=== PATIENT | male | born 1970 | race Caucasian/White ===

== ENCOUNTER 2017-08-15 19:22 | Inpatient (IN) | payer OTHER ==
[~2017-08-15] VITALS: Ht 180.3 cm; Wt 87.0 kg
[2017-08-15 19:26] VITALS: BP 160/93; PULSE 74; RESP 16; TEMP 98; O2SAT 98
[2017-08-15] MEDS ORDERED: SODIUM CHLOR 0.9% 1000 ML INJ 1,000 ML IV SCH (19:40)
--- NOTE | 2017-08-15 19:40 | PD ---
HPI Chief Complaint: GI Complaint Time Seen by Provider: 19:29 Travel History International Travel<30 days: No Contact w/Intl Traveler<30days: No History of Present Illness HPI PATIENT COMPLAINTS OF UPPER ABDOMINAL PAIN, NONRADIATING, 04/15, ASSOC WITH N/V AND UNABLE TO KEEP FOOD/LIQUID DOWN SINCE WEDNESDAY. WORSENED BY EATING/DRINKING, NOT REALLY RELIEVED BY ANYTHING SPECIFIC. APPARENTLY NOTED HIS URINE WAS ORANGE LOOKING AND HIS STOOL WAS WHITISH LOOKING, THIS CONCERNED HIM AND MADE HIM WONDERED IF HE WAS DEHYDRATED CHART AND RN NOTES REVIEWED ALL:NKDA PSHX: GASTRIC BYPASS BECAUSE OF "GASTROPARESIS" AND APPARENTLY THE OPENING IS SHRINKING AND DOING STRETCHING OR STENTING OF IT HAS NOT HELPED AND HE WILL HAVE REVISION [facility]ING [facility] Social History Tobacco Use: No Allergies-Medications (Allergen,Severity, Reaction): Coded Allergies: No Known Allergies (Unverified , 08/15/17) Reported Meds & Prescriptions Reported Meds & Active Scripts Active Reported Transderm-Scop (Scopolamine) 1.5MG/3DAY Dis Pantoprazole (Pantoprazole Sodium) 40 Mg Tab 40 Mg PO DAILY Metoclopramide (Metoclopramide HCl) 10 Mg Tab 10 Mg PO QID Review of Systems General / Constitutional: No: Fever Eyes: No: Visual changes HENT: No: Headaches Cardiovascular: No: Chest Pain or Discomfort Respiratory: No: Shortness of Breath Gastrointestinal: Positive: Nausea, Vomiting, Abdominal Pain Genitourinary: No: Dysuria Musculoskeletal: No: Pain Skin: No Rash Neurologic: No: Weakness Psychiatric: No: Depression Endocrine: No: Polydipsia Hematologic/Lymphatic: No: Easy Bruising Physical Exam Narrative GENERAL: SKIN: Warm and dry. HEAD: Atraumatic. Normocephalic. EYES: Pupils equal and round. No scleral icterus. No injection or drainage. ENT: No nasal bleeding or discharge. Mucous membranes pink and moist. NECK: Trachea midline. No JVD. CARDIOVASCULAR: Regular rate and rhythm. RESPIRATORY: No accessory muscle use. Clear to auscultation. Breath sounds equal bilaterally. GASTROINTESTINAL: Abdomen soft, non-tender, nondistended. HYPOACTIVE BUT PRESENT BOWEL SOUNDS MUSCULOSKELETAL: Extremities without clubbing, cyanosis, or edema. No obvious deformities. NEUROLOGICAL: Awake and alert. No obvious cranial nerve deficits. Motor grossly within normal limits. Five out of 5 muscle strength in the arms and legs. Normal speech. PSYCHIATRIC: Appropriate mood and affect; insight and judgment normal. Data Data Last Documented VS Vital Signs Date Time Temp Pulse Resp B/P (MAP) Pulse Ox O2 Delivery O2 Flow Rate FiO2 08/15/17 21:18 78 16 143/83 (103) 97 Room Air 08/15/17 19:26 98.0 Orders Orders Complete Blood Count With Diff (08/15/17 19:40) Comprehensive Metabolic Panel (08/15/17 19:40) Lipase (08/15/17 19:40) Ct Abd/Pel W/O Iv Contrast (08/15/17 19:40) Iv Access Insert/Monitor (08/15/17 19:40) Ecg Monitoring (08/15/17 19:40) Oximetry (08/15/17 19:40) NPO (08/15/17 19:40) Morphine Inj (Morphine Inj) (08/15/17 19:45) Ondansetron Inj (Zofran Inj) (08/15/17 19:45) Sodium Chlor 0.9% 1000 Ml Inj (Ns 1000 M (08/15/17 19:40) Sodium Chloride 0.9% Flush (Ns Flush) (08/15/17 19:45) Vital Signs (Adult) Q4H (08/15/17 21:11) Activity Oob With Assistance (08/15/17 21:11) Bedside Glucose IRIS.CSUGAR (08/15/17 21:11) Sodium Chlor 0.9% 1000 Ml Inj (Ns 1000 M (08/15/17 21:11) Sodium Chloride 0.9% Flush (Ns Flush) (08/15/17 21:15) Sodium Chloride 0.9% Flush (Ns Flush) (08/16/17 09:00) Ondansetron Inj (Zofran Inj) (08/15/17 21:15) Comprehensive Metabolic Panel (08/16/17 06:00) Complete Blood Count With Diff (08/16/17 06:00) Case Management Consult (08/15/17 21:11) Scd Bilateral/Knee High IRIS.BID (08/15/17 21:11) Naloxone Inj (Narcan Inj) (08/15/17 21:15) Docusate Sodium-Senna (Niru-Colace) (08/16/17 09:00) Magnesium Hydroxide Liq (Milk Of Magnesi (08/15/17 21:15) Sennosides (Senokot) (08/15/17 21:15) Bisacodyl Supp (Dulcolax Supp) (08/15/17 21:15) Lactulose Liq (Lactulose Liq) (08/15/17 21:15) Admit Order (Ed Use Only) (08/15/17 21:19) Labs Laboratory Tests Test 08/15/17 20:00 White Blood Count 6.9 TH/MM3 Red Blood Count 5.31 MIL/MM3 Hemoglobin 14.8 GM/DL Hematocrit 46.3 % Mean Corpuscular Volume 87.4 FL Mean Corpuscular Hemoglobin 27.8 PG Mean Corpuscular Hemoglobin Concent 31.8 % Red Cell Distribution Width 14.7 % Platelet Count 354 TH/MM3 Mean Platelet Volume 7.6 FL Neutrophils (%) (Auto) 68.6 % Lymphocytes (%) (Auto) 17.6 % Monocytes (%) (Auto) 10.9 % Eosinophils (%) (Auto) 1.8 % Basophils (%) (Auto) 1.1 % Neutrophils # (Auto) 4.7 TH/MM3 Lymphocytes # (Auto) 1.2 TH/MM3 Monocytes # (Auto) 0.8 TH/MM3 Eosinophils # (Auto) 0.1 TH/MM3 Basophils # (Auto) 0.1 TH/MM3 CBC Comment DIFF FINAL Differential Comment Blood Urea Nitrogen 13 MG/DL Creatinine 1.10 MG/DL Random Glucose 106 MG/DL Total Protein 8.3 GM/DL Albumin 3.5 GM/DL Calcium Level 8.5 MG/DL Alkaline Phosphatase 195 U/L Aspartate Amino Transf (AST/SGOT) 207 U/L Alanine Aminotransferase (ALT/SGPT) 532 U/L Total Bilirubin 4.4 MG/DL Sodium Level 136 MEQ/L Potassium Level 3.7 MEQ/L Chloride Level 101 MEQ/L Carbon Dioxide Level 27.1 MEQ/L Anion Gap 8 MEQ/L Estimat Glomerular Filtration Rate 72 ML/MIN Lipase 180 U/L [facility] Medical Decision Making Medical Screen Exam Complete: Yes Emergency Medical Condition: Yes Medical Record Reviewed: Yes Differential Diagnosis SBO V ILEUS V BILIARY OBSTRUCTION V PANCREATITIS Narrative Course lft's , alkphos c/w obstructive biliary pattern, normal lipase, ct neg for sbo/ illeu/ however did show cbd dilation...patient will be admitted for further evaluation Physician Communication Physician Communication d/w hepas for further care Diagnosis Primary Impression: Choledocholithiasis with obstruction Qualified Codes: K80.51 - Calculus of bile duct without cholangitis or cholecystitis with obstruction Admitting Information Admitting Physician Requests: Admit Clifford Porter MD Aug 15, 2017 19:40
[2017-08-15] MEDS ORDERED: PANT40TA3 PO (19:41)
[2017-08-15] MEDS ORDERED: SCOP1PAT2 (19:41)
[2017-08-15] MEDS ORDERED: METO10TA PO (19:41)
[2017-08-15] MEDS ORDERED: MORPHINE SULFATE 4 MG/ML INJ IV PUSH ONE (19:45)
[2017-08-15] MEDS ORDERED: ONDANSETRON HCL 4 MG/2 ML VIAL IVP ONE ×2 (19:45→21:45)
[2017-08-15] MEDS ORDERED: SODIUM CHLORIDE 0.9% FLUSH 10 ML FLUSH IV FLUSH PRN (19:45)
[2017-08-15 20:19] VITALS: BP 141/86; PULSE 76; RESP 16; O2SAT 96
--- NOTE | 2017-08-15 20:20 | RADRPT ---
EXAM DATE/TIME: 08/15/2017 19:49 [facility] COMPARISON: No previous studies available for comparison. INDICATIONS : Right upper abdominal pain. Nausea. Vomiting. ORAL CONTRAST: No oral contrast ingested. RADIATION DOSE: 21.92 CTDIvol (mGy) MEDICAL HISTORY : Gastroparesis. SURGICAL HISTORY : Gastric bypass. ENCOUNTER: Initial ACUITY: 2 days PAIN SCALE: 7/10 LOCATION: Right upper quadrant TECHNIQUE: Volumetric scanning of the abdomen and pelvis was performed. Using automated exposure control and ad justment of the mA and/or kV according to patient size, radiation dose was kept as low as reasonably achievable to obtain optimal diagnostic quality images. DICOM format image data is available electro nically for review and comparison. FINDINGS: LOWER LUNGS: The visualized lower lungs are clear. LIVER: There is decreased density seen throughout the liver. No focal hepatic lesions are seen. The gallblad arturo is unremarkable. The common bile duct appears prominent measuring 1.0 cm. SPLEEN: Normal size without lesion. PANCREAS: Within normal limits. KIDNEYS: Normal in size and shape. There is no mass, stone, or hydronephrosis. ADRENAL GLANDS: Within normal limits. VASCULAR: There is no aortic aneurysm. BOWEL/MESENTERY: The patient is status post distal gastrectomy. There is a bowel anastomosis sutures in the left upper quadrant in the small bowel. There is prominent debris within the small bowel at the anastomosis. Th e small bowel is mildly distended at the anastomosis measuring 4.5 cm in diameter. Bowel wall thicken ing is not seen. Dilatation of other segments of the bowel is not seen. ABDOMINAL WALL: There is diastases of the rectus muscles. There appears be minimal hernia seen in the midline above t he umbilicus containing the anterior wall of a portion of the small bowel. No dilatation or obstructi on is seen. There is also a small hernia seen just to the left of midline below the umbilicus contain ing the anterior wall of the small bowel. The patient has evidence of a prior midline incision. RETROPERITONEUM: There is no lymphadenopathy. BLADDER: No wall thickening or mass. REPRODUCTIVE: Within normal limits. INGUINAL: There is no lymphadenopathy or hernia. MUSCULOSKELETAL: Within normal limits for patient age. CONCLUSION: 1. Status post distal gastrectomy with a gastroenteric anastomosis. 2. There are bowel sutures in the left upper quadrant of the proximal small bowel with some dilatatio n of this segment with prominent debris within this portion of the small bowel in the left upper quad rant. The remaining small bowel is not dilated or thickened. 3. Dilatation of the common bile duct. A cause of this is not seen. 4. Evidence of prior midline incision with minimal hernias. 5. Hepatic steatosis. Neel Alexander MD on August 15, 2017 at 20:10 Board Certified Radiologist. This report was verified electronically.
[2017-08-15 20:24] LABS: AUTOMATED NEUTROPHIL # 4.7 TH/MM3 (1.8-7.7); BASOPHIL # 0.1 TH/MM3 (0-0.2); BASOPHIL % 1.1 % (0.0-2.0); EOSINOPHIL # 0.1 TH/MM3 (0-0.4); EOSINOPHIL % 1.8 % (0.0-4.0); HEMATOCRIT 46.3 % (39.0-51.0); HEMOGLOBIN 14.8 GM/DL (13.0-17.0); LYMPH % 17.6 % (9.0-44.0); LYMPHOCYTE # 1.2 TH/MM3 (1.0-4.8); MEAN CELL VOLUME 87.4 FL (80.0-100.0); MEAN CORPUSCULAR HEMOGLOBIN 27.8 PG (27.0-34.0); MEAN CORPUSCULAR HGB CONC 31.8 % (32.0-36.0); MEAN PLATELET VOLUME 7.6 FL (7.0-11.0); MONO % 10.9 % (0.0-8.0); MONOCYTE # 0.8 TH/MM3 (0-0.9); NEUT % 68.6 % (16.0-70.0); PLATELET COUNT 354 TH/MM3 (150-450); RED BLOOD COUNT 5.31 MIL/MM3 (4.50-5.90); RED CELL DISTRIBUTION WIDTH 14.7 % (11.6-17.2); WHITE BLOOD COUNT 6.9 TH/MM3 (4.0-11.0)
[2017-08-15 20:47] LABS: CHLORIDE 101 MEQ/L (98-107); SODIUM (NA) 136 MEQ/L (136-145)
[2017-08-15 20:50] LABS: CALCIUM 8.5 MG/DL (8.5-10.1)
[2017-08-15 20:51] LABS: ALBUMIN 3.5 GM/DL (3.4-5.0); BICARBONATE 27.1 MEQ/L (21.0-32.0); BLOOD UREA NITROGEN 13 MG/DL (7-18); GLUCOSE,RANDOM 106 MG/DL (74-106); LIPASE 180 U/L (73-393)
[2017-08-15 20:54] LABS: ALT (GPT) 532 U/L (12-78); AST (GOT) 207 U/L (15-37); GLOMERULAR FILTRATION RATE 72 ML/MIN (>89)
[2017-08-15 20:55] LABS: TOTAL BILIRUBIN ADULT 4.4 MG/DL (0.2-1.0); TOTAL PROTEIN 8.3 GM/DL (6.4-8.2)
[2017-08-15 20:56] LABS: ALKALINE PHOSPHATASE 195 U/L (45-117)
[2017-08-15] MEDS ORDERED: MAGNESIUM HYDROXIDE SUSP 30 ML CUP PO PRN (21:15)
[2017-08-15] MEDS ORDERED: SENNOSIDES 8.6 MG TAB PO PRN (21:15)
[2017-08-15] MEDS ORDERED: NALOXONE HCL 0.4 MG/ML AMP IV PUSH PRN (21:15)
[2017-08-15] MEDS ORDERED: BISACODYL 10 MG SUPP RECTAL PRN (21:15)
[2017-08-15] MEDS ORDERED: LACTULOSE SYRUP 20 GM/30 ML CUP PO PRN (21:15)
[2017-08-15 21:18] VITALS: BP 143/83; PULSE 78; RESP 16; O2SAT 97
[2017-08-15] MEDS: SODIUM CHLOR 0.9% 1000 ML INJ 1,000 ML IV SCH (21:44)
[2017-08-15] MEDS ORDERED: HYDROmorphone HCL PF 2 MG/ML VIAL IVS ONE (21:45)
[2017-08-15 21:56] VITALS: BP 129/86; PULSE 91; RESP 18; O2SAT 96
[2017-08-15 22:22] VITALS: BP 129/86
[2017-08-15] MEDS: HYDROmorphone HCL PF 1 MG/ML VIAL IV PRN (23:35)
[2017-08-16] VITALS (7 sets, daily range): BP systolic 110–151; BP diastolic 65–96; PULSE 65–86; RESP 16; TEMP 97.4–99; O2SAT 94–98
[2017-08-16 05:49] LABS: AUTOMATED NEUTROPHIL # 4.5 TH/MM3 (1.8-7.7); BASOPHIL % 0.6 % (0.0-2.0); EOSINOPHIL # 0.1 TH/MM3 (0-0.4); EOSINOPHIL % 1.3 % (0.0-4.0); HEMATOCRIT 40.9 % (39.0-51.0); HEMOGLOBIN 13.1 GM/DL (13.0-17.0); MEAN CELL VOLUME 87.5 FL (80.0-100.0); MEAN CORPUSCULAR HEMOGLOBIN 27.9 PG (27.0-34.0); MEAN CORPUSCULAR HGB CONC 31.9 % (32.0-36.0); MEAN PLATELET VOLUME 7.2 FL (7.0-11.0); MONO % 11.8 % (0.0-8.0); MONOCYTE # 0.8 TH/MM3 (0-0.9); NEUT % 70.3 % (16.0-70.0); PLATELET COUNT 309 TH/MM3 (150-450); RED BLOOD COUNT 4.68 MIL/MM3 (4.50-5.90); RED CELL DISTRIBUTION WIDTH 14.9 % (11.6-17.2); WHITE BLOOD COUNT 6.4 TH/MM3 (4.0-11.0)
[2017-08-16 05:51] LABS: CHLORIDE 105 MEQ/L (98-107); SODIUM (NA) 139 MEQ/L (136-145)
[2017-08-16] MEDS: SODIUM CHLOR 0.9% 1000 ML INJ 1,000 ML IV SCH ×3 (05:51→17:59)
[2017-08-16 05:55] LABS: CALCIUM 7.8 MG/DL (8.5-10.1)
[2017-08-16 06:10] LABS: ALBUMIN 2.8 GM/DL (3.4-5.0); ALKALINE PHOSPHATASE 166 U/L (45-117); ALT (GPT) 416 U/L (12-78); AST (GOT) 152 U/L (15-37); BICARBONATE 26.6 MEQ/L (21.0-32.0); BLOOD UREA NITROGEN 10 MG/DL (7-18); CREATININE 0.94 MG/DL (0.60-1.30); GLOMERULAR FILTRATION RATE 86 ML/MIN (>89); GLUCOSE,RANDOM 97 MG/DL (74-106); TOTAL PROTEIN 6.8 GM/DL (6.4-8.2)
--- NOTE | 2017-08-16 08:37 | HHI.HP ---
[facility] Vasyl Iglesias, DO Admission Diagnosis BILIARY OBSTRUCTION POSSIBLE CHOLEDOCHOLITHIASIS Diagnoses: Chief Complaint: abd pain Travel History International Travel<30 Days: No Contact w/Intl Traveler <30 Da: No Traveled to Known Affected Are: No History of Present Illness 47 y/o WM being admitted for abd pain. Pt was in his USOH 3 days ago when he was experiencing his typical recurrence of nausea and vomiting and abdominal pain. He says he has bouts of these symptoms periodically due to his chronic complex GI history. However this episode was followed by pain that was significant up to a 8-9 out of 10 and he felt some fevers and chills. He said that his symptoms would resolve after having his emesis which he says was relatively clear and only consisted of his meal. The following days he had intermittent nausea and abdominal pain associated with meals but no vomiting. However a new finding that occurred was that he noticed that his stool became very pale on multiple bowel movements and this ultimately prompted him to come to the emergency department. Patient says he usually has hydrocodone pills at home but he did not take any this time. He says his pain was worsened with movement and constantly repositioning. Pt denies any melena or BRBPR. No dysuria. Currently pain is much improved. Patient states he has a complex GI history including a distal gastrectomy yrs ago (for gastroparesis) followed 2 days later by repair of to perforated ulcers. He then reports having at least 3 other surgeries after that that involved "biliary leaks" - he is unable to specify exactly what was leaking and from what organ. He says he has had all these operations done at [facility] in [place]. His GI doc is Chloe Roblero and his gen surgeon down here is Dr. Ceferino Michelle. 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 EYES: No scleral icterus. No injection or drainage. ENT: No nasal bleeding or discharge. Mucous membranes pink and moist. CARDIOVASCULAR: Regular rate and rhythm. no murmurs RESPIRATORY: No accessory muscle use. Clear to auscultation. Breath sounds equal bilaterally. GASTROINTESTINAL: Abdomen soft, non-tender on current exam, nondistended. Extremities: No clubbing, cyanosis, or edema. No obvious deformities. MUSCULOSKELETAL: Extremities without clubbing, cyanosis, or edema. No obvious deformities. grossly intact ROM with 5/5 strength in upper and lower extremities proximally NEUROLOGICAL: Awake and alert. No obvious cranial nerve deficits. No facial droop nor slurred speech noted. PSYCHIATRIC: Appropriate mood and affect; insight and judgment normal. Laboratory Laboratory Tests Test 08/15/17 20:00 08/16/17 05:20 White Blood Count 6.9 6.4 Red Blood Count 5.31 4.68 Hemoglobin 14.8 13.1 Hematocrit 46.3 40.9 Mean Corpuscular Volume 87.4 87.5 Mean Corpuscular Hemoglobin 27.8 27.9 Mean Corpuscular Hemoglobin Concent 31.8 31.9 Red Cell Distribution Width 14.7 14.9 Platelet Count 354 309 Mean Platelet Volume 7.6 7.2 Neutrophils (%) (Auto) 68.6 70.3 Lymphocytes (%) (Auto) 17.6 16.0 Monocytes (%) (Auto) 10.9 11.8 Eosinophils (%) (Auto) 1.8 1.3 Basophils (%) (Auto) 1.1 0.6 Neutrophils # (Auto) 4.7 4.5 Lymphocytes # (Auto) 1.2 1.0 Monocytes # (Auto) 0.8 0.8 Eosinophils # (Auto) 0.1 0.1 Basophils # (Auto) 0.1 0.0 CBC Comment DIFF FINAL DIFF FINAL Differential Comment Blood Urea Nitrogen 13 10 Creatinine 1.10 0.94 Random Glucose 106 97 Total Protein 8.3 6.8 Albumin 3.5 2.8 Calcium Level 8.5 7.8 Alkaline Phosphatase 195 166 Aspartate Amino Transf (AST/SGOT) 207 152 Alanine Aminotransferase (ALT/SGPT) 532 416 Total Bilirubin 4.4 4.0 Sodium Level 136 139 Potassium Level 3.7 3.8 Chloride Level 101 105 Carbon Dioxide Level 27.1 26.6 Anion Gap 8 7 Estimat Glomerular Filtration Rate 72 86 Lipase 180 Result Diagram: 08/16/1720 08/16/17 0520 Imaging Last Impressions Gall Bladder Ultrasound 08/16/17 0000 Signed Impressions: Service Date/Time: Wednesday, August 16, 2017 07:47 - CONCLUSION: 1. Contracted gallbladder containing multiple gallstones. 2. Dilated common bile duct is 7 mm. 3. Echogenic liver which can be seen with moderate hepatic steatosis. Kj Gutierrez MD Abdomen/Pelvis CT 08/15/17 194 Signed Impressions: Service Date/Time: Tuesday, August 15, 2017 19:49 - CONCLUSION: 1. Status post distal gastrectomy with a gastroenteric anastomosis. 2. There are bowel sutures in the left upper quadrant of the proximal small bowel with some dilatation of this segment with prominent debris within this portion of the small bowel in the left upper quadrant. The remaining small bowel is not dilated or thickened. 3. Dilatation of the common bile duct. A cause of this is not seen. 4. Evidence of prior midline incision with minimal hernias. 5. Hepatic steatosis. MD Corby Lini VTE Risk Assessment Caprini VTE Risk Assessment: Mod/High Risk (score >= 2) Caprini Risk Assessment Model Point Value = 1 Point Value = 2 Point Value = 3 Point Value = 5 Age 41-60 Minor surgery BMI > 25 kg/m2 Swollen legs Varicose veins or History of unexplained or recurrent spontaneous Oral contraceptives or hormone replacement Sepsis (< 1 month) Serious lung disease, including pneumonia (< 1 month) Abnormal pulmonary function Acute myocardial infarction Congestive heart failure (< 1 month) History of inflammatory bowel disease Medical patient at bed rest Age 61-74 Arthroscopic surgery Major open surgery (> 45 min) Laparoscopic surgery (> 45 min) Malignancy Confined to bed (> 72 hours) Immobilizing plaster cast Central venous access Age >= 75 History of VTE Family history of VTE Factor V Leiden Prothrombin [id number] Lupus anticoagulant Anticardiolipin antibodies Elevated serum homocysteine Heparin-induced thrombocytopenia Other congenital or acquired thrombophilia Stroke (< 1 month) Elective arthroplasty Hip, pelvis, or leg fracture Acute spinal cord injury (< 1 month) Prophylaxis Regimen Total Risk Factor Score Risk Level Prophylaxis Regimen 0-1 Low Early ambulation 2 Moderate Order ONE of the following: *Sequential Compression Device (SCD) *Heparin 5000 units SQ BID 3-4 Higher Order ONE of the following medications: *Heparin 5000 units SQ TID *Enoxaparin/Lovenox 40 mg SQ daily (WT < 150 kg, CrCl > 30 mL/min) *Enoxaparin/Lovenox 30 mg SQ daily (WT < 150 kg, CrCl > 10-29 mL/min) *Enoxaparin/Lovenox 30 mg SQ BID (WT < 150 kg, CrCl > 30 mL/min) AND/OR *Sequential Compression Device (SCD) 5 or more Highest Order ONE of the following medications: *Heparin 5000 units SQ TID (Preferred with Epidurals) *Enoxaparin/Lovenox 40 mg SQ daily (WT < 150 kg, CrCl > 30 mL/min) *Enoxaparin/Lovenox 30 mg SQ daily (WT < 150 kg, CrCl > 10-29 mL/min) *Enoxaparin/Lovenox 30 mg SQ BID (WT < 150 kg, CrCl > 30 mL/min) AND *Sequential Compression Device (SCD) Assessment and Plan Assessment and Plan abd pain - CT abd which I independently reviewed shows mild to moderate stool retention, pancreas does show acute edema. Official read indicates some dilatation of proximal small bile with "debris," dilatation of the common bile duct with no cause seen, and hepatic steatosis - We'll obtain gallbladder ultrasound for further elucidation of biliary tree given elevated LFTs and bilirubin - Consulting patient's hot saw operator - Aggressive IV hydration with IV pain control GERD - PPI DVT prevention -SCDs Addendum: Discussed case with patient's hot saw operator, will cover with antibiotics to prevent or minimize any chance of a sending cholangitis. Per hot saw operator, patient strictures likely so collapsed that it will be impractical to get an ERCP done. We'll order an MRCP. Case also discussed with Dr. Michelle from general surgery, plan to take to operating room, we'll transfer patient to [facility]. Physician Certification 2 Midnight Certification Type: Admission for Inpatient Services Order for Inpatient Services The services are ordered in accordance with Medicare regulations or non- Medicare payer requirements, as applicable. In the case of services not specified as inpatient-only, they are appropriately provided as inpatient services in accordance with the 2-midnight benchmark. Estimated LOS (days): 2 2 days is the estimated time the patient will need to remain in the hospital, assuming treatment plan goals are met and no additional complications. Post-Hospital Plan: Home Jesus Piper MD Aug 16, 2017 08:37
--- NOTE | 2017-08-16 08:45 | RADRPT ---
EXAM DATE/TIME: 08/16/2017 07:47 [facility] COMPARISON: No previous studies available for comparison. INDICATIONS : Common bile duct dilatation. Nausea and vomiting. MEDICAL HISTORY : Gastroparesis. Cardiac disorder. Hypercholesterol. GERD. SURGICAL HISTORY : Gastric bypass. ENCOUNTER: Subsequent ACUITY: 2 months PAIN SCORE: 0/10 LOCATION: Right upper quadrant MEASUREMENTS: LIVER: 15.7 cm length COMMON DUCT: 7 mm RIGHT KIDNEY: 10.7 x 5.0 x 5.0 cm FINDINGS: LIVER: Diffuse echogenic without focal lesion there is ductal dilatation. Hepatopedal flow. COMMON DUCT: Dilated without stone visualized. GALLBLADDER: Contains multiple stones, demonstrates wall thickening or pericholecystic fluid. PANCREAS: Not well seen. RIGHT KIDNEY: No evidence of hydronephrosis, stone, or mass. CONCLUSION: 1. Contracted gallbladder containing multiple gallstones. 2. Dilated common bile duct is 7 mm. 3. Echogenic liver which can be seen with moderate hepatic steatosis. Kj Gutierrez MD on August 16, 2017 at 8:41 Board Certified Radiologist. This report was verified electronically.
[2017-08-16] MEDS: SODIUM CHLORIDE 0.9% FLUSH 10 ML FLUSH IV FLUSH SCH ×2 (09:00→20:39)
[2017-08-16] MEDS ORDERED: INFLUENZA VIRUS VACCINE (QUADRIVALENT) 0.5 ML SYR IM ONE (09:00)
[2017-08-16] MEDS ORDERED: PNEUMOCOCCAL POLYVALENT INJ 25 MCG/0.5 ML SYR IM ONE (09:00)
[2017-08-16] MEDS: PANTOPRAZOLE SOD 40 MG DELAYED RELEASE TAB PO SCH (09:47)
[2017-08-16] MEDS: DOCUSATE SODIUM 50 MG/SENNA 8.6 MG TAB PO SCH ×2 (09:48→20:39)
--- NOTE | 2017-08-16 11:59 | MB ---
cc: TRINIDAD TENA MD, HAMMAD M. MD PASRICHA, SUNIL P. M.D. DATE OF CONSULTATION 08/16/2017 DATE OF 1970 REASON FOR CONSULTATION I was asked to see the patient by Dr. Piper for evaluation of abdominal pain and abnormal LFTs. HISTORY The patient is a pleasant 47-year white male who I had seen in the office for a left upper quadrant pain. Workup revealed a stenotic gastroenteric anastomosis. This was dilated with a scope and he actually felt better but his symptoms came back and Dr. Allen attempted a repeat upper endoscopy to dilate the gastroenteric anastomosis but his stomach was so full of food that he really could not find the anastomosis. At this point the patient was sent to Dr. Ceferino Michelle for consideration of revision of this anastomosis. The patient has a complex GI history to include gastric bypass surgery co complicate soon afterwards with anastomotic ulcer and he had a revision of this area.. It looks like he had a gastrojejunostomy but there is also the possibility of Billroth-II anastomose at one point. The patient was seen by Dr. Michelle and apparently the patient was having more pain but now the pain is more in the right upper quadrant. It is sharp in nature, associated with nausea and vomiting where he actually vomited food. After he vomited he felt better. The pain worsened and he came to the emergency room and he was subsequently admitted. A CAT scan did show a dilated bile duct, approximately 1 cm in size and ultrasound of the abdomen did show contracted gallbladder with gallstones and a dilated CBD. His LFTs are abnormal in a cholestatic pattern - see below. He generally feels somewhat better- there is less pain. He had some fever and chills as an outpatient but he feels better in this regard now. There is no no melena or hematochezia, diarrhea or constipation. He did have yenny-colored stools as an outpatient. PAST HISTORY 1. Left upper quadrant pain, nausea and vomiting. 2. Chronic diverticulosis. 3. GERD. 4. He has had gastritis. 5. Gastrojejunostomy with anastomotic stricture. 6. Esophagitis. 7. Nausea, constipation. 8. Hepatic steatosis. 9. Previous peptic ulcer disease. PAST SURGICAL HISTORY As mentioned above, gastric bypass complicated by anastomotic ulcer requiring revision. MEDICATIONS AN OUTPATIENT 1. Iron. 2. Nexium. 3. Pantoprazole. 4. Vitamin C. 5. Multivitamin. MEDICATIONS AN INPATIENT 1. Promethazine. 2. Pantoprazole. 3. Zofran. 4. Milk of Magnesia. 5. Senokot. 6. Lactulose. ALLERGIES No known drug allergies. FAMILY HISTORY Not contributory for any colon cancer or colon polyps. REVIEW OF SYSTEMS CONSTITUTIONAL: As mentioned, just some fever and chills subjectively. No weight loss. CARDIOVASCULAR: No chest pain, palpitation of shortness of breath. GASTROINTESTINAL: Please see above. Otherwise unremarkable ten-point review of systems. PHYSICAL EXAMINATION VITAL SIGNS: Blood pressure is 115/65, pulse of 80, respiratory rate 16, temperature 97.5. GENERAL: He is a pleasant, overweight white male resting comfortably at this time. The patient is in no acute GI distress. He has he has received pain medications, however. HEENT: His pupils are equal, round, reactive to light. No obvious scleral icterus. Oropharynx shows he has dental caries. No tongue deviation or candidal lesion. Hearing is intact. NECK: Supple. No thyromegaly or lymphadenopathy. LUNGS: Clear to auscultation and percussion. HEART: Regular rate and rhythm. No gross murmurs are heard. ABDOMEN: Soft. No tenderness in the right upper quadrant, no rebound tenderness, organomegaly or masses. No Xiong sign. Scars are noted that have some incisional hernias. RECTAL: Not done. EXTREMITIES: No clubbing, cyanosis or edema. NEUROLOGIC: Cranial nerves II through XII are grossly intact. He is alert and oriented x 3. SKIN: Warm and moist. DATA BASE His ultrasound of the abdomen revealed a fatty liver, common bile duct dilated to 7 mm and a contracted gallbladder containing multiple gallstones. A CT scan of the abdomen done without contrast reveals distant gastrectomy with a gastroenteric anastomosis and there is a proximal small bowel from dilatation with debris in it. There is a 1-cm common bile duct stone, midline incisional hernias and fatty liver. The blood work revealed on admission a total bilirubin of 4.4, SGOT of 207, SGPT of 532, alkaline phosphatase is 195 and today his alk phos dropped to 156. SGPT is 416, SGOT was 152, total bilirubin of 4.0. His lipase is 180 which is normal. BUN of 10, creatinine 0.94, potassium 3.8. White blood cell count today 6400, hemoglobin of 13.1, hematocrit of 40.9, MCV 87.5, platelet count 309,000. SOCIAL HISTORY He currently does not smoke or drink. IMPRESSION 1. Right upper quadrant pain that is better at this time. This may be related to the gallbladder stones and possible common bile duct stones. 2. Dilated bile duct - No stones seen on ultrasound. He may have passed the stone. 3. LFT status very suggestive of a biliary process. Cannot rule out any parenchymal liver disease. 4. History of gastroenteric anastomotic stricture. RECOMMENDATIONS 1. I agree with MRCP. 2. Empiric antibiotics for possible ascending cholangitis. 3. I would consult General Surgery - The patient has seen Dr. Ceferino Michelle in the past. If the MRCP did show common bile duct stone, due to the anatomy an ERCP would not be possible. Consideration would be surgery as well as a PTC. 4. Further recommendations would depend on what the MRCP shows. Jv Lee MD SP/SSB /10:50 AM /11:04 AM BABATUNDE
[2017-08-16] MEDS: CEFEPIME INJ 2,000 MG in SODIUM CHLORIDE 0.9% INJ 100 ML IV SCH ×2 (12:37→20:39)
[2017-08-16] MEDS: metroNIDAZOLE 500 MG INJ 100 ML IV SCH ×2 (12:38→20:39)
--- NOTE | 2017-08-16 14:05 | RADRPT ---
EXAM DATE/TIME: 08/16/2017 11:18 [facility] COMPARISON: No previous studies available for comparison. INDICATIONS : Abdominal pain. MEDICAL HISTORY : None. SURGICAL HISTORY : Gastric bypass. ENCOUNTER: Initial ACUITY: 1 week PAIN SCORE: 9/10 LOCATION: Right upper quadrant TECHNIQUE: Multiplanar, multisequence magnetic resonance imaging of the abdomen was performed. High-resolution 3D dataset was utilized to reconstruct maximum-intensity projection (MIP) images. FINDINGS: INTRAHEPATIC BILE DUCTS: Within normal limits. No significant anatomical variant is present. EXTRAHEPATIC BILE DUCTS: The common bile duct measures 8.4 mm. The distal common bile duct is blunted and is a slight crescent shaped filling defect. GALLBLADDER: Multiple small stones are identified. There is no evidence of distention or wall thickening. LIVER: Patchy areas of decreased signal intensity are identified on opposed phased imagin. There are no foca l suspicious lesions. PANCREAS: The main pancreatic duct is normal in size. There is no significant anatomical variant. Signal inte nsity is within normal limits. No mass is visualized on this non-contrast exam. OTHER: The remaining visualized structures demonstrate no acute abnormality on this non-contrast exam. CONCLUSION: 1. Cholelithiasis 2. Mildly distended common bile duct with suspected filling defect at the level of the ampulla. 3. Axial stenosis. Jhonatan Fish MD on August 16, 2017 at 13:47 Board Certified Radiologist. This report was verified electronically.
[2017-08-16] MEDS: HYDROmorphone HCL PF 1 MG/ML VIAL IV PRN (15:59)
[2017-08-16] MEDS ORDERED: HYDROmorphone HCL PF 2 MG/ML VIAL IV PUSH ONE (16:15)
[2017-08-16] MEDS: ONDANSETRON HCL 4 MG/2 ML VIAL IVP PRN (17:59)
[2017-08-16] MEDS: SODIUM CHLORIDE 0.9% FLUSH 10 ML FLUSH IV FLUSH PRN (17:59)
[2017-08-16] MEDS: oxyCODONE/ACETAMINOPHEN 10 MG/325 MG TAB PO PRN (18:21)
[2017-08-17] VITALS: BP 112/56; PULSE 67; RESP 18; TEMP 98; O2SAT 96
[2017-08-17] MEDS: CEFEPIME INJ 2,000 MG in SODIUM CHLORIDE 0.9% INJ 100 ML IV SCH ×3 (03:14→20:36)
[2017-08-17] MEDS: SODIUM CHLOR 0.9% 1000 ML INJ 1,000 ML IV SCH ×3 (03:14→22:39)
[2017-08-17 04:00] VITALS: BP 110/74; PULSE 67; RESP 14; TEMP 97.8; O2SAT 96
[2017-08-17] MEDS: metroNIDAZOLE 500 MG INJ 100 ML IV SCH ×3 (04:20→20:46)
[2017-08-17 08:00] VITALS: BP 130/72; PULSE 60; RESP 20; TEMP 98; O2SAT 96
--- NOTE | 2017-08-17 08:42 | HHI.PR ---
Subjective Remarks Follow-up abdominal pain, dilated bile duct, elevated LFTs. Patient states that his pain is much better. He denies nausea or vomiting. Objective Vitals Vital Signs Date Time Temp Pulse Resp B/P (MAP) Pulse Ox O2 Delivery O2 Flow Rate FiO2 08/17/17 08:15 Room Air 08/17/17 04:00 97.8 67 14 110/74 (86) 96 08/17/17 04:00 Room Air 08/17/17 00:00 98.0 67 18 112/56 (74) 96 08/17/17 00:00 Room Air 08/16/17 20:00 98.1 86 16 131/68 (89) 95 08/16/17 20:00 Room Air 08/16/17 17:54 99.0 83 16 137/78 (97) 94 08/16/17 16:00 97.4 65 16 151/96 (114) 98 08/16/17 12:00 98.5 74 16 117/84 (95) 98 I/O 08/16/17 08/16/17 08/16/17 08/17/17 08/17/17 08/17/17 07:00 15:00 23:00 07:00 15:00 23:00 Intake Total 999 ml 1030 ml 200 ml 1200 ml Balance 999 ml 1030 ml 200 ml 1200 ml IV Total 999 ml 1030 ml 200 ml 1200 ml # Voids 1 Result Diagram: 08/16/17 0520 08/16/17 0520 Imaging Last Impressions Gall Bladder Ultrasound 08/16/17 0000 Signed Impressions: Service Date/Time: Wednesday, August 16, 2017 07:47 - CONCLUSION: 1. Contracted gallbladder containing multiple gallstones. 2. Dilated common bile duct is 7 mm. 3. Echogenic liver which can be seen with moderate hepatic steatosis. Kj Gutierrez MD Cholangiopancreatography MRI 08/16/17 0000 Signed Impressions: Service Date/Time: Wednesday, August 16, 2017 11:18 - CONCLUSION: 1. Cholelithiasis 2. Mildly distended common bile duct with suspected filling defect at the level of the ampulla. 3. Axial stenosis. Jhonatan Fish MD Abdomen/Pelvis CT 08/15/17 1940 Signed Impressions: Service Date/Time: Ron, August 15, 2017 19:49 - CONCLUSION: 1. Status post distal gastrectomy with a gastroenteric anastomosis. 2. There are bowel sutures in the left upper quadrant of the proximal small bowel with some dilatation of this segment with prominent debris within this portion of the small bowel in the left upper quadrant. The remaining small bowel is not dilated or thickened. 3. Dilatation of the common bile duct. A cause of this is not seen. 4. Evidence of prior midline incision with minimal hernias. 5. Hepatic steatosis. Neel Alexander MD Objective Remarks General: No acute distress. Heart: Regular rate and rhythm. No murmur. Lungs: Clear to auscultation bilaterally. No wheezes, rales, or rhonchi. Breathing is nonlabored. Abdomen: Soft, nontender, nondistended. Extremities: No lower extremity edema. Psych: Alert and oriented. Procedures None Urinary Catheter: No Vascular Central Line Catheter: No A/P Assessment and Plan 1. Abdominal pain: Patient has a complex history including multiple abdominal procedures in the past. CT of the abdomen shows dilatation of the common bile duct and hepatic steatosis. MRCP shows cholelithiasis and mildly distended common bile duct with suspected filling defect at the level of the ampulla. Appreciate GI recommendations. Abdominal pain has improved significantly. LFTs are trending down. Labs are pending today. General surgery consultation is pending. 2. GERD: Continue PPI. 3. DVT prophylaxis: SCDs. Avoid chemical prophylaxis in anticipation of possible surgical intervention. Discharge Planning Pending surgical evaluation. Oh Ordaz MD Aug 17, 2017 08:41
[2017-08-17] MEDS: SODIUM CHLORIDE 0.9% FLUSH 10 ML FLUSH IV FLUSH SCH ×2 (09:00→20:46)
[2017-08-17] MEDS: DOCUSATE SODIUM 50 MG/SENNA 8.6 MG TAB PO SCH ×2 (09:45→20:42)
[2017-08-17] MEDS: PANTOPRAZOLE SOD 40 MG DELAYED RELEASE TAB PO SCH (09:45)
--- NOTE | 2017-08-17 10:25 | HHI.GIFU ---
GI Follow-up Note Consult Follow-up Subjective: Patient laying in bed comfortably--feeling better. Abd much improved. No N/V Objective: PHYSICAL EXAMINATION: Vitals signs stable No fever HEENT: + jaundice. NECK: Neck is supple, no JVD, no lymphadenopathy. CHEST: Chest is clear to auscultation and percussion. CARDIAC: Regular rate and rhythm with no murmur gallop or rubs. ABDOMEN: Soft, nondistended, nontender; no hepatosplenomegaly; bowel sounds are present in all four quadrants. Scars noted EXTREMITIES: No edema. SKIN: no rash LOAD DISPATCHER LOCAL: alert and oriented times three. Available Data (labs, X- Rays, Procedues) : MRCP- prob CBC stone ASSESSMENT/PLAN: 1. Right upper quadrant pain --better at this time. 2. Dilated bile duct with prob CBD stone (on MRCP) 3. LFT status very suggestive of a biliary process. Cannot rule out any parenchymal liver disease. 4. History of gastroenteric anastomotic stricture. RECOMMENDATIONS 1. Awaiting Surgical service advice 2. Empiric antibiotics for possible ascending cholangitis. 3. Due to patients anatomy an ERCP would not be possible. Consideration would be surgery as well as a PTC (IR) 4. Dr. Mcdermott will see pt tomorrow It was a pleasure seeing Darian Stewart Jr. Thank you for this consult. Entered by: Jv Foy MD Aug 17, 2017 10:25
[2017-08-17 12:00] VITALS: BP 107/68; PULSE 85; RESP 18; TEMP 97.5; O2SAT 96
[2017-08-17] MEDS: ONDANSETRON HCL 4 MG/2 ML VIAL IVP PRN ×2 (12:12→20:43)
--- NOTE | 2017-08-17 12:53 | PD.CONS ---
cc: Ceferino Michelle MD HPI Service General Surgery Consult Requested By Neel SEGUNDO Reason for Consult Abdominal pain; nausea and vomiting Primary Care Physician Vasyl Iglesias DO History of Present Illness This is a 47-year-old male with a past history of gastroparesis status post distal gastrectomy and repair of perforated ulcer with a biliary leak. The patient has had persistent abdominal pain with nausea vomiting over the past few months and has been seen by Dr. Michelle in the office. Arrangements were being made for a surgical intervention such as a possible G/J-tube versus a revision of the gastrojejunostomy with reconstruction. The patient is currently in school and was waiting until a semester ended for any surgical intervention. The patient arrives to the emergency department with a three-day history of abdominal pain with associated nausea vomiting. The patient denies any sick contacts. A CT abdomen and pelvis was obtained which shows status post distal gastrectomy with gastroenteric anastomosis. He does have dilatation of the common bile duct about [address] scan and gallbladder ultrasound. An MRCP also shows cholelithiasis with mild distended common bile duct with suspected filling defect at the level of the ampulla. The patient does have elevated liver enzymes on admission. His pain is controlled using narcotic pain medications at this time. GI has seen the patient and due to patient's anatomy and ERCP would not be possible. A General Surgery consultation has been requested for possible surgical intervention. Review of Systems Constitutional: COMPLAINS OF: Change in appetite Endocrine: DENIES: Polydipsia, Polyuria, Polyphagia Eyes: DENIES: Diplopia Ears, nose, mouth, throat: DENIES: Tinnitus Respiratory: DENIES: Apneas, Cough Cardiovascular: DENIES: Chest pain Gastrointestinal: COMPLAINS OF: Abdominal pain, Nausea, Vomiting Genitourinary: DENIES: Urinary incontinence Musculoskeletal: DENIES: Joint pain Integumentary: DENIES: Abnormal pigmentation Hematologic/lymphatic: DENIES: Bruising Immunologic/allergic: DENIES: Eczema Neurologic: DENIES: Abnormal gait, Headache Psychiatric: DENIES: Confusion, Mood changes Past Family Social History Past Medical History Gastroparesis Past Surgical History Distal gastrectomy Repair of perforated ulcers with biliary leaks Chest tube insertion Reported Medications Scopolamine patch Protonix Reglan Allergies: Coded Allergies: morphine (Verified Adverse Reaction, Intermediate, Hallucinations, ) Active Ordered Medications Current Medications Medications (Trade) Dose Ordered Sig/Esther Route Start Time Stop Time Status Last Admin Sodium Chloride 1,000 ml @ 125 mls/hr Q8H IV 08/15/17 21:11 08/17/17 12:11 (NS Flush) 2 ml UNSCH PRN IV FLUSH 08/15/17 21:15 08/16/17 17:59 (NS Flush) 2 ml BID IV FLUSH 08/16/17 09:00 (Zofran Inj) 4 mg Q6H PRN IVP 08/15/17 21:15 08/17/17 12:12 (Narcan Inj) 0.4 mg UNSCH PRN IV PUSH 08/15/17 21:15 (Niru-Colace) 1 tab BID PO 08/16/17 09:00 08/17/17 09:45 (Milk Of Magnesia Liq) 30 ml Q12H PRN PO 08/15/17 21:15 (Senokot) 17.2 mg Q12H PRN PO 08/15/17 21:15 (Dulcolax Supp) 10 mg DAILY PRN RECTAL 08/15/17 21:15 (Lactulose Liq) 30 ml DAILY PRN PO 08/15/17 21:15 (Protonix) 40 mg DAILY PO 08/16/17 09:00 08/17/17 09:45 (Phenergan Inj) 12.5 mg Q6H PRN IM 08/16/17 09:30 Cefepime HCl 2000 mg/Sodium Chloride 100 ml @ 200 mls/hr Q8H IV 08/16/17 12:00 08/17/17 12:12 Metronidazole 100 ml @ 100 mls/hr Q8H IV 08/16/17 13:00 08/17/17 04:20 (Percocet 10-325 Mg) 1 tab Q4H PRN PO 08/16/17 16:15 08/16/17 18:21 (Dilaudid Pf Inj) 2 mg Q4H PRN IV PUSH 08/16/17 16:15 Family History Noncontributory Social History Denies tobacco use Denies EtOH use Denies illicit drug use 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 Physical Exam Vital Signs Vital Signs Date Time Temp Pulse Resp B/P (MAP) Pulse Ox O2 Delivery O2 Flow Rate FiO2 08/17/17 08:15 Room Air 08/17/17 08:00 98.0 60 20 130/72 (91) 96 08/17/17 04:00 97.8 67 14 110/74 (86) 96 08/17/17 04:00 Room Air 08/17/17 00:00 98.0 67 18 112/56 (74) 96 08/17/17 00:00 Room Air 08/16/17 20:00 98.1 86 16 131/68 (89) 95 08/16/17 20:00 Room Air 08/16/17 17:54 99.0 83 16 137/78 (97) 94 08/16/17 16:00 97.4 65 16 151/96 (114) 98 Physical Exam GENERAL: Very pleasant 47-year-old male resting in bed in no acute distress. SKIN: Warm and dry. HEAD: Atraumatic. Normocephalic. EYES: Pupils equal and round. No scleral icterus. No injection or drainage. ENT: No nasal bleeding or discharge. Mucous membranes pink and moist. NECK: Trachea midline. CARDIOVASCULAR: Regular rate and rhythm. RESPIRATORY: No accessory muscle use. Clear to auscultation. Breath sounds equal bilaterally. GASTROINTESTINAL: Abdomen minimally tender at time of exam; minimally distended ; large well healed midline incision; multiple well healed trocar sites from prior surgeries. MUSCULOSKELETAL: Extremities without clubbing, cyanosis, or edema. No obvious deformities. NEUROLOGICAL: Awake and alert. No obvious cranial nerve deficits. Motor grossly within normal limits. Five out of 5 muscle strength in the arms and legs. Normal speech. PSYCHIATRIC: Appropriate mood and affect; insight and judgment normal. Laboratory Last 48 hours Impressions Gall Bladder Ultrasound 08/16/17 0000 Signed Impressions: Service Date/Time: Wednesday, August 16, 2017 07:47 - CONCLUSION: 1. Contracted gallbladder containing multiple gallstones. 2. Dilated common bile duct is 7 mm. 3. Echogenic liver which can be seen with moderate hepatic steatosis. Kj Gutierrez MD Cholangiopancreatography MRI 08/16/17 0000 Signed Impressions: Service Date/Time: Wednesday, August 16, 2017 11:18 - CONCLUSION: 1. Cholelithiasis 2. Mildly distended common bile duct with suspected filling defect at the level of the ampulla. 3. Axial stenosis. Jhonatan Fish MD Abdomen/Pelvis CT 08/15/171939 Signed Impressions: Service Date/Time: Tuesday, August 15, 2017 19:49 - CONCLUSION: 1. Status post distal gastrectomy with a gastroenteric anastomosis. 2. There are bowel sutures in the left upper quadrant of the proximal small bowel with some dilatation of this segment with prominent debris within this portion of the small bowel in the left upper quadrant. The remaining small bowel is not dilated or thickened. 3. Dilatation of the common bile duct. A cause of this is not seen. 4. Evidence of prior midline incision with minimal hernias. 5. Hepatic steatosis. Neel Alexander MD Result Diagram: 08/29/1743908/29/17 0440 Imaging Last 48 hours Impressions Gall Bladder Ultrasound 08/16/17 0000 Signed Impressions: Service Date/Time: Wednesday, August 16, 2017 07:47 - CONCLUSION: 1. Contracted gallbladder containing multiple gallstones. 2. Dilated common bile duct is 7 mm. 3. Echogenic liver which can be seen with moderate hepatic steatosis. Kj Gutierrez MD Cholangiopancreatography MRI 08/16/17 0000 Signed Impressions: Service Date/Time: Wednesday, August 16, 2017 11:18 - CONCLUSION: 1. Cholelithiasis 2. Mildly distended common bile duct with suspected filling defect at the level of the ampulla. 3. Axial stenosis. Jhonatan Fish MD Abdomen/Pelvis CT 08/15/171939 Signed Impressions: Service Date/Time: Tuesday, August 15, 2017 19:49 - CONCLUSION: 1. Status post distal gastrectomy with a gastroenteric anastomosis. 2. There are bowel sutures in the left upper quadrant of the proximal small bowel with some dilatation of this segment with prominent debris within this portion of the small bowel in the left upper quadrant. The remaining small bowel is not dilated or thickened. 3. Dilatation of the common bile duct. A cause of this is not seen. 4. Evidence of prior midline incision with minimal hernias. 5. Hepatic steatosis. Neel Alexander MD Assessment and Plan Assessment and Plan 47 year old male with abdominal pain with associated nausea and vomiting with a surgical history of distal gastrectomy for gastroparesis -NPO -IVF -Awaiting labs for today -Pain control -Continue antibiotics -Patient needs a large operation including cholecystectomy; common bile duct exploration; revision of gastrojejunostomy; patient also may benefit from PTC drainage -Timing of surgery pending clinical progression and laboratory results from today -Thank you for this consult; We will continue to follow Discussed Condition With Dr. Miguel Angel Stewart Attending Statement patient seen at bedside cbd stone in need of decompression consult IR need for nutrition will start tpn will need gj revision, j tube, cbd exploration with stone removal lysis of adhesion Attestation The exam, history, and the medical decision-making described in the above note were completed with the assistance of the mid-level provider. I reviewed and agree with the findings presented. I attest that I had a [id number] encounter with the patient on the same day, and personally performed and documented my assessment and findings in the medical record. Genna Miller Aug 17, 2017 12:53 Ceferino Michelle MD Aug 29, 2017 22:35
[2017-08-17 14:28] LABS: ALT (GPT) 380 U/L (12-78)
[2017-08-17 14:30] LABS: ALKALINE PHOSPHATASE 197 U/L (45-117); TOTAL BILIRUBIN ADULT 5.3 MG/DL (0.2-1.0)
[2017-08-17 14:39] LABS: AST (GOT) 158 U/L (15-37); BICARBONATE 24.4 MEQ/L (21.0-32.0); BLOOD UREA NITROGEN 10 MG/DL (7-18); CALCIUM 8.2 MG/DL (8.5-10.1); CHLORIDE 104 MEQ/L (98-107); GLOMERULAR FILTRATION RATE 90 ML/MIN (>89); GLUCOSE,RANDOM 80 MG/DL (74-106); SODIUM (NA) 137 MEQ/L (136-145)
[2017-08-17 16:00] VITALS: BP 136/78; PULSE 68; RESP 20; TEMP 98.3; O2SAT 95
[2017-08-17 20:00] VITALS: BP 129/76; PULSE 66; RESP 16; TEMP 99; O2SAT 95
[2017-08-17] MEDS: oxyCODONE/ACETAMINOPHEN 10 MG/325 MG TAB PO PRN (20:41)
[2017-08-17] MEDS: SODIUM CHLORIDE 0.9% FLUSH 10 ML FLUSH IV FLUSH PRN (20:44)
[2017-08-18] VITALS: BP 116/69; PULSE 67; RESP 16; TEMP 98.3; O2SAT 95
[2017-08-18 04:00] VITALS: BP 120/72; PULSE 60; RESP 16; TEMP 98.2; O2SAT 96
[2017-08-18] MEDS: CEFEPIME INJ 2,000 MG in SODIUM CHLORIDE 0.9% INJ 100 ML IV SCH ×3 (05:21→20:28)
[2017-08-18] MEDS: SODIUM CHLOR 0.9% 1000 ML INJ 1,000 ML IV SCH ×3 (05:23→20:42)
[2017-08-18] MEDS: metroNIDAZOLE 500 MG INJ 100 ML IV SCH ×3 (05:23→21:31)
[2017-08-18] MEDS: SODIUM CHLORIDE 0.9% FLUSH 10 ML FLUSH IV FLUSH SCH ×2 (07:24→20:42)
[2017-08-18 08:02] VITALS: BP 126/81; PULSE 69; RESP 18; TEMP 97.7; O2SAT 96
[2017-08-18] MEDS: PANTOPRAZOLE SOD 40 MG DELAYED RELEASE TAB PO SCH (08:13)
[2017-08-18] MEDS: DOCUSATE SODIUM 50 MG/SENNA 8.6 MG TAB PO SCH ×2 (08:13→20:42)
--- NOTE | 2017-08-18 08:54 | HHI.PR ---
Subjective Remarks Follow up abdominal pain. Patient states that he is still having discomfort in the RUQ, but less than before. He had nausea last night, but no vomiting. No diarrhea or constipation. Objective Vitals Vital Signs Date Time Temp Pulse Resp B/P (MAP) Pulse Ox O2 Delivery O2 Flow Rate FiO2 08/18/17 07:53 Room Air 08/18/17 04:00 98.2 60 16 120/72 (88) 96 08/18/17 00:00 98.3 67 16 116/69 (85) 95 08/17/17 20:00 99.0 66 16 129/76 (93) 95 08/17/17 20:00 Room Air 08/17/17 16:00 98.3 68 20 136/78 (97) 95 08/17/17 12:00 97.5 85 18 107/68 (81) 96 I/O 08/17/17 08/17/17 08/17/17 08/18/17 08/18/17 08/18/17 07:00 15:00 23:00 07:00 15:00 23:00 Intake Total 1200 ml 1200 ml 200 ml 1300 ml Output Total 550 ml Balance 1200 ml 1200 ml 200 ml 750 ml Intake Oral 0 ml IV Total 1200 ml 1200 ml 200 ml 1300 ml Output Urine Total 550 ml # Voids 2 # Bowel Movements 0 2 Result Diagram: 08/16/17 0520 08/17/17 1310 Imaging Last Impressions Gall Bladder Ultrasound 08/16/17 0000 Signed Impressions: Service Date/Time: Wednesday, August 16, 2017 07:47 - CONCLUSION: 1. Contracted gallbladder containing multiple gallstones. 2. Dilated common bile duct is 7 mm. 3. Echogenic liver which can be seen with moderate hepatic steatosis. Kj Gutierrez MD Cholangiopancreatography MRI 08/16/17 0000 Signed Impressions: Service Date/Time: Wednesday, August 16, 2017 11:18 - CONCLUSION: 1. Cholelithiasis 2. Mildly distended common bile duct with suspected filling defect at the level of the ampulla. 3. Axial stenosis. Jhonatan Fish MD Abdomen/Pelvis CT 08/15/17 1940 Signed Impressions: Service Date/Time: Tuesday, August 15, 2017 19:49 - CONCLUSION: 1. Status post distal gastrectomy with a gastroenteric anastomosis. 2. There are bowel sutures in the left upper quadrant of the proximal small bowel with some dilatation of this segment with prominent debris within this portion of the small bowel in the left upper quadrant. The remaining small bowel is not dilated or thickened. 3. Dilatation of the common bile duct. A cause of this is not seen. 4. Evidence of prior midline incision with minimal hernias. 5. Hepatic steatosis. Neel Alexander MD Objective Remarks General: No acute distress. Heart: Regular rate and rhythm. No murmur. Lungs: Clear to auscultation bilaterally. No wheezes, rales, or rhonchi. Breathing is nonlabored. Abdomen: Soft, nontender, nondistended. Extremities: No lower extremity edema. Psych: Alert and oriented. Procedures None Urinary Catheter: No Vascular Central Line Catheter: No A/P Assessment and Plan 1. Abdominal pain: Patient has a complex history including multiple abdominal procedures in the past. CT of the abdomen shows dilatation of the common bile duct and hepatic steatosis. MRCP shows cholelithiasis and mildly distended common bile duct with suspected filling defect at the level of the ampulla. Appreciate GI recommendations. Abdominal pain has improved significantly. LFTs are still elevated. Labs are pending today. Appreciate general surgery recommendations. Discussed with Genna LLOYD. Plan is for surgery, possibly on Wednesday pending improvement in LFTs. 2. GERD: Continue PPI. 3. DVT prophylaxis: SCDs. Avoid chemical prophylaxis in anticipation of possible surgical intervention. Oh Ordaz MD Aug 18, 2017 08:54
[2017-08-18 10:08] LABS: ALBUMIN 2.7 GM/DL (3.4-5.0); AST (GOT) 147 U/L (15-37); BICARBONATE 22.6 MEQ/L (21.0-32.0); BLOOD UREA NITROGEN 10 MG/DL (7-18); CALCIUM 8.3 MG/DL (8.5-10.1); CHLORIDE 104 MEQ/L (98-107); GLOMERULAR FILTRATION RATE 90 ML/MIN (>89); GLUCOSE,RANDOM 73 MG/DL (74-106); SODIUM (NA) 137 MEQ/L (136-145)
[2017-08-18 10:12] LABS: ALKALINE PHOSPHATASE 206 U/L (45-117); ALT (GPT) 331 U/L (12-78); TOTAL BILIRUBIN ADULT 4.2 MG/DL (0.2-1.0)
--- NOTE | 2017-08-18 10:15 | HHI.GIFU ---
GI Follow-up Note Consult Follow-up Subjective: Patient laying in bed comfortably, no new complaints but is anxious to have surgery over with. Denies chills and abd pain better. Objective: PHYSICAL EXAMINATION: Vitals signs stable No fever CHEST: breathing non-labored SKIN: warm and dry [employer]: alert and oriented. Available Data (labs, X- Rays, Procedues) : Laboratory Tests Test 08/15/17 20:00 08/16/17 05:20 08/17/17 13:10 08/18/17 08:56 Mean Corpuscular Hemoglobin Concent 31.8 % (32.0-36.0) 31.9 % (32.0-36.0) Monocytes (%) (Auto) 10.9 % (0.0-8.0) 11.8 % (0.0-8.0) Total Protein 8.3 GM/DL (6.4-8.2) Alkaline Phosphatase 195 U/L (45-117) 166 U/L (45-117) 197 U/L (45-117) 206 U/L (45-117) Aspartate Amino Transf (AST/SGOT) 207 U/L (15-37) 152 U/L (15-37) 158 U/L (15-37) 147 U/L (15-37) Alanine Aminotransferase (ALT/SGPT) 532 U/L (12-78) 416 U/L (12-78) 380 U/L (12-78) 331 U/L (12-78) Total Bilirubin 4.4 MG/DL (0.2-1.0) 4.0 MG/DL (0.2-1.0) 5.3 MG/DL (0.2-1.0) 4.2 MG/DL (0.2-1.0) Estimat Glomerular Filtration Rate 72 ML/MIN (>89) 86 ML/MIN (>89) Neutrophils (%) (Auto) 70.3 % (16.0-70.0) Albumin 2.8 GM/DL (3.4-5.0) 3.0 GM/DL (3.4-5.0) 2.7 GM/DL (3.4-5.0) Calcium Level 7.8 MG/DL (8.5-10.1) 8.2 MG/DL (8.5-10.1) 8.3 MG/DL (8.5-10.1) Random Glucose 73 MG/DL (74-106) ASSESSMENT/PLAN: 1. Biliary obstruction due to choledocholithiasis 2. Gastric outlet obstruction Discussed with Dr Ordaz and reviewed surgical consult note from 08/17. Advised pt to report any chills or increase RUQ pain. Will be available if needed. It was a pleasure seeing Darian Stewart Jr. Thank you for this consult. Entered by: Uriel Waite MD Aug 18, 2017 10:15
[2017-08-18 12:02] VITALS: BP 125/78; PULSE 63; RESP 18; TEMP 98.8; O2SAT 97
--- NOTE | 2017-08-18 15:19 | RADRPT ---
EXAM DATE/TIME: 08/18/2017 15:06 [facility] COMPARISON: CT ABDOMEN & PELVIS W/O CONTRAST, August 15, 2017, 19:49. INDICATIONS : Post PICC line placement MEDICAL HISTORY : Cardiac disorder. Hypercholesterol. GERD. SURGICAL HISTORY : None. ENCOUNTER: Initial ACUITY: 1 day PAIN SCORE: 0/10 LOCATION: Bilateral chest FINDINGS: Right-sided PICC line in good position at the atrial junction. Elevation of the left hemidiaphragm wi th mild airspace disease in the left lower lobe. Cardiomediastinal contours are within normal limits. Bony thorax is intact. CONCLUSION: 1. Visipaque line in good position. 2. Elevation of the left hemidiaphragm with mild airspace disease at the left lung base which may ref lect atelectasis. Eugene Belle MD on August 18, 2017 at 15:15 Board Certified Radiologist. This report was verified electronically.
[2017-08-18 16:02] VITALS: BP 138/78; PULSE 66; RESP 17; TEMP 98.8; O2SAT 94
--- NOTE | 2017-08-18 16:45 | HHI.PR ---
cc: Ceferino Michelle MD Subjective Subjective Notes Resting in bed Still with abdominal pain Objective Vitals/I&O Vital Signs Date Time Temp Pulse Resp B/P (MAP) Pulse Ox O2 Delivery O2 Flow Rate FiO2 08/18/17 12:02 98.8 63 18 125/78 (94) 97 08/18/17 07:53 Room Air Labs Laboratory Tests Test 08/18/17 08:56 08/18/17 14:00 Blood Urea Nitrogen 10 Creatinine 0.90 Random Glucose 73 Total Protein 7.0 Albumin 2.7 Calcium Level 8.3 Alkaline Phosphatase 206 Aspartate Amino Transf (AST/SGOT) 147 Alanine Aminotransferase (ALT/SGPT) 331 Total Bilirubin 4.2 Sodium Level 137 Potassium Level 4.0 Chloride Level 104 Carbon Dioxide Level 22.6 Anion Gap 10 Estimat Glomerular Filtration Rate 90 Prealbumin 12 Prothrombin Time 10.0 Prothromb Time International Ratio 1.0 Activated Partial Thromboplast Time 26.2 Radiology Last 48 hours Impressions Gall Bladder Ultrasound 08/16/17 0000 Signed Impressions: Service Date/Time: Wednesday, August 16, 2017 07:47 - CONCLUSION: 1. Contracted gallbladder containing multiple gallstones. 2. Dilated common bile duct is 7 mm. 3. Echogenic liver which can be seen with moderate hepatic steatosis. Kj Gutierrez MD Cholangiopancreatography MRI 08/16/17 0000 Signed Impressions: Service Date/Time: Wednesday, August 16, 2017 11:18 - CONCLUSION: 1. Cholelithiasis 2. Mildly distended common bile duct with suspected filling defect at the level of the ampulla. 3. Axial stenosis. Jhonatan Fish MD Abdomen/Pelvis CT 08/15/17 1940 Signed Impressions: Service Date/Time: Tuesday, August 15, 2017 19:49 - CONCLUSION: 1. Status post distal gastrectomy with a gastroenteric anastomosis. 2. There are bowel sutures in the left upper quadrant of the proximal small bowel with some dilatation of this segment with prominent debris within this portion of the small bowel in the left upper quadrant. The remaining small bowel is not dilated or thickened. 3. Dilatation of the common bile duct. A cause of this is not seen. 4. Evidence of prior midline incision with minimal hernias. 5. Hepatic steatosis. Neel Alexander MD Cardiovascular: Regular Lungs: Clear Abdomen: Other (mild abdominal pain with palpation; well healed incisions from prior surgeries ) Extremities: No edema A/P Assessment and Plan 47 year old male 47 year old male with abdominal pain with associated nausea and vomiting with a surgical history of distal gastrectomy for gastroparesis -NPO -IVF -Liver enzymes trending down today -Prealbumin 12 -Pain control -Continue antibiotics -IR consult for PTC -Insert PICC today; Start TPN+ lipids this evening -Patient needs a large operation including cholecystectomy; common bile duct exploration; revision of gastrojejunostomy; patient also may benefit from PTC drainage -Timing of surgery pending clinical progression---likely early next week Attending Statement patient seen at bedside malnutrition need for tpn cbd stone biliary decompression need to allow for gastric decompression will plan or for this coming well Attestation The exam, history, and the medical decision-making described in the above note were completed with the assistance of the mid-level provider. I reviewed and agree with the findings presented. I attest that I had a [id number] encounter with the patient on the same day, and personally performed and documented my assessment and findings in the medical record. Genna Miller Aug 18, 2017 16:44 Ceferino Michelle MD Aug 22, 2017 11:34
[2017-08-18] MEDS: MULTIVITAMIN INJ 5 ML, FOLIC ACID INJ 0.5 MG in AMINO ACID IN D5W W/ELECTROLYT 1,000 ML IV SCH ×3 (20:31)
[2017-08-18 20:35] VITALS: BP 136/82; PULSE 76; RESP 16; TEMP 98.6; O2SAT 96
[2017-08-18] MEDS: FAT EMULSION 20% INJ 250 ML (Daily over 8 hours) IV-CENTRAL SCH (20:35)
[2017-08-19 00:50] VITALS: BP 130/76; PULSE 69; RESP 18; TEMP 98.7; O2SAT 95
[2017-08-19] MEDS: CEFEPIME INJ 2,000 MG in SODIUM CHLORIDE 0.9% INJ 100 ML IV SCH ×3 (04:49→23:48)
[2017-08-19] MEDS: SODIUM CHLOR 0.9% 1000 ML INJ 1,000 ML IV SCH ×3 (04:49→20:37)
[2017-08-19] MEDS: metroNIDAZOLE 500 MG INJ 100 ML IV SCH ×3 (04:50→20:43)
[2017-08-19 04:51] VITALS: BP_SYST 128; PULSE 62; RESP 18; TEMP 97.6; O2SAT 98
[2017-08-19 07:20] LABS: ALBUMIN 2.7 GM/DL (3.4-5.0); AST (GOT) 143 U/L (15-37); BICARBONATE 26.3 MEQ/L (21.0-32.0); BLOOD UREA NITROGEN 10 MG/DL (7-18); CALCIUM 8.2 MG/DL (8.5-10.1); CHLORIDE 107 MEQ/L (98-107); CREATININE 1.02 MG/DL (0.60-1.30); GLOMERULAR FILTRATION RATE 78 ML/MIN (>89); GLUCOSE,RANDOM 150 MG/DL (74-106); SODIUM (NA) 139 MEQ/L (136-145)
[2017-08-19 07:41] LABS: ALKALINE PHOSPHATASE 228 U/L (45-117); ALT (GPT) 315 U/L (12-78); TOTAL BILIRUBIN ADULT 1.7 MG/DL (0.2-1.0); TOTAL PROTEIN 6.7 GM/DL (6.4-8.2)
[2017-08-19 08:02] VITALS: BP 133/81; PULSE 57; RESP 17; TEMP 98.6; O2SAT 96
[2017-08-19] MEDS: MULTIVITAMIN INJ 5 ML, FOLIC ACID INJ 0.5 MG in AMINO ACID IN D5W W/ELECTROLYT 1,000 ML IV SCH ×9 (08:08→20:30)
[2017-08-19] MEDS: DOCUSATE SODIUM 50 MG/SENNA 8.6 MG TAB PO SCH ×2 (08:08→20:39)
[2017-08-19] MEDS: PANTOPRAZOLE SOD 40 MG DELAYED RELEASE TAB PO SCH (08:08)
[2017-08-19] MEDS: SODIUM CHLORIDE 0.9% FLUSH 10 ML FLUSH IV FLUSH SCH ×2 (08:09→20:44)
--- NOTE | 2017-08-19 08:29 | HHI.PR ---
Subjective Remarks Follow up elevated LFTs, abdominal pain. Patient denies abdominal pain currently. No nausea or vomiting overnight. No specific complaints at this time. Objective Vitals Vital Signs Date Time Temp Pulse Resp B/P (MAP) Pulse Ox O2 Delivery O2 Flow Rate FiO2 08/19/17 08:26 Room Air 08/19/17 04:51 97.6 62 18 128/ 98 08/19/17 00:50 98.7 69 18 130/76 (94) 95 08/18/17 20:35 98.6 76 16 136/82 (100) 96 08/18/17 20:00 Room Air 08/18/17 16:02 98.8 66 17 138/78 (98) 94 08/18/17 12:02 98.8 63 18 125/78 (94) 97 I/O 08/18/17 08/18/17 08/18/17 08/19/17 08/19/17 08/19/17 07:00 15:00 23:00 07:00 15:00 23:00 Intake Total 1300 ml 440 ml Output Total 550 ml 1400 ml 1000 ml Balance 750 ml -960 ml -1000 ml Intake Oral 0 ml 240 ml IV Total 1300 ml 200 ml Output Urine Total 550 ml 1400 ml 1000 ml # Bowel Movements 2 0 0 Result Diagram: 08/16/17 0520 08/19/17 0520 Imaging Last Impressions Chest X-Ray 08/18/17 0000 Signed Impressions: Service Date/Time: Friday, August 18, 2017 15:06 - CONCLUSION: 1. Visipaque line in good position. 2. Elevation of the left hemidiaphragm with mild airspace disease at the left lung base which may reflect atelectasis. Eugene Belle MD Gall Bladder Ultrasound 08/16/17 0000 Signed Impressions: Service Date/Time: Wednesday, August 16, 2017 07:47 - CONCLUSION: 1. Contracted gallbladder containing multiple gallstones. 2. Dilated common bile duct is 7 mm. 3. Echogenic liver which can be seen with moderate hepatic steatosis. Kj Gutierrez MD Cholangiopancreatography MRI 08/16/17 0000 Signed Impressions: Service Date/Time: Wednesday, August 16, 2017 11:18 - CONCLUSION: 1. Cholelithiasis 2. Mildly distended common bile duct with suspected filling defect at the level of the ampulla. 3. Axial stenosis. Jhonatan Fish MD Abdomen/Pelvis CT 08/15/171939 Signed Impressions: Service Date/Time: Tuesday, August 15, 2017 19:49 - CONCLUSION: 1. Status post distal gastrectomy with a gastroenteric anastomosis. 2. There are bowel sutures in the left upper quadrant of the proximal small bowel with some dilatation of this segment with prominent debris within this portion of the small bowel in the left upper quadrant. The remaining small bowel is not dilated or thickened. 3. Dilatation of the common bile duct. A cause of this is not seen. 4. Evidence of prior midline incision with minimal hernias. 5. Hepatic steatosis. Neel Alexander MD Objective Remarks General: No acute distress. Heart: Regular rate and rhythm. No murmur. Lungs: Clear to auscultation bilaterally. No wheezes, rales, or rhonchi. Breathing is nonlabored. Abdomen: Soft, nontender, nondistended. Extremities: No lower extremity edema. Psych: Alert and oriented. Procedures None Urinary Catheter: No Vascular Central Line Catheter: No A/P Assessment and Plan 1. Abdominal pain: Patient has a complex history including multiple abdominal procedures in the past. CT of the abdomen shows dilatation of the common bile duct and hepatic steatosis. MRCP shows cholelithiasis and mildly distended common bile duct with suspected filling defect at the level of the ampulla. Appreciate GI recommendations. Abdominal pain has improved significantly. LFTs are still elevated. Labs are pending today. Appreciate general surgery recommendations. Plan is for surgery, possibly on Wednesday pending improvement in LFTs. AST and ALT slightly decreased today. Bilirubin improving. Started on TPN. 2. GERD: Continue PPI. 3. DVT prophylaxis: SCDs. Avoid chemical prophylaxis in anticipation of possible surgical intervention. Oh Ordaz MD Aug 19, 2017 08:29
[2017-08-19] MEDS ORDERED: LEVOFLOXACIN 500 MG PREMIX INJ 100 ML IV ONE (11:15)
[2017-08-19] MEDS ORDERED: ROCURONIUM INJ 50 MG/5 ML SYRINGE IV PUSH ONE (12:00)
[2017-08-19] MEDS ORDERED: DEXAMETHASONE SOD PHOS 4 MG/ML VIAL IV ONE (12:00)
[2017-08-19] MEDS ORDERED: LIDOCAINE HCL 1% PF 5 ML SYRINGE OTHER ONE (12:00)
[2017-08-19] MEDS ORDERED: NEOSTIGMINE 5 MG/5 ML SYRINGE IV PUSH ONE (12:00)
[2017-08-19] MEDS ORDERED: PROPOFOL 200 MG/20 ML AMP IV ONE (12:00)
[2017-08-19] MEDS ORDERED: GLYCOPYRROLATE 1 MG/5 ML SYRINGE IV PUSH ONE (12:00)
[2017-08-19] MEDS ORDERED: ONDANSETRON HCL 4 MG/2 ML VIAL IV PUSH ONE (12:00)
--- NOTE | 2017-08-19 12:35 | PD.RAD ---
Post Procedure Progress Note Pre Procedure Diagnosis: (1) Biliary obstruction Post Procedure Diagnosis: (1) Biliary obstruction Procedure Date: Aug 19, 2017 Supervising Radiologist: Jacinto Berumen Estimated blood loss: 2cc Anesthesia: General Plan of Activity Patient to Unit: ROPU Patient Condition: Good Additional Comments: PTHD completed. The patient has a stone in the distal CBD at the ampule. 8F. internal/external drain placed. Catheter is to bag drainage with bile flowing into the bag. PT stable. Full dictated report to follow See PACS Report for procedural detail/treatment Jacinto Berumen MD Aug 19, 2017 12:35
[2017-08-19] MEDS ORDERED: DO NOT ADM ANY ANTICOAGULANT DRUGS PRN (12:47)
[2017-08-19] MEDS ORDERED: MORPHINE SULFATE 2 MG/ML INJ ONE (13:30)
[2017-08-19] MEDS: ONDANSETRON HCL 4 MG/2 ML VIAL IVP PRN ×2 (14:35→21:24)
[2017-08-19] MEDS: oxyCODONE/ACETAMINOPHEN 10 MG/325 MG TAB PO PRN (14:38)
--- NOTE | 2017-08-19 14:44 | RADRPT ---
EXAM DATE/TIME: 08/19/2017 10:11 [facility] COMPARISON: CHOLANGIOGRAM, PERCUTANEOUS, August 19, 2017, 0:00. INDICATIONS : Patient presents with cholithiasis and is in need of an internal and external drain. MEDICAL HISTORY : Gastroparesis SURGICAL HISTORY : Distal Gastrectomy ENCOUNTER: Initial ACUITY: 3 days PAIN SCORE: 0/10 FLUORO TIME: 50.1 minutes IMAGE SERIES: 3 SEDATION TIME: 60 minutes CONTRAST: 120 cc Omnipaque (iohexol) 350 1.) Percutaneous biliary drainage. 2.) Cholangiogram. DEVICE(S): 1.) 22 gauge Chiba needle. A 0.018 wire. 8 [place] internal/external biliary drain. PROCEDURE : 1. Ultrasound guided puncture of the biliary tree. 2. Percutaneous antegrade cholangiogram. 3. Biliary stent placement. 4. Conscious sedation with continuous EKG and oximetry monitoring. The risks, benefits and alternatives to the procedure were explained and verbal and written consent w as obtained. The site was prepped in sterile fashion. Full sterile technique was used, including cap, mask, steri le gloves and gown and a large sterile sheet. Hand hygiene and 2% chlorhexidine and/or betadine/alco hol prep was utilized per protocol for cutaneous antisepsis. Sterile gel and sterile probe cover wer e utilized for ultrasound guidance. The skin and subcutaneous tissues were infiltrated with local an esthetic solution. With fluoroscopic guidance the biliary tree was punctured with a 22 gauge Chiba needle and the biliar y tree was opacified. The initial stick demonstrated a duct in the right lobe which traverse the enti re length of the liver and communicated with the left proper hepatic duct. This was not deemed accept able for placement of a drainage catheter. Multiple passes were made to located duct on the right side. These were unsuccessful. Eventually, the residual contrast in the proper hepatic duct was targeted with a 25 gauge needle. This was advanced into the duct. The biliary tree was opacified using the 25 gauge needle. A suitable peripheral duct i n the right lobe was identified and access with a 22 gauge Chiba needle. A 0.018 wire was advanced th rough the needle into the central biliary system. A combination 3/4 dilator was advanced over the wir e. This was exchanged for a 0.035 angle Glidewire. The Glidewire was advanced into the duodenum. An 8 [place] internal/external biliary drain was advanced over the wire and positioned without difficulty. The procedure was performed under general anesthesia. CONCLUSION: 1. Uncomplicated percutaneous biliary drainage as above. 2. A cholangiogram demonstrates a stone within the distal common bile duct. There are multiple stones within the gallbladder. Jacinto Berumen MD on August 19, 2017 at 14:35 Board Certified Radiologist. This report was verified electronically.
[2017-08-19 16:09] VITALS: BP 138/85; PULSE 57; RESP 18; TEMP 98.2; O2SAT 96
[2017-08-19] MEDS: HYDROmorphone HCL PF 2 MG/ML VIAL IV PUSH PRN ×2 (16:40→20:39)
--- NOTE | 2017-08-19 18:55 | HHI.PR ---
cc: Ceferino Michelle MD Subjective Subjective Notes Resting in bed No issues Objective Vitals/I&O Vital Signs Date Time Temp Pulse Resp B/P (MAP) Pulse Ox O2 Delivery O2 Flow Rate FiO2 08/19/17 17:33 14 08/19/17 16:09 98.2 57 138/85 (102) 96 08/19/17 08:26 Room Air Labs Laboratory Tests Test 08/19/17 05:20 Blood Urea Nitrogen 10 Creatinine 1.02 Random Glucose 150 Total Protein 6.7 Albumin 2.7 Calcium Level 8.2 Alkaline Phosphatase 228 Aspartate Amino Transf (AST/SGOT) 143 Alanine Aminotransferase (ALT/SGPT) 315 Total Bilirubin 1.7 Sodium Level 139 Potassium Level 3.6 Chloride Level 107 Carbon Dioxide Level 26.3 Anion Gap 6 Estimat Glomerular Filtration Rate 78 Radiology Last 48 hours Impressions Gall Bladder Ultrasound 08/16/17 0000 Signed Impressions: Service Date/Time: Wednesday, August 16, 2017 07:47 - CONCLUSION: 1. Contracted gallbladder containing multiple gallstones. 2. Dilated common bile duct is 7 mm. 3. Echogenic liver which can be seen with moderate hepatic steatosis. Kj Gutierrez MD Cholangiopancreatography MRI 08/16/17 0000 Signed Impressions: Service Date/Time: Wednesday, August 16, 2017 11:18 - CONCLUSION: 1. Cholelithiasis 2. Mildly distended common bile duct with suspected filling defect at the level of the ampulla. 3. Axial stenosis. Jhonatan Fish MD Abdomen/Pelvis CT 08/15/171939 Signed Impressions: Service Date/Time: Tuesday, August 15, 2017 19:49 - CONCLUSION: 1. Status post distal gastrectomy with a gastroenteric anastomosis. 2. There are bowel sutures in the left upper quadrant of the proximal small bowel with some dilatation of this segment with prominent debris within this portion of the small bowel in the left upper quadrant. The remaining small bowel is not dilated or thickened. 3. Dilatation of the common bile duct. A cause of this is not seen. 4. Evidence of prior midline incision with minimal hernias. 5. Hepatic steatosis. Neel Alexander MD Cardiovascular: Regular Lungs: Clear Abdomen: Non-distended, Other (PTC drain in place ) Extremities: No edema A/P Assessment and Plan 47 year old male 47 year old male with abdominal pain with associated nausea and vomiting with a surgical history of distal gastrectomy for gastroparesis -NPO -Liver enzymes trending down today -Prealbumin 12 -Pain control -Continue antibiotics -PTC drain placed -TPN -Patient needs a large operation including cholecystectomy; common bile duct exploration; revision of gastrojejunostomy; patient also may benefit from PTC drainage -Timing of surgery pending clinical progression---likely early next week Attending Statement patient seen at bedside lab better ir for ptc tube continue nutrition Attestation The exam, history, and the medical decision-making described in the above note were completed with the assistance of the mid-level provider. I reviewed and agree with the findings presented. I attest that I had a [id number] encounter with the patient on the same day, and personally performed and documented my assessment and findings in the medical record. Genna Miller Aug 19, 2017 18:55 Ceferino Michelle MD Aug 24, 2017 23:07
[2017-08-19 20:00] VITALS: BP 132/80; PULSE 72; RESP 19; TEMP 98.7; O2SAT 94
[2017-08-19] MEDS: FAT EMULSION 20% INJ 250 ML (Daily over 8 hours) IV-CENTRAL SCH (20:57)
[2017-08-19] MEDS: PROMETHAZINE INJ 25 MG/ML VIAL IM PRN (23:45)
[2017-08-20] VITALS: BP 165/83; PULSE 73; RESP 21; TEMP 98.2; O2SAT 93
[2017-08-20] MEDS: oxyCODONE/ACETAMINOPHEN 10 MG/325 MG TAB PO PRN ×3 (01:59→13:38)
[2017-08-20 04:00] VITALS: BP 162/94; PULSE 75; RESP 21; TEMP 98.3; O2SAT 94
[2017-08-20] MEDS: ONDANSETRON HCL 4 MG/2 ML VIAL IVP PRN ×3 (04:00→17:16)
[2017-08-20] MEDS: SODIUM CHLOR 0.9% 1000 ML INJ 1,000 ML IV SCH (05:27)
[2017-08-20] MEDS: metroNIDAZOLE 500 MG INJ 100 ML IV SCH ×3 (05:28→20:29)
[2017-08-20] MEDS: HYDROmorphone HCL PF 2 MG/ML VIAL IV PUSH PRN ×3 (05:32→16:25)
[2017-08-20 08:01] LABS: ALBUMIN 2.9 GM/DL (3.4-5.0); ALT (GPT) 295 U/L (12-78); AST (GOT) 118 U/L (15-37); BICARBONATE 24.1 MEQ/L (21.0-32.0); BLOOD UREA NITROGEN 8 MG/DL (7-18); CALCIUM 8.1 MG/DL (8.5-10.1); CHLORIDE 103 MEQ/L (98-107); CREATININE 0.89 MG/DL (0.60-1.30); GLOMERULAR FILTRATION RATE 92 ML/MIN (>89); GLUCOSE,RANDOM 250 MG/DL (74-106); SODIUM (NA) 135 MEQ/L (136-145)
[2017-08-20 08:03] LABS: ALKALINE PHOSPHATASE 209 U/L (45-117); TOTAL BILIRUBIN ADULT 1.2 MG/DL (0.2-1.0); TOTAL PROTEIN 7.2 GM/DL (6.4-8.2)
[2017-08-20] MEDS: PANTOPRAZOLE SOD 40 MG DELAYED RELEASE TAB PO SCH (08:26)
[2017-08-20] MEDS: DOCUSATE SODIUM 50 MG/SENNA 8.6 MG TAB PO SCH ×2 (08:27→20:30)
[2017-08-20] MEDS: SODIUM CHLORIDE 0.9% FLUSH 10 ML FLUSH IV FLUSH SCH ×2 (08:27→20:30)
[2017-08-20 08:37] VITALS: BP 152/96; PULSE 75; RESP 18; TEMP 98.3; O2SAT 94
--- NOTE | 2017-08-20 09:17 | HHI.PR ---
Subjective Remarks Follow up abdominal pain. Patient is having significant abdominal pain today. Reports nausea and vomiting. Had biliary drain placed yesterday. Objective Vitals Vital Signs Date Time Temp Pulse Resp B/P (MAP) Pulse Ox O2 Delivery O2 Flow Rate FiO2 08/20/17 08:37 98.3 75 18 152/96 (114) 94 08/20/17 04:00 98.3 75 21 162/94 (116) 94 08/20/17 00:00 98.2 73 21 165/83 (110) 93 08/19/17 20:00 98.7 72 19 132/80 (97) 94 08/19/17 20:00 Room Air 08/19/17 17:33 14 08/19/17 16:09 98.2 57 18 138/85 (102) 96 08/19/17 15:38 12 08/19/17 13:45 97.8 56 15 164/91 (115) 96 Room Air 08/19/17 13:30 63 15 167/94 (118) 96 Room Air 08/19/17 13:15 56 16 155/84 (107) 94 Room Air 08/19/17 13:00 68 15 159/91 (113) 95 Room Air 08/19/17 12:52 98.6 81 15 133/83 (100) 95 Room Air I/O 08/19/17 08/19/17 08/19/17 08/20/17 08/20/17 08/20/17 07:00 15:00 23:00 07:00 15:00 23:00 Intake Total 1005.1 ml 1070 ml 560 ml Output Total 1000 ml 1050 ml 1250 ml Balance -1000 ml 1005.1 ml 20 ml -690 ml Intake Oral 240 ml 460 ml IV Total 1005.1 ml 830 ml 100 ml Output Urine Total 1000 ml 850 ml 950 ml Drainage Total 200 ml 300 ml # Voids 5 # Bowel Movements 0 0 0 Result Diagram: 08/16/17 0520 08/20/17 0603 Imaging Last Impressions Bile Duct Drainage 08/19/17 0000 Signed Impressions: Service Date/Time: August 10:11 - CONCLUSION: 1. Uncomplicated percutaneous biliary drainage as above. 2. A cholangiogram demonstrates a stone within the distal common bile duct. There are multiple stones within the gallbladder. Jacinto Berumen MD Chest X-Ray 08/18/17 0000 Signed Impressions: Service Date/Time: Friday, August 18, 2017 15:06 - CONCLUSION: 1. Visipaque line in good position. 2. Elevation of the left hemidiaphragm with mild airspace disease at the left lung base which may reflect atelectasis. Eugene Belle MD Gall Bladder Ultrasound 08/16/17 0000 Signed Impressions: Service Date/Time: Wednesday, August 16, 2017 07:47 - CONCLUSION: 1. Contracted gallbladder containing multiple gallstones. 2. Dilated common bile duct is 7 mm. 3. Echogenic liver which can be seen with moderate hepatic steatosis. Kj Gutierrez MD Cholangiopancreatography MRI 08/16/17 0000 Signed Impressions: Service Date/Time: Wednesday, August 16, 2017 11:18 - CONCLUSION: 1. Cholelithiasis 2. Mildly distended common bile duct with suspected filling defect at the level of the ampulla. 3. Axial stenosis. Jhonatan Fish MD Abdomen/Pelvis CT 08/15/171939 Signed Impressions: Service Date/Time: Tuesday, August 15, 2017 19:49 - CONCLUSION: 1. Status post distal gastrectomy with a gastroenteric anastomosis. 2. There are bowel sutures in the left upper quadrant of the proximal small bowel with some dilatation of this segment with prominent debris within this portion of the small bowel in the left upper quadrant. The remaining small bowel is not dilated or thickened. 3. Dilatation of the common bile duct. A cause of this is not seen. 4. Evidence of prior midline incision with minimal hernias. 5. Hepatic steatosis. Neel Alexander MD Objective Remarks General: No acute distress. Appears uncomfortable. Heart: Regular rate and rhythm. No murmur. Lungs: Clear to auscultation bilaterally. No wheezes, rales, or rhonchi. Breathing is nonlabored. Abdomen: Soft, diffuse tenderness to palpation, moderately distended. Extremities: No lower extremity edema. Psych: Alert and oriented. Procedures 08/19/17 percutaneous cholangiogram with biliary drain placement Urinary Catheter: No Vascular Central Line Catheter: No A/P Assessment and Plan 1. Abdominal pain: Patient has a complex history including multiple abdominal procedures in the past. CT of the abdomen shows dilatation of the common bile duct and hepatic steatosis. MRCP shows cholelithiasis and mildly distended common bile duct with suspected filling defect at the level of the ampulla. Appreciate GI recommendations. Abdominal pain is worse today. Appreciate general surgery recommendations. Plan is for surgery, possibly on Wednesday pending clinical improvement. LFTs are trending down. Started on TPN. Biliary drain placed 08/19/17. 2. GERD: Continue PPI. 3. DVT prophylaxis: SCDs. Avoid chemical prophylaxis in anticipation of possible surgical intervention. Oh Ordaz MD Aug 20, 2017 09:17
[2017-08-20] MEDS: MULTIVITAMIN INJ 5 ML, FOLIC ACID INJ 0.5 MG in AMINO ACID IN D5W W/ELECTROLYT 1,000 ML IV SCH ×6 (09:27→20:25)
[2017-08-20] MEDS: NS + KCL 20 MEQ INJ 1,000 ML IV SCH ×2 (09:42→20:25)
[2017-08-20] MEDS: CEFEPIME INJ 2,000 MG in SODIUM CHLORIDE 0.9% INJ 100 ML IV SCH ×3 (09:52→23:15)
[2017-08-20 12:00] VITALS: BP 142/96; PULSE 88; RESP 18; TEMP 98.3; O2SAT 94
--- NOTE | 2017-08-20 12:31 | HHI.PR ---
cc: Ceferino Michelle MD Subjective Subjective Notes Nausea this morning Objective Vitals/I&O Vital Signs Date Time Temp Pulse Resp B/P (MAP) Pulse Ox O2 Delivery O2 Flow Rate FiO2 08/20/17 11:23 12 08/20/17 09:20 Room Air 08/20/17 08:37 98.3 75 152/96 (114) 94 Labs Laboratory Tests Test 08/20/17 06:03 Blood Urea Nitrogen 8 Creatinine 0.89 Random Glucose 250 Total Protein 7.2 Albumin 2.9 Calcium Level 8.1 Alkaline Phosphatase 209 Aspartate Amino Transf (AST/SGOT) 118 Alanine Aminotransferase (ALT/SGPT) 295 Total Bilirubin 1.2 Sodium Level 135 Potassium Level 3.3 Chloride Level 103 Carbon Dioxide Level 24.1 Anion Gap 8 Estimat Glomerular Filtration Rate 92 Radiology Last 48 hours Impressions Gall Bladder Ultrasound 08/16/17 0000 Signed Impressions: Service Date/Time: Wednesday, August 16, 2017 07:47 - CONCLUSION: 1. Contracted gallbladder containing multiple gallstones. 2. Dilated common bile duct is 7 mm. 3. Echogenic liver which can be seen with moderate hepatic steatosis. Kj Gutierrez MD Cholangiopancreatography MRI 08/16/17 0000 Signed Impressions: Service Date/Time: Wednesday, August 16, 2017 11:18 - CONCLUSION: 1. Cholelithiasis 2. Mildly distended common bile duct with suspected filling defect at the level of the ampulla. 3. Axial stenosis. Jhonatan Fish MD Abdomen/Pelvis CT 08/15/17 194 Signed Impressions: Service Date/Time: Tuesday, August 15, 2017 19:49 - CONCLUSION: 1. Status post distal gastrectomy with a gastroenteric anastomosis. 2. There are bowel sutures in the left upper quadrant of the proximal small bowel with some dilatation of this segment with prominent debris within this portion of the small bowel in the left upper quadrant. The remaining small bowel is not dilated or thickened. 3. Dilatation of the common bile duct. A cause of this is not seen. 4. Evidence of prior midline incision with minimal hernias. 5. Hepatic steatosis. Neel Alexander MD Cardiovascular: Regular Lungs: Clear Abdomen: Other (tender to palpation; PTC drain in place ) Extremities: No edema A/P Assessment and Plan 47 year old male 47 year old male with abdominal pain with associated nausea and vomiting with a surgical history of distal gastrectomy for gastroparesis -Recommend sips of clear liquids for now -Liver enzymes trending down today -Prealbumin 12 -Pain control -Continue antibiotics -PTC drain -Patient needs a large operation including cholecystectomy; common bile duct exploration; revision of gastrojejunostomy; patient also may benefit from PTC drainage -Timing of surgery pending clinical progression---right now planned for Wednesday Attending Statement patient seen at bedside labs improving nutrition still sub optimal continue tpn plan for surgery Attestation The exam, history, and the medical decision-making described in the above note were completed with the assistance of the mid-level provider. I reviewed and agree with the findings presented. I attest that I had a [id number] encounter with the patient on the same day, and personally performed and documented my assessment and findings in the medical record. Genna Miller Aug 20, 2017 12:31 Ceferino Michelle MD Aug 24, 2017 23:06
[2017-08-20 16:00] VITALS: BP 158/97; PULSE 96; RESP 18; TEMP 98.9; O2SAT 95
[2017-08-20] MEDS: ENOXAPARIN SODIUM 40 MG/0.4 ML SYRINGE SQ SCH (18:16)
[2017-08-20] MEDS ORDERED: oxyCODONE/ACETAMINOPHEN 10 MG/325 MG TAB PO PRN (19:00)
--- NOTE | 2017-08-20 19:55 | HHI.PR ---
Subjective Remarks NOT SEEN Objective Vitals Vital Signs Date Time Temp Pulse Resp B/P (MAP) Pulse Ox O2 Delivery O2 Flow Rate FiO2 08/20/17 16:55 12 08/20/17 16:00 98.9 96 18 158/97 (117) 95 08/20/17 14:38 12 08/20/17 12:00 98.3 88 18 142/96 (111) 94 08/20/17 09:20 Room Air 08/20/17 08:37 98.3 75 18 152/96 (114) 94 08/20/17 04:00 98.3 75 21 162/94 (116) 94 08/20/17 00:00 98.2 73 21 165/83 (110) 93 08/19/17 20:00 98.7 72 19 132/80 (97) 94 08/19/17 20:00 Room Air I/O 08/19/17 08/19/17 08/19/17 08/20/17 08/20/17 08/20/17 07:00 15:00 23:00 07:00 15:00 23:00 Intake Total 1005.1 ml 1070 ml 560 ml 530 ml 360 ml Output Total 1000 ml 1050 ml 1250 ml 1200 ml Balance -1000 ml 1005.1 ml 20 ml -690 ml 530 ml -840 ml Intake Oral 240 ml 460 ml 360 ml IV Total 1005.1 ml 830 ml 100 ml 530 ml Output Urine Total 1000 ml 850 ml 950 ml 1050 ml Drainage Total 200 ml 300 ml 150 ml # Voids 5 1 # Bowel Movements 0 0 0 Result Diagram: 08/16/17 0520 08/20/17 0603 Imaging Last Impressions Bile Duct Drainage 08/19/17 0000 Signed Impressions: Service Date/Time: August 10:11 - CONCLUSION: 1. Uncomplicated percutaneous biliary drainage as above. 2. A cholangiogram demonstrates a stone within the distal common bile duct. There are multiple stones within the gallbladder. Jacinto Berumen MD Chest X-Ray 08/18/17 0000 Signed Impressions: Service Date/Time: Friday, August 18, 2017 15:06 - CONCLUSION: 1. Visipaque line in good position. 2. Elevation of the left hemidiaphragm with mild airspace disease at the left lung base which may reflect atelectasis. Eugene Belle MD Gall Bladder Ultrasound 08/16/17 0000 Signed Impressions: Service Date/Time: Wednesday, August 16, 2017 07:47 - CONCLUSION: 1. Contracted gallbladder containing multiple gallstones. 2. Dilated common bile duct is 7 mm. 3. Echogenic liver which can be seen with moderate hepatic steatosis. Kj Gutierrez MD Cholangiopancreatography MRI 08/16/17 0000 Signed Impressions: Service Date/Time: Wednesday, August 16, 2017 11:18 - CONCLUSION: 1. Cholelithiasis 2. Mildly distended common bile duct with suspected filling defect at the level of the ampulla. 3. Axial stenosis. Jhonatan Fish MD Abdomen/Pelvis CT 08/15/171939 Signed Impressions: Service Date/Time: Tuesday, August 15, 2017 19:49 - CONCLUSION: 1. Status post distal gastrectomy with a gastroenteric anastomosis. 2. There are bowel sutures in the left upper quadrant of the proximal small bowel with some dilatation of this segment with prominent debris within this portion of the small bowel in the left upper quadrant. The remaining small bowel is not dilated or thickened. 3. Dilatation of the common bile duct. A cause of this is not seen. 4. Evidence of prior midline incision with minimal hernias. 5. Hepatic steatosis. Neel Alexander MD Objective Remarks General: No acute distress. Appears uncomfortable. Heart: Regular rate and rhythm. No murmur. Lungs: Clear to auscultation bilaterally. No wheezes, rales, or rhonchi. Breathing is nonlabored. Abdomen: Soft, diffuse tenderness to palpation, moderately distended. Extremities: No lower extremity edema. Psych: Alert and oriented. Procedures 08/19/17 percutaneous cholangiogram with biliary drain placement A/P Problem List: (1) Biliary obstruction ICD Code: K83.1 - Obstruction of bile duct Assessment and Plan 1. Abdominal pain: Patient has a complex history including multiple abdominal procedures in the past. CT of the abdomen shows dilatation of the common bile duct and hepatic steatosis. MRCP shows cholelithiasis and mildly distended common bile duct with suspected filling defect at the level of the ampulla. Appreciate GI recommendations. Abdominal pain is worse today. Appreciate general surgery recommendations. Plan is for surgery, possibly on Wednesday pending clinical improvement. LFTs are trending down. Ct TPN. Biliary drain placed 08/19/17. 2. GERD: Continue PPI. 3. DVT prophylaxis: SCDs. Avoid chemical prophylaxis in anticipation of possible surgical intervention. Discharge Planning not ready for abd surgery next week Trey Marquez MD Aug 20, 2017 19:55
[2017-08-20 20:00] VITALS: BP 162/92; PULSE 101; RESP 21; TEMP 98.4; O2SAT 94
[2017-08-20] MEDS: KETOROLAC TROMETHAMINE 30 MG/ML (IVP) VIAL IV PUSH SCH ×2 (20:30→21:40)
[2017-08-20] MEDS: FAT EMULSION 20% INJ 250 ML (Daily over 8 hours) IV-CENTRAL SCH (22:30)
[2017-08-21] VITALS (7 sets, daily range): BP systolic 152–162; BP diastolic 91–97; PULSE 93–106; RESP 20; TEMP 98.1–99.9; O2SAT 94–97
[2017-08-21] MEDS: KETOROLAC TROMETHAMINE 30 MG/ML (IVP) VIAL IV PUSH SCH ×4 (01:53→20:14)
[2017-08-21] MEDS: SODIUM CHLORIDE 0.9% FLUSH 10 ML FLUSH IV FLUSH PRN ×2 (01:53→06:30)
[2017-08-21] MEDS ORDERED: GLUCAGON 1 MG/ML VIAL OTHER PRN (06:00)
[2017-08-21] MEDS ORDERED: DEXTROSE 50% IN WATER 50 ML VIAL(D50) IV PUSH PRN (06:00)
[2017-08-21] MEDS ORDERED: ENALAPRILAT 1.25 MG/ML VIAL IV PUSH PRN (06:00)
[2017-08-21] MEDS: ONDANSETRON HCL 4 MG/2 ML VIAL IVP PRN ×3 (06:30→20:14)
[2017-08-21] MEDS: metroNIDAZOLE 500 MG INJ 100 ML IV SCH ×3 (06:31→20:14)
[2017-08-21] MEDS: MULTIVITAMIN INJ 5 ML, FOLIC ACID INJ 0.5 MG in AMINO ACID IN D5W W/ELECTROLYT 1,000 ML IV SCH ×6 (08:35→20:13)
[2017-08-21] MEDS: PANTOPRAZOLE SOD 40 MG DELAYED RELEASE TAB PO SCH (09:04)
[2017-08-21] MEDS: DOCUSATE SODIUM 50 MG/SENNA 8.6 MG TAB PO SCH ×2 (09:04→20:13)
[2017-08-21] MEDS: CEFEPIME INJ 2,000 MG in SODIUM CHLORIDE 0.9% INJ 100 ML IV SCH ×3 (09:06→23:13)
[2017-08-21] MEDS: SODIUM CHLORIDE 0.9% FLUSH 10 ML FLUSH IV FLUSH SCH ×2 (09:07→20:15)
[2017-08-21 09:13] LABS: AUTOMATED NEUTROPHIL # 19.8 TH/MM3 (1.8-7.7); BASOPHIL % 0.1 % (0.0-2.0); EOSINOPHIL % 0.2 % (0.0-4.0); HEMATOCRIT 41.5 % (39.0-51.0); LYMPHOCYTE # 0.7 TH/MM3 (1.0-4.8); MEAN CELL VOLUME 87.5 FL (80.0-100.0); MEAN CORPUSCULAR HEMOGLOBIN 29.5 PG (27.0-34.0); MEAN CORPUSCULAR HGB CONC 33.8 % (32.0-36.0); MEAN PLATELET VOLUME 8.2 FL (7.0-11.0); MONO % 7.3 % (0.0-8.0); MONOCYTE # 1.6 TH/MM3 (0-0.9); NEUT % 89.4 % (16.0-70.0); PLATELET COUNT 221 TH/MM3 (150-450); RED BLOOD COUNT 4.75 MIL/MM3 (4.50-5.90); RED CELL DISTRIBUTION WIDTH 16.2 % (11.6-17.2); WHITE BLOOD COUNT 22.1 TH/MM3 (4.0-11.0)
[2017-08-21 09:33] LABS: ALBUMIN 2.5 GM/DL (3.4-5.0); AST (GOT) 57 U/L (15-37); BICARBONATE 23.1 MEQ/L (21.0-32.0); BLOOD UREA NITROGEN 10 MG/DL (7-18); CHLORIDE 102 MEQ/L (98-107); CREATININE 0.84 MG/DL (0.60-1.30); GLOMERULAR FILTRATION RATE 98 ML/MIN (>89); GLUCOSE,RANDOM 164 MG/DL (74-106); MAGNESIUM 1.9 MG/DL (1.5-2.5); SODIUM (NA) 137 MEQ/L (136-145)
[2017-08-21 09:34] LABS: ALT (GPT) 192 U/L (12-78)
[2017-08-21 09:36] LABS: ALKALINE PHOSPHATASE 161 U/L (45-117); TOTAL BILIRUBIN ADULT 1.5 MG/DL (0.2-1.0); TOTAL PROTEIN 6.8 GM/DL (6.4-8.2)
[2017-08-21 10:35] LABS: HEMOGLOBIN A1C 5.2 % (4.3-6.0)
[2017-08-21] MEDS: NS + KCL 20 MEQ INJ 1,000 ML IV SCH (11:31)
--- NOTE | 2017-08-21 14:28 | HHI.PR ---
Subjective Remarks Follow-up biliary obstruction. Did not tolerate NGT was vomiting earlier today. He feels better now. He has leukocytosis Denies fever, cough, UTI symptoms and diarrhea. Discussed with RN Objective Vitals Vital Signs Date Time Temp Pulse Resp B/P (MAP) Pulse Ox O2 Delivery O2 Flow Rate FiO2 08/21/17 12:00 99.1 100 20 157/95 (115) 94 08/21/17 08:47 94 21 08/21/17 08:00 98.9 106 20 157/97 (117) 94 08/21/17 04:00 98.6 101 20 161/94 (116) 94 08/21/17 00:00 98.1 94 20 152/91 (111) 96 08/20/17 21:10 Room Air 08/20/17 20:00 98.4 101 21 162/92 (115) 94 08/20/17 16:55 12 08/20/17 16:00 98.9 96 18 158/97 (117) 95 08/20/17 14:38 12 I/O 08/20/17 08/20/17 08/20/17 08/21/17 08/21/17 08/21/17 07:00 15:00 23:00 07:00 15:00 23:00 Intake Total 560 ml 530 ml 360 ml 260 ml Output Total 1250 ml 2000 ml 1700 ml Balance -690 ml 530 ml -1640 ml -1440 ml Intake Oral 460 ml 360 ml 260 ml IV Total 100 ml 530 ml Output Urine Total 950 ml 1850 ml 1350 ml Drainage Total 300 ml 150 ml 350 ml # Voids 1 # Bowel Movements 0 Result Diagram: 08/21/17 0802 08/21/17 0802 Imaging Last Impressions Bile Duct Drainage 08/19/17 0000 Signed Impressions: Service Date/Time: August 10:11 - CONCLUSION: 1. Uncomplicated percutaneous biliary drainage as above. 2. A cholangiogram demonstrates a stone within the distal common bile duct. There are multiple stones within the gallbladder. Jacinto Berumen MD Chest X-Ray 08/18/17 0000 Signed Impressions: Service Date/Time: Friday, August 18, 2017 15:06 - CONCLUSION: 1. Visipaque line in good position. 2. Elevation of the left hemidiaphragm with mild airspace disease at the left lung base which may reflect atelectasis. Eugene Belle MD Gall Bladder Ultrasound 08/16/17 0000 Signed Impressions: Service Date/Time: Wednesday, August 16, 2017 07:47 - CONCLUSION: 1. Contracted gallbladder containing multiple gallstones. 2. Dilated common bile duct is 7 mm. 3. Echogenic liver which can be seen with moderate hepatic steatosis. Kj Gutierrez MD Cholangiopancreatography MRI 08/16/17 0000 Signed Impressions: Service Date/Time: Wednesday, August 16, 2017 11:18 - CONCLUSION: 1. Cholelithiasis 2. Mildly distended common bile duct with suspected filling defect at the level of the ampulla. 3. Axial stenosis. Jhonatan Fish MD Abdomen/Pelvis CT 08/15/171939 Signed Impressions: Service Date/Time: Tuesday, August 15, 2017 19:49 - CONCLUSION: 1. Status post distal gastrectomy with a gastroenteric anastomosis. 2. There are bowel sutures in the left upper quadrant of the proximal small bowel with some dilatation of this segment with prominent debris within this portion of the small bowel in the left upper quadrant. The remaining small bowel is not dilated or thickened. 3. Dilatation of the common bile duct. A cause of this is not seen. 4. Evidence of prior midline incision with minimal hernias. 5. Hepatic steatosis. Neel Alexander MD Objective Remarks General: No acute distress. Well-developed and well-nourished Skin is warm no lesions HEENT pupils reactive to light with mild jaundice Heart: Regular rate and rhythm. No murmur. Lungs: Clear to auscultation bilaterally. No wheezes, rales, or rhonchi. Breathing is nonlabored. Abdomen: Soft, right upper quadrant tenderness to palpation, moderately distended. Extremities: No lower extremity edema. No cyanosis Psych: Alert and oriented. Procedures 08/19/17 percutaneous cholangiogram with biliary drain placement A/P Problem List: (1) Biliary obstruction ICD Code: K83.1 - Obstruction of bile duct Assessment and Plan 1. Abdominal pain: Patient has a complex history including multiple abdominal procedures in the past including distal gastrectomy secondary to gastroparesis. CT of the abdomen shows dilatation of the common bile duct and hepatic steatosis. MRCP shows cholelithiasis and mildly distended common bile duct with suspected filling defect at the level of the ampulla. Appreciate GI recommendations. Abdominal pain is better but was vomiting earlier improved after removal of NGT. Plan is for surgery, possibly on Wednesday pending clinical improvement. LFTs are trending down. Biliary drain placed 08/19/17. Ct TPN, cefepime and Flagyl. 2. Leukocytosis. Patient denies fever, cough, UTI and diarrhea. Likely reactive already on cefepime and Flagyl. 3. Hypertension and tachycardia likely secondary to pain. Continue pain management with oxycodone and Dilaudid. Continue to monitor 4. GERD: Continue PPI. 5. DVT prophylaxis: SCDs and Lovenox Discharge Planning not ready for abd surgery next week Trey Marquez MD Aug 21, 2017 14:28
[2017-08-21] MEDS: ENOXAPARIN SODIUM 40 MG/0.4 ML SYRINGE SQ SCH (18:13)
[2017-08-21] MEDS: FAT EMULSION 20% INJ 250 ML (Daily over 8 hours) IV-CENTRAL SCH (20:13)
[2017-08-21] MEDS: PROMETHAZINE INJ 25 MG/ML VIAL IM PRN (23:20)
[2017-08-22] VITALS: BP 157/95; PULSE 98; RESP 20; TEMP 98.9; O2SAT 95
[2017-08-22] MEDS: KETOROLAC TROMETHAMINE 30 MG/ML (IVP) VIAL IV PUSH SCH ×4 (01:49→20:18)
[2017-08-22] MEDS: ONDANSETRON HCL 4 MG/2 ML VIAL IVP PRN ×4 (01:49→20:18)
[2017-08-22 04:00] VITALS: BP 156/87; PULSE 74; RESP 20; TEMP 98.9; O2SAT 95
[2017-08-22] MEDS: metroNIDAZOLE 500 MG INJ 100 ML IV SCH ×3 (04:38→20:17)
[2017-08-22 08:00] VITALS: BP 147/90; PULSE 91; RESP 20; TEMP 99; O2SAT 92
[2017-08-22] MEDS: DOCUSATE SODIUM 50 MG/SENNA 8.6 MG TAB PO SCH ×2 (08:09→20:18)
[2017-08-22] MEDS: PANTOPRAZOLE SOD 40 MG DELAYED RELEASE TAB PO SCH (08:09)
[2017-08-22] MEDS: CEFEPIME INJ 2,000 MG in SODIUM CHLORIDE 0.9% INJ 100 ML IV SCH ×2 (08:12→17:33)
[2017-08-22] MEDS: MULTIVITAMIN INJ 5 ML, FOLIC ACID INJ 0.5 MG in AMINO ACID IN D5W W/ELECTROLYT 1,000 ML IV SCH ×6 (08:18→20:17)
[2017-08-22] MEDS: SODIUM CHLORIDE 0.9% FLUSH 10 ML FLUSH IV FLUSH SCH ×2 (08:18→20:17)
[2017-08-22 09:58] LABS: AUTOMATED NEUTROPHIL # 16.5 TH/MM3 (1.8-7.7); BASOPHIL % 0.2 % (0.0-2.0); EOSINOPHIL # 0.1 TH/MM3 (0-0.4); EOSINOPHIL % 0.5 % (0.0-4.0); HEMATOCRIT 36.1 % (39.0-51.0); HEMOGLOBIN 11.8 GM/DL (13.0-17.0); LYMPH % 3.6 % (9.0-44.0); LYMPHOCYTE # 0.7 TH/MM3 (1.0-4.8); MEAN CELL VOLUME 87.7 FL (80.0-100.0); MEAN CORPUSCULAR HEMOGLOBIN 28.7 PG (27.0-34.0); MEAN CORPUSCULAR HGB CONC 32.7 % (32.0-36.0); MEAN PLATELET VOLUME 8.5 FL (7.0-11.0); MONO % 8.1 % (0.0-8.0); MONOCYTE # 1.5 TH/MM3 (0-0.9); NEUT % 87.6 % (16.0-70.0); PLATELET COUNT 211 TH/MM3 (150-450); RED BLOOD COUNT 4.12 MIL/MM3 (4.50-5.90); RED CELL DISTRIBUTION WIDTH 15.8 % (11.6-17.2); WHITE BLOOD COUNT 18.8 TH/MM3 (4.0-11.0)
[2017-08-22] MEDS ORDERED: HYDROmorphone HCL 2 MG TAB PO PRN ×2 (10:00)
--- NOTE | 2017-08-22 10:03 | HHI.PR ---
Subjective Remarks Follow-up biliary obstruction. Reports that oxycodone messes up his stomach. Tolerates Dilaudid. Discussed with RN Objective Vitals Vital Signs Date Time Temp Pulse Resp B/P (MAP) Pulse Ox O2 Delivery O2 Flow Rate FiO2 08/22/17 08:00 99.0 91 20 147/90 (109) 92 08/22/17 04:00 98.9 74 20 156/87 (110) 95 08/22/17 04:00 Room Air 08/22/17 00:00 98.9 98 20 157/95 (115) 95 08/22/17 00:00 Room Air 08/21/17 22:16 21 08/21/17 20:00 Room Air 08/21/17 20:00 99.9 102 20 158/92 (114) 97 08/21/17 16:00 98.3 93 20 162/94 (116) 95 08/21/17 12:00 99.1 100 20 157/95 (115) 94 I/O 08/21/17 08/21/17 08/21/17 08/22/17 08/22/17 08/22/17 07:00 15:00 23:00 07:00 15:00 23:00 Intake Total 260 ml 1587 ml 930 ml Output Total 1700 ml 900 ml 1800 ml Balance -1440 ml 687 ml -870 ml Intake Oral 260 ml 240 ml 480 ml IV Total 1347 ml 450 ml Output Urine Total 1350 ml 600 ml 1800 ml Drainage Total 350 ml 300 ml # Bowel Movements 0 Result Diagram: 08/22/17 0845 08/21/17 0802 Objective Remarks General: No acute distress. Well-developed and well-nourished Skin is warm no lesions HEENT pupils reactive to light with mild jaundice Heart: Regular rate and rhythm. No murmur. Lungs: Clear to auscultation bilaterally. No wheezes, rales, or rhonchi. Breathing is nonlabored. Abdomen: Soft, right upper quadrant tenderness to palpation, moderately distended. Extremities: No lower extremity edema. No cyanosis Psych: Alert and oriented. No significant change in PE from previous Procedures 08/19/17 percutaneous cholangiogram with biliary drain placement A/P Problem List: (1) Biliary obstruction ICD Code: K83.1 - Obstruction of bile duct Assessment and Plan 1. Abdominal pain: Patient has a complex history including multiple abdominal procedures in the past including distal gastrectomy secondary to gastroparesis. CT of the abdomen shows dilatation of the common bile duct and hepatic steatosis. MRCP shows cholelithiasis and mildly distended common bile duct with suspected filling defect at the level of the ampulla. Appreciate GI recommendations. Abdominal pain is better but does not tolerate oxycodone will switch to by mouth Dilaudid. Plan is for surgery, possibly on Wednesday pending clinical improvement. LFTs are trending down. Biliary drain placed 08/19/17. Ct TPN, cefepime and Flagyl. 2. Leukocytosis. Patient denies fever, cough, UTI and diarrhea. Likely reactive already on cefepime and Flagyl. Improving continue to monitor 3. Hypertension and tachycardia likely secondary to pain. Continue pain management with oxycodone and Dilaudid. Continue to monitor 4. GERD: Continue PPI. 5. DVT prophylaxis: SCDs and Lovenox Discharge Planning not ready for abd surgery next week Trey Marquez MD Aug 22, 2017 10:03
[2017-08-22 10:12] LABS: BICARBONATE 21.4 MEQ/L (21.0-32.0); CALCIUM 7.8 MG/DL (8.5-10.1); CREATININE 0.93 MG/DL (0.60-1.30)
--- NOTE | 2017-08-22 11:24 | HHI.PR ---
Subjective Subjective Notes no complaints, waiting on surgery. no N/V Objective Vitals/I&O Vital Signs Date Time Temp Pulse Resp B/P (MAP) Pulse Ox O2 Delivery O2 Flow Rate FiO2 08/22/17 08:00 99.0 91 20 147/90 (109) 92 08/22/17 07:00 Room Air 08/21/17 22:16 21 Labs Laboratory Tests Test 08/22/17 08:45 White Blood Count 18.8 Red Blood Count 4.12 Hemoglobin 11.8 Hematocrit 36.1 Mean Corpuscular Volume 87.7 Mean Corpuscular Hemoglobin 28.7 Mean Corpuscular Hemoglobin Concent 32.7 Red Cell Distribution Width 15.8 Platelet Count 211 Mean Platelet Volume 8.5 Neutrophils (%) (Auto) 87.6 Lymphocytes (%) (Auto) 3.6 Monocytes (%) (Auto) 8.1 Eosinophils (%) (Auto) 0.5 Basophils (%) (Auto) 0.2 Neutrophils # (Auto) 16.5 Lymphocytes # (Auto) 0.7 Monocytes # (Auto) 1.5 Eosinophils # (Auto) 0.1 Basophils # (Auto) 0.0 CBC Comment DIFF FINAL Differential Comment Blood Urea Nitrogen 2 Creatinine 0.93 Random Glucose 78 Calcium Level 7.8 Magnesium Level 2.0 Sodium Level 132 Potassium Level 3.6 Chloride Level 101 Carbon Dioxide Level 21.4 Anion Gap 10 Estimat Glomerular Filtration Rate 87 Radiology Last 48 hours Impressions Gall Bladder Ultrasound 08/16/17 0000 Signed Impressions: Service Date/Time: Wednesday, August 16, 2017 07:47 - CONCLUSION: 1. Contracted gallbladder containing multiple gallstones. 2. Dilated common bile duct is 7 mm. 3. Echogenic liver which can be seen with moderate hepatic steatosis. Kj Gutierrez MD Cholangiopancreatography MRI 08/16/17 0000 Signed Impressions: Service Date/Time: Wednesday, August 16, 2017 11:18 - CONCLUSION: 1. Cholelithiasis 2. Mildly distended common bile duct with suspected filling defect at the level of the ampulla. 3. Axial stenosis. Jhonatan Fish MD Abdomen/Pelvis CT [id number]/15/171939 Signed Impressions: Service Date/Time: Tuesday, August 15, 2017 19:49 - CONCLUSION: 1. Status post distal gastrectomy with a gastroenteric anastomosis. 2. There are bowel sutures in the left upper quadrant of the proximal small bowel with some dilatation of this segment with prominent debris within this portion of the small bowel in the left upper quadrant. The remaining small bowel is not dilated or thickened. 3. Dilatation of the common bile duct. A cause of this is not seen. 4. Evidence of prior midline incision with minimal hernias. 5. Hepatic steatosis. Neel Alexander MD Abdomen: Non-distended, Non-tender A/P Assessment and Plan OR wednesday no issues Leon Stevens MD Aug 22, 2017 11:24
[2017-08-22 12:00] VITALS: BP 144/88; PULSE 91; RESP 20; TEMP 98.4; O2SAT 93
[2017-08-22 16:00] VITALS: BP 148/90; PULSE 95; RESP 20; TEMP 98.9; O2SAT 95
[2017-08-22] MEDS: PROMETHAZINE INJ 25 MG/ML VIAL IM PRN (17:32)
[2017-08-22] MEDS: ENOXAPARIN SODIUM 40 MG/0.4 ML SYRINGE SQ SCH (17:37)
[2017-08-22 20:00] VITALS: BP 150/90; PULSE 93; RESP 20; TEMP 100.6; O2SAT 95
[2017-08-22] MEDS: FAT EMULSION 20% INJ 250 ML (Daily over 8 hours) IV-CENTRAL SCH (20:17)
[2017-08-23] VITALS: BP 162/91; PULSE 88; RESP 17; TEMP 98.5; O2SAT 94
[2017-08-23] MEDS: CEFEPIME INJ 2,000 MG in SODIUM CHLORIDE 0.9% INJ 100 ML IV SCH ×4 (00:32→23:27)
[2017-08-23] MEDS: ONDANSETRON HCL 4 MG/2 ML VIAL IVP PRN ×4 (01:43→20:46)
[2017-08-23] MEDS: KETOROLAC TROMETHAMINE 30 MG/ML (IVP) VIAL IV PUSH SCH ×4 (01:43→20:47)
[2017-08-23 04:00] VITALS: BP 157/91; PULSE 88; RESP 17; TEMP 98.5; O2SAT 94
[2017-08-23] MEDS: metroNIDAZOLE 500 MG INJ 100 ML IV SCH ×3 (04:38→20:46)
[2017-08-23 07:14] LABS: AUTOMATED NEUTROPHIL # 14.2 TH/MM3 (1.8-7.7); BASOPHIL # 0.1 TH/MM3 (0-0.2); BASOPHIL % 0.5 % (0.0-2.0); EOSINOPHIL # 0.3 TH/MM3 (0-0.4); EOSINOPHIL % 1.8 % (0.0-4.0); HEMATOCRIT 34.6 % (39.0-51.0); HEMOGLOBIN 11.6 GM/DL (13.0-17.0); LYMPH % 6.2 % (9.0-44.0); LYMPHOCYTE # 1.1 TH/MM3 (1.0-4.8); MEAN CELL VOLUME 86.8 FL (80.0-100.0); MEAN CORPUSCULAR HEMOGLOBIN 29.1 PG (27.0-34.0); MEAN CORPUSCULAR HGB CONC 33.5 % (32.0-36.0); MEAN PLATELET VOLUME 8.8 FL (7.0-11.0); MONO % 10.4 % (0.0-8.0); MONOCYTE # 1.8 TH/MM3 (0-0.9); NEUT % 81.1 % (16.0-70.0); PLATELET COUNT 236 TH/MM3 (150-450); RED BLOOD COUNT 3.98 MIL/MM3 (4.50-5.90); RED CELL DISTRIBUTION WIDTH 15.9 % (11.6-17.2); WHITE BLOOD COUNT 17.5 TH/MM3 (4.0-11.0)
[2017-08-23 07:32] LABS: BICARBONATE 22.9 MEQ/L (21.0-32.0); CREATININE 0.76 MG/DL (0.60-1.30)
[2017-08-23 08:00] VITALS: BP 152/89; PULSE 88; RESP 19; TEMP 99.1; O2SAT 94
[2017-08-23] MEDS: PANTOPRAZOLE SOD 40 MG DELAYED RELEASE TAB PO SCH (08:15)
[2017-08-23] MEDS: DOCUSATE SODIUM 50 MG/SENNA 8.6 MG TAB PO SCH ×2 (08:15→20:46)
[2017-08-23] MEDS: SODIUM CHLORIDE 0.9% FLUSH 10 ML FLUSH IV FLUSH SCH ×2 (08:19→20:47)
[2017-08-23] MEDS: MULTIVITAMIN INJ 5 ML, FOLIC ACID INJ 0.5 MG in AMINO ACID IN D5W W/ELECTROLYT 1,000 ML IV SCH ×6 (08:19→20:46)
[2017-08-23] MEDS ORDERED: POTASSIUM CHLORIDE 10 MEQ CONTROLLED RELEASE TAB PO ONE (10:15)
[2017-08-23 12:00] VITALS: BP 148/90; PULSE 83; RESP 16; TEMP 98.3; O2SAT 97
--- NOTE | 2017-08-23 15:36 | HHI.PR ---
Subjective Remarks Follow-up biliary obstruction. No new complaints pain is unchanged. Had low- grade fever last night denies headache, neck pain, cough, UTI symptoms and diarrhea. Discussed with RN Objective Vitals Vital Signs Date Time Temp Pulse Resp B/P (MAP) Pulse Ox O2 Delivery O2 Flow Rate FiO2 08/23/17 12:00 Room Air 08/23/17 12:00 98.3 83 16 148/90 (109) 97 08/23/17 10:16 Room Air 08/23/17 08:00 99.1 88 19 152/89 (110) 94 08/23/17 04:00 98.5 88 17 157/91 (113) 94 08/23/17 04:00 Room Air 08/23/17 00:00 Room Air 08/23/17 00:00 98.5 88 17 162/91 (114) 94 08/22/17 20:00 Room Air 08/22/17 20:00 100.6 93 20 150/90 (110) 95 08/22/17 16:00 98.9 95 20 148/90 (109) 95 I/O 08/22/17 08/22/17 08/22/17 08/23/17 08/23/17 08/23/17 07:00 15:00 23:00 07:00 15:00 23:00 Intake Total 930 ml 220 ml 1050 ml Output Total 1800 ml 850 ml 1300 ml Balance -870 ml -630 ml -250 ml Intake Oral 480 ml 120 ml 950 ml IV Total 450 ml 100 ml 100 ml Output Urine Total 1800 ml 850 ml 1300 ml # Bowel Movements 0 0 Result Diagram: 08/23/17 0500 08/23/17 0500 Imaging Last Impressions Bile Duct Drainage 08/19/17 0000 Signed Impressions: Service Date/Time: August 10:11 - CONCLUSION: 1. Uncomplicated percutaneous biliary drainage as above. 2. A cholangiogram demonstrates a stone within the distal common bile duct. There are multiple stones within the gallbladder. Jacinto Berumen MD Chest X-Ray 08/18/17 0000 Signed Impressions: Service Date/Time: Friday, August 18, 2017 15:06 - CONCLUSION: 1. Visipaque line in good position. 2. Elevation of the left hemidiaphragm with mild airspace disease at the left lung base which may reflect atelectasis. Eugene Bozorgmanesh, MD Gall Bladder Ultrasound 08/16/17 0000 Signed Impressions: Service Date/Time: Wednesday, August 16, 2017 07:47 - CONCLUSION: 1. Contracted gallbladder containing multiple gallstones. 2. Dilated common bile duct is 7 mm. 3. Echogenic liver which can be seen with moderate hepatic steatosis. Kj Gutierrez MD Cholangiopancreatography MRI 08/16/17 0000 Signed Impressions: Service Date/Time: Wednesday, August 16, 2017 11:18 - CONCLUSION: 1. Cholelithiasis 2. Mildly distended common bile duct with suspected filling defect at the level of the ampulla. 3. Axial stenosis. Jhoantan Fish MD Abdomen/Pelvis CT 08/15/171939 Signed Impressions: Service Date/Time: Tuesday, August 15, 2017 19:49 - CONCLUSION: 1. Status post distal gastrectomy with a gastroenteric anastomosis. 2. There are bowel sutures in the left upper quadrant of the proximal small bowel with some dilatation of this segment with prominent debris within this portion of the small bowel in the left upper quadrant. The remaining small bowel is not dilated or thickened. 3. Dilatation of the common bile duct. A cause of this is not seen. 4. Evidence of prior midline incision with minimal hernias. 5. Hepatic steatosis. Neel Alexander MD Objective Remarks General: No acute distress. Well-developed and well-nourished Skin is warm no lesions HEENT pupils reactive to light with mild jaundice Heart: Regular rate and rhythm. No murmur. Lungs: Clear to auscultation bilaterally. No wheezes, rales, or rhonchi. Breathing is nonlabored. Abdomen: Soft, right upper quadrant tenderness to palpation, moderately distended. Extremities: No lower extremity edema. No cyanosis Psych: Alert and oriented. Procedures 08/19/17 percutaneous cholangiogram with biliary drain placement A/P Problem List: (1) Biliary obstruction ICD Code: K83.1 - Obstruction of bile duct Assessment and Plan 1. Abdominal pain: Patient has a complex history including multiple abdominal procedures in the past including distal gastrectomy secondary to gastroparesis. CT of the abdomen shows dilatation of the common bile duct and hepatic steatosis. MRCP shows cholelithiasis and mildly distended common bile duct with suspected filling defect at the level of the ampulla. Appreciate GI recommendations. He had low grade fever last night. Plan is for surgery, possibly on Wednesday. LFTs are trending down. Biliary drain placed 08/19/17. Ct TPN, cefepime and Flagyl. 2. Leukocytosis and fever. Patient denies cough, UTI and diarrhea. Likely secondary to #1 problem already on cefepime and Flagyl. Continue to monitor 3. Hypertension and tachycardia likely secondary to pain. Continue pain management with oxycodone and Dilaudid. Continue to monitor 4. GERD: Continue PPI. 5. DVT prophylaxis: SCDs and Lovenox Discharge Planning not ready for abd surgery tomorrow Trey Marquez MD Aug 23, 2017 15:36
[2017-08-23 16:00] VITALS: BP 154/91; PULSE 85; RESP 16; TEMP 98.7; O2SAT 95
[2017-08-23] MEDS: ENOXAPARIN SODIUM 40 MG/0.4 ML SYRINGE SQ SCH (17:28)
--- NOTE | 2017-08-23 18:29 | HHI.PR ---
cc: Ceferino Michelle MD Subjective Subjective Notes Resting in bed Nauseous all weekend Objective Vitals/I&O Vital Signs Date Time Temp Pulse Resp B/P (MAP) Pulse Ox O2 Delivery O2 Flow Rate FiO2 08/23/17 16:00 98.7 85 16 154/91 (112) 95 08/23/17 12:00 Room Air 08/21/17 22:16 21 Labs Laboratory Tests Test 08/23/17 05:00 White Blood Count 17.5 Red Blood Count 3.98 Hemoglobin 11.6 Hematocrit 34.6 Mean Corpuscular Volume 86.8 Mean Corpuscular Hemoglobin 29.1 Mean Corpuscular Hemoglobin Concent 33.5 Red Cell Distribution Width 15.9 Platelet Count 236 Mean Platelet Volume 8.8 Neutrophils (%) (Auto) 81.1 Lymphocytes (%) (Auto) 6.2 Monocytes (%) (Auto) 10.4 Eosinophils (%) (Auto) 1.8 Basophils (%) (Auto) 0.5 Neutrophils # (Auto) 14.2 Lymphocytes # (Auto) 1.1 Monocytes # (Auto) 1.8 Eosinophils # (Auto) 0.3 Basophils # (Auto) 0.1 CBC Comment DIFF FINAL Differential Comment Blood Urea Nitrogen 9 Creatinine 0.76 Random Glucose 171 Calcium Level 8.0 Magnesium Level 2.0 Sodium Level 134 Potassium Level 3.3 Chloride Level 101 Carbon Dioxide Level 22.9 Anion Gap 10 Estimat Glomerular Filtration Rate 110 Radiology Last 48 hours Impressions Gall Bladder Ultrasound 08/16/17 0000 Signed Impressions: Service Date/Time: Wednesday, August 16, 2017 07:47 - CONCLUSION: 1. Contracted gallbladder containing multiple gallstones. 2. Dilated common bile duct is 7 mm. 3. Echogenic liver which can be seen with moderate hepatic steatosis. Kj Gutierrez MD Cholangiopancreatography MRI 08/16/17 0000 Signed Impressions: Service Date/Time: Wednesday, August 16, 2017 11:18 - CONCLUSION: 1. Cholelithiasis 2. Mildly distended common bile duct with suspected filling defect at the level of the ampulla. 3. Axial stenosis. Jhonatan Fish MD Abdomen/Pelvis CT 08/15/171939 Signed Impressions: Service Date/Time: Tuesday, August 15, 2017 19:49 - CONCLUSION: 1. Status post distal gastrectomy with a gastroenteric anastomosis. 2. There are bowel sutures in the left upper quadrant of the proximal small bowel with some dilatation of this segment with prominent debris within this portion of the small bowel in the left upper quadrant. The remaining small bowel is not dilated or thickened. 3. Dilatation of the common bile duct. A cause of this is not seen. 4. Evidence of prior midline incision with minimal hernias. 5. Hepatic steatosis. Neel Alexander MD Cardiovascular: Regular Lungs: Clear Abdomen: Other (PTC drain in place; tender ) Extremities: No edema A/P Assessment and Plan 47 year old male 47 year old male with abdominal pain with associated nausea and vomiting with a surgical history of distal gastrectomy for gastroparesis -Okay for clears; NPO after MN -Hold Lovenox -OR for tomorrow -Obtain consent---see orders Attending Statement patient seen at bedside still with persistent nausea nutritional status improving cbd obstruction resolved plan for OR tomorrow discussed with patient the surgery will likely be very involved and contains considerable risk as patient has had an extensive complicated surgical history with infection and bile leak and obstruction. He understands this and would like to proceed. He will likely be in icu post op for close monitoring Attestation The exam, history, and the medical decision-making described in the above note were completed with the assistance of the mid-level provider. I reviewed and agree with the findings presented. I attest that I had a [id number] encounter with the patient on the same day, and personally performed and documented my assessment and findings in the medical record. Genna Miller Aug 23, 2017 18:29 Ceferino Michelle MD Aug 30, 2017 07:28
[2017-08-23 20:00] VITALS: BP 158/95; PULSE 84; RESP 22; TEMP 100.8; O2SAT 97
[2017-08-23] MEDS: FAT EMULSION 20% INJ 250 ML (Daily over 8 hours) IV-CENTRAL SCH (20:45)
[2017-08-23] MEDS: POTASSIUM CHLOR 10 MEQ PREMIX 100 ML IV SCH ×2 (22:13→23:27)
[2017-08-24] VITALS: BP 151/96; PULSE 78; RESP 21; TEMP 99.4; O2SAT 96
[2017-08-24] MEDS: ONDANSETRON HCL 4 MG/2 ML VIAL IVP PRN ×2 (01:56→08:07)
[2017-08-24] MEDS: KETOROLAC TROMETHAMINE 30 MG/ML (IVP) VIAL IV PUSH SCH ×4 (01:56→23:11)
[2017-08-24 04:00] VITALS: BP 146/89; PULSE 73; RESP 19; TEMP 98.1; O2SAT 96
[2017-08-24] MEDS: metroNIDAZOLE 500 MG INJ 100 ML IV SCH ×3 (04:44→20:00)
[2017-08-24] MEDS ORDERED: SODIUM CHLORID 0.9% 500 ML IV PRN (05:30)
[2017-08-24] MEDS ORDERED: POVIDONE IODINE 5% (ANTISEPSIS KIT) 4 APPLICATIONS EACH NARE PRN (05:30)
[2017-08-24] MEDS ORDERED: CHLORHEXIDINE GLUCONATE 2 % 1 PACK (2 CLOTHS) TOPICAL PRN (05:30)
[2017-08-24] MEDS ORDERED: LACTATED RINGER'S 1000 ML IV PRN (05:30)
[2017-08-24 08:02] VITALS: BP 144/86; PULSE 80; RESP 17; TEMP 98.9; O2SAT 95
[2017-08-24] MEDS: CEFEPIME INJ 2,000 MG in SODIUM CHLORIDE 0.9% INJ 100 ML IV SCH ×3 (08:07→23:41)
[2017-08-24] MEDS: SODIUM CHLORIDE 0.9% FLUSH 10 ML FLUSH IV FLUSH SCH ×2 (08:07→22:10)
[2017-08-24] MEDS: MULTIVITAMIN INJ 5 ML, FOLIC ACID INJ 0.5 MG in AMINO ACID IN D5W W/ELECTROLYT 1,000 ML IV SCH ×6 (08:26→23:35)
[2017-08-24] MEDS: DOCUSATE SODIUM 50 MG/SENNA 8.6 MG TAB PO SCH ×2 (08:40→21:00)
[2017-08-24] MEDS: PANTOPRAZOLE SOD 40 MG DELAYED RELEASE TAB PO SCH (08:40)
[2017-08-24 09:50] LABS: AUTOMATED NEUTROPHIL # 11.1 TH/MM3 (1.8-7.7); BASOPHIL % 0.2 % (0.0-2.0); EOSINOPHIL # 0.4 TH/MM3 (0-0.4); EOSINOPHIL % 3.2 % (0.0-4.0); HEMATOCRIT 34.7 % (39.0-51.0); HEMOGLOBIN 11.6 GM/DL (13.0-17.0); LYMPH % 4.9 % (9.0-44.0); LYMPHOCYTE # 0.7 TH/MM3 (1.0-4.8); MEAN CELL VOLUME 87.3 FL (80.0-100.0); MEAN CORPUSCULAR HEMOGLOBIN 29.2 PG (27.0-34.0); MEAN CORPUSCULAR HGB CONC 33.4 % (32.0-36.0); MEAN PLATELET VOLUME 8.3 FL (7.0-11.0); MONO % 12.1 % (0.0-8.0); MONOCYTE # 1.7 TH/MM3 (0-0.9); NEUT % 79.6 % (16.0-70.0); PLATELET COUNT 239 TH/MM3 (150-450); RED BLOOD COUNT 3.97 MIL/MM3 (4.50-5.90); RED CELL DISTRIBUTION WIDTH 15.6 % (11.6-17.2)
[2017-08-24 09:57] LABS: MAGNESIUM 2.2 MG/DL (1.5-2.5)
[2017-08-24 11:15] VITALS: O2SAT 96
[2017-08-24] MEDS ORDERED: SUCCINYLCHOLINE CHLORIDE 100 MG/5 ML SYRINGE IV PUSH ONE (12:00)
[2017-08-24] MEDS ORDERED: ROCURONIUM INJ 50 MG/5 ML SYRINGE IV PUSH ONE ×3 (12:00→16:29)
[2017-08-24] MEDS ORDERED: DEXAMETHASONE SOD PHOS 4 MG/ML VIAL IV ONE (12:00)
[2017-08-24] MEDS ORDERED: PROPOFOL 200 MG/20 ML AMP IV ONE (12:00)
[2017-08-24] MEDS ORDERED: NORMOSOL R INJ 1,000 ML IV ONE (12:00)
[2017-08-24] MEDS ORDERED: LIDOCAINE HCL 1% PF 5 ML SYRINGE OTHER ONE (12:00)
[2017-08-24] MEDS ORDERED: PHENYLEPH/NS 1000 MCG/10 ML SYR IV ONE (12:00)
[2017-08-24] MEDS ORDERED: ONDANSETRON HCL 4 MG/2 ML VIAL IV PUSH ONE (12:00)
[2017-08-24 12:03] VITALS: BP 137/87; PULSE 80; RESP 17; TEMP 98.4; O2SAT 96
[2017-08-24 12:35] LABS: ALBUMIN 2.1 GM/DL (3.4-5.0); ALT (GPT) 71 U/L (12-78); AST (GOT) 23 U/L (15-37); BICARBONATE 22.5 MEQ/L (21.0-32.0); CALCIUM 7.9 MG/DL (8.5-10.1); CHLORIDE 103 MEQ/L (98-107); CREATININE 0.69 MG/DL (0.60-1.30); GLOMERULAR FILTRATION RATE 123 ML/MIN (>89); GLUCOSE,RANDOM 169 MG/DL (74-106); SODIUM (NA) 135 MEQ/L (136-145)
[2017-08-24 12:41] LABS: ALKALINE PHOSPHATASE 117 U/L (45-117); BLOOD UREA NITROGEN 11 MG/DL (7-18); TOTAL BILIRUBIN ADULT 0.8 MG/DL (0.2-1.0); TOTAL PROTEIN 6.9 GM/DL (6.4-8.2)
[2017-08-24] MEDS ORDERED: HYDROmorphone HCL PF 2 MG/ML VIAL ONE (12:48)
[2017-08-24] MEDS ORDERED: SUGAMMADEX SODIUM 200 MG/2 ML VIAL IV PUSH ONE ×2 (12:49→21:27)
[2017-08-24] MEDS ORDERED: ACETAMINOPHEN 1000 MG/100 ML 100 ML IV ONE (12:50)
[2017-08-24 17:56] LABS: HEMATOCRIT 35.9 % (39.0-51.0); HEMOGLOBIN 11.8 GM/DL (13.0-17.0)
[2017-08-24] MEDS: FAT EMULSION 20% INJ 250 ML (Daily over 8 hours) IV-CENTRAL SCH (20:00)
--- NOTE | 2017-08-24 21:29 | RADRPT ---
EXAM DATE/TIME: 08/24/2017 20:58 [facility] COMPARISON: No previous studies available for comparison. INDICATIONS : Interoperative cholangiogram for laproscopic cholecystectomy. FLUORO TIME: 1.0 minutes IMAGE COUNT: 1 MEDICAL HISTORY : Gastroparesis. SURGICAL HISTORY : Gastric bypass. ENCOUNTER: Initial ACUITY: 1 day PAIN SCORE: Non-responsive. LOCATION: Abdomen. PROCEDURE: CHOLANGIOGRAM, OPERATIVE 1. Intraoperative cholangiogram. In the operating room, the cystic duct stump was injected and cine images obtained. The examination demonstrates contrast flowing into the duodenum and no dilated intrahepatic ducts. T here is a stent in the common hepatic duct CONCLUSION: No evidence of common duct stone. Arnold Obrien MD on August 24, 2017 at 21:25 Board Certified Radiologist. This report was verified electronically.
[2017-08-24] MEDS ORDERED: NALOXONE HCL 0.4 MG/ML AMP IV PUSH PRN (21:45)
--- NOTE | 2017-08-24 21:49 | HHI.PR ---
Immediate Post Op Note Procedure Date: Aug 24, 2017 Pre Op Diagnosis: obstructed gastrojejunostomy, cbd stone Post Op Diagnosis: same Surgeon: Ceferino Michelle MD Vault Cashier(s): Dr. Enrique Ruth Procedure: Ex lap, extensive KAMERON, Revision of gastrojejunostomy, J tube, open CBD exploration, T tube placement, T tube cholangiogram, scar revision Findings: multiple adhesions, cbd stone, patent bile ducts after stone removal on fluroscopy Complications: none Specimen(s) removed: gallbladder, gb stones, cbd stone Estimated blood loss: 600cc Anesthesia: General Drains: MADONNA IVF ([id number]) Patient to: PACU Patient Condition: Good Ceferino Michelle MD Aug 24, 2017 21:49
[2017-08-24] MEDS: PCA - TOTAL MG MORPHINE DELIVERED PER SHIFT SCH (22:00)
[2017-08-24] MEDS ORDERED: MEPERIDINE HCL 25 MG/ML VIAL ONE (22:03)
[2017-08-24] MEDS ORDERED: DO NOT ADM ANY ANTICOAGULANT DRUGS PRN (22:15)
--- NOTE | 2017-08-24 22:29 | PD.CONS ---
[facility] Service Critical Care Medicine Consult Requested By Dr. Michelle Reason for Consult Critical care management Primary Care Physician Vasyl Iglesias DO History of Present Illness This is a 47-year-old male. Date of admission 08/16/2017. Date of consultation 08/24/2017. Past medical history includes complex GI history quitting a distal gastrectomy/Monster-en-Y's for gastroparesis followed 2 days later for repair of cultures are since. He has 3 other surgeries involve biliary leaks. These were done at [facility] in [place]. Patient presented to [place] ED on 08/16 with three-day history of nausea vomiting abdominal pain. 810. CT scan revealed dilated bile duct once medium-size ultrasound of the abdomen showed contracted gallbladder with gallstones without common bile duct. LFT is abnormal closest pattern. Patient had drain placed by IR 08/19. Patient was evaluated by surgery. Has seen Dr. Allen for GI in the past and Dr. Michelle for surgery. Dr. Allen attempt a recent upper endoscopy attempt to dilate the gastroenteric anastomosis, however the stomach was so full food cannot find anastomosis. Dr. Ceferino Michelle seen the patient for revision likely with palpation. Complicated however patient might have had Gastrojejunostomy versus Billroth II anastomosis. Today, patient had an exploratory laparotomy with extensive lysis of adhesions, revision of gastrojejunostomy with placement of J-tube in the left lower quadrant, open common bile duct exploration with T-tube placement in right upper quadrant and T-tube cholangiogram/MADONNA drain placed in right lower quadrant secondary to multiple adhesions, common bile duct stone with patent bile ducts after fluoroscopy with an obstructed gastrojejunostomy I Dr. Michelle/Faraz. 5200 IV fluids. MADONNA with single strain. Patient is currently on 2 L nasal cannula with an NG tube in left nares.. Review of Systems Constitutional: COMPLAINS OF: Fatigue, Weight loss, DENIES: Fever, Weight gain Endocrine: DENIES: Polydipsia, Polyuria Eyes: DENIES: Blurred vision Ears, nose, mouth, throat: DENIES: Tinnitus Respiratory: DENIES: Apneas Cardiovascular: DENIES: Chest pain Gastrointestinal: COMPLAINS OF: Abdominal pain, Nausea, DENIES: Diarrhea, Anorexia Genitourinary: DENIES: Sexual dysfunction Musculoskeletal: DENIES: Joint pain Integumentary: DENIES: Abnormal pigmentation Hematologic/lymphatic: DENIES: Bruising Immunologic/allergic: DENIES: Eczema Neurologic: DENIES: Abnormal gait Psychiatric: DENIES: Anxiety Past Family Social History Allergies: Coded Allergies: No Known Allergies (Unverified , 08/15/17) Past Medical History Gastroesophageal reflux disease Chronic diverticulosis History of gastroparesis Hepatic steatosis History of esophagitis Past Surgical History History of Monster-en-Y, 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 History of biliary strictures Reported Medications Transderm-Scop (Scopolamine) 1.5MG/3DAY Dis Pantoprazole (Pantoprazole Sodium) 40 Mg Tab 40 Mg PO DAILY Metoclopramide (Metoclopramide HCl) 10 Mg Tab 10 Mg PO QID Active Ordered Medications Reviewed in EMR Family History Father with CVA. Social History Rare alcohol use. Denies tobacco use. No illicit drug use Physical Exam Vital Signs Vital Signs Date Time Temp Pulse Resp B/P (MAP) Pulse Ox O2 Delivery O2 Flow Rate FiO2 08/24/17 12:03 98.4 80 17 137/87 (104) 96 08/24/17 12:00 Room Air 08/24/17 11:15 96 21 08/24/17 09:18 Room Air 08/24/17 08:02 98.9 80 17 144/86 (105) 95 08/24/17 04:00 98.1 73 19 146/89 (108) 96 08/24/17 04:00 Room Air 08/24/17 00:00 Room Air 08/24/17 00:00 99.4 78 21 151/96 (114) 96 Physical Exam GENERAL: 47-year-old male, resting in bed in no acute distress SKIN: Warm and dry. HEAD: Atraumatic. Normocephalic. EYES: Pupils equal and round. No scleral icterus. No injection or drainage. ENT: No nasal bleeding or discharge. Mucous membranes pink and moist. NG tube in left nares NECK: Trachea midline. No JVD. CARDIOVASCULAR: Regular rate and rhythm. RESPIRATORY: No accessory muscle use. Clear to auscultation. Breath sounds equal bilaterally. GASTROINTESTINAL: Abdomen soft, non-tender, nondistended. Misa dressing in place. J-tube in the left lower quadrant. T-tube in right upper quadrant. MADONNA in right lower quadrant. Serosanguineous output. MUSCULOSKELETAL: Extremities without clubbing, cyanosis, or edema. No obvious deformities. NEUROLOGICAL: Awake and alert. No obvious cranial nerve deficits. Motor grossly within normal limits. Five out of 5 muscle strength in the arms and legs. Normal speech. PSYCHIATRIC: Appropriate mood and affect; insight and judgment normal. Laboratory Laboratory Tests Test 08/24/17 09:08 08/24/17 17:40 White Blood Count 14.0 Red Blood Count 3.97 Hemoglobin 11.6 11.8 Hematocrit 34.7 35.9 Mean Corpuscular Volume 87.3 Mean Corpuscular Hemoglobin 29.2 Mean Corpuscular Hemoglobin Concent 33.4 Red Cell Distribution Width 15.6 Platelet Count 239 Mean Platelet Volume 8.3 Neutrophils (%) (Auto) 79.6 Lymphocytes (%) (Auto) 4.9 Monocytes (%) (Auto) 12.1 Eosinophils (%) (Auto) 3.2 Basophils (%) (Auto) 0.2 Neutrophils # (Auto) 11.1 Lymphocytes # (Auto) 0.7 Monocytes # (Auto) 1.7 Eosinophils # (Auto) 0.4 Basophils # (Auto) 0.0 CBC Comment DIFF FINAL Differential Comment Blood Urea Nitrogen 11 Creatinine 0.69 Random Glucose 169 Total Protein 6.9 Albumin 2.1 Calcium Level 7.9 Magnesium Level 2.2 Alkaline Phosphatase 117 Aspartate Amino Transf (AST/SGOT) 23 Alanine Aminotransferase (ALT/SGPT) 71 Total Bilirubin 0.8 Sodium Level 135 Potassium Level 3.7 Chloride Level 103 Carbon Dioxide Level 22.5 Anion Gap 10 Estimat Glomerular Filtration Rate 123 Result Diagram: 08/24/17 1740 08/24/17 0908 Imaging Last Impressions Bile Duct Drainage 08/19/17 0000 Signed Impressions: Service Date/Time: August 10:11 - CONCLUSION: 1. Uncomplicated percutaneous biliary drainage as above. 2. A cholangiogram demonstrates a stone within the distal common bile duct. There are multiple stones within the gallbladder. Jacinto Berumen MD Chest X-Ray 08/18/17 0000 Signed Impressions: Service Date/Time: Friday, August 18, 2017 15:06 - CONCLUSION: 1. Visipaque line in good position. 2. Elevation of the left hemidiaphragm with mild airspace disease at the left lung base which may reflect atelectasis. Eugene Belle MD Gall Bladder Ultrasound 08/16/17 0000 Signed Impressions: Service Date/Time: Wednesday, August 16, 2017 07:47 - CONCLUSION: 1. Contracted gallbladder containing multiple gallstones. 2. Dilated common bile duct is 7 mm. 3. Echogenic liver which can be seen with moderate hepatic steatosis. Kj Gutierrez MD Cholangiopancreatography MRI 08/16/17 0000 Signed Impressions: Service Date/Time: Wednesday, August 16, 2017 11:18 - CONCLUSION: 1. Cholelithiasis 2. Mildly distended common bile duct with suspected filling defect at the level of the ampulla. 3. Axial stenosis. Jhonatan Fish MD Abdomen/Pelvis CT 08/15/17 1940 Signed Impressions: Service Date/Time: Tuesday, August 15, 2017 19:49 - CONCLUSION: 1. Status post distal gastrectomy with a gastroenteric anastomosis. 2. There are bowel sutures in the left upper quadrant of the proximal small bowel with some dilatation of this segment with prominent debris within this portion of the small bowel in the left upper quadrant. The remaining small bowel is not dilated or thickened. 3. Dilatation of the common bile duct. A cause of this is not seen. 4. Evidence of prior midline incision with minimal hernias. 5. Hepatic steatosis. Neel Alexander MD Septic Shock Reassessment Septic shock perfusion: reassessment completed Assessment and Plan Assessment and Plan Neuro/Psych: Ketorolac 30 mg every 6 hours written for IV and IM? Hydromorphone 1-2 mg every 4 hours as needed Pain along with a morphine SUPPORT SPECIALIST CV: Currently on PPN at 83 cc an hour with lipids daily Currently not requiring vasopressors and/or antihypertensives Resp: Postoperative hypoxia Currently on nasal cannula currently at 2 L to maintain saturations greater than equal to 92% Incentive spirometry while awake GI: Postoperative day #0 exploratory laparotomy with extensive lysis of adhesions, revision of gastrojejunostomy with J-tube, open, bowel or expiration with T- tube placement and cholangiogram secondary to obstructive gastrojejunostomy with common bile duct stone Status post PTC 08/[address] Berumen/IR Elevated transaminases History of gastroparesis Diverticulosis Esophagitis Gastroesophageal reflux disease EBL was 600 cc. Receiving 5200 cc an hour. Adequate urine output. Follow-up on a.m. labs PPN currently 83 cc an hour through peripheral line with one bottle of lipids daily Currently on pantoprazole 40 mg by mouth daily CMP ordered for a.m. : Remove Hoyt catheter Endo: Sliding-scale insulin if indicated to maintain euglycemia Renal: Creatinine currently within normal limits Monitor urine output Accurate I's and O's Heme: Leukocytosis Monitor CBC daily. Follow trends Does not meet transfusion thresholds at this time ID: Currently on cefepime 2 g IV every 8 hours and metronidazole 500 mg IV every 8 hours FEN: Hypocalcemia 1 g calcium gluconate 1 now. Recheck in a.m. MSK: PT evaluate and treat Access - Utilize peripheral IV. 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 Care plan discussed all questions answered. Uriel Lara MD Aug 24, 2017 22:29
[2017-08-24 22:47] LABS: AUTOMATED NEUTROPHIL # 22.1 TH/MM3 (1.8-7.7); BASOPHIL # 0.1 TH/MM3 (0-0.2); BASOPHIL % 0.2 % (0.0-2.0); EOSINOPHIL # 0.1 TH/MM3 (0-0.4); EOSINOPHIL % 0.5 % (0.0-4.0); HEMATOCRIT 39.2 % (39.0-51.0); LYMPH % 5.4 % (9.0-44.0); LYMPHOCYTE # 1.5 TH/MM3 (1.0-4.8); MEAN CELL VOLUME 86.3 FL (80.0-100.0); MEAN CORPUSCULAR HEMOGLOBIN 28.7 PG (27.0-34.0); MEAN CORPUSCULAR HGB CONC 33.3 % (32.0-36.0); MEAN PLATELET VOLUME 8.3 FL (7.0-11.0); MONO % 13.4 % (0.0-8.0); MONOCYTE # 3.7 TH/MM3 (0-0.9); NEUT % 80.5 % (16.0-70.0); PLATELET COUNT 406 TH/MM3 (150-450); RED BLOOD COUNT 4.54 MIL/MM3 (4.50-5.90); WHITE BLOOD COUNT 27.5 TH/MM3 (4.0-11.0)
[2017-08-24] MEDS ORDERED: *morphine SULFATE 8 MG/ML PERIprocedure ONLY ONE (22:47)
[2017-08-24 23:03] LABS: BICARBONATE 27.2 MEQ/L (21.0-32.0); CALCIUM 7.4 MG/DL (8.5-10.1); CREATININE 0.96 MG/DL (0.60-1.30)
[2017-08-24] MEDS ORDERED: *HYDROmorphone PF 1 MG VIAL PERIprocedural Use ONLY ONE (23:11)
[2017-08-24] MEDS: KETOROLAC TROMETHAMINE 60 MG/2 ML (IM) VIAL IM SCH (23:14)
[2017-08-24] MEDS: MORPHINE SULFATE 30 MG/30 ML PCA IV SCH (23:16)
[2017-08-24 23:22] LABS: CALCIUM-PROTEIN CORRECTED 7.7 MG/DL (8.5-10.1); TOTAL PROTEIN 6.6 GM/DL (6.4-8.2)
[2017-08-24] MEDS ORDERED: CALCIUM GLUCONATE INJ 1 GM in SODIUM CHLORIDE 0.9% INJ 100 ML IV ONE (23:30)
[2017-08-25] VITALS (9 sets, daily range): BP systolic 108–137; BP diastolic 69–87; PULSE 80–133; RESP 12–22; TEMP 97.7–99.2; O2SAT 93–100
[2017-08-25 00:51] LABS: BANDS 26 % (0-6); LYMPHOCYTES 5 % (9-44); MONOCYTES 6 % (0-8); NEUTROPHIL # MANUAL DIFF 24.5 TH/MM3 (1.8-7.7); POLYS (SEG NEUTROPHILS) 63 % (16-70)
[2017-08-25] MEDS ORDERED: SODIUM CHLORID 0.9% 500 ML INJ 500 ML IV ONE ×2 (01:00→04:45)
[2017-08-25] MEDS: MORPHINE SULFATE 30 MG/30 ML PCA IV SCH (01:02)
[2017-08-25] MEDS: KETOROLAC TROMETHAMINE 30 MG/ML (IVP) VIAL IV PUSH SCH ×3 (02:00→14:00)
[2017-08-25] MEDS: SODIUM CHLOR 0.9% 1000 ML INJ 1,000 ML IV SCH ×3 (02:15→22:28)
[2017-08-25] MEDS: metroNIDAZOLE 500 MG INJ 100 ML IV SCH ×3 (04:35→20:25)
[2017-08-25 04:40] LABS: AUTOMATED NEUTROPHIL # 17.6 TH/MM3 (1.8-7.7); BASOPHIL % 0.1 % (0.0-2.0); EOSINOPHIL % 0.2 % (0.0-4.0); HEMATOCRIT 33.3 % (39.0-51.0); LYMPH % 4.8 % (9.0-44.0); MEAN CELL VOLUME 87.2 FL (80.0-100.0); MEAN CORPUSCULAR HEMOGLOBIN 28.9 PG (27.0-34.0); MEAN CORPUSCULAR HGB CONC 33.1 % (32.0-36.0); MEAN PLATELET VOLUME 8.3 FL (7.0-11.0); MONO % 8.9 % (0.0-8.0); MONOCYTE # 1.8 TH/MM3 (0-0.9); PLATELET COUNT 275 TH/MM3 (150-450); RED BLOOD COUNT 3.82 MIL/MM3 (4.50-5.90); RED CELL DISTRIBUTION WIDTH 16.3 % (11.6-17.2); WHITE BLOOD COUNT 20.4 TH/MM3 (4.0-11.0)
[2017-08-25] MEDS: KETOROLAC TROMETHAMINE 60 MG/2 ML (IM) VIAL IM SCH (04:52)
[2017-08-25 05:16] LABS: ALBUMIN 1.7 GM/DL (3.4-5.0); BICARBONATE 27.1 MEQ/L (21.0-32.0); CALCIUM 7.2 MG/DL (8.5-10.1); CALCIUM-PROTEIN CORRECTED 7.9 MG/DL (8.5-10.1); CREATININE 0.98 MG/DL (0.60-1.30); MAGNESIUM 2.1 MG/DL (1.5-2.5); PHOSPHORUS 2.6 MG/DL (2.5-4.9); TOTAL BILIRUBIN ADULT 0.8 MG/DL (0.2-1.0); TOTAL PROTEIN 5.8 GM/DL (6.4-8.2)
[2017-08-25] MEDS: PCA - TOTAL MG MORPHINE DELIVERED PER SHIFT SCH (06:19)
[2017-08-25] MEDS: CEFEPIME INJ 2,000 MG in SODIUM CHLORIDE 0.9% INJ 100 ML IV SCH ×3 (08:42→23:58)
[2017-08-25] MEDS: SODIUM CHLORIDE 0.9% FLUSH 10 ML FLUSH IV FLUSH SCH ×2 (08:46→20:25)
[2017-08-25] MEDS ORDERED: NALOXONE HCL 0.4 MG/ML AMP IV PUSH PRN (09:00)
[2017-08-25] MEDS: PANTOPRAZOLE SOD 40 MG DELAYED RELEASE TAB PO SCH (09:00)
[2017-08-25] MEDS: DOCUSATE SODIUM 50 MG/SENNA 8.6 MG TAB PO SCH ×2 (09:00→20:26)
[2017-08-25] MEDS: HYDROmorphone HCL PCA 6 MG/30 ML IV SCH ×2 (09:20→20:24)
--- NOTE | 2017-08-25 10:30 | HHI.PR ---
Subjective Subjective Notes Up to chair Painful but better now with SENIOR QUALITATIVE RESEARCHER In good spirits Objective Vitals/I&O Vital Signs Date Time Temp Pulse Resp B/P (MAP) Pulse Ox O2 Delivery O2 Flow Rate FiO2 08/25/17 09:45 17 08/25/17 08:41 99 21 08/25/17 08:00 Nasal Cannula 2.00 08/25/17 08:00 93 08/25/17 08:00 97.7 116/76 (89) Labs Laboratory Tests Test 08/24/17 17:40 08/24/17 22:38 08/25/17 00:45 08/25/17 01:09 Hemoglobin 11.8 13.0 12.0 Hematocrit 35.9 39.2 36.0 White Blood Count 27.5 Red Blood Count 4.54 Mean Corpuscular Volume 86.3 Mean Corpuscular Hemoglobin 28.7 Mean Corpuscular Hemoglobin Concent 33.3 Red Cell Distribution Width 16.0 Platelet Count 406 Mean Platelet Volume 8.3 Neutrophils (%) (Auto) 80.5 Lymphocytes (%) (Auto) 5.4 Monocytes (%) (Auto) 13.4 Eosinophils (%) (Auto) 0.5 Basophils (%) (Auto) 0.2 Neutrophils # (Auto) 22.1 Lymphocytes # (Auto) 1.5 Monocytes # (Auto) 3.7 Eosinophils # (Auto) 0.1 Basophils # (Auto) 0.1 CBC Comment AUTO DIFF Differential Total Cells Counted 100 Neutrophils % (Manual) 63 Band Neutrophils % 26 Lymphocytes % 5 Monocytes % 6 Neutrophils # (Manual) 24.5 Differential Comment FINAL DIFF MANUAL Platelet Estimate NORMAL Platelet Morphology Comment ENLARGED Blood Urea Nitrogen 12 Creatinine 0.96 Random Glucose 149 Total Protein 6.6 Calcium Level 7.4 Sodium Level 136 Potassium Level 4.3 Chloride Level 103 Carbon Dioxide Level 27.2 Anion Gap 6 Estimat Glomerular Filtration Rate 84 Protein Corrected Calcium 7.7 Nasal Screen MRSA (PCR) MRSA NOT DETECTED Test 08/25/17 04:15 White Blood Count 20.4 Red Blood Count 3.82 Hemoglobin 11.0 Hematocrit 33.3 Mean Corpuscular Volume 87.2 Mean Corpuscular Hemoglobin 28.9 Mean Corpuscular Hemoglobin Concent 33.1 Red Cell Distribution Width 16.3 Platelet Count 275 Mean Platelet Volume 8.3 Neutrophils (%) (Auto) 86.0 Lymphocytes (%) (Auto) 4.8 Monocytes (%) (Auto) 8.9 Eosinophils (%) (Auto) 0.2 Basophils (%) (Auto) 0.1 Neutrophils # (Auto) 17.6 Lymphocytes # (Auto) 1.0 Monocytes # (Auto) 1.8 Eosinophils # (Auto) 0.0 Basophils # (Auto) 0.0 CBC Comment DIFF FINAL Differential Comment Blood Urea Nitrogen 16 Creatinine 0.98 Random Glucose 208 Total Protein 5.8 Albumin 1.7 Calcium Level 7.2 Phosphorus Level 2.6 Magnesium Level 2.1 Alkaline Phosphatase 100 Aspartate Amino Transf (AST/SGOT) 49 Alanine Aminotransferase (ALT/SGPT) 65 Total Bilirubin 0.8 Sodium Level 136 Potassium Level 4.8 Chloride Level 102 Carbon Dioxide Level 27.1 Anion Gap 7 Estimat Glomerular Filtration Rate 82 Protein Corrected Calcium 7.9 Radiology Last 48 hours Impressions Gall Bladder Ultrasound 08/16/17 0000 Signed Impressions: Service Date/Time: Wednesday, August 16, 2017 07:47 - CONCLUSION: 1. Contracted gallbladder containing multiple gallstones. 2. Dilated common bile duct is 7 mm. 3. Echogenic liver which can be seen with moderate hepatic steatosis. Kj Gutierrez MD Cholangiopancreatography MRI 08/16/17 0000 Signed Impressions: Service Date/Time: Wednesday, August 16, 2017 11:18 - CONCLUSION: 1. Cholelithiasis 2. Mildly distended common bile duct with suspected filling defect at the level of the ampulla. 3. Axial stenosis. Jhonatan Fish MD Abdomen/Pelvis CT 08/15/171939 Signed Impressions: Service Date/Time: Tuesday, August 15, 2017 19:49 - CONCLUSION: 1. Status post distal gastrectomy with a gastroenteric anastomosis. 2. There are bowel sutures in the left upper quadrant of the proximal small bowel with some dilatation of this segment with prominent debris within this portion of the small bowel in the left upper quadrant. The remaining small bowel is not dilated or thickened. 3. Dilatation of the common bile duct. A cause of this is not seen. 4. Evidence of prior midline incision with minimal hernias. 5. Hepatic steatosis. Neel Alexander MD Cardiovascular: Regular Lungs: Clear Abdomen: Other (see below ), Post-op tenderness Extremities: No edema Narrative Exam midline incision with KIRILL in place; J tube to gravity bag drainage; T-tube in place; CLOVER with SS drainage; tender to palpation Hoyt in place A/P Assessment and Plan 47 year old male 47 year old male with abdominal pain with associated nausea and vomiting with a surgical history of distal gastrectomy for gastroparesis; POD1 Ex lap, extensive KAMERON, Revision of gastrojejunostomy, J tube, open CBD exploration, T tube placement, T tube cholangiogram -NPO; okay for swabs -SENIOR QUALITATIVE RESEARCHER for pain -IVF -Monitor tabs -J tube to gravity bag -Continue routine CLOVER care -OOB as tolerated -Continue monitoring labs Attending Statement patient seen at bedside pain better with database marketing analyst npo will check ugi in a few days clover sxn no bile clamp t tube Attestation The exam, history, and the medical decision-making described in the above note were completed with the assistance of the mid-level provider. I reviewed and agree with the findings presented. I attest that I had a [id number] encounter with the patient on the same day, and personally performed and documented my assessment and findings in the medical record. Genna Miller Aug 25, 2017 10:30 Ceferino Michelle MD Aug 30, 2017 16:52
--- NOTE | 2017-08-25 11:24 | HHI.CCPN ---
Subjective Remarks/Hospital Course This is a 47-year-old male. Date of admission 08/16/2017. Date of consultation 08/24/2017. Past medical history includes complex GI history quitting a distal gastrectomy/Monster-en-Y's for gastroparesis followed 2 days later for repair of cultures are since. He has 3 other surgeries involve biliary leaks. These were done at [facility] in [place]. Patient presented to [place] ED on 08/16 with three-day history of nausea vomiting abdominal pain. 810. CT scan revealed dilated bile duct once medium-size ultrasound of the abdomen showed contracted gallbladder with gallstones without common bile duct. LFT is abnormal closest pattern. Patient had drain placed by IR 08/19. Patient was evaluated by surgery. Has seen Dr. Allen for GI in the past and Dr. Michelle for surgery. Dr. Allen attempt a recent upper endoscopy attempt to dilate the gastroenteric anastomosis, however the stomach was so full food cannot find anastomosis. Dr. Ceferino Michelle seen the patient for revision likely with palpation. Complicated however patient might have had Gastrojejunostomy versus Billroth II anastomosis. Today, patient had an exploratory laparotomy with extensive lysis of adhesions, revision of gastrojejunostomy with placement of J-tube in the left lower quadrant, open common bile duct exploration with T- tube placement in right upper quadrant and T-tube cholangiogram/MADONNA drain placed in right lower quadrant secondary to multiple adhesions, common bile duct stone with patent bile ducts after fluoroscopy with an obstructed gastrojejunostomy I Dr. Michelle/Faraz. 5200 IV fluids. MADONNA with single strain. Patient is currently on 2 L nasal cannula with an NG tube in left nares.. 08/25: Breathing comfortably. Pain control acceptable. Warm and well perfused, urine adequate. Objective Vital Signs Date Time Temp Pulse Resp B/P (MAP) Pulse Ox O2 Delivery O2 Flow Rate FiO2 08/25/17 09:45 17 08/25/17 08:41 99 21 08/25/17 08:00 Nasal Cannula 2.00 08/25/17 08:00 93 08/25/17 08:00 97.7 116/76 (89) Intake and Output 08/25/17 08/25/17 08/25/17 07:59 15:59 23:59 Intake Total 1710 ml 100 ml Output Total 1015 ml Balance 695 ml 100 ml Result Diagram: 08/25/17 0415 08/25/17 0415 Imaging Last Impressions Bile Duct Drainage 08/19/17 0000 Signed Impressions: Service Date/Time: August 10:11 - CONCLUSION: 1. Uncomplicated percutaneous biliary drainage as above. 2. A cholangiogram demonstrates a stone within the distal common bile duct. There are multiple stones within the gallbladder. Jacinto Berumen MD Chest X-Ray 08/18/17 0000 Signed Impressions: Service Date/Time: Friday, August 18, 2017 15:06 - CONCLUSION: 1. Visipaque line in good position. 2. Elevation of the left hemidiaphragm with mild airspace disease at the left lung base which may reflect atelectasis. Eugene Belle MD Gall Bladder Ultrasound 08/16/17 0000 Signed Impressions: Service Date/Time: Wednesday, August 16, 2017 07:47 - CONCLUSION: 1. Contracted gallbladder containing multiple gallstones. 2. Dilated common bile duct is 7 mm. 3. Echogenic liver which can be seen with moderate hepatic steatosis. Kj Gutierrez MD Cholangiopancreatography MRI 08/16/17 0000 Signed Impressions: Service Date/Time: Wednesday, August 16, 2017 11:18 - CONCLUSION: 1. Cholelithiasis 2. Mildly distended common bile duct with suspected filling defect at the level of the ampulla. 3. Axial stenosis. Jhonatan Fish MD Abdomen/Pelvis CT 08/15/171939 Signed Impressions: Service Date/Time: Tuesday, August 15, 2017 19:49 - CONCLUSION: 1. Status post distal gastrectomy with a gastroenteric anastomosis. 2. There are bowel sutures in the left upper quadrant of the proximal small bowel with some dilatation of this segment with prominent debris within this portion of the small bowel in the left upper quadrant. The remaining small bowel is not dilated or thickened. 3. Dilatation of the common bile duct. A cause of this is not seen. 4. Evidence of prior midline incision with minimal hernias. 5. Hepatic steatosis. Neel Alexander MD Objective Remarks GENERAL: 47-year-old male, resting in bed in no acute distress SKIN: Warm and dry. HEAD: Atraumatic. Normocephalic. EYES: Pupils equal and round. No scleral icterus. No injection or drainage. ENT: No nasal bleeding or discharge. Mucous membranes pink and moist. NG tube in left nares NECK: Trachea midline. Airway widely patent. CARDIOVASCULAR: Regular rate and rhythm. No M,R. No JVD. RESPIRATORY: No accessory muscle use. Clear to auscultation. Breath sounds equal bilaterally. GASTROINTESTINAL: Abdomen soft, non-tender, nondistended. Misa dressing in place. J-tube in the left lower quadrant. T-tube in right upper quadrant. MADONNA in right lower quadrant. Serosanguineous output. MUSCULOSKELETAL: Extremities without clubbing, cyanosis, or edema. No obvious deformities. NEUROLOGICAL: Awake and alert. No obvious cranial nerve deficits. Motor grossly within normal limits. Normal speech. O X 3, cooperative. Procedures 08/19/17 percutaneous cholangiogram with biliary drain placement A/P Assessment and Plan Neuro/Psych: Ketorolac 30 mg every 6 hours written for IV and IM? 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 Berumen/IR Elevated transaminases History of gastroparesis Diverticulosis Esophagitis Gastroesophageal reflux disease EBL was 600 cc. Receiving 5200 cc an hour. Adequate urine output. Follow-up on a.m. labs PPN currently 83 cc an hour through peripheral line with one bottle of lipids daily Currently on pantoprazole 40 mg by mouth daily CMP ordered for a.m. : Remove Hoyt catheter Endo: Sliding-scale insulin if indicated to maintain euglycemia Renal: Creatinine currently within normal limits Monitor urine output Accurate I's and O's Heme: Leukocytosis Monitor CBC daily. Follow trends Does not meet transfusion thresholds at this time ID: Currently on cefepime 2 g IV every 8 hours and metronidazole 500 mg IV every 8 hours FEN: Hypocalcemia 1 g calcium gluconate 1 now. Recheck in a.m. MSK: PT evaluate and treat Access - Utilize peripheral IV. Patient has a right radial arterial line day #1 placed in OR Prophylaxis - GI - pantoprazole - DVT - SCD/pharmacological prophylaxis when okay with general surgery Overall impression: Stable respiratory and hemodynamic status s/p complex abdominal surgery. Errol Chang MD Aug 25, 2017 11:24
[2017-08-25] MEDS: PANTOPRAZOLE SODIUM 40 MG VIAL IV PUSH SCH (11:49)
[2017-08-25] MEDS: MULTIVITAMIN INJ 5 ML, FOLIC ACID INJ 0.5 MG in AMINO ACID IN D5W W/ELECTROLYT 1,000 ML IV SCH ×6 (12:22→20:24)
[2017-08-25] MEDS: METOCLOPRAMIDE HCL 10 MG/2 ML VIAL IV PUSH SCH ×2 (14:00→20:25)
[2017-08-25] MEDS: PCA - TOTAL MG DILAUDID DELIVERED PER SHIFT OTHER SCH ×2 (14:00→22:28)
[2017-08-25] MEDS: FAT EMULSION 20% INJ 250 ML (Daily over 8 hours) IV-CENTRAL SCH (20:25)
[2017-08-26] VITALS (11 sets, daily range): BP systolic 142–169; BP diastolic 82–90; PULSE 94–113; RESP 20–24; TEMP 98.3–98.9; O2SAT 93–95
[2017-08-26] MEDS: METOCLOPRAMIDE HCL 10 MG/2 ML VIAL IV PUSH SCH ×3 (05:33→21:21)
[2017-08-26] MEDS: metroNIDAZOLE 500 MG INJ 100 ML IV SCH ×3 (05:33→20:38)
[2017-08-26 05:57] LABS: BICARBONATE 26.8 MEQ/L (21.0-32.0); CALCIUM 7.5 MG/DL (8.5-10.1); CREATININE 0.9 MG/DL (0.60-1.30)
[2017-08-26] MEDS: PCA - TOTAL MG DILAUDID DELIVERED PER SHIFT OTHER SCH ×3 (06:33→22:00)
[2017-08-26] MEDS: SODIUM CHLOR 0.9% 1000 ML INJ 1,000 ML IV SCH ×3 (08:15→21:00)
[2017-08-26] MEDS: DOCUSATE SODIUM 50 MG/SENNA 8.6 MG TAB PO SCH ×3 (09:00→20:38)
[2017-08-26] MEDS: CEFEPIME INJ 2,000 MG in SODIUM CHLORIDE 0.9% INJ 100 ML IV SCH ×2 (09:33→17:36)
[2017-08-26] MEDS: PANTOPRAZOLE SODIUM 40 MG VIAL IV PUSH SCH (09:34)
[2017-08-26] MEDS: SODIUM CHLORIDE 0.9% FLUSH 10 ML FLUSH IV FLUSH SCH ×2 (09:34→20:38)
[2017-08-26] MEDS: MULTIVITAMIN INJ 5 ML, FOLIC ACID INJ 0.5 MG in AMINO ACID IN D5W W/ELECTROLYT 1,000 ML IV SCH ×3 (09:35)
--- NOTE | 2017-08-26 09:54 | HHI.CCPN ---
Subjective Remarks/Hospital Course This is a 47-year-old male. Date of admission 08/16/2017. Date of consultation 08/24/2017. Past medical history includes complex GI history quitting a distal gastrectomy/Monster-en-Y's for gastroparesis followed 2 days later for repair of cultures are since. He has 3 other surgeries involve biliary leaks. These were done at [facility] in [place]. Patient presented to [facility] ED on 08/16 with three-day history of nausea vomiting abdominal pain. 810. CT scan revealed dilated bile duct once medium-size ultrasound of the abdomen showed contracted gallbladder with gallstones without common bile duct. LFT is abnormal closest pattern. Patient had drain placed by IR 08/19. Patient was evaluated by surgery. Has seen Dr. Allen for GI in the past and Dr. Michelle for surgery. Dr. Allen attempt a recent upper endoscopy attempt to dilate the gastroenteric anastomosis, however the stomach was so full food cannot find anastomosis. Dr. Ceferino Michelle seen the patient for revision likely with palpation. Complicated however patient might have had Gastrojejunostomy versus Billroth II anastomosis. Today, patient had an exploratory laparotomy with extensive lysis of adhesions, revision of gastrojejunostomy with placement of J-tube in the left lower quadrant, open common bile duct exploration with T- tube placement in right upper quadrant and T-tube cholangiogram/MADONNA drain placed in right lower quadrant secondary to multiple adhesions, common bile duct stone with patent bile ducts after fluoroscopy with an obstructed gastrojejunostomy I Dr. Michelle/Faraz. 5200 IV fluids. MADONNA with single strain. Patient is currently on 2 L nasal cannula with an NG tube in left nares.. 08/25: Breathing comfortably. Pain control acceptable. Warm and well perfused, urine adequate. 08/26: PPN infusing at 83 ml/hr, will stop other iv. Breathing comfortably. Well perfused. Good urine output. Objective Vital Signs Date Time Temp Pulse Resp B/P (MAP) Pulse Ox O2 Delivery O2 Flow Rate FiO2 08/26/17 08:21 93 21 08/26/17 06:33 21 08/26/17 04:00 98.9 103 143/82 (102) 08/25/17 19:00 Room Air 08/25/17 08:00 2.00 Intake and Output 08/26/17 08/26/17 08/27/17 08:00 16:00 00:00 Output Total 3680 ml Balance -3680 ml Result Diagram: 08/25/17 0415 08/26/17 0515 Imaging Last Impressions Bile Duct Drainage 08/19/17 0000 Signed Impressions: Service Date/Time: August 10:11 - CONCLUSION: 1. Uncomplicated percutaneous biliary drainage as above. 2. A cholangiogram demonstrates a stone within the distal common bile duct. There are multiple stones within the gallbladder. Jacinto Berumen MD Chest X-Ray 08/18/17 0000 Signed Impressions: Service Date/Time: Friday, August 18, 2017 15:06 - CONCLUSION: 1. Visipaque line in good position. 2. Elevation of the left hemidiaphragm with mild airspace disease at the left lung base which may reflect atelectasis. Eugene Belle MD Gall Bladder Ultrasound 08/16/17 0000 Signed Impressions: Service Date/Time: Wednesday, August 16, 2017 07:47 - CONCLUSION: 1. Contracted gallbladder containing multiple gallstones. 2. Dilated common bile duct is 7 mm. 3. Echogenic liver which can be seen with moderate hepatic steatosis. Kj Gutierrez MD Cholangiopancreatography MRI 08/16/17 0000 Signed Impressions: Service Date/Time: Wednesday, August 16, 2017 11:18 - CONCLUSION: 1. Cholelithiasis 2. Mildly distended common bile duct with suspected filling defect at the level of the ampulla. 3. Axial stenosis. Jhonatan Fish MD Abdomen/Pelvis CT 08/15/17 194 Signed Impressions: Service Date/Time: Tuesday, August 15, 2017 19:49 - CONCLUSION: 1. Status post distal gastrectomy with a gastroenteric anastomosis. 2. There are bowel sutures in the left upper quadrant of the proximal small bowel with some dilatation of this segment with prominent debris within this portion of the small bowel in the left upper quadrant. The remaining small bowel is not dilated or thickened. 3. Dilatation of the common bile duct. A cause of this is not seen. 4. Evidence of prior midline incision with minimal hernias. 5. Hepatic steatosis. Neel Alexander MD Objective Remarks GENERAL: 47-year-old male, resting in bed in no acute distress SKIN: Warm and dry. HEAD: Atraumatic. Normocephalic. EYES: Pupils equal and round. ENT: No nasal bleeding or discharge. Mucous membranes pink and moist. NG tube in left nares NECK: Trachea midline. Airway widely patent. CARDIOVASCULAR: Regular rate and rhythm. No M,R. No JVD. RESPIRATORY: No accessory muscle use. Clear to auscultation. Breath sounds equal bilaterally. Comfortable pattern. GASTROINTESTINAL: Abdomen soft, non-tender, nondistended. Misa dressing in place. J-tube in the left lower quadrant. T-tube in right upper quadrant. MADONNA in right lower quadrant. Serosanguineous output. MUSCULOSKELETAL: Extremities without clubbing, cyanosis, or edema. No obvious deformities. Warm, well perfused. NEUROLOGICAL: Awake and alert. No obvious cranial nerve deficits. Motor grossly within normal limits. Normal speech. O X 3, cooperative. 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 Berumen/IR Elevated transaminases History of gastroparesis Diverticulosis Esophagitis Gastroesophageal reflux disease EBL was 600 cc. Adequate urine output. Follow-up on a.m. labs PPN currently 83 cc an hour through peripheral line with one bottle of lipids daily Currently on pantoprazole 40 mg by mouth daily CMP ordered for a.m. : Remove Hoyt catheter Endo: Sliding-scale insulin if indicated to maintain euglycemia Renal: Creatinine currently within normal limits Monitor urine output Accurate I's and O's Heme: Leukocytosis Monitor CBC daily. Follow trends Does not meet transfusion thresholds at this time ID: Currently on cefepime 2 g IV every 8 hours and metronidazole 500 mg IV every 8 hours FEN: Hypocalcemia 1 g calcium gluconate 1 now. Recheck in a.m. MSK: PT evaluate and treat Access - Utilize peripheral IV. Patient has a right radial arterial line day #2 placed in OR Prophylaxis - GI - pantoprazole - DVT - SCD/pharmacological prophylaxis when okay with general surgery Overall impression: Stable respiratory and hemodynamic status s/p complex abdominal surgery. Errol Chang MD Aug 26, 2017 09:54
[2017-08-26] MEDS: HYDROmorphone HCL PCA 6 MG/30 ML IV SCH (13:31)
--- NOTE | 2017-08-26 14:15 | HHI.PR ---
Subjective Subjective Notes Resting in bed Did not sleep well last night Pain controlled with CORPORATE LAWYER Tired Objective Vitals/I&O Vital Signs Date Time Temp Pulse Resp B/P (MAP) Pulse Ox O2 Delivery O2 Flow Rate FiO2 08/26/17 13:31 18 08/26/17 08:21 93 21 08/26/17 04:00 98.9 103 143/82 (102) 08/25/17 19:00 Room Air 08/25/17 08:00 2.00 Labs Laboratory Tests Test 08/26/17 05:15 Blood Urea Nitrogen 15 Creatinine 0.90 Random Glucose 140 Calcium Level 7.5 Sodium Level 137 Potassium Level 4.2 Chloride Level 103 Carbon Dioxide Level 26.8 Anion Gap 7 Estimat Glomerular Filtration Rate 90 Radiology Last 48 hours Impressions Gall Bladder Ultrasound 08/16/17 0000 Signed Impressions: Service Date/Time: Wednesday, August 16, 2017 07:47 - CONCLUSION: 1. Contracted gallbladder containing multiple gallstones. 2. Dilated common bile duct is 7 mm. 3. Echogenic liver which can be seen with moderate hepatic steatosis. Kj Gutierrez MD Cholangiopancreatography MRI 08/16/17 0000 Signed Impressions: Service Date/Time: Wednesday, August 16, 2017 11:18 - CONCLUSION: 1. Cholelithiasis 2. Mildly distended common bile duct with suspected filling defect at the level of the ampulla. 3. Axial stenosis. Jhonatan Fish MD Abdomen/Pelvis CT 08/15/17 1940 Signed Impressions: Service Date/Time: Tuesday, August 15, 2017 19:49 - CONCLUSION: 1. Status post distal gastrectomy with a gastroenteric anastomosis. 2. There are bowel sutures in the left upper quadrant of the proximal small bowel with some dilatation of this segment with prominent debris within this portion of the small bowel in the left upper quadrant. The remaining small bowel is not dilated or thickened. 3. Dilatation of the common bile duct. A cause of this is not seen. 4. Evidence of prior midline incision with minimal hernias. 5. Hepatic steatosis. Neel Alexander MD Cardiovascular: Regular Lungs: Clear Abdomen: Other (see below ) Extremities: No edema Narrative Exam midline incision with KIRILL in place---good seal; J tube to gravity bag drainage ; T-tube in place; CLOVER with SS drainage; tender to palpation Hoyt in place A/P Assessment and Plan 47 year old male 47 year old male with abdominal pain with associated nausea and vomiting with a surgical history of distal gastrectomy for gastroparesis; POD2 Ex lap, extensive KAMERON, Revision of gastrojejunostomy, J tube, open CBD exploration, T tube placement, T tube cholangiogram -NPO; okay for swabs -CORPORATE LAWYER for pain -IVF -J tube to gravity bag -Continue routine CLOVER care -OOB as tolerated -Continue monitoring labs -Ativan PRN at HS Attending Statement patient seen at bedside npo will clamp t tube tomorrow ng sxn clover monitoring Attestation The exam, history, and the medical decision-making described in the above note were completed with the assistance of the mid-level provider. I reviewed and agree with the findings presented. I attest that I had a [id number] encounter with the patient on the same day, and personally performed and documented my assessment and findings in the medical record. Genna Miller Aug 26, 2017 14:15 Ceferino Michelle MD Aug 30, 2017 19:10
[2017-08-26] MEDS ORDERED: LORazepam 2 MG/ML VIAL IV PUSH PRN (15:45)
[2017-08-26] MEDS: CLINIMIX IV-CENTRAL SCH ×9 (20:37)
[2017-08-26] MEDS: FAT EMULSION 20% INJ 250 ML (Daily over 8 hours) IV-CENTRAL SCH (20:38)
[2017-08-27] VITALS (11 sets, daily range): BP systolic 132–151; BP diastolic 62–91; PULSE 88–111; RESP 22–30; TEMP 98.3–98.9; O2SAT 94–98
[2017-08-27] MEDS: CEFEPIME INJ 2,000 MG in SODIUM CHLORIDE 0.9% INJ 100 ML IV SCH ×3 (00:29→15:41)
[2017-08-27] MEDS: metroNIDAZOLE 500 MG INJ 100 ML IV SCH ×3 (05:32→22:47)
[2017-08-27] MEDS: METOCLOPRAMIDE HCL 10 MG/2 ML VIAL IV PUSH SCH ×3 (05:33→22:51)
[2017-08-27] MEDS: PCA - TOTAL MG DILAUDID DELIVERED PER SHIFT OTHER SCH ×3 (06:00→22:00)
[2017-08-27 06:10] LABS: AUTOMATED NEUTROPHIL # 12.1 TH/MM3 (1.8-7.7); BASOPHIL # 0.1 TH/MM3 (0-0.2); BASOPHIL % 0.6 % (0.0-2.0); EOSINOPHIL # 0.7 TH/MM3 (0-0.4); EOSINOPHIL % 4.7 % (0.0-4.0); HEMATOCRIT 28.4 % (39.0-51.0); HEMOGLOBIN 9.6 GM/DL (13.0-17.0); LYMPH % 7.2 % (9.0-44.0); LYMPHOCYTE # 1.1 TH/MM3 (1.0-4.8); MEAN CORPUSCULAR HEMOGLOBIN 29.2 PG (27.0-34.0); MEAN CORPUSCULAR HGB CONC 33.9 % (32.0-36.0); MONO % 10.9 % (0.0-8.0); MONOCYTE # 1.7 TH/MM3 (0-0.9); NEUT % 76.6 % (16.0-70.0); PLATELET COUNT 411 TH/MM3 (150-450); RED CELL DISTRIBUTION WIDTH 16.2 % (11.6-17.2); WHITE BLOOD COUNT 15.8 TH/MM3 (4.0-11.0)
[2017-08-27 06:29] LABS: ALBUMIN 1.8 GM/DL (3.4-5.0); AST (GOT) 26 U/L (15-37); BICARBONATE 27.5 MEQ/L (21.0-32.0); BLOOD UREA NITROGEN 10 MG/DL (7-18); CALCIUM 7.5 MG/DL (8.5-10.1); CHLORIDE 102 MEQ/L (98-107); CREATININE 0.71 MG/DL (0.60-1.30); GLOMERULAR FILTRATION RATE 119 ML/MIN (>89); GLUCOSE,RANDOM 133 MG/DL (74-106); SODIUM (NA) 137 MEQ/L (136-145)
[2017-08-27 06:32] LABS: ALKALINE PHOSPHATASE 90 U/L (45-117); ALT (GPT) 45 U/L (12-78); TOTAL BILIRUBIN ADULT 0.5 MG/DL (0.2-1.0); TOTAL PROTEIN 6.3 GM/DL (6.4-8.2)
[2017-08-27] MEDS: SODIUM CHLOR 0.9% 1000 ML INJ 1,000 ML IV SCH (06:43)
[2017-08-27] MEDS: HYDROmorphone HCL PCA 6 MG/30 ML IV SCH (08:05)
[2017-08-27] MEDS: DOCUSATE SODIUM 50 MG/SENNA 8.6 MG TAB PO SCH ×2 (08:23→21:00)
[2017-08-27] MEDS: SODIUM CHLORIDE 0.9% FLUSH 10 ML FLUSH IV FLUSH SCH ×2 (08:23→22:50)
--- NOTE | 2017-08-27 13:22 | HHI.CCPN ---
Subjective Remarks/Hospital Course This is a 47-year-old male. Date of admission 08/16/2017. Date of consultation 08/24/2017. Past medical history includes complex GI history consisting of a distal gastrectomy/Monster-en-Y's for gastroparesis followed 2 days later for repair of cultures are since. He has 3 other surgeries involve biliary leaks. These were done at [facility] in [place]. Patient presented to [facility] ED on 08/16 with three-day history of nausea vomiting abdominal pain. 810. CT scan revealed dilated bile duct once medium-size ultrasound of the abdomen showed contracted gallbladder with gallstones without common bile duct. LFT is abnormal in obstructive pattern. Patient had drain placed by IR 08/19. Patient was evaluated by surgery. Has seen Dr. Allen for GI in the past and Dr. Michelle for surgery. Dr. Allen attempt a recent upper endoscopy attempt to dilate the gastroenteric anastomosis, however the stomach was so full food cannot find anastomosis. Dr. Ceferino Michelle has seen the patient for revision likely with palpation. Complicated however patient might have had Gastrojejunostomy versus Billroth II anastomosis. Today, patient had an exploratory laparotomy with extensive lysis of adhesions, revision of gastrojejunostomy with placement of J-tube in the left lower quadrant, open common bile duct exploration with T-tube placement in right upper quadrant and T -tube cholangiogram/MADONNA drain placed in right lower quadrant secondary to multiple adhesions, common bile duct stone with patent bile ducts after fluoroscopy with an obstructed gastrojejunostomy I Dr. Michelle/Faraz. 5200 IV fluids. MADONNA with single strain. Patient is currently on 2 L nasal cannula with an NG tube in left nares.. 08/25: Breathing comfortably. Pain control acceptable. Warm and well perfused, urine adequate. 08/26: PPN infusing at 83 ml/hr, will stop other iv. Breathing comfortably. Well perfused. Good urine output. Subjective: 08/27 Agitated delirium overnight and he pulled out NGT. Alert and oriented now. He reports satisfactory pain control with Dilauidid EXERCISE PLANNER. On RA. Getting Upper GI series this afternoon per Gen surgery and planning tube feed initiation at trickle rate. Getting TPN at 83 ml/hr via RUE PICC per general surgery. Objective Vital Signs Date Time Temp Pulse Resp B/P (MAP) Pulse Ox O2 Delivery O2 Flow Rate FiO2 08/27/17 08:05 18 08/27/17 06:00 88 08/27/17 05:40 98 21 08/27/17 04:00 98.3 144/72 (96) 08/26/17 19:00 Room Air 08/25/17 08:00 2.00 Intake and Output 08/27/17 08/27/17 08/27/17 07:59 15:59 23:59 Intake Total 1200 ml Output Total 2720 ml Balance -1520 ml Result Diagram: 08/27/17 0520 08/27/17 0520 Imaging Last Impressions Bile Duct Drainage 08/19/17 0000 Signed Impressions: Service Date/Time: August 10:11 - CONCLUSION: 1. Uncomplicated percutaneous biliary drainage as above. 2. A cholangiogram demonstrates a stone within the distal common bile duct. There are multiple stones within the gallbladder. Jacinto Berumen MD Chest X-Ray 08/18/17 0000 Signed Impressions: Service Date/Time: Friday, August 18, 2017 15:06 - CONCLUSION: 1. Visipaque line in good position. 2. Elevation of the left hemidiaphragm with mild airspace disease at the left lung base which may reflect atelectasis. Eugene Belle MD Gall Bladder Ultrasound 08/16/17 0000 Signed Impressions: Service Date/Time: Wednesday, August 16, 2017 07:47 - CONCLUSION: 1. Contracted gallbladder containing multiple gallstones. 2. Dilated common bile duct is 7 mm. 3. Echogenic liver which can be seen with moderate hepatic steatosis. Kj Gutierrez MD Cholangiopancreatography MRI 08/16/17 0000 Signed Impressions: Service Date/Time: Wednesday, August 16, 2017 11:18 - CONCLUSION: 1. Cholelithiasis 2. Mildly distended common bile duct with suspected filling defect at the level of the ampulla. 3. Axial stenosis. Jhonatan Fish MD Abdomen/Pelvis CT 08/15/17 194 Signed Impressions: Service Date/Time: Tuesday, August 15, 2017 19:49 - CONCLUSION: 1. Status post distal gastrectomy with a gastroenteric anastomosis. 2. There are bowel sutures in the left upper quadrant of the proximal small bowel with some dilatation of this segment with prominent debris within this portion of the small bowel in the left upper quadrant. The remaining small bowel is not dilated or thickened. 3. Dilatation of the common bile duct. A cause of this is not seen. 4. Evidence of prior midline incision with minimal hernias. 5. Hepatic steatosis. Neel Alexander MD Objective Remarks GENERAL: 47-year-old male, seen up in ISC bed. Alert and conversant. . SKIN: Warm and dry. HEAD: Atraumatic. Normocephalic. EYES: Pupils equal and round, reactive ENT: No nasal bleeding or discharge. Mucous membranes pink and moist. NECK: Trachea midline. Airway patent. CARDIOVASCULAR: Regular rate and rhythm, sinus rhythm on the monitor.. No M,R. No JVD. RESPIRATORY: Breathing comfortably on room air.. Clear to auscultation. Breath sounds equal bilaterally. . GASTROINTESTINAL: Abdomen soft, non-tender, nondistended. Midline dressing in place with slight dried blood staining. Red rubber J-tube in the left lower quadrant, to gravity with bilious fluid in bag but none recorded in last 24 hours . T-tube in right upper quadrant with bilious drainage, 385 last 24 hours. MADONNA in right lower quadrant with Serosanguineous output, 30 ml. MUSCULOSKELETAL: Extremities without clubbing, cyanosis, or edema. No obvious deformities. Warm, well perfused. NEUROLOGICAL: Awake and alert. No obvious cranial nerve deficits. Motor grossly within normal limits. Normal speech. O X 3, cooperative. Procedures 08/19/17 percutaneous cholangiogram with biliary drain placement A/P Problem List: (1) Biliary obstruction ICD Code: K83.1 - Obstruction of bile duct Status: Acute (2) Common bile duct (CBD) obstruction ICD Code: K83.1 - Obstruction of bile duct Status: Resolved (3) Jejunostomy present ICD Code: Z93.4 - Other artificial openings of gastrointestinal tract status Status: Acute (4) Pain, postoperative, acute ICD Code: G89.18 - Other acute postprocedural pain Status: Acute (5) Leukocytosis ICD Code: D72.829 - Elevated white blood cell count, unspecified Status: Acute (6) Esophagitis ICD Code: K20.9 - Esophagitis, unspecified (7) Gastroparesis ICD Code: K31.84 - Gastroparesis Assessment and Plan Neuro/Psych: Postoperative pain Received ketorolac 08/25. Now on hydromorphone EXERCISE PLANNER. Transition to po meds when diet advances. CV: Labetalol /hydralazine prn SBP >165 Resp: Postoperative hypoxia (resolved) On RA. Incentive spirometry while awake GI: Postoperative day #3 exploratory laparotomy with extensive lysis of adhesions, revision of gastrojejunostomy with J-tube, open, bowel or expiration with T- tube placement and cholangiogram secondary to obstructive gastrojejunostomy with common bile duct stone 08/24 (Dr. Ceferino Michelle) Status post PTC 08/[address] Berumen/IR Elevated transaminases (resolved) History of gastroparesis Diverticulosis Esophagitis Gastroesophageal reflux disease Currently on TPN at 83 cc an hour with lipids daily. Upper GI 08/27 per general surgery MADONNA in RUQ, T tube RUQ, J tube in place. General surgery initiating Jevity 1.5 @ 10 ml/hr 08/27. Currently on pantoprazole 40 mg IV daily FEN/Renal/Urology: Hypocalcemia (resolved) Creatinine currently within normal limits Monitor urine output D/c de [place] . Protein corrected Calcium is normal. Endo: Low dose Sliding-scale insulin q6 if indicated to maintain euglycemia Heme: Monitor CBC daily. Follow trends Does not meet transfusion thresholds at this time ID: Leukocytosis CHolangitis (resolved) Currently on cefepime 2 g IV every 8 hours 08/16 #12 and metronidazole 500 mg IV every 8 hours 08/16 #12. WBC is downtrending. No culture data. Discussed with Dr. Michelle. Would continue Abx through 5 days post-op now that obstruction is relieved (tentative d/c 08/30 if WBC trending down and no fever). MSK: PT evaluate and treat OOB. Access - Utilize peripheral IV. Prophylaxis - GI - pantoprazole - DVT - SCD/ Lovenox 40 mg subcut daily . Overall impression: Stable respiratory and hemodynamic status s/p complex abdominal surgery. Discussed with Dr. Michelle. Transfer to floor. Reconsult hospitalist to assume care 08/28 Level 2 follow-up Inés Villareal MD Aug 27, 2017 13:22
[2017-08-27] MEDS ORDERED: LABETALOL HCL 100 MG/20 ML VIAL IV PUSH PRN (14:00)
[2017-08-27] MEDS ORDERED: DEXTROSE 50% IN WATER 50 ML VIAL(D50) IV PUSH PRN (14:15)
[2017-08-27] MEDS ORDERED: GLUCAGON 1 MG/ML VIAL OTHER PRN (14:15)
[2017-08-27] MEDS: INSULIN ASPART SUPPLEMENTAL SCALE SQ SCH ×2 (15:00→21:00)
[2017-08-27] MEDS ORDERED: DIATRIZOATE MEGLUM/DIATRIZOATE SOD 120 ML BTL (for RAD DIAG) PO ONE (15:13)
--- NOTE | 2017-08-27 15:27 | RADRPT ---
EXAM DATE/TIME: 08/27/2017 14:45 [facility] COMPARISON: No previous studies available for comparison. INDICATIONS : Revision of gastrojejunostomy FLUORO TIME: 2.0 minutes IMAGE COUNT: 12 CONTRAST: 1. MD Scott MEDICAL HISTORY : Gastroparesis. Cardiac disorder. Hypercholesterol. GERD. SURGICAL HISTORY : Gastic bypass ENCOUNTER: Initial ACUITY: 1 day PAIN SCORE: 0/10 LOCATION: Bilateral upper quadrant FINDINGS: Extensive surgery is seen in the abdomen. Patient readily swallowed Gastrografin. The GE junction is normal. There is free flow of Gastrograf in into the apparent limb without extravasation or leak. There is no distal obstruction. Minimal gastric peristalsis is evident. CONCLUSION: Negative for leak or distal obstruction. Shant Berumen MD FACR on August 27, 2017 at 15:21 Board Certified Radiologist. This report was verified electronically.
[2017-08-27] MEDS: ENOXAPARIN SODIUM 40 MG/0.4 ML SYRINGE SQ SCH (15:40)
--- NOTE | 2017-08-27 16:00 | HHI.PR ---
Subjective Subjective Notes Pulled NGT out last night Had a rough night Objective Vitals/I&O Vital Signs Date Time Temp Pulse Resp B/P (MAP) Pulse Ox O2 Delivery O2 Flow Rate FiO2 08/27/17 12:00 98.3 96 24 138/81 (100) 97 08/27/17 07:00 Room Air 08/27/17 05:40 21 08/25/17 08:00 2.00 Labs Laboratory Tests Test 08/27/17 05:20 White Blood Count 15.8 Red Blood Count 3.30 Hemoglobin 9.6 Hematocrit 28.4 Mean Corpuscular Volume 86.0 Mean Corpuscular Hemoglobin 29.2 Mean Corpuscular Hemoglobin Concent 33.9 Red Cell Distribution Width 16.2 Platelet Count 411 Mean Platelet Volume 8.0 Neutrophils (%) (Auto) 76.6 Lymphocytes (%) (Auto) 7.2 Monocytes (%) (Auto) 10.9 Eosinophils (%) (Auto) 4.7 Basophils (%) (Auto) 0.6 Neutrophils # (Auto) 12.1 Lymphocytes # (Auto) 1.1 Monocytes # (Auto) 1.7 Eosinophils # (Auto) 0.7 Basophils # (Auto) 0.1 CBC Comment AUTO DIFF Differential Comment AUTO DIFF CONFIRMED Blood Urea Nitrogen 10 Creatinine 0.71 Random Glucose 133 Total Protein 6.3 Albumin 1.8 Calcium Level 7.5 Alkaline Phosphatase 90 Aspartate Amino Transf (AST/SGOT) 26 Alanine Aminotransferase (ALT/SGPT) 45 Total Bilirubin 0.5 Sodium Level 137 Potassium Level 3.6 Chloride Level 102 Carbon Dioxide Level 27.5 Anion Gap 8 Estimat Glomerular Filtration Rate 119 Radiology Last 48 hours Impressions Gall Bladder Ultrasound 08/16/17 0000 Signed Impressions: Service Date/Time: Wednesday, August 16, 2017 07:47 - CONCLUSION: 1. Contracted gallbladder containing multiple gallstones. 2. Dilated common bile duct is 7 mm. 3. Echogenic liver which can be seen with moderate hepatic steatosis. Kj Gutierrez MD Cholangiopancreatography MRI 08/16/17 0000 Signed Impressions: Service Date/Time: Wednesday, August 16, 2017 11:18 - CONCLUSION: 1. Cholelithiasis 2. Mildly distended common bile duct with suspected filling defect at the level of the ampulla. 3. Axial stenosis. Jhonatan Fish MD Abdomen/Pelvis CT 08/15/171939 Signed Impressions: Service Date/Time: Tuesday, August 15, 2017 19:49 - CONCLUSION: 1. Status post distal gastrectomy with a gastroenteric anastomosis. 2. There are bowel sutures in the left upper quadrant of the proximal small bowel with some dilatation of this segment with prominent debris within this portion of the small bowel in the left upper quadrant. The remaining small bowel is not dilated or thickened. 3. Dilatation of the common bile duct. A cause of this is not seen. 4. Evidence of prior midline incision with minimal hernias. 5. Hepatic steatosis. Neel Alexander MD Cardiovascular: Regular Lungs: Clear Abdomen: Other (see below ) Extremities: No edema Narrative Exam midline incision with KIRILL in place---good seal; J tube to gravity bag drainage ; T-tube in place; MADONNA with SS drainage; tender to palpation Hoyt in place A/P Assessment and Plan 47 year old male 47 year old male with abdominal pain with associated nausea and vomiting with a surgical history of distal gastrectomy for gastroparesis; POD3 Ex lap, extensive KAMERON, Revision of gastrojejunostomy, J tube, open CBD exploration, T tube placement, T tube cholangiogram -NPO; okay for swabs -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 Michelle to clamp T tueb -UGI today -Continue routine MADONNA care -OOB as tolerated -Continue monitoring labs -Lovenox -Transfer to the floor Attending Statement patient seen at bedside self pulled ng no nausea ok to leave out will check ugi j tube feeds Attestation The exam, history, and the medical decision-making described in the above note were completed with the assistance of the mid-level provider. I reviewed and agree with the findings presented. I attest that I had a [id number] encounter with the patient on the same day, and personally performed and documented my assessment and findings in the medical record. Genna Miller Aug 27, 2017 15:59 Ceferino Michelle MD Aug 30, 2017 19:26
[2017-08-27] MEDS: ONDANSETRON HCL 4 MG/2 ML VIAL IVP PRN (16:15)
[2017-08-27] MEDS: PANTOPRAZOLE SODIUM 40 MG VIAL IV PUSH SCH (16:52)
[2017-08-27] MEDS: CLINIMIX IV-CENTRAL SCH ×9 (22:59)
[2017-08-27] MEDS: FAT EMULSION 20% INJ 250 ML (Daily over 8 hours) IV-CENTRAL SCH (23:00)
[2017-08-28] VITALS (11 sets, daily range): BP systolic 114–131; BP diastolic 65–81; PULSE 83–119; RESP 17–22; TEMP 96.8–99.5; O2SAT 94–97
[2017-08-28] MEDS: INSULIN ASPART SUPPLEMENTAL SCALE SQ SCH ×4 (03:00→20:50)
[2017-08-28] MEDS: CEFEPIME INJ 2,000 MG in SODIUM CHLORIDE 0.9% INJ 100 ML IV SCH ×4 (03:15→23:05)
[2017-08-28] MEDS: HYDROmorphone HCL PCA 6 MG/30 ML IV SCH ×2 (03:45→13:28)
[2017-08-28] MEDS: PCA - TOTAL MG DILAUDID DELIVERED PER SHIFT OTHER SCH ×3 (06:00→20:57)
[2017-08-28] MEDS: SODIUM CHLOR 0.9% 1000 ML INJ 1,000 ML IV SCH (06:20)
[2017-08-28] MEDS: metroNIDAZOLE 500 MG INJ 100 ML IV SCH ×3 (06:24→20:49)
[2017-08-28] MEDS: METOCLOPRAMIDE HCL 10 MG/2 ML VIAL IV PUSH SCH ×3 (06:27→23:05)
[2017-08-28] MEDS: SODIUM CHLORIDE 0.9% FLUSH 10 ML FLUSH IV FLUSH PRN (06:27)
[2017-08-28 07:18] LABS: AUTOMATED NEUTROPHIL # 12.9 TH/MM3 (1.8-7.7); BASOPHIL # 0.1 TH/MM3 (0-0.2); BASOPHIL % 0.6 % (0.0-2.0); EOSINOPHIL # 0.7 TH/MM3 (0-0.4); EOSINOPHIL % 4.2 % (0.0-4.0); HEMATOCRIT 29.3 % (39.0-51.0); HEMOGLOBIN 9.8 GM/DL (13.0-17.0); LYMPH % 7.2 % (9.0-44.0); LYMPHOCYTE # 1.2 TH/MM3 (1.0-4.8); MEAN CORPUSCULAR HEMOGLOBIN 28.7 PG (27.0-34.0); MEAN CORPUSCULAR HGB CONC 33.4 % (32.0-36.0); MEAN PLATELET VOLUME 7.8 FL (7.0-11.0); MONO % 8.9 % (0.0-8.0); MONOCYTE # 1.5 TH/MM3 (0-0.9); NEUT % 79.1 % (16.0-70.0); PLATELET COUNT 491 TH/MM3 (150-450); RED CELL DISTRIBUTION WIDTH 16.1 % (11.6-17.2); WHITE BLOOD COUNT 16.3 TH/MM3 (4.0-11.0)
[2017-08-28 07:37] LABS: BLOOD UREA NITROGEN 11 MG/DL (7-18); CALCIUM 7.6 MG/DL (8.5-10.1); CHLORIDE 102 MEQ/L (98-107); GLOMERULAR FILTRATION RATE 121 ML/MIN (>89); GLUCOSE,RANDOM 128 MG/DL (74-106); SODIUM (NA) 134 MEQ/L (136-145)
[2017-08-28 08:11] LABS: BANDS 9 % (0-6); LYMPHOCYTES 8 % (9-44); METAMYELOCYTES 4 % (0-1); MONOCYTES 6 % (0-8); MYELOCYTES 3 % (0-0); NEUTROPHIL # MANUAL DIFF 13.4 TH/MM3 (1.8-7.7); PLASMA CELLS 1 % (0-0); POLYS (SEG NEUTROPHILS) 66 % (16-70)
[2017-08-28] MEDS: SODIUM CHLORIDE 0.9% FLUSH 10 ML FLUSH IV FLUSH SCH ×2 (08:57→20:49)
[2017-08-28] MEDS: DOCUSATE SODIUM 50 MG/SENNA 8.6 MG TAB PO SCH ×2 (08:58→20:49)
[2017-08-28] MEDS: PANTOPRAZOLE SODIUM 40 MG VIAL IV PUSH SCH (09:03)
--- NOTE | 2017-08-28 09:13 | HHI.PR ---
Subjective Subjective Notes pain ok, no nausea ugi patent gj, oob Objective Vitals/I&O Vital Signs Date Time Temp Pulse Resp B/P (MAP) Pulse Ox O2 Delivery O2 Flow Rate FiO2 08/28/17 08:00 96.8 89 18 131/74 (93) 96 08/27/17 07:00 Room Air 08/27/17 05:40 21 08/25/17 08:00 2.00 Labs Laboratory Tests Test 08/28/17 06:55 White Blood Count 16.3 Red Blood Count 3.40 Hemoglobin 9.8 Hematocrit 29.3 Mean Corpuscular Volume 86.0 Mean Corpuscular Hemoglobin 28.7 Mean Corpuscular Hemoglobin Concent 33.4 Red Cell Distribution Width 16.1 Platelet Count 491 Mean Platelet Volume 7.8 Neutrophils (%) (Auto) 79.1 Lymphocytes (%) (Auto) 7.2 Monocytes (%) (Auto) 8.9 Eosinophils (%) (Auto) 4.2 Basophils (%) (Auto) 0.6 Neutrophils # (Auto) 12.9 Lymphocytes # (Auto) 1.2 Monocytes # (Auto) 1.5 Eosinophils # (Auto) 0.7 Basophils # (Auto) 0.1 CBC Comment AUTO DIFF Differential Total Cells Counted 100 Neutrophils % (Manual) 66 Band Neutrophils % 9 Lymphocytes % 8 Monocytes % 6 Eosinophils % 3 Neutrophils # (Manual) 13.4 Metamyelocytes 4 Myelocytes 3 Differential Comment FINAL DIFF MANUAL Plasma Cells 1 Platelet Estimate HIGH Platelet Morphology Comment NORMAL Red Cell Morphology Comment Blood Urea Nitrogen 11 Creatinine 0.70 Random Glucose 128 Calcium Level 7.6 Sodium Level 134 Potassium Level 3.8 Chloride Level 102 Carbon Dioxide Level 25.0 Anion Gap 7 Estimat Glomerular Filtration Rate 121 Radiology Last 48 hours Impressions Gall Bladder Ultrasound 08/16/17 0000 Signed Impressions: Service Date/Time: Wednesday, August 16, 2017 07:47 - CONCLUSION: 1. Contracted gallbladder containing multiple gallstones. 2. Dilated common bile duct is 7 mm. 3. Echogenic liver which can be seen with moderate hepatic steatosis. Kj Gutierrez MD Cholangiopancreatography MRI 08/16/17 0000 Signed Impressions: Service Date/Time: Wednesday, August 16, 2017 11:18 - CONCLUSION: 1. Cholelithiasis 2. Mildly distended common bile duct with suspected filling defect at the level of the ampulla. 3. Axial stenosis. Jhonatan Fish MD Abdomen/Pelvis CT 08/15/17 1940 Signed Impressions: Service Date/Time: Tuesday, August 15, 2017 19:49 - CONCLUSION: 1. Status post distal gastrectomy with a gastroenteric anastomosis. 2. There are bowel sutures in the left upper quadrant of the proximal small bowel with some dilatation of this segment with prominent debris within this portion of the small bowel in the left upper quadrant. The remaining small bowel is not dilated or thickened. 3. Dilatation of the common bile duct. A cause of this is not seen. 4. Evidence of prior midline incision with minimal hernias. 5. Hepatic steatosis. Neel Alexander MD Abdomen: Other (soft clover serous scant, incisional tenderness) A/P Assessment and Plan 47 year old male 47 year old male with abdominal pain with associated nausea and vomiting with a surgical history of distal gastrectomy for gastroparesis; POD4 Ex lap, extensive KAMERON, Revision of gastrojejunostomy, J tube, open CBD exploration, T tube placement, T tube cholangiogram, t tube clamped ugi wnl patent gj -sips of clears+j tube 10cc/hr feeds -d/c HEADER BOSS tomorrow for pain -TPN; DC IVF -Continue routine CLOVER care -OOB as tolerated -Continue monitoring labs -Ceferino Kern MD Aug 28, 2017 09:13
--- NOTE | 2017-08-28 11:29 | HHI.PR ---
Subjective Remarks The patient was resting in bed comfortably. He said that the heating was too high and his room. 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 He says his pain is well -controlled. He is breathing comfortably. He had no acute concerns at this time. Discussed with nursing. Objective Vitals Vital Signs Date Time Temp Pulse Resp B/P (MAP) Pulse Ox O2 Delivery O2 Flow Rate FiO2 08/28/17 08:00 96.8 89 18 131/74 (93) 96 08/28/17 06:00 18 08/28/17 04:51 97 08/28/17 04:00 97.3 87 22 128/80 (96) 95 08/28/17 03:45 18 08/28/17 00:00 99.5 100 22 114/68 (83) 97 08/27/17 22:00 18 08/27/17 20:00 98.9 111 22 138/83 (101) 95 08/27/17 16:00 98.7 102 30 134/62 (86) 95 08/27/17 16:00 95 08/27/17 14:00 98 08/27/17 14:00 18 08/27/17 12:00 98 08/27/17 12:00 98.3 96 24 138/81 (100) 97 I/O 08/27/17 08/27/17 08/27/17 08/28/17 08/28/17 08/28/17 07:00 15:00 23:00 07:00 15:00 23:00 Intake Total 1200 ml 2184.1437 ml 1356.4 ml 100 ml Output Total 2720 ml 3630 ml 310 ml Balance -1520 ml -1445.8563 ml 1046.4 ml 100 ml Intake Oral 0 ml IV Total 1200 ml 2184.1437 ml 1356.4 ml 100 ml Output Urine Total 2500 ml 3450 ml 300 ml Gastric Drainage Total 50 ml 0 ml Drainage Total 170 ml 180 ml 10 ml # Bowel Movements 0 0 Result Diagram: 08/28/1755 08/28/1755 Imaging Last Impressions Upper GI Series 08/27/17 0000 Signed Impressions: Service Date/Time: Sunday, August 27, 2017 14:45 - CONCLUSION: Negative for leak or distal obstruction. Shant Berumen MD FACR Cholangiogram 08/24/17 0000 Signed Impressions: Service Date/Time: Thursday, August 24, 2017 20:58 - CONCLUSION: No evidence of common duct stone. Arnold Obrien MD Bile Duct Drainage 08/19/17 0000 Signed Impressions: Service Date/Time: August 10:11 - CONCLUSION: 1. Uncomplicated percutaneous biliary drainage as above. 2. A cholangiogram demonstrates a stone within the distal common bile duct. There are multiple stones within the gallbladder. Jacinto Berumen MD Chest X-Ray 08/18/17 0000 Signed Impressions: Service Date/Time: Friday, August 18, 2017 15:06 - CONCLUSION: 1. Visipaque line in good position. 2. Elevation of the left hemidiaphragm with mild airspace disease at the left lung base which may reflect atelectasis. Eugene Belle MD Gall Bladder Ultrasound 08/16/17 0000 Signed Impressions: Service Date/Time: Wednesday, August 16, 2017 07:47 - CONCLUSION: 1. Contracted gallbladder containing multiple gallstones. 2. Dilated common bile duct is 7 mm. 3. Echogenic liver which can be seen with moderate hepatic steatosis. Kj Gutierrez MD Cholangiopancreatography MRI 08/16/17 0000 Signed Impressions: Service Date/Time: Wednesday, August 16, 2017 11:18 - CONCLUSION: 1. Cholelithiasis 2. Mildly distended common bile duct with suspected filling defect at the level of the ampulla. 3. Axial stenosis. Jhonatan Fish MD Abdomen/Pelvis CT 08/15/171939 Signed Impressions: Service Date/Time: Tuesday, August 15, 2017 19:49 - CONCLUSION: 1. Status post distal gastrectomy with a gastroenteric anastomosis. 2. There are bowel sutures in the left upper quadrant of the proximal small bowel with some dilatation of this segment with prominent debris within this portion of the small bowel in the left upper quadrant. The remaining small bowel is not dilated or thickened. 3. Dilatation of the common bile duct. A cause of this is not seen. 4. Evidence of prior midline incision with minimal hernias. 5. Hepatic steatosis. Neel Alexander MD Objective Remarks GENERAL: Resting comfortably.. SKIN: Warm and dry. HEAD: Atraumatic. Normocephalic. EYES: Pupils equal and round, reactive ENT: No nasal bleeding or discharge. Mucous membranes pink and moist. NECK: Trachea midline. Airway patent. CARDIOVASCULAR: Regular rate and rhythm. No murmur appreciated. RESPIRATORY: Breathing comfortably on room air.. Clear to auscultation. Breath sounds equal bilaterally. . GASTROINTESTINAL: Abdomen soft, non-tender, nondistended. Midline dressing in place with slight dried blood staining. Red rubber J-tube in the left lower quadrant. T-tube in right upper quadrant. MADONNA in right lower quadrant. MUSCULOSKELETAL: Extremities without clubbing, cyanosis, or edema. No obvious deformities. Warm, well perfused. NEUROLOGICAL: Awake and alert. No obvious cranial nerve deficits. Motor grossly within normal limits. Normal speech. O X 3. PSYCH: Mood and affect appropriate. Procedures 08/19/17 percutaneous cholangiogram with biliary drain placement Medications and IVs Current Medications Medications (Trade) Dose Ordered Sig/Esther Route Start Time Stop Time Status Last Admin (NS Flush) 2 ml UNSCH PRN IV FLUSH 08/15/17 21:15 08/28/17 06:27 (NS Flush) 2 ml BID IV FLUSH 08/16/17 09:00 08/27/17 22:50 (Zofran Inj) 4 mg Q6H PRN IVP 08/15/17 21:15 08/27/17 16:15 (Niru-Colace) 1 tab BID PO 08/16/17 09:00 08/27/17 08:23 (Milk Of Magnesia Liq) 30 ml Q12H PRN PO 08/15/17 21:15 (Senokot) 17.2 mg Q12H PRN PO 08/15/17 21:15 (Dulcolax Supp) 10 mg DAILY PRN RECTAL 08/15/17 21:15 (Lactulose Liq) 30 ml DAILY PRN PO 08/15/17 21:15 (Phenergan Inj) 12.5 mg Q6H PRN IM 08/16/17 09:30 08/22/17 17:32 Metronidazole 100 ml @ 100 mls/hr Q8H IV 08/16/17 13:00 08/28/17 06:24 (Dilaudid Pf Inj) 2 mg Q4H PRN IV PUSH 08/16/17 16:15 08/20/17 16:25 Fat Emulsion Intravenous 250 ml @ 31.25 mls/ hr Q24H IV-CENTRAL 08/18/17 20:00 08/27/17 23:00 Cefepime HCl 2000 mg/Sodium Chloride 100 ml @ 200 mls/hr Q8H IV 08/20/17 00:00 08/28/17 08:57 (Vasotec Inj) 1.25 mg Q6H PRN IV PUSH 08/21/17 06:00 Sodium Chloride 1,000 ml @ 0 mls/hr Q10H IV 08/25/17 02:15 08/28/17 06:20 (Narcan Inj) 0.4 mg UNSCH PRN IV PUSH 08/25/17 09:00 (Dilaudid EGGS INSPECTOR Inj) 6 mg UNSCH IV 08/25/17 09:00 08/28/17 03:45 EGGS INSPECTOR Dosage Infused (Pha) 1 Q8HR OTHER 08/25/17 14:00 08/28/17 06:00 (Protonix Inj) 40 mg Q24H IV PUSH 08/25/17 11:00 08/28/17 09:03 (Reglan Inj) 10 mg Q8HR IV PUSH 08/25/17 14:00 08/28/17 06:27 Sodium Chloride 11 meq/Sodium Acetate 59 meq/ Potassium Chloride 40 meq/ Sodium Phosphate 40 meq/Magnesium Chloride 10 meq/ Calcium Chloride 9 meq/ Multivitamins 10 ml/Folic Acid 1 mg/Amino Acids/ Dextrose 2,084.1437 ml @ 83 mls/hr Q24H IV-CENTRAL 08/26/17 20:00 08/27/17 22:59 (Lovenox Inj) 40 mg Q24H SQ 08/27/17 14:00 08/27/17 15:40 (Trandate Inj) 10 mg Q6H PRN IV PUSH 08/27/17 14:00 (D50w (Vial) Inj) 50 ml UNSCH PRN IV PUSH 08/27/17 14:15 (Glucagon Inj) 1 mg UNSCH PRN OTHER 08/27/17 14:15 (NovoLOG SUPPLEMENTAL SCALE) 1 Q6H SQ 08/27/17 15:00 08/28/17 08:57 A/P Problem List: (1) Biliary obstruction ICD Code: K83.1 - Obstruction of bile duct Status: Acute Assessment and Plan GI Postoperative day #4 exploratory laparotomy with extensive lysis of adhesions, revision of gastrojejunostomy with J-tube, open, bowel or expiration with T- tube placement and cholangiogram secondary to obstructive gastrojejunostomy with common bile duct stone 08/24 (Dr. Ceferino Michelle). Status post PTC 08/[address] Berumen/IR. Has a history of gastroparesis, diverticulosis, esophagitis and GERD. Upper GI series noted. MADONNA in RUQ, T tube RUQ, J tube in place. - Currently on TPN at 83 cc an hour with lipids daily. - General surgery initiated Jevity 1.5 @ 10 ml/hr 08/27. - Currently on pantoprazole 40 mg IV daily. - encourage ambulation. Cholangitis/ Leukocytosis The patient was started on cefepime and Flagyl on 08/16. - Monitor CBC. - Would continue Abx through 5 days post-op now that obstruction is relieved ( tentative d/c 08/30 if WBC trending down and no fever). Anemia Likely secondary to surgery. - Follow CBC. Hyperglycemia A1c not elevated. May be secondary to tube feeds. - Continue with sliding scale insulin coverage. Prophylaxis - GI - pantoprazole - DVT - SCD/ Lovenox 40 mg subcut daily Steffen Moran DO Aug 28, 2017 11:29
[2017-08-28 11:44] LABS: ALBUMIN 1.9 GM/DL (3.4-5.0); ALT (GPT) 46 U/L (12-78); AST (GOT) 29 U/L (15-37)
[2017-08-28 11:46] LABS: ALKALINE PHOSPHATASE 112 U/L (45-117); LIPASE 1703 U/L (73-393); TOTAL BILIRUBIN ADULT 0.5 MG/DL (0.2-1.0); TOTAL PROTEIN 6.6 GM/DL (6.4-8.2)
[2017-08-28] MEDS: ENOXAPARIN SODIUM 40 MG/0.4 ML SYRINGE SQ SCH (13:14)
--- NOTE | 2017-08-28 18:00 | MP ---
cc: LUPIS MICHELLE MD DATE OF SURGERY: 08/28/2017. PREOPERATIVE DIAGNOSIS: Obstruction of gastrojejunostomy, common bile duct stone. POSTOPERATIVE DIAGNOSIS: Obstruction of gastrojejunostomy, common bile duct stone. OPERATIVE PROCEDURE PERFORMED: 1. Exploratory laparotomy. 2. Extensive lysis of adhesions, greater than 120 minutes. 3. Revision of gastrojejunostomy. 4. Jejunostomy tube placement. 5. Open common bile duct exploration. 6. Placement of T tube in bile duct, #14 Lao. 7. T-tube cholangiogram. SURGEON: Lupis Michelle MD. SOLAR INSTALLATION SUPERVISOR: Steffen Ruth MD (due to the nature of the complex case, Dr. Ruth was necessary to assist with retraction and assist in proceeding with the procedure). COMPLICATIONS: None. SPECIMENS: 1. Gallbladder. 2. Gallstones. 3. Common bile duct stone. ESTIMATED BLOOD LOSS: 600 cc. IV FLUIDS: See anesthesia sheet, 5200. ANESTHESIA: General. FINDINGS: Multiple adhesions. Appearance of somewhat chronic obstruction at the common channel causing proximal dilation without complete bowel obstruction; however, appeared somewhat partial. Further findings of a common bile duct stone, bile ducts were patent after removal on fluoroscopy. INDICATIONS FOR THE PROCEDURE: The patient is 47-year-old male who presented initially to the office for workup due to obstruction of gastrojejunostomy. The patient had a history of gastric ulcers that were noted to be benign and the patient underwent laparoscopic distal gastrectomy with Monster-en-Y gastrojejunostomy and jejunojejunostomy.. He subsequently developed multiple prolonged complex surgical medical history including five subsequent surgeries noted that the patient was an emergent surgery following the procedure of distal gastrectomy for a bleed, developed of bile duct leaking, was reexplored several times and noted to have abscesses with complex wound infection. The patient improved following this; however, developed a decreased p.o. intake and evidence of obstruction as gastrojejunostomy for which she underwent endoscopy with dilation and improvement for approximately three more months. However, the patient re-obstructed and was then unable to re-dilate his gastrojejunostomy based on endoscopic evaluation. The patient was noted to be tolerating clear liquids and protein shakes; however, did have several episodes of nausea and vomiting almost daily. Discussion for revision of his gastrojejunostomy however this patient unfortunately developed a recurrence of common bile duct stone with transaminitis and elevated total bilirubin; therefore, he was admitted to the hospital. He underwent IR PTC tube for biliary decompression and also was placed on TPN for malnourishment. Decision was for the surgical procedure as above. DESCRIPTION OF THE PROCEDURE IN DETAIL: The patient was taken to the operating suite and placed in supine position. He was prepped and draped in the usual sterile fashion after induction of general endotracheal anesthesia. Brief time-out done stating correct patient, procedure, surgical site and all were in agreement with this. Attention first directed to the midline abdomen where there was noted to be significantly widened scar at the midline. Scar excision was done in order to help the skin and good tissue the removal of the scar from the xyphoid down just distally to umbilicus. This was done with initial 15 blade followed by the Bovie electrocautery. Hemostasis obtained. Further dissection was done with the Bovie electrocautery down to the fascia and to the peritoneum which was entered with the Metzenbaum scissors. The peritoneum was further excised protecting any bowel underneath and a lysis of adhesions was commenced. There were noted to be multiple loops of small bowel that were adhered to the anterior abdominal wall. These were slowly and meticulously immobilized. The identification of anatomy was made possible after lysing adhesions in the right upper quadrant, the left upper quadrant and left lower quadrant of the abdomen.. There was noted to be a Monster limb attached anteriorly to the proximal stomach. The gastrojejunostomy was noted to be very small and strictured. Following this down to the gastrojejunostomy, there was no further interloop adhesions noted. There were also adhesions noted in the common channel and somewhat evidence of some proximal dilation with concerns for a partial obstruction due to these chronic adhesions. These adhesions were also mobilized in order to realign bowel continuity. The gastrojejunostomy and did look patent and completely viable. Next attention was directed to the gastrojejunostomy where a green load FAYE stapler was used to transect the proximal Monster limb and gastrotomy was created and able to completely excise this anastomosis. The Monster limb was mobilized enough without undue tension and a small enterotomy created in order to recreate the gastrojejunostomy. This was done with a firing of a green load endo FAYE stapler to create the [id number] layer. The common enterotomy was then closed with a TX 30. Several 3-0 silk sutures were placed Lamberts to reinforce the staple line. Also, a small suture was placed in order to appropriately align the small bowel as well of the Monster limb. Following this with the Bookwalter retraction in place, attention was directed to the right upper quadrant. Again mobilizing several adhesions that were intimately adhered to the liver and gallbladder as well. The gallbladder was identified and again noted to be chronic and somewhat contracted. There were multiple gallstones present. The gallbladder was taken from the gallbladder fossa in a dome down approach. Midsection the gallbladder was ligated and then sent for pathology. The attempt to identify the cystic duct was done with lacrimal probes and with some tedious effort and minimal difficulty, the cystic duct was attempted to be cannulated. Again somewhat difficult therefore, the gallbladder was somewhat bivalved in order to track the cystic duct down and identify its patency. Once the gallbladder was completely removed, the cystic duct onto the common bile duct was also identified and also assistance for location of the common bile duct was done with a 22 gauge butterfly needle. Upon further opening the cystic duct in order for this to be fully cannulated also attempted to palpate the previous interventional radiology PTC tube was done however, given the significant scarring and thickening chronic inflammation that was noted in this area it was extremely difficult to palpate this. Again this was noted and located and again a longitudinal ductotomy was done in order to facilitate any ureteroscope passage and do a common bile duct exploration. The ureteroscope was advanced and noted that again the PTC tube was in placed. This PTC tube was removed on advancement of the ureteroscope down the common bile duct. There was noted to be a single large stone causing obstruction. A stone grasper was used and cannulated through the ureteroscope grasped the stone and also removed and sent for pathology. The ducts were fully cannulated. The ureteroscope was advanced all the way down to the small bowel and duodenum and noted no other obstructing stones and noted to be patent. Next the proximal hepatic ducts were identified. A 14 Lao T tube was cut to appropriate size and introduced into the common bile duct. This was secured in place with absorbable 3-0 Vicryl sutures. Once we had confirmed no leaking from this T tube, the fluoroscopy was used in order to identify all the ducts and confirm their patency without evidence of filling abnormalities. Again, fluoroscopy done to confirm this patency. Following this, attention then directed to the jejunostomy tube. The 14 Lao tube was cut with several holes in order to facilitate feeding. A portion on the common channel just distal was noted from the jejunojejunostomy in order to place a J tube. A pursestring 3-0 silk was used and a small enterotomy was made with Bovie electrocautery. The J tube was placed in the left lower quadrant and a stab steve incision was made in the skin with 15 blade used to grasp this through and then the tube was placed directed distally into the small bowel. The tube was then witzeled with five 3-0 silk sutures in order to bury the tube and create an appropriate tunnel. The jejunum was then packed to the anterior abdominal wall again using 3-0 silk suture in order to align the proximal and distal angles. Next, once we were content with this, the abdomen was irrigated with several liters of warm normal saline and hemostasis was obtained. The Drew-Cruz drain was placed in the right lower quadrant. A 10 Lao flat through a stab steve incision and secured with 2-0 nylon and placed in the right upper quadrant near the T tube and across the gastrojejunostomy anastomosis. Next the fascia was closed with a #1 looped PDS in a running fashion. Next, el were used to approximate the skin. All lap and instrument counts were correct at the end of the procedure. The patient tolerated the procedure well. There were no intraoperative complications. A Misa drain was also placed and noted to have good seal and good suction. The patient was extubated and taken stable to the post-anesthesia care unit. MD DELFINO Pearl/SHRAVAN /8:23 PM /5:16 PM
[2017-08-28] MEDS: FAT EMULSION 20% INJ 250 ML (Daily over 8 hours) IV-CENTRAL SCH (20:49)
[2017-08-28] MEDS: CLINIMIX IV-CENTRAL SCH ×9 (23:06)
[2017-08-29] VITALS (9 sets, daily range): BP systolic 108–130; BP diastolic 66–81; PULSE 86–115; RESP 16–20; TEMP 97.9–98.9; O2SAT 94–97
[2017-08-29] MEDS: HYDROmorphone HCL PCA 6 MG/30 ML IV SCH ×2 (01:39→18:55)
[2017-08-29] MEDS: metroNIDAZOLE 500 MG INJ 100 ML IV SCH ×3 (04:38→20:01)
[2017-08-29] MEDS: METOCLOPRAMIDE HCL 10 MG/2 ML VIAL IV PUSH SCH ×3 (04:38→22:54)
[2017-08-29] MEDS: INSULIN ASPART SUPPLEMENTAL SCALE SQ SCH ×4 (04:38→20:26)
[2017-08-29] MEDS: PCA - TOTAL MG DILAUDID DELIVERED PER SHIFT OTHER SCH ×3 (04:47→22:00)
[2017-08-29 04:52] LABS: HEMATOCRIT 30.2 % (39.0-51.0); HEMOGLOBIN 9.9 GM/DL (13.0-17.0); MEAN CELL VOLUME 85.5 FL (80.0-100.0); MEAN CORPUSCULAR HEMOGLOBIN 27.9 PG (27.0-34.0); MEAN CORPUSCULAR HGB CONC 32.7 % (32.0-36.0); MEAN PLATELET VOLUME 7.5 FL (7.0-11.0); PLATELET COUNT 533 TH/MM3 (150-450); RED BLOOD COUNT 3.54 MIL/MM3 (4.50-5.90); RED CELL DISTRIBUTION WIDTH 16.2 % (11.6-17.2); WHITE BLOOD COUNT 17.2 TH/MM3 (4.0-11.0)
[2017-08-29 05:14] LABS: BICARBONATE 28.3 MEQ/L (21.0-32.0); CALCIUM 7.6 MG/DL (8.5-10.1); CREATININE 0.79 MG/DL (0.60-1.30); MAGNESIUM 2.4 MG/DL (1.5-2.5)
[2017-08-29] MEDS: SODIUM CHLORIDE 0.9% FLUSH 10 ML FLUSH IV FLUSH SCH ×2 (09:00→20:01)
[2017-08-29] MEDS: DOCUSATE SODIUM 50 MG/SENNA 8.6 MG TAB PO SCH ×2 (09:35→20:02)
[2017-08-29] MEDS: CEFEPIME INJ 2,000 MG in SODIUM CHLORIDE 0.9% INJ 100 ML IV SCH ×2 (09:35→17:02)
[2017-08-29] MEDS: PANTOPRAZOLE SODIUM 40 MG VIAL IV PUSH SCH (09:35)
--- NOTE | 2017-08-29 11:52 | HHI.PR ---
Subjective Subjective Notes patient feels better, no NV Objective Vitals/I&O Vital Signs Date Time Temp Pulse Resp B/P (MAP) Pulse Ox O2 Delivery O2 Flow Rate FiO2 08/29/17 08:00 98.6 86 18 113/80 (91) 96 08/28/17 20:30 Room Air 08/27/17 05:40 21 08/25/17 08:00 2.00 Labs Laboratory Tests Test 08/29/17 04:40 White Blood Count 17.2 Red Blood Count 3.54 Hemoglobin 9.9 Hematocrit 30.2 Mean Corpuscular Volume 85.5 Mean Corpuscular Hemoglobin 27.9 Mean Corpuscular Hemoglobin Concent 32.7 Red Cell Distribution Width 16.2 Platelet Count 533 Mean Platelet Volume 7.5 Blood Urea Nitrogen 12 Creatinine 0.79 Random Glucose 138 Calcium Level 7.6 Magnesium Level 2.4 Sodium Level 135 Potassium Level 3.9 Chloride Level 101 Carbon Dioxide Level 28.3 Anion Gap 6 Estimat Glomerular Filtration Rate 105 Radiology Last 48 hours Impressions Gall Bladder Ultrasound 08/16/17 0000 Signed Impressions: Service Date/Time: Wednesday, August 16, 2017 07:47 - CONCLUSION: 1. Contracted gallbladder containing multiple gallstones. 2. Dilated common bile duct is 7 mm. 3. Echogenic liver which can be seen with moderate hepatic steatosis. Kj Gutierrez MD Cholangiopancreatography MRI 08/16/17 0000 Signed Impressions: Service Date/Time: Wednesday, August 16, 2017 11:18 - CONCLUSION: 1. Cholelithiasis 2. Mildly distended common bile duct with suspected filling defect at the level of the ampulla. 3. Axial stenosis. Jhonatan Fish MD Abdomen/Pelvis CT 08/15/17 194 Signed Impressions: Service Date/Time: Tuesday, August 15, 2017 19:49 - CONCLUSION: 1. Status post distal gastrectomy with a gastroenteric anastomosis. 2. There are bowel sutures in the left upper quadrant of the proximal small bowel with some dilatation of this segment with prominent debris within this portion of the small bowel in the left upper quadrant. The remaining small bowel is not dilated or thickened. 3. Dilatation of the common bile duct. A cause of this is not seen. 4. Evidence of prior midline incision with minimal hernias. 5. Hepatic steatosis. Neel Alexander MD Abdomen: Non-distended, Post-op tenderness A/P Assessment and Plan 47yo s/o GJ revision and j-tube, stable. increase TF slowly continue OOB keep drain, minimal clear fluid await bowel function Butch Shelton MD Aug 29, 2017 11:52
[2017-08-29] MEDS: ENOXAPARIN SODIUM 40 MG/0.4 ML SYRINGE SQ SCH (13:51)
--- NOTE | 2017-08-29 15:24 | HHI.PR ---
Subjective Remarks The patient was and awaiting the hallways. He has been having watery bowel movements today. He says his abdominal discomfort occurs when getting up and sitting down. No other acute complaints. Discussed with nursing. Objective Vitals Vital Signs Date Time Temp Pulse Resp B/P (MAP) Pulse Ox O2 Delivery O2 Flow Rate FiO2 08/29/17 13:51 16 08/29/17 12:00 97.9 91 16 127/79 (95) 96 08/29/17 09:35 94 08/29/17 08:00 98.6 86 18 113/80 (91) 96 08/29/17 04:47 18 08/29/17 04:00 98.5 98 18 130/81 (97) 97 08/29/17 01:39 20 08/29/17 00:00 98.5 93 18 113/66 (82) 94 08/28/17 23:59 90 08/28/17 21:09 97 08/28/17 20:57 20 08/28/17 20:30 Room Air 08/28/17 20:00 109 08/28/17 20:00 98.8 119 20 126/81 (96) 94 08/28/17 16:00 97.3 85 18 128/65 (86) 97 I/O 08/28/17 08/28/17 08/28/17 08/29/17 08/29/17 08/29/17 07:00 15:00 23:00 07:00 15:00 23:00 Intake Total 1356.4 ml 200 ml 580 ml 3249 ml 240 ml Output Total 310 ml 880 ml 328 ml 950 ml Balance 1046.4 ml 200 ml -300 ml 2921 ml -710 ml Intake Oral 240 ml 720 ml 240 ml IV Total 1356.4 ml 200 ml 300 ml 2450 ml Tube Feeding 40 ml 79 ml Output Urine Total 300 ml 875 ml 325 ml 950 ml Drainage Total 10 ml 5 ml 3 ml # Voids 1 # Bowel Movements 0 0 3 Result Diagram: 08/29/17 0440 08/29/17 0440 Imaging Last Impressions Upper GI Series 08/27/17 0000 Signed Impressions: Service Date/Time: Sunday, August 27, 2017 14:45 - CONCLUSION: Negative for leak or distal obstruction. Shant Berumen MD FACR Cholangiogram 08/24/17 0000 Signed Impressions: Service Date/Time: Thursday, August 24, 2017 20:58 - CONCLUSION: No evidence of common duct stone. Arnold Obrien MD Bile Duct Drainage 08/19/17 0000 Signed Impressions: Service Date/Time: August 10:11 - CONCLUSION: 1. Uncomplicated percutaneous biliary drainage as above. 2. A cholangiogram demonstrates a stone within the distal common bile duct. There are multiple stones within the gallbladder. Jacinto Berumen MD Chest X-Ray 08/18/17 0000 Signed Impressions: Service Date/Time: Friday, August 18, 2017 15:06 - CONCLUSION: 1. Visipaque line in good position. 2. Elevation of the left hemidiaphragm with mild airspace disease at the left lung base which may reflect atelectasis. Eugene Belle MD Gall Bladder Ultrasound 08/16/17 0000 Signed Impressions: Service Date/Time: Wednesday, August 16, 2017 07:47 - CONCLUSION: 1. Contracted gallbladder containing multiple gallstones. 2. Dilated common bile duct is 7 mm. 3. Echogenic liver which can be seen with moderate hepatic steatosis. Kj Gutierrez MD Cholangiopancreatography MRI 08/16/17 0000 Signed Impressions: Service Date/Time: Wednesday, August 16, 2017 11:18 - CONCLUSION: 1. Cholelithiasis 2. Mildly distended common bile duct with suspected filling defect at the level of the ampulla. 3. Axial stenosis. Jhonatan Fish MD Abdomen/Pelvis CT 08/15/171939 Signed Impressions: Service Date/Time: Tuesday, August 15, 2017 19:49 - CONCLUSION: 1. Status post distal gastrectomy with a gastroenteric anastomosis. 2. There are bowel sutures in the left upper quadrant of the proximal small bowel with some dilatation of this segment with prominent debris within this portion of the small bowel in the left upper quadrant. The remaining small bowel is not dilated or thickened. 3. Dilatation of the common bile duct. A cause of this is not seen. 4. Evidence of prior midline incision with minimal hernias. 5. Hepatic steatosis. Neel Alexander MD Objective Remarks GENERAL: Resting comfortably.. SKIN: Warm and dry. HEAD: Atraumatic. Normocephalic. EYES: Pupils equal and round, reactive ENT: No nasal bleeding or discharge. Mucous membranes pink and moist. NECK: Trachea midline. Airway patent. CARDIOVASCULAR: Regular rate and rhythm. No murmur appreciated. RESPIRATORY: Breathing comfortably on room air.. Clear to auscultation. Breath sounds equal bilaterally. . GASTROINTESTINAL: Abdomen soft, non-tender, nondistended. Midline dressing in place with slight dried blood staining. Red rubber J-tube in the left lower quadrant. T-tube in right upper quadrant. MADONNA in right lower quadrant. MUSCULOSKELETAL: Extremities without clubbing, cyanosis, or edema. No obvious deformities. Warm, well perfused. NEUROLOGICAL: Awake and alert. No obvious cranial nerve deficits. Motor grossly within normal limits. Normal speech. O X 3. PSYCH: Mood and affect appropriate. Procedures 08/19/17 percutaneous cholangiogram with biliary drain placement Medications and IVs Current Medications Medications (Trade) Dose Ordered Sig/Esther Route Start Time Stop Time Status Last Admin (NS Flush) 2 ml UNSCH PRN IV FLUSH 08/15/17 21:15 08/28/17 06:27 (NS Flush) 2 ml BID IV FLUSH 08/16/17 09:00 08/28/17 20:49 (Zofran Inj) 4 mg Q6H PRN IVP 08/15/17 21:15 08/27/17 16:15 (Niru-Colace) 1 tab BID PO 08/16/17 09:00 08/27/17 08:23 (Milk Of Magnesia Liq) 30 ml Q12H PRN PO 08/15/17 21:15 (Senokot) 17.2 mg Q12H PRN PO 08/15/17 21:15 (Dulcolax Supp) 10 mg DAILY PRN RECTAL 08/15/17 21:15 (Lactulose Liq) 30 ml DAILY PRN PO 08/15/17 21:15 (Phenergan Inj) 12.5 mg Q6H PRN IM 08/16/17 09:30 08/22/17 17:32 Metronidazole 100 ml @ 100 mls/hr Q8H IV 08/16/17 13:00 08/29/17 13:51 (Dilaudid Pf Inj) 2 mg Q4H PRN IV PUSH 08/16/17 16:15 08/20/17 16:25 Fat Emulsion Intravenous 250 ml @ 31.25 mls/ hr Q24H IV-CENTRAL 08/18/17 20:00 08/28/17 20:49 Cefepime HCl 2000 mg/Sodium Chloride 100 ml @ 200 mls/hr Q8H IV 08/20/17 00:00 08/29/17 09:35 (Vasotec Inj) 1.25 mg Q6H PRN IV PUSH 08/21/17 06:00 Sodium Chloride 1,000 ml @ 0 mls/hr Q10H IV 08/25/17 02:15 08/28/17 06:20 (Narcan Inj) 0.4 mg UNSCH PRN IV PUSH 08/25/17 09:00 (Dilaudid [employer] SALES CONSULTANT Inj) 6 mg UNSCH IV 08/25/17 09:00 08/29/17 01:39 [employer] SALES CONSULTANT Dosage Infused (Pha) 1 Q8HR OTHER 08/25/17 14:00 08/29/17 13:51 (Protonix Inj) 40 mg Q24H IV PUSH 08/25/17 11:00 08/29/17 09:35 (Reglan Inj) 10 mg Q8HR IV PUSH 08/25/17 14:00 08/29/17 13:51 (Lovenox Inj) 40 mg Q24H SQ 08/27/17 14:00 08/29/17 13:51 (Trandate Inj) 10 mg Q6H PRN IV PUSH 08/27/17 14:00 (D50w (Vial) Inj) 50 ml UNSCH PRN IV PUSH 08/27/17 14:15 (Glucagon Inj) 1 mg UNSCH PRN OTHER 08/27/17 14:15 (NovoLOG SUPPLEMENTAL SCALE) 1 Q6H SQ 08/27/17 15:00 08/29/17 04:38 Sodium Chloride 5.5 meq/Sodium Acetate 29.5 meq/ Potassium Chloride 20 meq/ Sodium Phosphate 20 meq/Magnesium Chloride 5 meq/ Calcium Chloride 4.5 meq/ Multivitamins 5 ml/Folic Acid 0.5 mg/Amino Acids/ Dextrose 1,042.0719 ml @ 83 mls/hr [id number] IV-CENTRAL 08/29/17 20:00 (Xanax) 1 mg Q8H PRN PO 08/29/17 15:30 UNV (Desyrel) 100 mg HS PO 08/29/17 21:00 UNV A/P Problem List: (1) Biliary obstruction ICD Code: K83.1 - Obstruction of bile duct Status: Acute Assessment and Plan GI Postoperative day #5 exploratory laparotomy with extensive lysis of adhesions, revision of gastrojejunostomy with J-tube, open, bowel or expiration with T- tube placement and cholangiogram secondary to obstructive gastrojejunostomy with common bile duct stone 08/24 (Dr. Ceferino Michelle). Status post PTC 08/[address] Berumen/IR. Has a history of gastroparesis, diverticulosis, esophagitis and GERD. Upper GI series noted. MADONNA in RUQ, T tube RUQ, J tube in place. Has been having bowel movements. - Currently on TPN at 83 cc an hour with lipids daily. - General surgery initiated Jevity 1.5 @ 10 ml/hr 08/27. - Currently on pantoprazole 40 mg IV daily. - encourage ambulation. Cholangitis/ Leukocytosis The patient was started on cefepime and Flagyl on 08/16. - Monitor CBC. - Would continue Abx through 5 days post-op now that obstruction is relieved ( tentative d/c 08/30 if WBC trending down and no fever). Anemia Likely secondary to surgery. - Follow CBC. Hyperglycemia A1c not elevated. May be secondary to tube feeds. - Continue with sliding scale insulin coverage. Prophylaxis - GI - pantoprazole - DVT - SCD/ Lovenox 40 mg subcut daily Discharge Planning Awaiting surgical clearance Steffne Moran DO Aug 29, 2017 15:24
[2017-08-29] MEDS ORDERED: ALPRAZolam 1 MG TAB PO PRN (15:30)
[2017-08-29] MEDS: FAT EMULSION 20% INJ 250 ML (Daily over 8 hours) IV-CENTRAL SCH (20:01)
[2017-08-29] MEDS: SODIUM CHLORIDE 23.4% INJ 5.5 MEQ, SODIUM ACETATE INJ 29.5 MEQ, POTASSIUM CHLORIDE INJ ... IV-CENTRAL SCH ×9 (20:01)
[2017-08-29] MEDS ORDERED: traZODone HCL 100 MG TAB PO SCH (21:00)
[2017-08-30] MEDS: CEFEPIME INJ 2,000 MG in SODIUM CHLORIDE 0.9% INJ 100 ML IV SCH ×2 (00:42→08:32)
[2017-08-30] MEDS: INSULIN ASPART SUPPLEMENTAL SCALE SQ SCH ×4 (02:39→21:00)
[2017-08-30 04:00] VITALS: BP 129/80; PULSE 104; RESP 20; TEMP 99; O2SAT 95
[2017-08-30] MEDS: metroNIDAZOLE 500 MG INJ 100 ML IV SCH ×2 (04:10→13:00)
[2017-08-30] MEDS: METOCLOPRAMIDE HCL 10 MG/2 ML VIAL IV PUSH SCH ×3 (04:10→22:18)
[2017-08-30] MEDS: PCA - TOTAL MG DILAUDID DELIVERED PER SHIFT OTHER SCH ×3 (05:59→22:00)
[2017-08-30 06:30] LABS: AUTOMATED NEUTROPHIL # 13.7 TH/MM3 (1.8-7.7); BASOPHIL # 0.1 TH/MM3 (0-0.2); BASOPHIL % 0.4 % (0.0-2.0); EOSINOPHIL # 0.5 TH/MM3 (0-0.4); EOSINOPHIL % 3.3 % (0.0-4.0); HEMATOCRIT 31.5 % (39.0-51.0); HEMOGLOBIN 9.7 GM/DL (13.0-17.0); LYMPH % 6.3 % (9.0-44.0); MEAN CELL VOLUME 95.2 FL (80.0-100.0); MEAN CORPUSCULAR HEMOGLOBIN 29.2 PG (27.0-34.0); MEAN CORPUSCULAR HGB CONC 30.6 % (32.0-36.0); MEAN PLATELET VOLUME 7.9 FL (7.0-11.0); PLATELET COUNT 589 TH/MM3 (150-450); RED BLOOD COUNT 3.31 MIL/MM3 (4.50-5.90); RED CELL DISTRIBUTION WIDTH 17.3 % (11.6-17.2); WHITE BLOOD COUNT 16.3 TH/MM3 (4.0-11.0)
[2017-08-30 07:40] VITALS: BP 123/81; PULSE 95; RESP 20; TEMP 97.1; O2SAT 98
[2017-08-30 08:00] VITALS: PULSE 102
[2017-08-30] MEDS: SODIUM CHLORIDE 23.4% INJ 5.5 MEQ, SODIUM ACETATE INJ 29.5 MEQ, POTASSIUM CHLORIDE INJ ... IV-CENTRAL SCH ×18 (08:32→22:18)
[2017-08-30] MEDS: SODIUM CHLORIDE 0.9% FLUSH 10 ML FLUSH IV FLUSH SCH ×2 (08:35→22:19)
[2017-08-30] MEDS: DOCUSATE SODIUM 50 MG/SENNA 8.6 MG TAB PO SCH ×2 (08:35→21:00)
[2017-08-30 08:49] LABS: ALBUMIN 2.1 GM/DL (3.4-5.0); ALKALINE PHOSPHATASE 95 U/L (45-117); ALT (GPT) 40 U/L (12-78); AST (GOT) 28 U/L (15-37); BICARBONATE 26.8 MEQ/L (21.0-32.0); BLOOD UREA NITROGEN 11 MG/DL (7-18); CALCIUM 7.8 MG/DL (8.5-10.1); CHLORIDE 100 MEQ/L (98-107); CREATININE 0.61 MG/DL (0.60-1.30); GLOMERULAR FILTRATION RATE 142 ML/MIN (>89); GLUCOSE,RANDOM 130 MG/DL (74-106); LIPASE 1641 U/L (73-393); SODIUM (NA) 134 MEQ/L (136-145); TOTAL BILIRUBIN ADULT 0.4 MG/DL (0.2-1.0); TOTAL PROTEIN 7.3 GM/DL (6.4-8.2)
[2017-08-30 08:56] LABS: BANDS 4 % (0-6); LYMPHOCYTES 2 % (9-44); METAMYELOCYTES 4 % (0-1); MONOCYTES 3 % (0-8); MYELOCYTES 5 % (0-0); NEUTROPHIL # MANUAL DIFF 15.3 TH/MM3 (1.8-7.7); POLYS (SEG NEUTROPHILS) 81 % (16-70)
--- NOTE | 2017-08-30 09:52 | HHI.PR ---
Subjective Subjective Notes Resting in bed Just got back from walking in hallways Pain tolerable Tolerating clear liquids Objective Vitals/I&O Vital Signs Date Time Temp Pulse Resp B/P (MAP) Pulse Ox O2 Delivery O2 Flow Rate FiO2 08/30/17 07:40 97.1 95 20 123/81 (95) 98 08/28/17 20:30 Room Air 08/27/17 05:40 21 Labs Laboratory Tests Test 08/30/17 07:50 White Blood Count 16.3 Red Blood Count 3.31 Hemoglobin 9.7 Hematocrit 31.5 Mean Corpuscular Volume 95.2 Mean Corpuscular Hemoglobin 29.2 Mean Corpuscular Hemoglobin Concent 30.6 Red Cell Distribution Width 17.3 Platelet Count 589 Mean Platelet Volume 7.9 Neutrophils (%) (Auto) 84.0 Lymphocytes (%) (Auto) 6.3 Monocytes (%) (Auto) 6.0 Eosinophils (%) (Auto) 3.3 Basophils (%) (Auto) 0.4 Neutrophils # (Auto) 13.7 Lymphocytes # (Auto) 1.0 Monocytes # (Auto) 1.0 Eosinophils # (Auto) 0.5 Basophils # (Auto) 0.1 CBC Comment AUTO DIFF Differential Total Cells Counted 100 Neutrophils % (Manual) 81 Band Neutrophils % 4 Lymphocytes % 2 Monocytes % 3 Eosinophils % 1 Neutrophils # (Manual) 15.3 Metamyelocytes 4 Myelocytes 5 Differential Comment FINAL DIFF MANUAL Platelet Estimate HIGH Platelet Morphology Comment NORMAL Blood Urea Nitrogen 11 Creatinine 0.61 Random Glucose 130 Total Protein 7.3 Albumin 2.1 Calcium Level 7.8 Alkaline Phosphatase 95 Aspartate Amino Transf (AST/SGOT) 28 Alanine Aminotransferase (ALT/SGPT) 40 Total Bilirubin 0.4 Sodium Level 134 Potassium Level 4.0 Chloride Level 100 Carbon Dioxide Level 26.8 Anion Gap 7 Estimat Glomerular Filtration Rate 142 Lipase 1641 Radiology Last 48 hours Impressions Gall Bladder Ultrasound 08/16/17 0000 Signed Impressions: Service Date/Time: Wednesday, August 16, 2017 07:47 - CONCLUSION: 1. Contracted gallbladder containing multiple gallstones. 2. Dilated common bile duct is 7 mm. 3. Echogenic liver which can be seen with moderate hepatic steatosis. Kj Gutierrez MD Cholangiopancreatography MRI 08/16/17 0000 Signed Impressions: Service Date/Time: Wednesday, August 16, 2017 11:18 - CONCLUSION: 1. Cholelithiasis 2. Mildly distended common bile duct with suspected filling defect at the level of the ampulla. 3. Axial stenosis. Jhonatan Fish MD Abdomen/Pelvis CT 08/15/17 1940 Signed Impressions: Service Date/Time: Tuesday, August 15, 2017 19:49 - CONCLUSION: 1. Status post distal gastrectomy with a gastroenteric anastomosis. 2. There are bowel sutures in the left upper quadrant of the proximal small bowel with some dilatation of this segment with prominent debris within this portion of the small bowel in the left upper quadrant. The remaining small bowel is not dilated or thickened. 3. Dilatation of the common bile duct. A cause of this is not seen. 4. Evidence of prior midline incision with minimal hernias. 5. Hepatic steatosis. Neel Alexander MD Cardiovascular: Regular Lungs: Clear Abdomen: Other (KIRILL in place with good seal; T tube clamped; J tube with TF infusing; MADONNA with serous fluid; minimal tenderness; soft ) Extremities: No edema A/P Assessment and Plan 47 year old male 47 year old male with abdominal pain with associated nausea and vomiting with a surgical history of distal gastrectomy for gastroparesis; POD7 Ex lap, extensive KAMERON, Revision of gastrojejunostomy, J tube, open CBD exploration, T tube placement, T tube cholangiogram -Clear liquids -Advance TF to 30 cc/hr -Will plan to remove KIRILL tomorrow -TIME BUYER for pain -TPN -Continue clamping T tube -Lipase continues to trend down -Continue routine MADONNA care -OOB as tolerated -Lovenox Attending Statement tolerating clears without N/V. abdomen soft and non tender. KIRILL intact. Extremities non edematous. The exam, history, and the medical decision-making described in the above note were completed with the assistance of the mid-level provider. I reviewed and agree with the findings presented. I attest that I had a [id number] encounter with the patient on the same day, and personally performed and documented my assessment and findings in the medical record. Genna Miller Aug 30, 2017 09:52 Eugenio Mckeon MD Aug 30, 2017 12:12
[2017-08-30] MEDS: PANTOPRAZOLE SODIUM 40 MG VIAL IV PUSH SCH (11:13)
[2017-08-30 12:00] VITALS: BP 129/65; PULSE 99; RESP 21; TEMP 98.6; O2SAT 97
--- NOTE | 2017-08-30 13:29 | HHI.PR ---
Subjective Remarks Patient seen and evaluated today in follow-up for cholangitis status post expiratory laparotomy Ambulatory. Tolerating clears. Highly motivated for discharge planning. No new events Objective Vitals Vital Signs Date Time Temp Pulse Resp B/P (MAP) Pulse Ox O2 Delivery O2 Flow Rate FiO2 08/30/17 08:00 98 Room Air 08/30/17 08:00 102 08/30/17 07:40 97.1 95 20 123/81 (95) 98 08/30/17 05:59 16 08/30/17 04:00 99.0 104 20 129/80 (96) 95 08/29/17 23:58 98.9 102 20 125/74 (91) 96 08/29/17 22:00 18 08/29/17 20:22 115 08/29/17 20:00 98.6 105 20 121/74 (90) 95 08/29/17 18:55 18 08/29/17 16:00 98.0 93 18 108/69 (82) 97 08/29/17 13:51 16 I/O 08/29/17 08/29/17 08/29/17 08/30/17 08/30/17 08/30/17 07:00 15:00 23:00 07:00 15:00 23:00 Intake Total 3249 ml 240 ml 473 ml 1179 ml 120 ml Output Total 328 ml 950 ml 5 ml 3650 ml Balance 2921 ml -710 ml 468 ml -2471 ml 120 ml Intake Oral 720 ml 240 ml 720 ml 120 ml IV Total 2450 ml 200 ml Tube Feeding 79 ml 473 ml 259 ml Output Urine Total 325 ml 950 ml 3650 ml Drainage Total 3 ml 5 ml # Voids 1 # Bowel Movements 0 3 1 Result Diagram: 08/30/17 0750 08/30/17 0750 Objective Remarks GENERAL: This is a well-nourished, well-developed patient, in no apparent distress. CARDIOVASCULAR: Regular rate and rhythm without murmurs, gallops, or rubs. RESPIRATORY: Clear to auscultation. Breath sounds equal bilaterally. No wheezes , rales, or rhonchi. GASTROINTESTINAL: Feeding tube in place, Abdomen soft, non-tender, nondistended. Normal active bowel sounds MUSCULOSKELETAL: Extremities without clubbing, cyanosis, or edema. NEURO: Alert & Oriented x4 to person, place, time, situation. Moves all ext x4 Procedures 08/19/17 percutaneous cholangiogram with biliary drain placement A/P Assessment and Plan 1. Multifactorial abdominal pain, patient with biliary obstruction, adhesions and cholangitis Postoperative day #6 status post exploratory laparotomy with extensive lysis of adhesions, revision of gastrojejunostomy with J-tube, open, bowel or expiration with T-tube placement and cholangiogram secondary to obstructive gastrojejunostomy with common bile duct stone 08/24 (Dr. Ceferino Michelle). 2. Tube feeding Continue TPN, Jevity, clear liquids per surgery, tolerated today PPI 3. Cholangitis, and DC antibiotics as patient completed course Discharge Planning Home pending improvement in bowel function Monse Albarado MD Aug 30, 2017 13:29
[2017-08-30] MEDS: ENOXAPARIN SODIUM 40 MG/0.4 ML SYRINGE SQ SCH (14:32)
[2017-08-30 16:00] VITALS: BP 129/75; PULSE 93; RESP 20; TEMP 98.7; O2SAT 97
[2017-08-30 20:13] VITALS: BP 133/80; PULSE 78; RESP 18; TEMP 99.1; O2SAT 96
[2017-08-30] MEDS: FAT EMULSION 20% INJ 250 ML (Daily over 8 hours) IV-CENTRAL SCH (22:18)
[2017-08-31] VITALS (7 sets, daily range): BP systolic 124–141; BP diastolic 76–88; PULSE 80–100; RESP 18–20; TEMP 97.4–99.1; O2SAT 96–99
[2017-08-31] MEDS: INSULIN ASPART SUPPLEMENTAL SCALE SQ SCH ×4 (03:00→20:26)
[2017-08-31] MEDS: PCA - TOTAL MG DILAUDID DELIVERED PER SHIFT OTHER SCH (05:52)
[2017-08-31] MEDS: METOCLOPRAMIDE HCL 10 MG/2 ML VIAL IV PUSH SCH ×3 (05:52→20:27)
[2017-08-31] MEDS: SODIUM CHLORIDE 0.9% FLUSH 10 ML FLUSH IV FLUSH SCH ×2 (08:16→20:25)
[2017-08-31] MEDS: DOCUSATE SODIUM 50 MG/SENNA 8.6 MG TAB PO SCH ×2 (08:16→20:26)
[2017-08-31] MEDS: SODIUM CHLORIDE 23.4% INJ 5.5 MEQ, SODIUM ACETATE INJ 29.5 MEQ, POTASSIUM CHLORIDE INJ ... IV-CENTRAL SCH ×9 (09:24)
[2017-08-31 10:15] LABS: ALBUMIN 2.4 GM/DL (3.4-5.0); ALT (GPT) 36 U/L (12-78); AST (GOT) 30 U/L (15-37); BICARBONATE 26.1 MEQ/L (21.0-32.0); BLOOD UREA NITROGEN 12 MG/DL (7-18); CALCIUM 8.2 MG/DL (8.5-10.1); CHLORIDE 102 MEQ/L (98-107); CREATININE 0.85 MG/DL (0.60-1.30); GLUCOSE,RANDOM 116 MG/DL (74-106); SODIUM (NA) 136 MEQ/L (136-145)
[2017-08-31 10:17] LABS: ALKALINE PHOSPHATASE 106 U/L (45-117); LIPASE 2076 U/L (73-393); TOTAL BILIRUBIN ADULT 0.4 MG/DL (0.2-1.0)
[2017-08-31] MEDS: PANTOPRAZOLE SODIUM 40 MG VIAL IV PUSH SCH (11:06)
[2017-08-31] MEDS ORDERED: HYDROmorphone HCL PF 2 MG/ML VIAL IV PUSH PRN (11:15)
--- NOTE | 2017-08-31 11:19 | HHI.PR ---
Subjective Remarks discussed with RN Patient seen and evaluated in follow-up for abdominal pain, postop day 8 status post laparotomy. Doing better. Still ambulatory without difficulty and pain is well controlled. Objective Vitals Vital Signs Date Time Temp Pulse Resp B/P (MAP) Pulse Ox O2 Delivery O2 Flow Rate FiO2 08/31/17 08:30 99 Room Air 08/31/17 07:46 98.1 92 20 141/82 (101) 99 08/31/17 05:52 18 08/31/17 04:04 98.0 98 20 130/78 (95) 97 08/31/17 00:08 98.8 100 18 124/77 (93) 97 08/30/17 22:00 18 08/30/17 20:13 99.1 78 18 133/80 (97) 96 08/30/17 16:00 98.7 93 20 129/75 (93) 97 08/30/17 14:00 17 08/30/17 12:00 98.6 99 21 129/65 (86) 97 I/O 08/30/17 08/30/17 08/30/17 08/31/17 08/31/17 08/31/17 06:59 14:59 22:59 06:59 14:59 22:59 Intake Total 1179 ml 120 ml 2080 ml 1934 ml 120 ml Output Total 3650 ml 1210.0 ml 1500 ml 0 ml Balance -2471 ml 120 ml 870.0 ml 434 ml 120 ml Intake Oral 720 ml 120 ml 0 ml 780 ml 120 ml IV Total 200 ml 1000 ml Tube Feeding 259 ml 440 ml 240 ml TPN/PPN 640 ml 664 ml Lipid 250 ml Output Urine Total 3650 ml 1200 ml 1500 ml Stool Total 2 ml Tube Feeding Residual Discard 3.0 ml 0 ml Drainage Total 5 ml 0 ml # Bowel Movements 1 1 Result Diagram: 08/30/17 0750 08/31/17 0930 Objective Remarks GENERAL: This is a well-nourished, well-developed patient, in no apparent distress. CARDIOVASCULAR: Regular rate and rhythm without murmurs, gallops, or rubs. RESPIRATORY: Clear to auscultation. Breath sounds equal bilaterally. No wheezes , rales, or rhonchi. GASTROINTESTINAL: Feeding tube in place, Abdomen soft, non-tender, nondistended. Normal active bowel sounds MUSCULOSKELETAL: Extremities without clubbing, cyanosis, or edema. NEURO: Alert & Oriented x4 to person, place, time, situation. Moves all ext x4 Procedures 08/19/17 percutaneous cholangiogram with biliary drain placement A/P Problem List: (1) Biliary obstruction ICD Code: K83.1 - Obstruction of bile duct Status: Acute Assessment and Plan 1. Multifactorial abdominal pain, patient with biliary obstruction, adhesions and cholangitis Postoperative day #6 status post exploratory laparotomy with extensive lysis of adhesions, revision of gastrojejunostomy with J-tube, open, bowel or expiration with T-tube placement and cholangiogram secondary to obstructive gastrojejunostomy with common bile duct stone 08/24 (Dr. Ceferino Michelle). Decrease TPN, advance tube feedings and at oral pain medication 2. Tube feeding, with advancement of diet, continue PPI 3. Cholangitis, and DC antibiotics as patient completed course LMWH Discharge Planning Home pending improvement in bowel function and surgical clearance Monse Albarado MD Aug 31, 2017 11:19
--- NOTE | 2017-08-31 12:10 | HHI.PR ---
Subjective Subjective Notes Resting in bed No issues Walked this morning Objective Vitals/I&O Vital Signs Date Time Temp Pulse Resp B/P (MAP) Pulse Ox O2 Delivery O2 Flow Rate FiO2 08/31/17 11:29 98.8 100 19 134/88 (103) 98 08/31/17 08:30 Room Air Labs Laboratory Tests Test 08/31/17 09:30 Blood Urea Nitrogen 12 Creatinine 0.85 Random Glucose 116 Total Protein 8.0 Albumin 2.4 Calcium Level 8.2 Alkaline Phosphatase 106 Aspartate Amino Transf (AST/SGOT) 30 Alanine Aminotransferase (ALT/SGPT) 36 Total Bilirubin 0.4 Sodium Level 136 Potassium Level 4.2 Chloride Level 102 Carbon Dioxide Level 26.1 Anion Gap 8 Lipase 2076 Radiology Last 48 hours Impressions Gall Bladder Ultrasound 08/16/17 0000 Signed Impressions: Service Date/Time: Wednesday, August 16, 2017 07:47 - CONCLUSION: 1. Contracted gallbladder containing multiple gallstones. 2. Dilated common bile duct is 7 mm. 3. Echogenic liver which can be seen with moderate hepatic steatosis. Kj Gutierrez MD Cholangiopancreatography MRI 08/16/17 0000 Signed Impressions: Service Date/Time: Wednesday, August 16, 2017 11:18 - CONCLUSION: 1. Cholelithiasis 2. Mildly distended common bile duct with suspected filling defect at the level of the ampulla. 3. Axial stenosis. Jhonatan Fish MD Abdomen/Pelvis CT 08/15/17 1940 Signed Impressions: Service Date/Time: Tuesday, August 15, 2017 19:49 - CONCLUSION: 1. Status post distal gastrectomy with a gastroenteric anastomosis. 2. There are bowel sutures in the left upper quadrant of the proximal small bowel with some dilatation of this segment with prominent debris within this portion of the small bowel in the left upper quadrant. The remaining small bowel is not dilated or thickened. 3. Dilatation of the common bile duct. A cause of this is not seen. 4. Evidence of prior midline incision with minimal hernias. 5. Hepatic steatosis. Neel Alexander MD Cardiovascular: Regular Lungs: Clear Abdomen: Other (Midline incision ---KIRILL removed; dry dressing applied; el in place; MADONNA with serous fluid; T tube clamped; J tube dressing changed ; abdomen is soft; minimal tenderness ) Extremities: No edema A/P Assessment and Plan 47 year old male 47 year old male with abdominal pain with associated nausea and vomiting with a surgical history of distal gastrectomy for gastroparesis; POD8 Ex lap, extensive KAMERON, Revision of gastrojejunostomy, J tube, open CBD exploration, T tube placement, T tube cholangiogram -Advance to full liquids -Advance TF to 40 cc/hr -Cut TPN rate in half; will plan to DC TPN tomorrow afternoon -DC HEALTH CARE ASSISTANT; added Hycet for pain and IV Dilaudid for breakthrough pain -Continue clamping T tube -Continue to follow lipase; labs ordered for AM -Continue routine MADONNA care -OOB as tolerated -Lovenox Attending Statement patient seen at bedside wean tpn, inc tf progressing well elevated lipase continue to trend Collaborating MD Comments The exam, history, and the medical decision-making described in the above note were completed with the assistance of the mid-level provider. I reviewed and agree with the findings presented. I attest that I had a [id number] encounter with the patient on the same day, and personally performed and documented my assessment and findings in the medical record. eGnna Miller Aug 31, 2017 12:10 Ceferino Michelle MD Sep 07, 2017 21:39
[2017-08-31] MEDS: ACETAMINOPHEN 325MG/HYDROcodone 7.5MG/15ML UDC PO PRN ×2 (13:28→19:12)
[2017-08-31] MEDS: ENOXAPARIN SODIUM 40 MG/0.4 ML SYRINGE SQ SCH (14:00)
[2017-08-31] MEDS ORDERED: IOHEXOL 350 MG/ML 50 ML BTL (for RAD DIAG) OTHER ONE (15:35)
--- NOTE | 2017-08-31 16:21 | RADRPT ---
EXAM DATE/TIME: 08/31/2017 16:10 [facility] COMPARISON: No previous studies available for comparison. INDICATIONS : Patient presents with elevated lipase in need of cholangiogram for evaluation. MEDICAL HISTORY : Gastroparesis GERD PTSD Migraine SURGICAL HISTORY : Distal gastrectomy Repair of perforated ulcers with biliary leaks Chest tube insertion ENCOUNTER: Subsequent ACUITY: 3 weeks PAIN SCORE: 0/10 LOCATION: N/A FLUORO TIME: 1.6 minutes IMAGE SERIES: 4 CONTRAST: 12 cc Omnipaque (iohexol) 350 PROCEDURE : tube cholangiography The risks, benefits and alternatives to the procedure were explained and verbal and written consent w as obtained. The site was prepped in sterile fashion. Full sterile technique was used, including ca p, mask, sterile gloves and gown and a large sterile sheet. Hand hygiene and 2% chlorhexidine and/or betadine/alcohol prep was utilized per protocol for cutaneous antisepsis. The skin and subcutaneous tissues were infiltrated with local anesthetic solution. Water-soluble contrast was injected through the patient's existing T-tube and imaging was performed i n multiple projections. The examination reveals the T-tube to be in good position. The common duct is normal in caliber witho ut filling defect. The intrahepatic biliary tree is normal in appearance and nondilated. There is epi sodic emptying of injected contrast through the ampulla into the small bowel which is nondilated. The re is no evidence of biliary leak. CONCLUSION: Normal T-tube cholangiogram appearance Neel Philip MD on August 31, 2017 at 16:17 Board Certified Radiologist. This report was verified electronically.
[2017-08-31] MEDS: FAT EMULSION 20% INJ 250 ML (Daily over 8 hours) IV-CENTRAL SCH (20:25)
[2017-09-01] VITALS (8 sets, daily range): BP systolic 123–129; BP diastolic 71–79; PULSE 79–98; RESP 17–21; TEMP 97.2–98.8; O2SAT 94–98
[2017-09-01] MEDS: SODIUM CHLORIDE 23.4% INJ 5.5 MEQ, SODIUM ACETATE INJ 29.5 MEQ, POTASSIUM CHLORIDE INJ ... IV-CENTRAL SCH ×9 (00:47)
[2017-09-01] MEDS: INSULIN ASPART SUPPLEMENTAL SCALE SQ SCH ×4 (03:00→21:00)
[2017-09-01] MEDS: METOCLOPRAMIDE HCL 10 MG/2 ML VIAL IV PUSH SCH ×3 (06:00→21:34)
[2017-09-01 06:24] LABS: AUTOMATED NEUTROPHIL # 10.2 TH/MM3 (1.8-7.7); BASOPHIL # 0.1 TH/MM3 (0-0.2); BASOPHIL % 0.8 % (0.0-2.0); EOSINOPHIL # 0.5 TH/MM3 (0-0.4); EOSINOPHIL % 3.5 % (0.0-4.0); HEMOGLOBIN 10.1 GM/DL (13.0-17.0); LYMPH % 9.4 % (9.0-44.0); LYMPHOCYTE # 1.2 TH/MM3 (1.0-4.8); MEAN CELL VOLUME 90.3 FL (80.0-100.0); MEAN CORPUSCULAR HEMOGLOBIN 27.7 PG (27.0-34.0); MEAN CORPUSCULAR HGB CONC 30.7 % (32.0-36.0); MEAN PLATELET VOLUME 7.3 FL (7.0-11.0); MONO % 7.8 % (0.0-8.0); NEUT % 78.5 % (16.0-70.0); PLATELET COUNT 636 TH/MM3 (150-450); RED BLOOD COUNT 3.66 MIL/MM3 (4.50-5.90); RED CELL DISTRIBUTION WIDTH 16.5 % (11.6-17.2)
[2017-09-01 08:10] LABS: ALBUMIN 2.2 GM/DL (3.4-5.0); ALKALINE PHOSPHATASE 107 U/L (45-117); ALT (GPT) 39 U/L (12-78); AST (GOT) 28 U/L (15-37); BLOOD UREA NITROGEN 13 MG/DL (7-18); CHLORIDE 106 MEQ/L (98-107); CREATININE 0.81 MG/DL (0.60-1.30); GLOMERULAR FILTRATION RATE 102 ML/MIN (>89); GLUCOSE,RANDOM 126 MG/DL (74-106); LIPASE 1999 U/L (73-393); SODIUM (NA) 139 MEQ/L (136-145); TOTAL BILIRUBIN ADULT 0.3 MG/DL (0.2-1.0); TOTAL PROTEIN 7.2 GM/DL (6.4-8.2)
[2017-09-01] MEDS: DOCUSATE SODIUM 50 MG/SENNA 8.6 MG TAB PO SCH ×2 (08:18→19:30)
[2017-09-01] MEDS: SODIUM CHLORIDE 0.9% FLUSH 10 ML FLUSH IV FLUSH SCH ×2 (08:18→19:30)
[2017-09-01 09:00] LABS: BANDS 3 % (0-6); BASOPHILS 1 % (0-2); LYMPHOCYTES 10 % (9-44); METAMYELOCYTES 5 % (0-1); MONOCYTES 4 % (0-8); MYELOCYTES 4 % (0-0); NEUTROPHIL # MANUAL DIFF 10.9 TH/MM3 (1.8-7.7); OVALOCYTES 1+ (NORMAL); POLYS (SEG NEUTROPHILS) 72 % (16-70)
--- NOTE | 2017-09-01 09:21 | HHI.FF ---
Face to Face Verification Diagnosis: (1) Common bile duct (CBD) obstruction (2) Gastroparesis Home Health Nursing Order: Wound care and dressing changes Instructions: Midline incision: dry [place] over midline incision J tube care and TF --- continuous tube feeding ---rate to be determined prior to DC I have seen patient Darian StewartJr on 09/01/17. My clinical findings support the need for the requested home health care services because: High risk of falls I certify that my clinical findings support that this patient is homebound because: Post-op weakness Genna Miller Sep 01, 2017 09:21
[2017-09-01] MEDS: PANTOPRAZOLE SODIUM 40 MG VIAL IV PUSH SCH (11:09)
--- NOTE | 2017-09-01 12:39 | HHI.PR ---
Subjective Remarks Patient seen in room and follow-up for abdominal pain postoperatively. Doing well. Tolerating current diet. Ambulatory Objective Vitals Vital Signs Date Time Temp Pulse Resp B/P (MAP) Pulse Ox O2 Delivery O2 Flow Rate FiO2 09/01/17 12:00 98.6 93 17 123/72 (89) 95 09/01/17 10:01 98 09/01/17 08:00 98 Room Air 09/01/17 08:00 97.3 91 17 123/71 (88) 98 09/01/17 04:37 98.4 79 18 129/79 (96) 97 09/01/17 00:22 97.8 98 18 126/79 (95) 97 08/31/17 21:55 96 21 08/31/17 20:00 99.1 80 20 124/76 (92) 96 08/31/17 16:00 97.4 100 19 134/80 (98) 97 I/O 08/31/17 08/31/17 08/31/17 09/01/17 09/01/17 09/01/17 06:59 14:59 22:59 06:59 14:59 22:59 Intake Total 1934 ml 120 ml 480 ml 1030 ml 950 ml Output Total 1500 ml 0 ml 900 ml 1500 ml 0 ml Balance 434 ml 120 ml -420 ml -470 ml 950 ml Intake Oral 780 ml 120 ml 480 ml 780 ml IV Total 250 ml Tube Feeding 240 ml 950 ml TPN/PPN 664 ml Lipid 250 ml Output Urine Total 1500 ml 900 ml 1500 ml Stool Total 0 ml Tube Feeding Residual Discard 0 ml 0 ml Drainage Total 0 ml # Bowel Movements 1 0 Result Diagram: 09/01/17 0720 09/01/17 0720 Objective Remarks GENERAL: This is a well-nourished, well-developed patient, in no apparent distress. CARDIOVASCULAR: Regular rate and rhythm without murmurs, gallops, or rubs. RESPIRATORY: Clear to auscultation. Breath sounds equal bilaterally. No wheezes , rales, or rhonchi. GASTROINTESTINAL: Feeding tube in place, Abdomen soft, non-tender, nondistended. Normal active bowel sounds MUSCULOSKELETAL: Extremities without clubbing, cyanosis, or edema. NEURO: Alert & Oriented x4 to person, place, time, situation. Moves all ext x4 Procedures 08/19/17 percutaneous cholangiogram with biliary drain placement A/P Problem List: (1) Biliary obstruction ICD Code: K83.1 - Obstruction of bile duct Status: Acute Assessment and Plan 1. Multifactorial abdominal pain, patient with biliary obstruction, adhesions and cholangitis Postoperative day #9 status post exploratory laparotomy with extensive lysis of adhesions, revision of gastrojejunostomy with J-tube, open, bowel or expiration with T-tube placement and cholangiogram secondary to obstructive gastrojejunostomy with common bile duct stone 08/24 (Dr. Ceferino Michelle). advance tube feedings and use oral pain medication 2. Tube feeding, with advancement of diet, continue PPI 3. Cholangitis, and DC antibiotics as patient completed course LMWH Discharge Planning Home pending improvement in bowel function and surgical clearance Monse Albarado MD Sep 01, 2017 12:39
[2017-09-01 13:11] LABS: AMYLASE BODY FLUID 92 U/L; AMYLASE BODY FLUID TYPE PERITONEAL
[2017-09-01] MEDS: SODIUM CHLORIDE 0.9% FLUSH 10 ML FLUSH IV FLUSH PRN (14:16)
[2017-09-01] MEDS: ENOXAPARIN SODIUM 40 MG/0.4 ML SYRINGE SQ SCH (15:52)
[2017-09-01] MEDS: ACETAMINOPHEN 325MG/HYDROcodone 7.5MG/15ML UDC PO PRN (15:53)
--- NOTE | 2017-09-01 16:21 | HHI.PR ---
Subjective Subjective Notes Resting in bed No issues Objective Vitals/I&O Vital Signs Date Time Temp Pulse Resp B/P (MAP) Pulse Ox O2 Delivery O2 Flow Rate FiO2 09/01/17 16:00 98.8 94 17 126/77 (93) 97 09/01/17 08:00 Room Air 08/31/17 21:55 21 Labs Laboratory Tests Test 09/01/17 07:20 White Blood Count 13.0 Red Blood Count 3.66 Hemoglobin 10.1 Hematocrit 33.0 Mean Corpuscular Volume 90.3 Mean Corpuscular Hemoglobin 27.7 Mean Corpuscular Hemoglobin Concent 30.7 Red Cell Distribution Width 16.5 Platelet Count 636 Mean Platelet Volume 7.3 Neutrophils (%) (Auto) 78.5 Lymphocytes (%) (Auto) 9.4 Monocytes (%) (Auto) 7.8 Eosinophils (%) (Auto) 3.5 Basophils (%) (Auto) 0.8 Neutrophils # (Auto) 10.2 Lymphocytes # (Auto) 1.2 Monocytes # (Auto) 1.0 Eosinophils # (Auto) 0.5 Basophils # (Auto) 0.1 CBC Comment AUTO DIFF Differential Total Cells Counted 100 Neutrophils % (Manual) 72 Band Neutrophils % 3 Lymphocytes % 10 Monocytes % 4 Eosinophils % 1 Basophils % 1 Neutrophils # (Manual) 10.9 Metamyelocytes 5 Myelocytes 4 Differential Comment FINAL DIFF MANUAL Atypical Lymphocytes Platelet Estimate HIGH Platelet Morphology Comment NORMAL Ovalocytes 1+ Blood Urea Nitrogen 13 Creatinine 0.81 Random Glucose 126 Total Protein 7.2 Albumin 2.2 Calcium Level 8.0 Alkaline Phosphatase 107 Aspartate Amino Transf (AST/SGOT) 28 Alanine Aminotransferase (ALT/SGPT) 39 Total Bilirubin 0.3 Sodium Level 139 Potassium Level 4.2 Chloride Level 106 Carbon Dioxide Level 28.0 Anion Gap 5 Estimat Glomerular Filtration Rate 102 Prealbumin 20 Lipase 1998 Radiology Last 48 hours Impressions Gall Bladder Ultrasound 08/16/17 0000 Signed Impressions: Service Date/Time: Wednesday, August 16, 2017 07:47 - CONCLUSION: 1. Contracted gallbladder containing multiple gallstones. 2. Dilated common bile duct is 7 mm. 3. Echogenic liver which can be seen with moderate hepatic steatosis. Kj Gutierrez MD Cholangiopancreatography MRI 08/16/17 0000 Signed Impressions: Service Date/Time: Wednesday, August 16, 2017 11:18 - CONCLUSION: 1. Cholelithiasis 2. Mildly distended common bile duct with suspected filling defect at the level of the ampulla. 3. Axial stenosis. Jhonatan Fish MD Abdomen/Pelvis CT 08/15/17 1940 Signed Impressions: Service Date/Time: Tuesday, August 15, 2017 19:49 - CONCLUSION: 1. Status post distal gastrectomy with a gastroenteric anastomosis. 2. There are bowel sutures in the left upper quadrant of the proximal small bowel with some dilatation of this segment with prominent debris within this portion of the small bowel in the left upper quadrant. The remaining small bowel is not dilated or thickened. 3. Dilatation of the common bile duct. A cause of this is not seen. 4. Evidence of prior midline incision with minimal hernias. 5. Hepatic steatosis. Neel Alexander MD Cardiovascular: Regular Lungs: Clear Abdomen: Other (midline incision with el; bandage changes; J tube with TF ; T tube clamped; MADONNA with serous fluid ) Extremities: No edema A/P Assessment and Plan 47 year old male 47 year old male with abdominal pain with associated nausea and vomiting with a surgical history of distal gastrectomy for gastroparesis; POD9 Ex lap, extensive KAMERON, Revision of gastrojejunostomy, J tube, open CBD exploration, T tube placement, T tube cholangiogram -Continue full liquids -Advance TF to 50 cc/hr -DC TPN after currently supply complete -Hycet for pain and IV Dilaudid for breakthrough pain -Continue clamping T tube -Continue to follow lipase; again trending down -Prealbumin improved to 20 -Continue routine MADONNA care -OOB as tolerated -Lovenox Attending Statement patient seen at bedside doing well unclear elevated lipase etiology Attestation The exam, history, and the medical decision-making described in the above note were completed with the assistance of the mid-level provider. I reviewed and agree with the findings presented. I attest that I had a [id number] encounter with the patient on the same day, and personally performed and documented my assessment and findings in the medical record. Genna Miller Sep 01, 2017 16:21 Ceferino Michelle MD Sep 07, 2017 21:41
[2017-09-01] MEDS: FAT EMULSION 20% INJ 250 ML (Daily over 8 hours) IV-CENTRAL SCH (19:43)
[2017-09-01] MEDS ORDERED: SODIUM CHLORIDE 23.4% INJ 5.5 MEQ, SODIUM ACETATE INJ 29.5 MEQ, POTASSIUM CHLORIDE INJ ... IV-CENTRAL SCH ×9 (20:00)
[2017-09-02] MEDS: SODIUM CHLOR 0.9% 1000 ML INJ 1,000 ML IV SCH (00:08)
[2017-09-02 00:25] VITALS: BP 125/71; PULSE 95; RESP 21; TEMP 96.1; O2SAT 96
[2017-09-02] MEDS: INSULIN ASPART SUPPLEMENTAL SCALE SQ SCH ×4 (03:00→21:00)
[2017-09-02] MEDS: METOCLOPRAMIDE HCL 10 MG/2 ML VIAL IV PUSH SCH ×3 (05:44→21:15)
[2017-09-02 08:00] VITALS: BP 129/77; PULSE 95; RESP 18; TEMP 97.5; O2SAT 94
[2017-09-02] MEDS: DOCUSATE SODIUM 50 MG/SENNA 8.6 MG TAB PO SCH ×2 (08:06→21:00)
[2017-09-02] MEDS: SODIUM CHLORIDE 0.9% FLUSH 10 ML FLUSH IV FLUSH SCH ×2 (08:07→21:00)
[2017-09-02] MEDS: PANTOPRAZOLE SODIUM 40 MG VIAL IV PUSH SCH (11:23)
[2017-09-02 11:46] LABS: AUTOMATED NEUTROPHIL # 8.2 TH/MM3 (1.8-7.7); BASOPHIL # 0.1 TH/MM3 (0-0.2); BASOPHIL % 0.9 % (0.0-2.0); EOSINOPHIL # 0.3 TH/MM3 (0-0.4); EOSINOPHIL % 3.1 % (0.0-4.0); HEMOGLOBIN 10.4 GM/DL (13.0-17.0); LYMPH % 11.8 % (9.0-44.0); LYMPHOCYTE # 1.3 TH/MM3 (1.0-4.8); MEAN CORPUSCULAR HEMOGLOBIN 28.4 PG (27.0-34.0); MEAN CORPUSCULAR HGB CONC 33.4 % (32.0-36.0); MEAN PLATELET VOLUME 7.4 FL (7.0-11.0); MONO % 8.4 % (0.0-8.0); MONOCYTE # 0.9 TH/MM3 (0-0.9); NEUT % 75.8 % (16.0-70.0); PLATELET COUNT 643 TH/MM3 (150-450); RED BLOOD COUNT 3.65 MIL/MM3 (4.50-5.90); WHITE BLOOD COUNT 10.8 TH/MM3 (4.0-11.0)
[2017-09-02 12:00] VITALS: BP 118/75; PULSE 96; RESP 19; TEMP 98.4; O2SAT 96
[2017-09-02 12:04] LABS: ALBUMIN 2.4 GM/DL (3.4-5.0); AST (GOT) 26 U/L (15-37); BICARBONATE 26.3 MEQ/L (21.0-32.0); BLOOD UREA NITROGEN 16 MG/DL (7-18); CALCIUM 8.3 MG/DL (8.5-10.1); CHLORIDE 102 MEQ/L (98-107); CREATININE 0.79 MG/DL (0.60-1.30); GLUCOSE,RANDOM 110 MG/DL (74-106); SODIUM (NA) 137 MEQ/L (136-145)
[2017-09-02 12:08] LABS: ALKALINE PHOSPHATASE 104 U/L (45-117); ALT (GPT) 38 U/L (12-78); LIPASE 1975 U/L (73-393); TOTAL BILIRUBIN ADULT 0.3 MG/DL (0.2-1.0); TOTAL PROTEIN 7.3 GM/DL (6.4-8.2)
--- NOTE | 2017-09-02 13:23 | HHI.PR ---
Subjective Remarks patient seen in follow up for Abd pain doing well pod #10 s/p extensive LOS, ex lap, CBD exploration d/w surg doing well Objective Vitals Vital Signs Date Time Temp Pulse Resp B/P (MAP) Pulse Ox O2 Delivery O2 Flow Rate FiO2 09/02/17 12:00 98.4 96 19 118/75 (89) 96 09/02/17 08:00 Room Air 09/02/17 08:00 97.5 95 18 129/77 (94) 94 09/02/17 00:25 96.1 95 21 125/71 (89) 96 09/01/17 20:00 97.2 97 21 125/74 (91) 94 09/01/17 19:00 Room Air 09/01/17 17:27 97 21 09/01/17 16:53 18 09/01/17 16:00 98.8 94 17 126/77 (93) 97 I/O 09/01/17 09/01/17 09/01/17 09/02/17 09/02/17 09/02/17 07:00 15:00 23:00 07:00 15:00 23:00 Intake Total 1030 ml 950 ml 1440 ml 1240 ml Output Total 1500 ml 0 ml 1460 ml Balance -470 ml 950 ml -20 ml 1240 ml Intake Oral 780 ml 1440 ml 240 ml IV Total 250 ml 1000 ml Tube Feeding 950 ml Output Urine Total 1500 ml 1450 ml Tube Feeding Residual Discard 0 ml Drainage Total 10 ml # Voids 1 # Bowel Movements 0 2 Result Diagram: 09/02/17 1125 09/02/17 1125 Objective Remarks GENERAL: This is a well-nourished, well-developed patient, in no apparent distress. CARDIOVASCULAR: Regular rate and rhythm without murmurs, gallops, or rubs. RESPIRATORY: Clear to auscultation. Breath sounds equal bilaterally. No wheezes , rales, or rhonchi. GASTROINTESTINAL: Feeding tube in place, Abdomen soft, non-tender, nondistended. Normal active bowel sounds MUSCULOSKELETAL: Extremities without clubbing, cyanosis, or edema. NEURO: Alert & Oriented x4 to person, place, time, situation. Moves all ext x4 Procedures 08/19/17 percutaneous cholangiogram with biliary drain placement A/P Problem List: (1) Biliary obstruction ICD Code: K83.1 - Obstruction of bile duct Status: Acute Assessment and Plan 1. Multifactorial abdominal pain (surgical history of distal gastrectomy for gastroparesis), patient with biliary obstruction, adhesions and cholangitis Postoperative day #9 status post exploratory laparotomy with extensive lysis of adhesions, revision of gastrojejunostomy with J-tube, open, bowel or expiration with T-tube placement and cholangiogram secondary to obstructive gastrojejunostomy with common bile duct stone 08/24 (Dr. Ceferino Michelle). advance tube feedings and use oral pain medication 2. Tube feeding, with advancement of diet, continue PPI 3. Cholangitis, and DC antibiotics as patient completed course LMWH/ambulating Discharge Planning Home pending improvement in bowel function and surgical clearance Monse Albarado MD Sep 02, 2017 13:23
[2017-09-02] MEDS: ENOXAPARIN SODIUM 40 MG/0.4 ML SYRINGE SQ SCH (13:50)
--- NOTE | 2017-09-02 15:13 | HHI.PR ---
Subjective Subjective Notes Resting in bed No issues Tolerating fulls + TF Objective Vitals/I&O Vital Signs Date Time Temp Pulse Resp B/P (MAP) Pulse Ox O2 Delivery O2 Flow Rate FiO2 09/02/17 12:00 98.4 96 19 118/75 (89) 96 09/02/17 08:00 Room Air 09/01/17 17:27 21 Labs Laboratory Tests Test 09/02/17 11:25 White Blood Count 10.8 Red Blood Count 3.65 Hemoglobin 10.4 Hematocrit 31.0 Mean Corpuscular Volume 85.0 Mean Corpuscular Hemoglobin 28.4 Mean Corpuscular Hemoglobin Concent 33.4 Red Cell Distribution Width 16.0 Platelet Count 643 Mean Platelet Volume 7.4 Neutrophils (%) (Auto) 75.8 Lymphocytes (%) (Auto) 11.8 Monocytes (%) (Auto) 8.4 Eosinophils (%) (Auto) 3.1 Basophils (%) (Auto) 0.9 Neutrophils # (Auto) 8.2 Lymphocytes # (Auto) 1.3 Monocytes # (Auto) 0.9 Eosinophils # (Auto) 0.3 Basophils # (Auto) 0.1 CBC Comment DIFF FINAL Differential Comment Blood Urea Nitrogen 16 Creatinine 0.79 Random Glucose 110 Total Protein 7.3 Albumin 2.4 Calcium Level 8.3 Alkaline Phosphatase 104 Aspartate Amino Transf (AST/SGOT) 26 Alanine Aminotransferase (ALT/SGPT) 38 Total Bilirubin 0.3 Sodium Level 137 Potassium Level 4.1 Chloride Level 102 Carbon Dioxide Level 26.3 Anion Gap 9 Lipase 1975 Radiology Last 48 hours Impressions Gall Bladder Ultrasound 08/16/17 0000 Signed Impressions: Service Date/Time: Wednesday, August 16, 2017 07:47 - CONCLUSION: 1. Contracted gallbladder containing multiple gallstones. 2. Dilated common bile duct is 7 mm. 3. Echogenic liver which can be seen with moderate hepatic steatosis. Kj Gutierrez MD Cholangiopancreatography MRI 08/16/17 0000 Signed Impressions: Service Date/Time: Wednesday, August 16, 2017 11:18 - CONCLUSION: 1. Cholelithiasis 2. Mildly distended common bile duct with suspected filling defect at the level of the ampulla. 3. Axial stenosis. Jhonatan Fish MD Abdomen/Pelvis CT 08/15/171939 Signed Impressions: Service Date/Time: Tuesday, August 15, 2017 19:49 - CONCLUSION: 1. Status post distal gastrectomy with a gastroenteric anastomosis. 2. There are bowel sutures in the left upper quadrant of the proximal small bowel with some dilatation of this segment with prominent debris within this portion of the small bowel in the left upper quadrant. The remaining small bowel is not dilated or thickened. 3. Dilatation of the common bile duct. A cause of this is not seen. 4. Evidence of prior midline incision with minimal hernias. 5. Hepatic steatosis. Neel Alexander MD Cardiovascular: Regular Lungs: Clear Abdomen: Other (midline incision with el--- minimal drainage at inferior portion of incision; T tube clamped; J tube with TF ; MADONNA with serous fluid ) Extremities: No edema A/P Assessment and Plan 47 year old male 47 year old male with abdominal pain with associated nausea and vomiting with a surgical history of distal gastrectomy for gastroparesis; POD10 Ex lap, extensive KAMERON, Revision of gastrojejunostomy, J tube, open CBD exploration, T tube placement, T tube cholangiogram -Continue full liquids -Continue TF to 50 cc/hr -Hycet for pain and IV Dilaudid for breakthrough pain -Continue clamping T tube -Continue to follow lipase; again trending down -Prealbumin improved to 20 -Continue routine MADONNA care -OOB as tolerated -Lovenox -CM consult for [facility] Attending Statement patient seen at bedside tf at 50 wean if needed if not tolerating will remove t tube soon Attestation The exam, history, and the medical decision-making described in the above note were completed with the assistance of the mid-level provider. I reviewed and agree with the findings presented. I attest that I had a [id number] encounter with the patient on the same day, and personally performed and documented my assessment and findings in the medical record. Genna Miller Sep 02, 2017 15:13 Ceferino Michelle MD Sep 07, 2017 21:43
[2017-09-02 16:00] VITALS: BP 123/84; PULSE 90; RESP 18; TEMP 98.2; O2SAT 98
[2017-09-02] MEDS: FAT EMULSION 20% INJ 250 ML (Daily over 8 hours) IV-CENTRAL SCH (19:21)
[2017-09-02 20:00] VITALS: BP 128/80; PULSE 80; RESP 21; TEMP 98.4; O2SAT 97
[2017-09-02 21:46] VITALS: O2SAT 97
[2017-09-03] VITALS (7 sets, daily range): BP systolic 129–149; BP diastolic 74–91; PULSE 86–112; RESP 17–21; TEMP 95.8–98.7; O2SAT 95–98
[2017-09-03] MEDS: INSULIN ASPART SUPPLEMENTAL SCALE SQ SCH ×4 (03:00→20:49)
[2017-09-03] MEDS: ACETAMINOPHEN 325MG/HYDROcodone 7.5MG/15ML UDC PO PRN (03:16)
[2017-09-03] MEDS: METOCLOPRAMIDE HCL 10 MG/2 ML VIAL IV PUSH SCH ×3 (05:55→20:51)
[2017-09-03 06:13] LABS: AUTOMATED NEUTROPHIL # 6.8 TH/MM3 (1.8-7.7); BASOPHIL # 0.1 TH/MM3 (0-0.2); BASOPHIL % 1.2 % (0.0-2.0); EOSINOPHIL # 0.3 TH/MM3 (0-0.4); EOSINOPHIL % 3.2 % (0.0-4.0); HEMATOCRIT 30.7 % (39.0-51.0); HEMOGLOBIN 10.1 GM/DL (13.0-17.0); LYMPH % 13.4 % (9.0-44.0); LYMPHOCYTE # 1.2 TH/MM3 (1.0-4.8); MEAN CELL VOLUME 84.8 FL (80.0-100.0); MEAN CORPUSCULAR HEMOGLOBIN 27.8 PG (27.0-34.0); MEAN CORPUSCULAR HGB CONC 32.7 % (32.0-36.0); MEAN PLATELET VOLUME 7.2 FL (7.0-11.0); MONO % 8.7 % (0.0-8.0); MONOCYTE # 0.8 TH/MM3 (0-0.9); NEUT % 73.5 % (16.0-70.0); PLATELET COUNT 601 TH/MM3 (150-450); RED BLOOD COUNT 3.62 MIL/MM3 (4.50-5.90); RED CELL DISTRIBUTION WIDTH 16.3 % (11.6-17.2); WHITE BLOOD COUNT 9.3 TH/MM3 (4.0-11.0)
[2017-09-03 07:05] LABS: ALBUMIN 2.4 GM/DL (3.4-5.0); ALT (GPT) 39 U/L (12-78); AST (GOT) 28 U/L (15-37); BICARBONATE 26.7 MEQ/L (21.0-32.0); BLOOD UREA NITROGEN 16 MG/DL (7-18); CALCIUM 8.1 MG/DL (8.5-10.1); CHLORIDE 104 MEQ/L (98-107); CREATININE 0.77 MG/DL (0.60-1.30); GLOMERULAR FILTRATION RATE 108 ML/MIN (>89); GLUCOSE,RANDOM 106 MG/DL (74-106); SODIUM (NA) 139 MEQ/L (136-145)
[2017-09-03 07:07] LABS: ALKALINE PHOSPHATASE 106 U/L (45-117); LIPASE 2081 U/L (73-393); TOTAL BILIRUBIN ADULT 0.4 MG/DL (0.2-1.0); TOTAL PROTEIN 7.2 GM/DL (6.4-8.2)
[2017-09-03] MEDS: SODIUM CHLOR 0.9% 1000 ML INJ 1,000 ML IV SCH (08:30)
[2017-09-03] MEDS: DOCUSATE SODIUM 50 MG/SENNA 8.6 MG TAB PO SCH ×2 (08:30→20:49)
[2017-09-03] MEDS: SODIUM CHLORIDE 0.9% FLUSH 10 ML FLUSH IV FLUSH SCH ×2 (08:32→20:51)
[2017-09-03] MEDS: SODIUM CHLORIDE 0.9% FLUSH 10 ML FLUSH IV FLUSH PRN (11:41)
[2017-09-03] MEDS: PANTOPRAZOLE SODIUM 40 MG VIAL IV PUSH SCH (11:41)
[2017-09-03] MEDS: ENOXAPARIN SODIUM 40 MG/0.4 ML SYRINGE SQ SCH (15:21)
--- NOTE | 2017-09-03 15:27 | HHI.PR ---
Subjective Remarks Follow for surgery Patient complaints. He stated that he is doing well. Deny any abdominal pain, nausea vomiting. Patient is afebrile. Objective Vitals Vital Signs Date Time Temp Pulse Resp B/P (MAP) Pulse Ox O2 Delivery O2 Flow Rate FiO2 09/03/17 12:00 97.7 95 18 135/91 (106) 98 09/03/17 08:59 95 09/03/17 08:00 97.5 86 18 138/74 (95) 95 09/03/17 00:00 97.7 96 21 129/78 (95) 96 09/02/17 21:46 97 09/02/17 20:00 98.4 80 21 128/80 (96) 97 09/02/17 19:00 Room Air 09/02/17 16:00 98.2 90 18 123/84 (97) 98 I/O 09/02/17 09/02/17 09/02/17 09/03/17 09/03/17 09/03/17 07:00 15:00 23:00 07:00 15:00 23:00 Intake Total 1240 ml 1170 ml 2445 ml Output Total 5 ml 805 ml Balance 1235 ml 365 ml 2445 ml Intake Oral 240 ml 1170 ml 240 ml IV Total 1000 ml Tube Feeding 2205 ml Output Urine Total 800 ml Drainage Total 5 ml 5 ml # Voids 1 # Bowel Movements 1 Result Diagram: 09/03/17 0550 09/03/17 0550 Objective Remarks GENERAL: This is a well-nourished, well-developed patient, in no apparent distress. CARDIOVASCULAR: Regular rate and rhythm without murmurs, gallops, or rubs. RESPIRATORY: Clear to auscultation. Breath sounds equal bilaterally. No wheezes , rales, or rhonchi. GASTROINTESTINAL: Feeding tube in place, Abdomen soft, non-tender, nondistended. Normal active bowel sounds wound dry clean and intact. MUSCULOSKELETAL: Extremities without clubbing, cyanosis, or edema. NEURO: Alert & Oriented x4 to person, place, time, situation. Moves all ext x4 Procedures 08/19/17 percutaneous cholangiogram with biliary drain placement Medications and IVs Current Medications Morphine Sulfate (Morphine Inj) 4 mg ONCE ONCE IV PUSH Last administered on t 20:08; Start 08/15/17 at 19:45; Stop 08/15/17 at 19:46; Status DC Ondansetron HCl (Zofran Inj) 4 mg ONCE ONCE IVP Last administered on 20:07; Start 08/15/17 at 19:45; Stop 08/15/17 at 19:46; Status DC Sodium Chloride 1,000 ml @ 1,000 mls/hr Q1H IV Last administered on 20:08; Start 08/15/17 at 19:40; Stop 08/15/17 at 20:39; Status DC Sodium Chloride (NS Flush) 2 ml UNSCH PRN IV FLUSH FLUSH AFTER USING IV ACCESS ; Start 08/15/17 at 19:45; Stop 08/16/17 at 08:38; Status DC Sodium Chloride 1,000 ml @ 125 mls/hr Q8H IV Last administered on 08/20/17 05:27; Start 08/15/17 at 21:11; Stop 08/20/17 at 09:19; Status DC Sodium Chloride (NS Flush) 2 ml UNSCH PRN IV FLUSH FLUSH AFTER USING IV ACCESS Last administered on 09/03/17 11:41; Start 08/15/17 at 21:15 Sodium Chloride (NS Flush) 2 ml BID IV FLUSH Last administered on 09/02/17 08 :07; Start 08/16/17 at 09:00 Ondansetron HCl (Zofran Inj) 4 mg Q6H PRN IVP NAUSEA OR VOMITING Last administered on 08/27/17 16:15; Start 08/15/17 at 21:15 Naloxone HCl (Narcan Inj) 0.4 mg UNSCH PRN IV PUSH SEE LABEL COMMENTS; Start 08/15/17 at 21:15; Status Cancel Senna/Docusate Sodium (Niru-Colace) 1 tab BID PO Last administered on 08:16; Start 08/16/17 at 09:00 Magnesium Hydroxide (Milk Of Magnesia Liq) 30 ml Q12H PRN PO Mild constipation ; Start 08/15/17 at 21:15; Stop 08/30/17 at 13:29; Status DC Sennosides (Senokot) 17.2 mg Q12H PRN PO Moderate constipation; Start at 21:15 Bisacodyl (Dulcolax Supp) 10 mg DAILY PRN RECTAL SEVERE CONSITIPATION; Start 08/15/17 at 21:15 Lactulose (Lactulose Liq) 30 ml DAILY PRN PO SEVERE CONSITIPATION; Start 08/15 at 21:15 Hydromorphone HCl (Dilaudid Pf Inj) 1 mg ONCE ONCE IVS Last administered on 21:46; Start 08/15/17 at 21:45; Stop 08/15/17 at 21:46; Status DC Ondansetron HCl (Zofran Inj) 4 mg ONCE ONCE IVP Last administered on 21:45; Start 08/15/17 at 21:45; Stop 08/15/17 at 21:46; Status DC Pneumococcal Polyvalent Vaccine (Pneumovax-23 Inj) 25 mcg ONCE ONCE IM Last administered on 08/16/17 09:43; Start 08/16/17 at 09:00; Stop 08/16/17 at 09 :14; Status DC Influenza Virus Vaccine (Flu (Quadrivalent) Vaccine Inj) 0.5 ml ONCE ONCE IM Last administered on 08/16/17 09:44; Start 08/16/17 at 09:00; Stop 08/16/17 at 09:14; Status DC Hydromorphone HCl (Dilaudid Pf Inj) 1 mg Q4H PRN IV PAIN 6-10 Last administered on 08/16/17 15:59; Start 08/15/17 at 23:45; Stop 08/16/17 at 16 :20; Status DC Pantoprazole Sodium (Protonix) 40 mg DAILY PO Last administered on 08/23/17 08:15; Start 08/16/17 at 09:00; Stop 08/25/17 at 10:45; Status DC Promethazine HCl (Phenergan Inj) 12.5 mg Q6H PRN IM nausea if Zofran ineffective Last administered on 08/22/17 17:32; Start 08/16/17 at 09:30 Cefepime HCl 2000 mg/Sodium Chloride 100 ml @ 200 mls/hr Q8H IV Last administered on 08/19/17 15:54; Start 08/16/17 at 12:00; Stop 08/19/17 at 16 :15; Status DC Metronidazole 100 ml @ 100 mls/hr Q8H IV Last administered on 08/30/17 13:00 ; Start 08/16/17 at 13:00; Stop 08/30/17 at 13:29; Status DC Oxycodone/ Acetaminophen (Percocet 10-325 Mg) 1 tab Q4H PRN PO pain 5-10 Last administered on 08/20/17 13:38; Start 08/16/17 at 16:15; Stop 08/20/17 at 18 :25; Status DC Hydromorphone HCl (Dilaudid Pf Inj) 2 mg Q4H PRN IV PUSH not responding to percocet Last administered on 08/20/17 16:25; Start 08/16/17 at 16:15; Stop 08/31/17 at 11:22; Status DC Hydromorphone HCl (Dilaudid Pf Inj) 1 mg ONCE ONCE IV PUSH Last administered on 08/16/17 16:15; Start 08/16/17 at 16:15; Stop 08/16/17 at 16:16; Status DC Multivitamins 5 ml/Folic Acid 0.5 mg/Amino Acids/ Electrolytes/ Dextrose 1, 005.1 ml @ 83 mls/hr Q12H7M IV Last administered on 08/26/17 09:35; Start 08/18/17 at 20:00; Stop 08/26/17 at 19:59; Status DC Fat Emulsion Intravenous 250 ml @ 31.25 mls/ hr Q24H IV-CENTRAL Last administered on 08/31/17 20:25; Start 08/18/17 at 20:00; Stop 09/03/17 at 10 :23; Status DC Levofloxacin/ Dextrose 100 ml @ As Directed STK-MED ONCE IV ; Start 08/19/17 at 11:15; Stop 08/19/17 at 11:16; Status DC Morphine Sulfate (Morphine Inj) 2 mg STK-MED ONCE .ROUTE Last administered on 08/19/17 13:30; Start 08/19/17 at 13:30; Stop 08/19/17 at 13:31; Status DC Miscellaneous Information ALL NURSING DEPARTME... UNSCH PRN .XX SEE LABEL COMMENTS; Start 08/19/17 at 12:47; Stop 08/20/17 at 12:46; Status DC Cefepime HCl 2000 mg/Sodium Chloride 100 ml @ 200 mls/hr Q8H IV Last administered on 08/30/17 08:32; Start 08/20/17 at 00:00; Stop 08/30/17 at 13 :29; Status DC Potassium Chloride/Sodium Chloride 1,000 ml @ 100 mls/hr Q10H IV Last administered on 08/21/17 11:31; Start 08/20/17 at 09:30; Stop 08/21/17 at 14 :26; Status DC Enoxaparin Sodium (Lovenox Inj) 40 mg Q24H SQ Last administered on 08/22/17 17:37; Start 08/20/17 at 18:00; Stop 08/23/17 at 21:01; Status DC Oxycodone/ Acetaminophen (Percocet 10-325 Mg) 2 tab Q4H PRN PO pain 5-10 Last administered on 08/20/17 21:39; Start 08/20/17 at 19:00; Stop 08/21/17 at 14 :26; Status DC Ketorolac Tromethamine (Toradol Inj) 30 mg Q6H IV PUSH Last administered on 14:00; Start 08/20/17 at 20:00; Stop 08/25/17 at 19:59; Status DC Enalaprilat (Vasotec Inj) 1.25 mg Q6H PRN IV PUSH SBP >165; Start 08/21/17 at 06:00 Dextrose (D50w (Vial) Inj) 50 ml UNSCH PRN IV PUSH HYPOGLYCEMIA-SEE COMMENTS; Start 08/21/17 at 06:00; Stop 08/27/17 at 14:15; Status DC Glucagon (Glucagon Inj) 1 mg UNSCH PRN OTHER HYPOGLYCEMIA-SEE COMMENTS; Start 08/21/17 at 06:00; Stop 08/27/17 at 14:15; Status DC Oxycodone HCl (Roxicodone) 10 mg Q4H PRN PO PAIN SCALE 6 TO 10 Last administered on 08/22/17 04:39; Start 08/21/17 at 14:15; Stop 08/22/17 at 10 :03; Status DC Oxycodone HCl (Roxicodone) 5 mg Q4H PRN PO PAIN SCALE 3 TO 5; Start 08/21/17 at 14:15; Stop 08/22/17 at 10:03; Status DC Hydromorphone HCl (Dilaudid) 1 mg Q4H PRN PO PAIN SCALE 3 TO 5; Start at 10:00; Stop 08/25/17 at 10:45; Status DC Hydromorphone HCl (Dilaudid) 2 mg Q4H PRN PO PAIN SCALE 6 TO 10 Last administered on 08/22/17 12:56; Start 08/22/17 at 10:00; Stop 08/25/17 at 10 :45; Status DC Potassium Chloride (KCl) 30 meq ONCE ONCE PO Last administered on 08/23/17 11:15; Start 08/23/17 at 10:15; Stop 08/23/17 at 10:16; Status DC Potassium Chloride 100 ml @ 50 mls/hr Q2H IV Last administered on 08/23/17 23:27; Start 08/23/17 at 21:30; Stop 08/24/17 at 01:29; Status DC Lactated Ringer's 1,000 ml @ 30 mls/hr Q24H PRN IV SEE LABEL COMMENTS Last administered on 08/24/17 12:29; Start 08/24/17 at 05:30; Stop 08/27/17 at 05 :29; Status DC Sodium Chloride 500 ml @ 30 mls/hr [id number] PRN IV SEE LABEL COMMENTS; Start at 05:30; Stop 08/27/17 at 05:29; Status DC Povidone Iodine (Betadine 5% Antisepsis Kit) 1 applic OIL CHANGER PRN EACH NARE SEE LABEL COMMENTS; Start 08/24/17 at 05:30; Stop 08/27/17 at 05:29; Status DC Chlorhexidine Gluconate (Chlorhexidine 2% Cloth) 3 pack OIL CHANGER PRN TOPICAL SEE LABEL COMMENTS; Start 08/24/17 at 05:30; Stop 08/27/17 at 05:29; Status DC Fentanyl Citrate (fentaNYL INJ) 300 mcg STK-MED ONCE .ROUTE ; Start 08/24/17 at 12:48; Stop 08/24/17 at 12:49; Status DC Hydromorphone HCl (Dilaudid Pf Inj) 2 mg STK-MED ONCE .ROUTE ; Start 08/24/17 at 12:48; Stop 08/24/17 at 12:49; Status DC Sugammadex Sodium (Bridion Inj) 200 mg STK-MED ONCE IV PUSH ; Start 08/24/17 at 12:49; Stop 08/24/17 at 12:50; Status DC Acetaminophen 100 ml @ As Directed STK-MED ONCE IV ; Start 08/24/17 at 12:50; Stop 08/24/17 at 12:51; Status DC Rocuronium Otwell (Zemuron Inj) 50 mg STK-MED ONCE IV PUSH ; Start 08/24/17 at 16:29; Stop 08/24/17 at 16:30; Status DC Sugammadex Sodium (Bridion Inj) 200 mg STK-MED ONCE IV PUSH ; Start 08/24/17 at 21:27; Stop 08/24/17 at 21:28; Status DC Naloxone HCl (Narcan Inj) 0.4 mg UNSCH PRN IV PUSH RESPIRATORY RATE LESS THAN 10; Start 08/24/17 at 21:45; Stop 08/25/17 at 08:46; Status DC Morphine Sulfate (Morphine 1 Mg/ ml HOG RINGER) 30 mg UNSCH IV Last administered on 01:02; Start 08/24/17 at 21:45; Stop 08/25/17 at 08:46; Status DC HOG RINGER Dosage Infused (Pha) 1 Q8HR .XX Last administered on 08/25/17 06:19; Start 08/24/17 at 22:00; Stop 08/25/17 at 08:46; Status DC Ketorolac Tromethamine (Toradol Inj) 30 mg Q6HR IM Last administered on 04:52; Start 08/25/17 at 00:00; Stop 08/25/17 at 10:45; Status DC Meperidine HCl (Demerol Inj) 25 mg STK-MED ONCE .ROUTE Last administered on 22:03; Start 08/24/17 at 22:03; Stop 08/24/17 at 22:04; Status DC Miscellaneous Information ALL NURSING DEPARTME... UNSCH PRN .XX SEE LABEL COMMENTS; Start 08/24/17 at 22:15; Stop 08/25/17 at 22:14; Status DC Morphine Sulfate (*morphine INJ PERIprocedure ONLY) 8 mg STK-MED ONCE .ROUTE Last administered on 08/24/17 22:49; Start 08/24/17 at 22:47; Stop 08/24/17 at 22:48; Status DC Hydromorphone HCl (*DILAUDID PF INJ PERIprocedural ONLY) 1 mg STK-MED ONCE .ROUTE Last administered on 08/24/17 23:11; Start 08/24/17 at 23:11; Stop 08/24/17 at 23:12; Status DC Calcium Gluconate 1 gm/Sodium Chloride 110 ml @ 110 mls/hr ONCE ONCE IV Last administered on 08/25/17 01:05; Start 08/24/17 at 23:30; Stop 08/25/17 at 00 :29; Status DC Sodium Chloride 500 ml @ 500 mls/hr BOLUS ONCE IV Last administered on 01:20; Start 08/25/17 at 01:00; Stop 08/25/17 at 01:59; Status DC Sodium Chloride 1,000 ml @ 0 mls/hr Q10H IV Last administered on 09/03/17 08 :30; Start 08/25/17 at 02:15 Sodium Chloride 500 ml @ 500 mls/hr BOLUS ONCE IV Last administered on 04:51; Start 08/25/17 at 04:45; Stop 08/25/17 at 05:44; Status DC Naloxone HCl (Narcan Inj) 0.4 mg UNSCH PRN IV PUSH RESPIRATORY RATE LESS THAN 10; Start 08/25/17 at 09:00 Hydromorphone HCl (Dilaudid HOG RINGER Inj) 6 mg UNSCH IV Last administered on 18:55; Start 08/25/17 at 09:00; Stop 08/31/17 at 11:22; Status DC HOG RINGER Dosage Infused (Pha) 1 Q8HR OTHER Last administered on 08/31/17 05:52; Start 08/25/17 at 14:00; Stop 08/31/17 at 11:22; Status DC Pantoprazole Sodium (Protonix Inj) 40 mg Q24H IV PUSH Last administered on 11:41; Start 08/25/17 at 11:00 Metoclopramide HCl (Reglan Inj) 10 mg Q8HR IV PUSH Last administered on 15:21; Start 08/25/17 at 14:00 Sodium Chloride 11 meq/Sodium Acetate 59 meq/ Potassium Chloride 40 meq/ Sodium Phosphate 40 meq/Magnesium Chloride 10 meq/ Calcium Chloride 9 meq/ Multivitamins 10 ml/Folic Acid 1 mg/Amino Acids/ Dextrose 2,084.1437 ml @ 83 mls /hr Q24H IV-CENTRAL Last administered on 08/28/17 23:06; Start 08/26/17 at 20:00; Stop 08/29/17 at 15:06; Status DC Lorazepam (Ativan Inj) 1 mg HS PRN IV PUSH Insomina ; Start 08/26/17 at 15:45 ; Stop 08/27/17 at 08:29; Status DC Enoxaparin Sodium (Lovenox Inj) 40 mg Q24H SQ Last administered on 09/03/17 15:21; Start 08/27/17 at 14:00 Labetalol HCl (Trandate Inj) 10 mg Q6H PRN IV PUSH SBP >165; Start 08/27/17 at 14:00; Stop 08/30/17 at 13:29; Status DC Dextrose (D50w (Vial) Inj) 50 ml UNSCH PRN IV PUSH HYPOGLYCEMIA-SEE COMMENTS; Start 08/27/17 at 14:15 Glucagon (Glucagon Inj) 1 mg UNSCH PRN OTHER HYPOGLYCEMIA-SEE COMMENTS; Start 08/27/17 at 14:15 Insulin Aspart (NovoLOG SUPPLEMENTAL SCALE) 1 Q6H SQ Last administered on 08/31 08:25; Start 08/27/17 at 15:00 Diatrizoate Meglum/ Diatrizoate Sod ( Gastroview Liq) 60 ml STK-MED ONCE PO Last administered on 08/27/17 15:13; Start 08/27/17 at 15:13; Stop 08/27/17 at 15:15; Status DC Sodium Chloride 5.5 meq/Sodium Acetate 29.5 meq/ Potassium Chloride 20 meq/ Sodium Phosphate 20 meq/Magnesium Chloride 5 meq/ Calcium Chloride 4.5 meq/ Multivitamins 5 ml/Folic Acid 0.5 mg/Amino Acids/ Dextrose 1,042.0719 ml @ 41.5 mls/hr Q24H IV-CENTRAL Last administered on 12/27/17at 00:47; Start 08/29/17 at 20:00; Stop 09/01/17 at 15:34; Status DC Alprazolam (Xanax) 1 mg Q8H PRN PO anxiety; Start 08/29/17 at 15:30; Stop at 15:30; Status DC Trazodone HCl (Desyrel) 100 mg HS PO ; Start 08/29/17 at 21:00; Stop 08/29/17 at 21:00; Status DC Hydromorphone HCl (Dilaudid Pf Inj) 1 mg Q4H PRN IV PUSH breakthrough pain; Start 08/31/17 at 11:15 Acetaminophen/ Hydrocodone Bitart (Hycet 325-7.5 Mg Liq) 15 ml Q4H PRN PO pain 1-10 Last administered on 09/03/17t 03:16; Start 08/31/17 at 11:15 Parenteral Electrolytes 1,000 ml @ As Directed STK-MED ONCE IV ; Start at 12:00; Stop 08/31/17 at 12:29; Status DC Rocuronium Otwell (Zemuron Inj) 100 mg STK-MED ONCE IV PUSH ; Start 08/24/17 at 12:00; Stop 08/31/17 at 12:29; Status DC Phenylephrine HCl (Neosynephrine/ NS 1000 Mcg/10ml Syr) 1,000 mcg STK-MED ONCE IV ; Start 08/24/17 at 12:00; Stop 08/31/17 at 12:29; Status DC Ondansetron HCl (Zofran Inj) 4 mg STK-MED ONCE IV PUSH ; Start 08/24/17 at 12: 00; Stop 08/31/17 at 12:29; Status DC Lidocaine HCl (Xylocaine-Mpf 1% Inj) 5 ml STK-MED ONCE OTHER ; Start 08/24/17 at 12:00; Stop 08/31/17 at 12:29; Status DC Rocuronium [place]well (Zemuron Inj) 100 mg STK-MED ONCE IV PUSH ; Start 08/24/17 at 12:00; Stop 08/31/17 at 12:29; Status DC Succinylcholine Chloride (Quelicin Inj) 100 mg STK-MED ONCE IV PUSH ; Start at 12:00; Stop 08/31/17 at 12:29; Status DC Dexamethasone Sodium Phosphate (Decadron Inj) 4 mg STK-MED ONCE IV ; Start at 12:00; Stop 08/31/17 at 12:29; Status DC Propofol (Diprivan 200 Mg/20 ml Inj) 200 mg STK-MED ONCE IV ; Start 08/24/17 at 12:00; Stop 08/31/17 at 12:29; Status DC Iohexol (Omnipaque 350 Inj) 12 ml STK-MED ONCE OTHER Last administered on 08/31t 15:20; Start 08/31/17 at 15:35; Stop 08/31/17 at 15:36; Status DC Sodium Chloride 5.5 meq/Sodium Acetate 29.5 meq/ Potassium Chloride 20 meq/ Sodium Phosphate 20 meq/Magnesium Chloride 5 meq/ Calcium Chloride 4.5 meq/ Multivitamins 10 ml/Folic Acid 1 mg/Amino Acids/ Dextrose 1,047.1719 ml @ 41.5 mls/hr Q24H IV-CENTRAL ; Start 09/01/17 at 20:00; Stop 09/01/17 at 20:00; Status DC A/P Problem List: (1) Biliary obstruction ICD Code: K83.1 - Obstruction of bile duct Status: Acute Assessment and Plan 47-year-old male who presented with abdominal pain Multifactorial abdominal pain (surgical history of distal gastrectomy for gastroparesis), patient with biliary obstruction, adhesions and cholangitis -Postoperative day #10 status post exploratory laparotomy with extensive lysis of adhesions, revision of gastrojejunostomy with J-tube, open, bowel or expiration with T-tube placement and cholangiogram secondary to obstructive gastrojejunostomy with common bile duct stone 08/24 (Dr. Ceferino Michelle). -advance tube feedings as tolerated and use oral pain medication -Continue PPIs. -Patient completed course of antibiotics. Destiny Chowdary MD Sep 03, 2017 15:27
--- NOTE | 2017-09-03 21:42 | HHI.PR ---
Subjective Subjective Notes tolerating full diet and TF, pain controlled, lipase 2k Objective Vitals/I&O Vital Signs Date Time Temp Pulse Resp B/P (MAP) Pulse Ox O2 Delivery O2 Flow Rate FiO2 09/03/17 17:25 98 21 09/03/17 16:00 98.5 106 18 133/90 (104) 09/02/17 19:00 Room Air Labs Laboratory Tests Test 09/03/17 05:50 White Blood Count 9.3 Red Blood Count 3.62 Hemoglobin 10.1 Hematocrit 30.7 Mean Corpuscular Volume 84.8 Mean Corpuscular Hemoglobin 27.8 Mean Corpuscular Hemoglobin Concent 32.7 Red Cell Distribution Width 16.3 Platelet Count 601 Mean Platelet Volume 7.2 Neutrophils (%) (Auto) 73.5 Lymphocytes (%) (Auto) 13.4 Monocytes (%) (Auto) 8.7 Eosinophils (%) (Auto) 3.2 Basophils (%) (Auto) 1.2 Neutrophils # (Auto) 6.8 Lymphocytes # (Auto) 1.2 Monocytes # (Auto) 0.8 Eosinophils # (Auto) 0.3 Basophils # (Auto) 0.1 CBC Comment AUTO DIFF Differential Comment AUTO DIFF CONFIRMED Platelet Estimate HIGH Platelet Morphology Comment NORMAL Red Cell Morphology Comment NORMAL Blood Urea Nitrogen 16 Creatinine 0.77 Random Glucose 106 Total Protein 7.2 Albumin 2.4 Calcium Level 8.1 Alkaline Phosphatase 106 Aspartate Amino Transf (AST/SGOT) 28 Alanine Aminotransferase (ALT/SGPT) 39 Total Bilirubin 0.4 Sodium Level 139 Potassium Level 3.9 Chloride Level 104 Carbon Dioxide Level 26.7 Anion Gap 8 Estimat Glomerular Filtration Rate 108 Lipase 2081 Radiology Last 48 hours Impressions Gall Bladder Ultrasound 08/16/17 0000 Signed Impressions: Service Date/Time: Wednesday, August 16, 2017 07:47 - CONCLUSION: 1. Contracted gallbladder containing multiple gallstones. 2. Dilated common bile duct is 7 mm. 3. Echogenic liver which can be seen with moderate hepatic steatosis. Kj Gutierrez MD Cholangiopancreatography MRI 08/16/17 0000 Signed Impressions: Service Date/Time: Wednesday, August 16, 2017 11:18 - CONCLUSION: 1. Cholelithiasis 2. Mildly distended common bile duct with suspected filling defect at the level of the ampulla. 3. Axial stenosis. Jhonatan Fish MD Abdomen/Pelvis CT [id number] Signed Impressions: Service Date/Time: Tuesday, August 15, 2017 19:49 - CONCLUSION: 1. Status post distal gastrectomy with a gastroenteric anastomosis. 2. There are bowel sutures in the left upper quadrant of the proximal small bowel with some dilatation of this segment with prominent debris within this portion of the small bowel in the left upper quadrant. The remaining small bowel is not dilated or thickened. 3. Dilatation of the common bile duct. A cause of this is not seen. 4. Evidence of prior midline incision with minimal hernias. 5. Hepatic steatosis. Neel Alexander MD Abdomen: Other (soft incision well healing, t tube clamped, clover serous, j tube with tf) A/P Assessment and Plan 47 year old male 47 year old male with abdominal pain with associated nausea and vomiting with a surgical history of distal gastrectomy for gastroparesis; POD11 Ex lap, extensive KAMERON, Revision of gastrojejunostomy, J tube, open CBD exploration, T tube placement, T tube cholangiogram, t tube clamped ugi wnl patent gj -full diet advance to soft reg -trend lipase -will plan to remove T tube likely over weekend -Continue routine CLOVER care -OOB as tolerated -Continue monitoring labs -Lovenox -d/c planning likely early this week Ceferino Michelle MD Sep 03, 2017 21:42
[2017-09-04] VITALS: BP 136/90; PULSE 112; RESP 17; TEMP 98.7; O2SAT 98
[2017-09-04] MEDS: INSULIN ASPART SUPPLEMENTAL SCALE SQ SCH ×2 (02:21→08:19)
[2017-09-04] MEDS: METOCLOPRAMIDE HCL 10 MG/2 ML VIAL IV PUSH SCH ×3 (06:02→22:40)
[2017-09-04 06:49] LABS: ALBUMIN 2.4 GM/DL (3.4-5.0); ALT (GPT) 45 U/L (12-78); AST (GOT) 35 U/L (15-37); BICARBONATE 27.4 MEQ/L (21.0-32.0); BLOOD UREA NITROGEN 16 MG/DL (7-18); CALCIUM 7.9 MG/DL (8.5-10.1); CHLORIDE 104 MEQ/L (98-107); CREATININE 0.87 MG/DL (0.60-1.30); GLUCOSE,RANDOM 121 MG/DL (74-106); SODIUM (NA) 136 MEQ/L (136-145)
[2017-09-04 06:51] LABS: ALKALINE PHOSPHATASE 112 U/L (45-117); LIPASE 2151 U/L (73-393); TOTAL BILIRUBIN ADULT 0.4 MG/DL (0.2-1.0); TOTAL PROTEIN 7.4 GM/DL (6.4-8.2)
[2017-09-04 08:00] VITALS: BP 130/83; PULSE 105; RESP 17; TEMP 99.4; O2SAT 95
[2017-09-04] MEDS: DOCUSATE SODIUM 50 MG/SENNA 8.6 MG TAB PO SCH ×2 (08:05→21:00)
[2017-09-04] MEDS: SODIUM CHLORIDE 0.9% FLUSH 10 ML FLUSH IV FLUSH SCH ×2 (08:06→22:40)
--- NOTE | 2017-09-04 10:03 | HHI.PR ---
Subjective Remarks f/u for surgery patient has no complaints. Denied any N/V. He remains afebrile. Objective Vitals Vital Signs Date Time Temp Pulse Resp B/P (MAP) Pulse Ox O2 Delivery O2 Flow Rate FiO2 09/04/17 08:00 99.4 105 17 130/83 (99) 95 09/04/17 00:00 98.7 112 17 136/90 (105) 98 09/03/17 20:00 98.7 112 17 134/91 (105) 98 09/03/17 17:25 98 21 09/03/17 16:00 98.5 106 18 133/90 (104) 98 09/03/17 12:00 97.7 95 18 135/91 (106) 98 I/O 09/03/17 09/03/17 09/03/17 09/04/17 09/04/17 09/04/17 07:00 15:00 23:00 07:00 15:00 23:00 Intake Total 2445 ml 480 ml Output Total 10 ml 525 ml 2 ml Balance 2445 ml -10 ml -45 ml -2 ml Intake Oral 240 ml 480 ml Tube Feeding 2205 ml Output Urine Total 525 ml Drainage Total 10 ml 2 ml # Voids 1 2 # Bowel Movements 2 Result Diagram: 09/03/17 0550 09/04/17 0600 Imaging Last Impressions Cholangiogram 08/31/17 0000 Signed Impressions: Service Date/Time: Thursday, August 31, 2017 16:10 - CONCLUSION: Normal T- tube cholangiogram appearance Neel Philip MD Upper GI Series 08/27/17 0000 Signed Impressions: Service Date/Time: Sunday, August 27, 2017 14:45 - CONCLUSION: Negative for leak or distal obstruction. Shant Berumen MD FACR Bile Duct Drainage 08/19/17 0000 Signed Impressions: Service Date/Time: August 10:11 - CONCLUSION: 1. Uncomplicated percutaneous biliary drainage as above. 2. A cholangiogram demonstrates a stone within the distal common bile duct. There are multiple stones within the gallbladder. Jacinto Berumen MD Chest X-Ray 08/18/17 0000 Signed Impressions: Service Date/Time: Friday, August 18, 2017 15:06 - CONCLUSION: 1. Visipaque line in good position. 2. Elevation of the left hemidiaphragm with mild airspace disease at the left lung base which may reflect atelectasis. Eugene Belle MD Gall Bladder Ultrasound 08/16/17 0000 Signed Impressions: Service Date/Time: Wednesday, August 16, 2017 07:47 - CONCLUSION: 1. Contracted gallbladder containing multiple gallstones. 2. Dilated common bile duct is 7 mm. 3. Echogenic liver which can be seen with moderate hepatic steatosis. Kj Gutierrez MD Cholangiopancreatography MRI 08/16/17 0000 Signed Impressions: Service Date/Time: Wednesday, August 16, 2017 11:18 - CONCLUSION: 1. Cholelithiasis 2. Mildly distended common bile duct with suspected filling defect at the level of the ampulla. 3. Axial stenosis. Jhonatan Fish MD Abdomen/Pelvis CT [id number]/[id number] Signed Impressions: Service Date/Time: Tuesday, August 15, 2017 19:49 - CONCLUSION: 1. Status post distal gastrectomy with a gastroenteric anastomosis. 2. There are bowel sutures in the left upper quadrant of the proximal small bowel with some dilatation of this segment with prominent debris within this portion of the small bowel in the left upper quadrant. The remaining small bowel is not dilated or thickened. 3. Dilatation of the common bile duct. A cause of this is not seen. 4. Evidence of prior midline incision with minimal hernias. 5. Hepatic steatosis. Neel Alexander MD Objective Remarks GENERAL: This is a well-nourished, well-developed patient, in no apparent distress. CARDIOVASCULAR: Regular rate and rhythm without murmurs, gallops, or rubs. RESPIRATORY: Clear to auscultation. Breath sounds equal bilaterally. No wheezes , rales, or rhonchi. GASTROINTESTINAL: Feeding tube in place, Abdomen soft, non-tender, nondistended. Normal active bowel sounds wound dry clean and intact. MUSCULOSKELETAL: Extremities without clubbing, cyanosis, or edema. NEURO: Alert & Oriented x4 to person, place, time, situation. Moves all ext x4 Procedures 08/19/17 percutaneous cholangiogram with biliary drain placement Medications and IVs Current Medications Morphine Sulfate (Morphine Inj) 4 mg ONCE ONCE IV PUSH Last administered on t 20:08; Start 08/15/17 at 19:45; Stop 08/15/17 at 19:46; Status DC Ondansetron HCl (Zofran Inj) 4 mg ONCE ONCE IVP Last administered on 20:07; Start 08/15/17 at 19:45; Stop 08/15/17 at 19:46; Status DC Sodium Chloride 1,000 ml @ 1,000 mls/hr Q1H IV Last administered on 20:08; Start 08/15/17 at 19:40; Stop 08/15/17 at 20:39; Status DC Sodium Chloride (NS Flush) 2 ml UNSCH PRN IV FLUSH FLUSH AFTER USING IV ACCESS ; Start 08/15/17 at 19:45; Stop 08/16/17 at 08:38; Status DC Sodium Chloride 1,000 ml @ 125 mls/hr Q8H IV Last administered on 08/20/17 05:27; Start 08/15/17 at 21:11; Stop 08/20/17 at 09:19; Status DC Sodium Chloride (NS Flush) 2 ml UNSCH PRN IV FLUSH FLUSH AFTER USING IV ACCESS Last administered on 09/03/17 11:41; Start 08/15/17 at 21:15 Sodium Chloride (NS Flush) 2 ml BID IV FLUSH Last administered on 09/03/17 20 :51; Start 08/16/17 at 09:00 Ondansetron HCl (Zofran Inj) 4 mg Q6H PRN IVP NAUSEA OR VOMITING Last administered on 08/27/17 16:15; Start 08/15/17 at 21:15 Naloxone HCl (Narcan Inj) 0.4 mg UNSCH PRN IV PUSH SEE LABEL COMMENTS; Start 08/15/17 at 21:15; Status Cancel Senna/Docusate Sodium (Niru-Colace) 1 tab BID PO Last administered on 08:16; Start 08/16/17 at 09:00 Magnesium Hydroxide (Milk Of Magnesia Liq) 30 ml Q12H PRN PO Mild constipation ; Start 08/15/17 at 21:15; Stop 08/30/17 at 13:29; Status DC Sennosides (Senokot) 17.2 mg Q12H PRN PO Moderate constipation; Start at 21:15 Bisacodyl (Dulcolax Supp) 10 mg DAILY PRN RECTAL SEVERE CONSITIPATION; Start 08/15/17 at 21:15 Lactulose (Lactulose Liq) 30 ml DAILY PRN PO SEVERE CONSITIPATION; Start 08/15 at 21:15 Hydromorphone HCl (Dilaudid Pf Inj) 1 mg ONCE ONCE IVS Last administered on 21:46; Start 08/15/17 at 21:45; Stop 08/15/17 at 21:46; Status DC Ondansetron HCl (Zofran Inj) 4 mg ONCE ONCE IVP Last administered on 21:45; Start 08/15/17 at 21:45; Stop 08/15/17 at 21:46; Status DC Pneumococcal Polyvalent Vaccine (Pneumovax-23 Inj) 25 mcg ONCE ONCE IM Last administered on 08/16/17 09:43; Start 08/16/17 at 09:00; Stop 08/16/17 at 09 :14; Status DC Influenza Virus Vaccine (Flu (Quadrivalent) Vaccine Inj) 0.5 ml ONCE ONCE IM Last administered on 08/16/17 09:44; Start 08/16/17 at 09:00; Stop 08/16/17 at 09:14; Status DC Hydromorphone HCl (Dilaudid Pf Inj) 1 mg Q4H PRN IV PAIN 6-10 Last administered on 08/16/17 15:59; Start 08/15/17 at 23:45; Stop 08/16/17 at 16 :20; Status DC Pantoprazole Sodium (Protonix) 40 mg DAILY PO Last administered on 08/23/17 08:15; Start 08/16/17 at 09:00; Stop 08/25/17 at 10:45; Status DC Promethazine HCl (Phenergan Inj) 12.5 mg Q6H PRN IM nausea if Zofran ineffective Last administered on 08/22/17 17:32; Start 08/16/17 at 09:30 Cefepime HCl 2000 mg/Sodium Chloride 100 ml @ 200 mls/hr Q8H IV Last administered on 08/19/17 15:54; Start 08/16/17 at 12:00; Stop 08/19/17 at 16 :15; Status DC Metronidazole 100 ml @ 100 mls/hr Q8H IV Last administered on 08/30/17 13:00 ; Start 08/16/17 at 13:00; Stop 08/30/17 at 13:29; Status DC Oxycodone/ Acetaminophen (Percocet 10-325 Mg) 1 tab Q4H PRN PO pain 5-10 Last administered on 08/20/17 13:38; Start 08/16/17 at 16:15; Stop 08/20/17 at 18 :25; Status DC Hydromorphone HCl (Dilaudid Pf Inj) 2 mg Q4H PRN IV PUSH not responding to percocet Last administered on 08/20/17 16:25; Start 08/16/17 at 16:15; Stop 08/31/17 at 11:22; Status DC Hydromorphone HCl (Dilaudid Pf Inj) 1 mg ONCE ONCE IV PUSH Last administered on 08/16/17 16:15; Start 08/16/17 at 16:15; Stop 08/16/17 at 16:16; Status DC Multivitamins 5 ml/Folic Acid 0.5 mg/Amino Acids/ Electrolytes/ Dextrose 1, 005.1 ml @ 83 mls/hr Q12H7M IV Last administered on 08/26/17 09:35; Start 08/18/17 at 20:00; Stop 08/26/17 at 19:59; Status DC Fat Emulsion Intravenous 250 ml @ 31.25 mls/ hr Q24H IV-CENTRAL Last administered on 08/31/17 20:25; Start 08/18/17 at 20:00; Stop 09/03/17 at 10 :23; Status DC Levofloxacin/ Dextrose 100 ml @ As Directed STK-MED ONCE IV ; Start 08/19/17 at 11:15; Stop 08/19/17 at 11:16; Status DC Morphine Sulfate (Morphine Inj) 2 mg STK-MED ONCE .ROUTE Last administered on 08/19/17 13:30; Start 08/19/17 at 13:30; Stop 08/19/17 at 13:31; Status DC Miscellaneous Information ALL NURSING DEPARTME... UNSCH PRN .XX SEE LABEL COMMENTS; Start 08/19/17 at 12:47; Stop 08/20/17 at 12:46; Status DC Cefepime HCl 2000 mg/Sodium Chloride 100 ml @ 200 mls/hr Q8H IV Last administered on 08/30/17 08:32; Start 08/20/17 at 00:00; Stop 08/30/17 at 13 :29; Status DC Potassium Chloride/Sodium Chloride 1,000 ml @ 100 mls/hr Q10H IV Last administered on 08/21/17 11:31; Start 08/20/17 at 09:30; Stop 08/21/17 at 14 :26; Status DC Enoxaparin Sodium (Lovenox Inj) 40 mg Q24H SQ Last administered on 08/22/17 17:37; Start 08/20/17 at 18:00; Stop 08/23/17 at 21:01; Status DC Oxycodone/ Acetaminophen (Percocet 10-325 Mg) 2 tab Q4H PRN PO pain 5-10 Last administered on 08/20/17 21:39; Start 08/20/17 at 19:00; Stop 08/21/17 at 14 :26; Status DC Ketorolac Tromethamine (Toradol Inj) 30 mg Q6H IV PUSH Last administered on 14:00; Start 08/20/17 at 20:00; Stop 08/25/17 at 19:59; Status DC Enalaprilat (Vasotec Inj) 1.25 mg Q6H PRN IV PUSH SBP >165; Start 08/21/17 at 06:00 Dextrose (D50w (Vial) Inj) 50 ml UNSCH PRN IV PUSH HYPOGLYCEMIA-SEE COMMENTS; Start 08/21/17 at 06:00; Stop 08/27/17 at 14:15; Status DC Glucagon (Glucagon Inj) 1 mg UNSCH PRN OTHER HYPOGLYCEMIA-SEE COMMENTS; Start 08/21/17 at 06:00; Stop 08/27/17 at 14:15; Status DC Oxycodone HCl (Roxicodone) 10 mg Q4H PRN PO PAIN SCALE 6 TO 10 Last administered on 08/22/17 04:39; Start 08/21/17 at 14:15; Stop 08/22/17 at 10 :03; Status DC Oxycodone HCl (Roxicodone) 5 mg Q4H PRN PO PAIN SCALE 3 TO 5; Start 08/21/17 at 14:15; Stop 08/22/17 at 10:03; Status DC Hydromorphone HCl (Dilaudid) 1 mg Q4H PRN PO PAIN SCALE 3 TO 5; Start at 10:00; Stop 08/25/17 at 10:45; Status DC Hydromorphone HCl (Dilaudid) 2 mg Q4H PRN PO PAIN SCALE 6 TO 10 Last administered on 08/22/17 12:56; Start 08/22/17 at 10:00; Stop 08/25/17 at 10 :45; Status DC Potassium Chloride (KCl) 30 meq ONCE ONCE PO Last administered on 08/23/17 11:15; Start 08/23/17 at 10:15; Stop 08/23/17 at 10:16; Status DC Potassium Chloride 100 ml @ 50 mls/hr Q2H IV Last administered on 08/23/17 23:27; Start 08/23/17 at 21:30; Stop 08/24/17 at 01:29; Status DC Lactated Ringer's 1,000 ml @ 30 mls/hr Q24H PRN IV SEE LABEL COMMENTS Last administered on 08/24/17 12:29; Start 08/24/17 at 05:30; Stop 08/27/17 at 05 :29; Status DC Sodium Chloride 500 ml @ 30 mls/hr [id number] PRN IV SEE LABEL COMMENTS; Start at 05:30; Stop 08/27/17 at 05:29; Status DC Povidone Iodine (Betadine 5% Antisepsis Kit) 1 applic VENTILATING ENGINEER PRN EACH NARE SEE LABEL COMMENTS; Start 08/24/17 at 05:30; Stop 08/27/17 at 05:29; Status DC Chlorhexidine Gluconate (Chlorhexidine 2% Cloth) 3 pack VENTILATING ENGINEER PRN TOPICAL SEE LABEL COMMENTS; Start 08/24/17 at 05:30; Stop 08/27/17 at 05:29; Status DC Fentanyl Citrate (fentaNYL INJ) 300 mcg STK-MED ONCE .ROUTE ; Start 08/24/17 at 12:48; Stop 08/24/17 at 12:49; Status DC Hydromorphone HCl (Dilaudid Pf Inj) 2 mg STK-MED ONCE .ROUTE ; Start 08/24/17 at 12:48; Stop 08/24/17 at 12:49; Status DC Sugammadex Sodium (Bridion Inj) 200 mg STK-MED ONCE IV PUSH ; Start 08/24/17 at 12:49; Stop 08/24/17 at 12:50; Status DC Acetaminophen 100 ml @ As Directed STK-MED ONCE IV ; Start 08/24/17 at 12:50; Stop 08/24/17 at 12:51; Status DC Rocuronium [place] (Zemuron Inj) 50 mg STK-MED ONCE IV PUSH ; Start 08/24/17 at 16:29; Stop 08/24/17 at 16:30; Status DC Sugammadex Sodium (Bridion Inj) 200 mg STK-MED ONCE IV PUSH ; Start 08/24/17 at 21:27; Stop 08/24/17 at 21:28; Status DC Naloxone HCl (Narcan Inj) 0.4 mg UNSCH PRN IV PUSH RESPIRATORY RATE LESS THAN 10; Start 08/24/17 at 21:45; Stop 08/25/17 at 08:46; Status DC Morphine Sulfate (Morphine 1 Mg/ ml MINERAL ENGINEER) 30 mg UNSCH IV Last administered on 01:02; Start 08/24/17 at 21:45; Stop 08/25/17 at 08:46; Status DC MINERAL ENGINEER Dosage Infused (Pha) 1 Q8HR .XX Last administered on 08/25/17 06:19; Start 08/24/17 at 22:00; Stop 08/25/17 at 08:46; Status DC Ketorolac Tromethamine (Toradol Inj) 30 mg Q6HR IM Last administered on 04:52; Start 08/25/17 at 00:00; Stop 08/25/17 at 10:45; Status DC Meperidine HCl (Demerol Inj) 25 mg STK-MED ONCE .ROUTE Last administered on 22:03; Start 08/24/17 at 22:03; Stop 08/24/17 at 22:04; Status DC Miscellaneous Information ALL NURSING DEPARTME... UNSCH PRN .XX SEE LABEL COMMENTS; Start 08/24/17 at 22:15; Stop 08/25/17 at 22:14; Status DC Morphine Sulfate (*morphine INJ PERIprocedure ONLY) 8 mg STK-MED ONCE .ROUTE Last administered on 08/24/17 22:49; Start 08/24/17 at 22:47; Stop 08/24/17 at 22:48; Status DC Hydromorphone HCl (*DILAUDID PF INJ PERIprocedural ONLY) 1 mg STK-MED ONCE .ROUTE Last administered on 08/24/17 23:11; Start 08/24/17 at 23:11; Stop 08/24/17 at 23:12; Status DC Calcium Gluconate 1 gm/Sodium Chloride 110 ml @ 110 mls/hr ONCE ONCE IV Last administered on 08/25/17 01:05; Start 08/24/17 at 23:30; Stop 08/25/17 at 00 :29; Status DC Sodium Chloride 500 ml @ 500 mls/hr BOLUS ONCE IV Last administered on 01:20; Start 08/25/17 at 01:00; Stop 08/25/17 at 01:59; Status DC Sodium Chloride 1,000 ml @ 0 mls/hr Q10H IV Last administered on 09/03/17 08 :30; Start 08/25/17 at 02:15 Sodium Chloride 500 ml @ 500 mls/hr BOLUS ONCE IV Last administered on 04:51; Start 08/25/17 at 04:45; Stop 08/25/17 at 05:44; Status DC Naloxone HCl (Narcan Inj) 0.4 mg UNSCH PRN IV PUSH RESPIRATORY RATE LESS THAN 10; Start 08/25/17 at 09:00 Hydromorphone HCl (Dilaudid MINERAL ENGINEER Inj) 6 mg UNSCH IV Last administered on 18:55; Start 08/25/17 at 09:00; Stop 08/31/17 at 11:22; Status DC MINERAL ENGINEER Dosage Infused (Pha) 1 Q8HR OTHER Last administered on 08/31/17 05:52; Start 08/25/17 at 14:00; Stop 08/31/17 at 11:22; Status DC Pantoprazole Sodium (Protonix Inj) 40 mg Q24H IV PUSH Last administered on 11:41; Start 08/25/17 at 11:00 Metoclopramide HCl (Reglan Inj) 10 mg Q8HR IV PUSH Last administered on 06:02; Start 08/25/17 at 14:00 Sodium Chloride 11 meq/Sodium Acetate 59 meq/ Potassium Chloride 40 meq/ Sodium Phosphate 40 meq/Magnesium Chloride 10 meq/ Calcium Chloride 9 meq/ Multivitamins 10 ml/Folic Acid 1 mg/Amino Acids/ Dextrose 2,084.1437 ml @ 83 mls /hr Q24H IV-CENTRAL Last administered on 08/28/17 23:06; Start 08/26/17 at 20:00; Stop 08/29/17 at 15:06; Status DC Lorazepam (Ativan Inj) 1 mg HS PRN IV PUSH Insomina ; Start 08/26/17 at 15:45 ; Stop 08/27/17 at 08:29; Status DC Enoxaparin Sodium (Lovenox Inj) 40 mg Q24H SQ Last administered on 09/03/17 15:21; Start 08/27/17 at 14:00 Labetalol HCl (Trandate Inj) 10 mg Q6H PRN IV PUSH SBP >165; Start 08/27/17 at 14:00; Stop 08/30/17 at 13:29; Status DC Dextrose (D50w (Vial) Inj) 50 ml UNSCH PRN IV PUSH HYPOGLYCEMIA-SEE COMMENTS; Start 08/27/17 at 14:15; Stop 09/04/17 at 09:29; Status DC Glucagon (Glucagon Inj) 1 mg UNSCH PRN OTHER HYPOGLYCEMIA-SEE COMMENTS; Start 08/27/17 at 14:15; Stop 09/04/17 at 09:29; Status DC Insulin Aspart (NovoLOG SUPPLEMENTAL SCALE) 1 Q6H SQ Last administered on 08/31 08:25; Start 08/27/17 at 15:00 Diatrizoate Meglum/ Diatrizoate Sod ( Gastroview Liq) 60 ml STK-MED ONCE PO Last administered on 08/27/17 15:13; Start 08/27/17 at 15:13; Stop 08/27/17 at 15:15; Status DC Sodium Chloride 5.5 meq/Sodium Acetate 29.5 meq/ Potassium Chloride 20 meq/ Sodium Phosphate 20 meq/Magnesium Chloride 5 meq/ Calcium Chloride 4.5 meq/ Multivitamins 5 ml/Folic Acid 0.5 mg/Amino Acids/ Dextrose 1,042.0719 ml @ 41.5 mls/hr Q24H IV-CENTRAL Last administered on 09/01/17t 00:47; Start 08/29/17 at 20:00; Stop 09/01/17 at 15:34; Status DC Alprazolam (Xanax) 1 mg Q8H PRN PO anxiety; Start 08/29/17 at 15:30; Stop at 15:30; Status DC Trazodone HCl (Desyrel) 100 mg HS PO ; Start 08/29/17 at 21:00; Stop 08/29/17 at 21:00; Status DC Hydromorphone HCl (Dilaudid Pf Inj) 1 mg Q4H PRN IV PUSH breakthrough pain; Start 08/31/17 at 11:15 Acetaminophen/ Hydrocodone Bitart (Hycet 325-7.5 Mg Liq) 15 ml Q4H PRN PO pain 1-10 Last administered on 09/03/17 03:16; Start 08/31/17 at 11:15 Parenteral Electrolytes 1,000 ml @ As Directed STK-MED ONCE IV ; Start at 12:00; Stop 08/31/17 at 12:29; Status DC Rocuronium [place] (Zemuron Inj) 100 mg STK-MED ONCE IV PUSH ; Start 08/24/17 at 12:00; Stop 08/31/17 at 12:29; Status DC Phenylephrine HCl (Neosynephrine/ NS 1000 Mcg/10ml Syr) 1,000 mcg STK-MED ONCE IV ; Start 08/24/17 at 12:00; Stop 08/31/17 at 12:29; Status DC Ondansetron HCl (Zofran Inj) 4 mg STK-MED ONCE IV PUSH ; Start 08/24/17 at 12: 00; Stop 08/31/17 at 12:29; Status DC Lidocaine HCl (Xylocaine-Mpf 1% Inj) 5 ml STK-MED ONCE OTHER ; Start 08/24/17 at 12:00; Stop 08/31/17 at 12:29; Status DC Rocuronium [place] (Zemuron Inj) 100 mg STK-MED ONCE IV PUSH ; Start 08/24/17 at 12:00; Stop 08/31/17 at 12:29; Status DC Succinylcholine Chloride (Quelicin Inj) 100 mg STK-MED ONCE IV PUSH ; Start at 12:00; Stop 08/31/17 at 12:29; Status DC Dexamethasone Sodium Phosphate (Decadron Inj) 4 mg STK-MED ONCE IV ; Start at 12:00; Stop 08/31/17 at 12:29; Status DC Propofol (Diprivan 200 Mg/20 ml Inj) 200 mg STK-MED ONCE IV ; Start 08/24/17 at 12:00; Stop 08/31/17 at 12:29; Status DC Iohexol (Omnipaque 350 Inj) 12 ml STK-MED ONCE OTHER Last administered on 08/31t 15:20; Start 08/31/17 at 15:35; Stop 08/31/17 at 15:36; Status DC Sodium Chloride 5.5 meq/Sodium Acetate 29.5 meq/ Potassium Chloride 20 meq/ Sodium Phosphate 20 meq/Magnesium Chloride 5 meq/ Calcium Chloride 4.5 meq/ Multivitamins 10 ml/Folic Acid 1 mg/Amino Acids/ Dextrose 1,047.1719 ml @ 41.5 mls/hr Q24H IV-CENTRAL ; Start 09/01/17 at 20:00; Stop 09/01/17 at 20:00; Status DC A/P Problem List: (1) Biliary obstruction ICD Code: K83.1 - Obstruction of bile duct Status: Acute Assessment and Plan 47-year-old male who presented with abdominal pain Multifactorial abdominal pain (surgical history of distal gastrectomy for gastroparesis), patient with biliary obstruction, adhesions and cholangitis -Postoperative day #11 status post exploratory laparotomy with extensive lysis of adhesions, revision of gastrojejunostomy with J-tube, open, bowel or expiration with T-tube placement and cholangiogram secondary to obstructive gastrojejunostomy with common bile duct stone 08/24 (Dr. Ceferino Michelle). -advance tube feedings as tolerated and use oral pain medication. Per general surgeon possible removal of T-tube over this weekend. -Continue PPIs. -Patient completed course of antibiotics. Discharge Planning Possible discharge to SNF early on this week. Destiny Chowdary MD Sep 04, 2017 10:03
[2017-09-04] MEDS: PANTOPRAZOLE SODIUM 40 MG VIAL IV PUSH SCH (11:28)
[2017-09-04 12:00] VITALS: BP 141/84; PULSE 102; RESP 17; TEMP 96.5; O2SAT 96
--- NOTE | 2017-09-04 12:29 | HHI.PR ---
Subjective Subjective Notes [place] bloated, uncomfortable with TFs at 50 oper hour, now at 30, feeling better. trying to eat some. Has been having BMs. Objective Vitals/I&O Vital Signs Date Time Temp Pulse Resp B/P (MAP) Pulse Ox O2 Delivery O2 Flow Rate FiO2 09/04/17 12:00 96.5 102 17 141/84 (103) 96 09/03/17 17:25 21 09/02/17 19:00 Room Air Labs Laboratory Tests Test 09/04/17 06:00 Blood Urea Nitrogen 16 Creatinine 0.87 Random Glucose 121 Total Protein 7.4 Albumin 2.4 Calcium Level 7.9 Alkaline Phosphatase 112 Aspartate Amino Transf (AST/SGOT) 35 Alanine Aminotransferase (ALT/SGPT) 45 Total Bilirubin 0.4 Sodium Level 136 Potassium Level 4.1 Chloride Level 104 Carbon Dioxide Level 27.4 Anion Gap 5 Lipase 2151 Radiology Last 48 hours Impressions Gall Bladder Ultrasound 08/16/17 0000 Signed Impressions: Service Date/Time: Wednesday, August 16, 2017 07:47 - CONCLUSION: 1. Contracted gallbladder containing multiple gallstones. 2. Dilated common bile duct is 7 mm. 3. Echogenic liver which can be seen with moderate hepatic steatosis. Kj Gutierrez MD Cholangiopancreatography MRI 08/16/17 0000 Signed Impressions: Service Date/Time: Wednesday, August 16, 2017 11:18 - CONCLUSION: 1. Cholelithiasis 2. Mildly distended common bile duct with suspected filling defect at the level of the ampulla. 3. Axial stenosis. Jhonatan Fish MD Abdomen/Pelvis CT 08/15/17 1940 Signed Impressions: Service Date/Time: Tuesday, August 15, 2017 19:49 - CONCLUSION: 1. Status post distal gastrectomy with a gastroenteric anastomosis. 2. There are bowel sutures in the left upper quadrant of the proximal small bowel with some dilatation of this segment with prominent debris within this portion of the small bowel in the left upper quadrant. The remaining small bowel is not dilated or thickened. 3. Dilatation of the common bile duct. A cause of this is not seen. 4. Evidence of prior midline incision with minimal hernias. 5. Hepatic steatosis. Neel Alexander MD Abdomen: Non-distended, Non-tender, Other (incision intact, el present, no erythema. Drain and t tube sites and J tube sites all look fine, no erythema or drainage.) Extremities: No edema, Perfused A/P Assessment and Plan Postop 11 ex lap extensive Lysis of adhesions, revision of gastro jejeunostomy, open CBD exploration and t tube. Elevated lipase, ? etiology. T tube cholangiogram normal. Continue current care, leave TF rate at 30. Follow lipase Eugenio Mckeon MD Sep 04, 2017 12:29
[2017-09-04] MEDS: ENOXAPARIN SODIUM 40 MG/0.4 ML SYRINGE SQ SCH (15:31)
[2017-09-04 16:00] VITALS: BP 131/85; PULSE 104; RESP 19; TEMP 99.2; O2SAT 97
[2017-09-04] MEDS: SODIUM CHLOR 0.9% 1000 ML INJ 1,000 ML IV SCH (18:05)
[2017-09-04 20:22] VITALS: BP 122/76; PULSE 93; RESP 20; TEMP 98.8; O2SAT 96
[2017-09-05 00:09] VITALS: BP 125/81; PULSE 95; RESP 18; TEMP 98.8; O2SAT 96
[2017-09-05] MEDS: METOCLOPRAMIDE HCL 10 MG/2 ML VIAL IV PUSH SCH ×3 (06:51→23:36)
[2017-09-05] MEDS: SODIUM CHLORIDE 0.9% FLUSH 10 ML FLUSH IV FLUSH PRN (06:51)
[2017-09-05 08:00] VITALS: BP 130/92; PULSE 116; RESP 18; TEMP 97.4; O2SAT 97
[2017-09-05] MEDS: ONDANSETRON HCL 4 MG/2 ML VIAL IVP PRN (08:34)
[2017-09-05] MEDS: DOCUSATE SODIUM 50 MG/SENNA 8.6 MG TAB PO SCH ×2 (08:35→21:00)
[2017-09-05] MEDS: SODIUM CHLORIDE 0.9% FLUSH 10 ML FLUSH IV FLUSH SCH ×2 (08:35→23:36)
--- NOTE | 2017-09-05 09:43 | HHI.PR ---
Subjective Subjective Notes feels fine, tolerating diet, no N/V, pain controlled Objective Vitals/I&O Vital Signs Date Time Temp Pulse Resp B/P (MAP) Pulse Ox O2 Delivery O2 Flow Rate FiO2 09/05/17 00:09 98.8 95 18 125/81 (96) 96 09/03/17 17:25 21 09/02/17 19:00 Room Air Labs Laboratory Tests Test 09/05/17 06:45 Lipase 2698 Radiology Last 48 hours Impressions Gall Bladder Ultrasound 08/16/17 0000 Signed Impressions: Service Date/Time: Wednesday, August 16, 2017 07:47 - CONCLUSION: 1. Contracted gallbladder containing multiple gallstones. 2. Dilated common bile duct is 7 mm. 3. Echogenic liver which can be seen with moderate hepatic steatosis. Kj Gutierrez MD Cholangiopancreatography MRI 08/16/17 0000 Signed Impressions: Service Date/Time: Wednesday, August 16, 2017 11:18 - CONCLUSION: 1. Cholelithiasis 2. Mildly distended common bile duct with suspected filling defect at the level of the ampulla. 3. Axial stenosis. Jhonatan Fish MD Abdomen/Pelvis CT 08/15/17 194 Signed Impressions: Service Date/Time: Tuesday, August 15, 2017 19:49 - CONCLUSION: 1. Status post distal gastrectomy with a gastroenteric anastomosis. 2. There are bowel sutures in the left upper quadrant of the proximal small bowel with some dilatation of this segment with prominent debris within this portion of the small bowel in the left upper quadrant. The remaining small bowel is not dilated or thickened. 3. Dilatation of the common bile duct. A cause of this is not seen. 4. Evidence of prior midline incision with minimal hernias. 5. Hepatic steatosis. Neel Alexander MD Cardiovascular: Regular Lungs: Clear Abdomen: Non-distended Narrative Exam el intact, tubes clean, no output from [facility] Wound Wound : Wound Location: Abdomen Appearance: Clean & Dry A/P Assessment and Plan s/p revision GJ, CBD exploration will tube feed at night as he is tolerating soft diet without any problem HL IV DC [facility]? will defer to DR. Michelle. lipase still elevated, unclear etiology. asymptomatic Leon Stevens MD Sep 05, 2017 09:43
--- NOTE | 2017-09-05 10:01 | HHI.PR ---
Subjective Remarks Patient seen and examined today. Vitals are stable and he is afebrile. Was walking the halls. States tubes feeds decreased last night inorder to increase PO intake. Removed vomiting this am, all tube feeds. He otherwise feels well and ate eggs this am. Objective Vital Signs Date Time Temp Pulse Resp B/P (MAP) Pulse Ox O2 Delivery O2 Flow Rate FiO2 09/05/17 00:09 98.8 95 18 125/81 (96) 96 09/04/17 20:22 98.8 93 20 122/76 (91) 96 09/04/17 16:00 99.2 104 19 131/85 (100) 97 09/04/17 12:00 96.5 102 17 141/84 (103) 96 I/O 09/04/17 09/04/17 09/04/17 09/05/17 09/05/17 09/05/17 07:00 15:00 23:00 07:00 15:00 23:00 Intake Total 1813 ml 680 ml Output Total 2 ml 777 ml 1500 ml Balance -2 ml 1036 ml -820 ml Intake Oral 960 ml 680 ml IV Total 360 ml Tube Feeding 493 ml Output Urine Total 775 ml 1500 ml Drainage Total 2 ml 2 ml # Voids 2 # Bowel Movements 2 Result Diagram: 09/03/17 0550 09/04/17 0600 Imaging Last Impressions Cholangiogram 08/31/17 0000 Signed Impressions: Service Date/Time: Thursday, August 31, 2017 16:10 - CONCLUSION: Normal T- tube cholangiogram appearance Neel Philip MD Upper GI Series 08/27/17 0000 Signed Impressions: Service Date/Time: Sunday, August 27, 2017 14:45 - CONCLUSION: Negative for leak or distal obstruction. Shant Berumen MD FACR Bile Duct Drainage 08/19/17 0000 Signed Impressions: Service Date/Time: August 10:11 - CONCLUSION: 1. Uncomplicated percutaneous biliary drainage as above. 2. A cholangiogram demonstrates a stone within the distal common bile duct. There are multiple stones within the gallbladder. Jacinto Berumen MD Chest X-Ray 08/18/17 0000 Signed Impressions: Service Date/Time: Friday, August 18, 2017 15:06 - CONCLUSION: 1. Visipaque line in good position. 2. Elevation of the left hemidiaphragm with mild airspace disease at the left lung base which may reflect atelectasis. Eugene Belle MD Gall Bladder Ultrasound 08/16/17 0000 Signed Impressions: Service Date/Time: Wednesday, August 16, 2017 07:47 - CONCLUSION: 1. Contracted gallbladder containing multiple gallstones. 2. Dilated common bile duct is 7 mm. 3. Echogenic liver which can be seen with moderate hepatic steatosis. Kj Gutierrez MD Cholangiopancreatography MRI 08/16/17 0000 Signed Impressions: Service Date/Time: Wednesday, August 16, 2017 11:18 - CONCLUSION: 1. Cholelithiasis 2. Mildly distended common bile duct with suspected filling defect at the level of the ampulla. 3. Axial stenosis. Jhonatan Fish MD Abdomen/Pelvis CT [id number]/[id number] Signed Impressions: Service Date/Time: Tuesday, August 15, 2017 19:49 - CONCLUSION: 1. Status post distal gastrectomy with a gastroenteric anastomosis. 2. There are bowel sutures in the left upper quadrant of the proximal small bowel with some dilatation of this segment with prominent debris within this portion of the small bowel in the left upper quadrant. The remaining small bowel is not dilated or thickened. 3. Dilatation of the common bile duct. A cause of this is not seen. 4. Evidence of prior midline incision with minimal hernias. 5. Hepatic steatosis. Neel Alexander MD Objective Remarks GENERAL: well appearing, nad SKIN: Warm and dry. Midline abdominal incision that is healing well, el. HEAD: Normocephalic. EYES: No scleral icterus. No injection or drainage. NECK: Supple, trachea midline. No JVD or lymphadenopathy. CARDIOVASCULAR: Regular rate and rhythm without murmurs, gallops, or rubs. RESPIRATORY: Breath sounds equal bilaterally. No accessory muscle use. GASTROINTESTINAL: Abdomen soft, minimally-tender, nondistended. Tube feed on rt quadrant. MUSCULOSKELETAL: No cyanosis, or edema. No calf tenderness. A/P Problem List: (1) Biliary obstruction ICD Code: K83.1 - Obstruction of bile duct Status: Acute Assessment and Plan 47-year-old male with biliary obstruction status post exploratory laparoscopy Multifactorial abdominal pain (surgical history of distal gastrectomy for gastroparesis), patient with biliary obstruction, adhesions and cholangitis -Postoperative day #12 status post exploratory laparotomy with extensive lysis of adhesions, revision of gastrojejunostomy with J-tube, open, bowel or expiration with T-tube placement and cholangiogram secondary to obstructive gastrojejunostomy with common bile duct stone 08/24 (Dr. Ceferino Michelle). -Seen by Dr. Stevens today: "tube at night as he is tolerating a soft diet without any issues. Hep-Lock IV. Questionable DC MADONNA, deferred to Dr. Michelle. Lipase remains elevated with unclear etiology, patient asymptomatic." -Continue PPIs. -Patient completed course of antibiotics. DVT prophylaxis with Lovenox Discharge Planning DC pending surgical clearance Sussy López MD Sep 05, 2017 10:01
[2017-09-05 12:00] VITALS: BP 118/79; PULSE 96; RESP 16; TEMP 98.5; O2SAT 92
[2017-09-05] MEDS: PANTOPRAZOLE SODIUM 40 MG VIAL IV PUSH SCH (12:31)
[2017-09-05] MEDS: ENOXAPARIN SODIUM 40 MG/0.4 ML SYRINGE SQ SCH (12:32)
[2017-09-05 16:00] VITALS: BP 118/77; PULSE 86; RESP 16; TEMP 98.2; O2SAT 95
[2017-09-05 17:42] VITALS: O2SAT 92
[2017-09-05 20:34] VITALS: BP 125/83; PULSE 90; RESP 18; TEMP 98.4; O2SAT 97
[2017-09-06] VITALS (7 sets, daily range): BP systolic 109–121; BP diastolic 71–78; PULSE 88–96; RESP 17–20; TEMP 97–98.6; O2SAT 94–97
[2017-09-06] MEDS: METOCLOPRAMIDE HCL 10 MG/2 ML VIAL IV PUSH SCH ×3 (06:41→20:00)
[2017-09-06] MEDS: SODIUM CHLORIDE 0.9% FLUSH 10 ML FLUSH IV FLUSH PRN (06:42)
[2017-09-06 07:09] LABS: AUTOMATED NEUTROPHIL # 3.8 TH/MM3 (1.8-7.7); BASOPHIL # 0.1 TH/MM3 (0-0.2); BASOPHIL % 0.8 % (0.0-2.0); EOSINOPHIL # 0.2 TH/MM3 (0-0.4); EOSINOPHIL % 3.8 % (0.0-4.0); HEMATOCRIT 33.6 % (39.0-51.0); HEMOGLOBIN 11.4 GM/DL (13.0-17.0); LYMPH % 21.7 % (9.0-44.0); LYMPHOCYTE # 1.4 TH/MM3 (1.0-4.8); MEAN CELL VOLUME 84.4 FL (80.0-100.0); MEAN CORPUSCULAR HEMOGLOBIN 28.5 PG (27.0-34.0); MEAN CORPUSCULAR HGB CONC 33.8 % (32.0-36.0); MEAN PLATELET VOLUME 7.4 FL (7.0-11.0); MONO % 14.5 % (0.0-8.0); MONOCYTE # 0.9 TH/MM3 (0-0.9); NEUT % 59.2 % (16.0-70.0); PLATELET COUNT 540 TH/MM3 (150-450); RED BLOOD COUNT 3.98 MIL/MM3 (4.50-5.90); RED CELL DISTRIBUTION WIDTH 16.5 % (11.6-17.2); WHITE BLOOD COUNT 6.4 TH/MM3 (4.0-11.0)
[2017-09-06 07:29] LABS: BICARBONATE 29.9 MEQ/L (21.0-32.0); CALCIUM 8.5 MG/DL (8.5-10.1); CREATININE 0.93 MG/DL (0.60-1.30)
[2017-09-06] MEDS: DOCUSATE SODIUM 50 MG/SENNA 8.6 MG TAB PO SCH ×2 (09:00→20:00)
[2017-09-06] MEDS: SODIUM CHLORIDE 0.9% FLUSH 10 ML FLUSH IV FLUSH SCH ×2 (09:05→20:01)
[2017-09-06] MEDS: PANTOPRAZOLE SODIUM 40 MG VIAL IV PUSH SCH (09:06)
--- NOTE | 2017-09-06 09:35 | HHI.PR ---
Subjective Remarks Patient seen and examined today. Vitals are stable and he is afebrile. Was walking the halls. Feels bloated form tube feds, hope he can stop them soon. No complaints or concerns today. Objective Vital Signs Date Time Temp Pulse Resp B/P (MAP) Pulse Ox O2 Delivery O2 Flow Rate FiO2 09/06/17 08:00 97.7 89 17 121/77 (92) 94 09/06/17 00:14 98.5 90 20 118/77 (91) 97 09/05/17 20:34 98.4 90 18 125/83 (97) 97 09/05/17 17:42 92 21 09/05/17 16:00 98.2 86 16 118/77 (91) 95 09/05/17 12:00 98.5 96 16 118/79 (92) 92 I/O 09/05/17 09/05/17 09/05/17 09/06/17 09/06/17 09/06/17 07:00 15:00 23:00 07:00 15:00 23:00 Intake Total 680 ml 1000 ml 1213 ml 380 ml Output Total 1500 ml 703 ml Balance -820 ml 1000 ml 1213 ml -323 ml Intake Oral 680 ml 720 ml 380 ml IV Total 1000 ml Tube Feeding 493 ml Output Urine Total 1500 ml 700 ml Drainage Total 3 ml # Voids 3 # Bowel Movements 1 Result Diagram: 09/06/17 0630 09/06/17 0630 Imaging Last Impressions Cholangiogram 08/31/17 0000 Signed Impressions: Service Date/Time: Thursday, August 31, 2017 16:10 - CONCLUSION: Normal T- tube cholangiogram appearance Neel Philip MD Upper GI Series 08/27/17 0000 Signed Impressions: Service Date/Time: Sunday, August 27, 2017 14:45 - CONCLUSION: Negative for leak or distal obstruction. Shant Berumen MD FACR Bile Duct Drainage 08/19/17 0000 Signed Impressions: Service Date/Time: August 10:11 - CONCLUSION: 1. Uncomplicated percutaneous biliary drainage as above. 2. A cholangiogram demonstrates a stone within the distal common bile duct. There are multiple stones within the gallbladder. Jacinto Berumen MD Chest X-Ray 08/18/17 0000 Signed Impressions: Service Date/Time: Friday, August 18, 2017 15:06 - CONCLUSION: 1. Visipaque line in good position. 2. Elevation of the left hemidiaphragm with mild airspace disease at the left lung base which may reflect atelectasis. Eugene Belle MD Gall Bladder Ultrasound 08/16/17 0000 Signed Impressions: Service Date/Time: Wednesday, August 16, 2017 07:47 - CONCLUSION: 1. Contracted gallbladder containing multiple gallstones. 2. Dilated common bile duct is 7 mm. 3. Echogenic liver which can be seen with moderate hepatic steatosis. Kj Gutierrez MD Cholangiopancreatography MRI 08/16/17 0000 Signed Impressions: Service Date/Time: Wednesday, August 16, 2017 11:18 - CONCLUSION: 1. Cholelithiasis 2. Mildly distended common bile duct with suspected filling defect at the level of the ampulla. 3. Axial stenosis. Jhonatan Fish MD Abdomen/Pelvis CT 08/15/17 194 Signed Impressions: Service Date/Time: Tuesday, August 15, 2017 19:49 - CONCLUSION: 1. Status post distal gastrectomy with a gastroenteric anastomosis. 2. There are bowel sutures in the left upper quadrant of the proximal small bowel with some dilatation of this segment with prominent debris within this portion of the small bowel in the left upper quadrant. The remaining small bowel is not dilated or thickened. 3. Dilatation of the common bile duct. A cause of this is not seen. 4. Evidence of prior midline incision with minimal hernias. 5. Hepatic steatosis. Neel Alexander MD Objective Remarks GENERAL: well appearing, nad SKIN: Warm and dry. Midline abdominal incision that is healing well, el. HEAD: Normocephalic. EYES: No scleral icterus. No injection or drainage. NECK: Supple, trachea midline. No JVD or lymphadenopathy. CARDIOVASCULAR: Regular rate and rhythm without murmurs, gallops, or rubs. RESPIRATORY: Breath sounds equal bilaterally. No accessory muscle use. GASTROINTESTINAL: Abdomen soft, minimally-tender, nondistended. Tube feed on rt quadrant. MUSCULOSKELETAL: No cyanosis, or edema. No calf tenderness. A/P Problem List: (1) Biliary obstruction ICD Code: K83.1 - Obstruction of bile duct Status: Acute Assessment and Plan 47-year-old male with biliary obstruction status post exploratory laparoscopy Multifactorial abdominal pain (surgical history of distal gastrectomy for gastroparesis), patient with biliary obstruction, adhesions and cholangitis -Postoperative day #13 status post exploratory laparotomy with extensive lysis of adhesions, revision of gastrojejunostomy with J-tube, open, bowel or expiration with T-tube placement and cholangiogram secondary to obstructive gastrojejunostomy with common bile duct stone 08/24 (Dr. Ceferino Michelle). -Seen by Dr. Michelle today: will stop tube feeds today, plan to remove J tube soon, trend lipase -Continue PPIs. -Patient completed course of antibiotics. DVT prophylaxis with Lovenox Discharge Planning DC pending surgical clearance Sussy López MD Sep 06, 2017 09:35
--- NOTE | 2017-09-06 09:43 | HHI.PR ---
Subjective Subjective Notes vomited once yesterday, c/o of bloating with TF, +bms Objective Vitals/I&O Vital Signs Date Time Temp Pulse Resp B/P (MAP) Pulse Ox O2 Delivery O2 Flow Rate FiO2 09/06/17 08:00 97.7 89 17 121/77 (92) 94 09/05/17 17:42 21 09/02/17 19:00 Room Air Labs Laboratory Tests Test 09/06/17 06:30 White Blood Count 6.4 Red Blood Count 3.98 Hemoglobin 11.4 Hematocrit 33.6 Mean Corpuscular Volume 84.4 Mean Corpuscular Hemoglobin 28.5 Mean Corpuscular Hemoglobin Concent 33.8 Red Cell Distribution Width 16.5 Platelet Count 540 Mean Platelet Volume 7.4 Neutrophils (%) (Auto) 59.2 Lymphocytes (%) (Auto) 21.7 Monocytes (%) (Auto) 14.5 Eosinophils (%) (Auto) 3.8 Basophils (%) (Auto) 0.8 Neutrophils # (Auto) 3.8 Lymphocytes # (Auto) 1.4 Monocytes # (Auto) 0.9 Eosinophils # (Auto) 0.2 Basophils # (Auto) 0.1 CBC Comment DIFF FINAL Differential Comment Blood Urea Nitrogen 20 Creatinine 0.93 Random Glucose 120 Calcium Level 8.5 Sodium Level 137 Potassium Level 4.1 Chloride Level 101 Carbon Dioxide Level 29.9 Anion Gap 6 Estimat Glomerular Filtration Rate 87 Radiology Last 48 hours Impressions Gall Bladder Ultrasound 08/16/17 0000 Signed Impressions: Service Date/Time: Wednesday, August 16, 2017 07:47 - CONCLUSION: 1. Contracted gallbladder containing multiple gallstones. 2. Dilated common bile duct is 7 mm. 3. Echogenic liver which can be seen with moderate hepatic steatosis. Kj Gutierrez MD Cholangiopancreatography MRI 08/16/17 0000 Signed Impressions: Service Date/Time: Wednesday, August 16, 2017 11:18 - CONCLUSION: 1. Cholelithiasis 2. Mildly distended common bile duct with suspected filling defect at the level of the ampulla. 3. Axial stenosis. Jhonatan Fish MD Abdomen/Pelvis CT [id number]/[id number] Signed Impressions: Service Date/Time: Tuesday, August 15, 2017 19:49 - CONCLUSION: 1. Status post distal gastrectomy with a gastroenteric anastomosis. 2. There are bowel sutures in the left upper quadrant of the proximal small bowel with some dilatation of this segment with prominent debris within this portion of the small bowel in the left upper quadrant. The remaining small bowel is not dilated or thickened. 3. Dilatation of the common bile duct. A cause of this is not seen. 4. Evidence of prior midline incision with minimal hernias. 5. Hepatic steatosis. Neel Alexander MD Abdomen: Other (soft, incision well healing c.d.i) A/P Assessment and Plan 47 year old male 47 year old male with abdominal pain with associated nausea and vomiting with a surgical history of distal gastrectomy for gastroparesis; s/ p Ex lap, extensive KAMERON, Revision of gastrojejunostomy, J tube, open CBD exploration, T tube placement, T tube cholangiogram, t tube clamped ugi wnl patent gj - soft reg diet -trend lipase -will plan to remove T tube soon -Continue routine MADONNA care -OOB as tolerated -Continue monitoring labs -Lovenox - stop TF at night for now Ceferino Michelle MD Sep 06, 2017 09:43
[2017-09-06] MEDS: ENOXAPARIN SODIUM 40 MG/0.4 ML SYRINGE SQ SCH (14:07)
[2017-09-07] VITALS (7 sets, daily range): BP systolic 109–129; BP diastolic 71–85; PULSE 84–119; RESP 17–20; TEMP 97.3–98.1; O2SAT 95–97
[2017-09-07] MEDS: METOCLOPRAMIDE HCL 10 MG/2 ML VIAL IV PUSH SCH ×3 (05:13→19:50)
[2017-09-07] MEDS: DOCUSATE SODIUM 50 MG/SENNA 8.6 MG TAB PO SCH ×2 (09:47→19:45)
[2017-09-07] MEDS: SODIUM CHLORIDE 0.9% FLUSH 10 ML FLUSH IV FLUSH SCH ×2 (09:47→19:50)
[2017-09-07] MEDS: PANTOPRAZOLE SODIUM 40 MG VIAL IV PUSH SCH (09:47)
[2017-09-07 12:38] LABS: BASOPHIL # 0.1 TH/MM3 (0-0.2); BASOPHIL % 1.1 % (0.0-2.0); EOSINOPHIL # 0.2 TH/MM3 (0-0.4); EOSINOPHIL % 2.9 % (0.0-4.0); HEMATOCRIT 35.5 % (39.0-51.0); HEMOGLOBIN 11.7 GM/DL (13.0-17.0); LYMPH % 19.1 % (9.0-44.0); LYMPHOCYTE # 1.2 TH/MM3 (1.0-4.8); MEAN CELL VOLUME 84.3 FL (80.0-100.0); MEAN CORPUSCULAR HEMOGLOBIN 27.9 PG (27.0-34.0); MEAN CORPUSCULAR HGB CONC 33.1 % (32.0-36.0); MEAN PLATELET VOLUME 7.2 FL (7.0-11.0); MONO % 11.4 % (0.0-8.0); MONOCYTE # 0.7 TH/MM3 (0-0.9); NEUT % 65.5 % (16.0-70.0); PLATELET COUNT 507 TH/MM3 (150-450); RED BLOOD COUNT 4.21 MIL/MM3 (4.50-5.90); RED CELL DISTRIBUTION WIDTH 16.1 % (11.6-17.2); WHITE BLOOD COUNT 6.1 TH/MM3 (4.0-11.0)
[2017-09-07 12:59] LABS: ALBUMIN 2.9 GM/DL (3.4-5.0); AST (GOT) 32 U/L (15-37); BICARBONATE 25.6 MEQ/L (21.0-32.0); BLOOD UREA NITROGEN 20 MG/DL (7-18); CALCIUM 8.6 MG/DL (8.5-10.1); CHLORIDE 101 MEQ/L (98-107); CREATININE 1.03 MG/DL (0.60-1.30); GLOMERULAR FILTRATION RATE 77 ML/MIN (>89); GLUCOSE,RANDOM 102 MG/DL (74-106); SODIUM (NA) 135 MEQ/L (136-145)
[2017-09-07 13:00] LABS: ALT (GPT) 55 U/L (12-78)
[2017-09-07 13:02] LABS: ALKALINE PHOSPHATASE 120 U/L (45-117); LIPASE 2142 U/L (73-393); TOTAL BILIRUBIN ADULT 0.4 MG/DL (0.2-1.0); TOTAL PROTEIN 8.1 GM/DL (6.4-8.2)
--- NOTE | 2017-09-07 13:02 | HHI.PR ---
Subjective Subjective Notes Resting in bed Has done multiple laps around floor today Tolerating regular diet Happy to be off tube feeding Objective Vitals/I&O Vital Signs Date Time Temp Pulse Resp B/P (MAP) Pulse Ox O2 Delivery O2 Flow Rate FiO2 09/07/17 12:00 97.4 92 17 114/72 (86) 95 09/07/17 09:47 Room Air 09/06/17 17:29 21 Labs Laboratory Tests Test 09/07/17 11:45 White Blood Count 6.1 Red Blood Count 4.21 Hemoglobin 11.7 Hematocrit 35.5 Mean Corpuscular Volume 84.3 Mean Corpuscular Hemoglobin 27.9 Mean Corpuscular Hemoglobin Concent 33.1 Red Cell Distribution Width 16.1 Platelet Count 507 Mean Platelet Volume 7.2 Neutrophils (%) (Auto) 65.5 Lymphocytes (%) (Auto) 19.1 Monocytes (%) (Auto) 11.4 Eosinophils (%) (Auto) 2.9 Basophils (%) (Auto) 1.1 Neutrophils # (Auto) 4.0 Lymphocytes # (Auto) 1.2 Monocytes # (Auto) 0.7 Eosinophils # (Auto) 0.2 Basophils # (Auto) 0.1 CBC Comment DIFF FINAL Differential Comment Radiology Last 48 hours Impressions Gall Bladder Ultrasound 08/16/17 0000 Signed Impressions: Service Date/Time: Wednesday, August 16, 2017 07:47 - CONCLUSION: 1. Contracted gallbladder containing multiple gallstones. 2. Dilated common bile duct is 7 mm. 3. Echogenic liver which can be seen with moderate hepatic steatosis. Kj Gutierrez MD Cholangiopancreatography MRI 08/16/17 0000 Signed Impressions: Service Date/Time: Wednesday, August 16, 2017 11:18 - CONCLUSION: 1. Cholelithiasis 2. Mildly distended common bile duct with suspected filling defect at the level of the ampulla. 3. Axial stenosis. Jhonatan Fish MD Abdomen/Pelvis CT 08/15/17 1940 Signed Impressions: Service Date/Time: Tuesday, August 15, 2017 19:49 - CONCLUSION: 1. Status post distal gastrectomy with a gastroenteric anastomosis. 2. There are bowel sutures in the left upper quadrant of the proximal small bowel with some dilatation of this segment with prominent debris within this portion of the small bowel in the left upper quadrant. The remaining small bowel is not dilated or thickened. 3. Dilatation of the common bile duct. A cause of this is not seen. 4. Evidence of prior midline incision with minimal hernias. 5. Hepatic steatosis. Neel Alexander MD Cardiovascular: Regular Lungs: Clear Abdomen: Other (midline incision with el; MADONNA with serous fluid; T tube clamped; J tube clamped ) Extremities: No edema A/P Assessment and Plan 47 year old male 47 year old male with abdominal pain with associated nausea and vomiting with a surgical history of distal gastrectomy for gastroparesis; s/ p Ex lap, extensive KAMERON, Revision of gastrojejunostomy, J tube, open CBD exploration, T tube placement, T tube cholangiogram -Regular diet -Hold TF -Hycet -Continue clamping T tube -Continue to follow lipase; awaiting today's labs -DC midline el -Plan to remove T tube today -Continue routine MADONNA care -OOB as tolerated -Lovenox Attending Statement patient seen at bedside bloating with tf elevated lipase will remove t tube and el today Attestation The exam, history, and the medical decision-making described in the above note were completed with the assistance of the mid-level provider. I reviewed and agree with the findings presented. I attest that I had a [id number] encounter with the patient on the same day, and personally performed and documented my assessment and findings in the medical record. Genna Miller Sep 07, 2017 13:02 Ceferino Michelle MD Sep 08, 2017 21:10
[2017-09-07 13:05] LABS: AMYLASE 196 U/L (25-115)
[2017-09-07] MEDS: ENOXAPARIN SODIUM 40 MG/0.4 ML SYRINGE SQ SCH (13:25)
--- NOTE | 2017-09-07 17:04 | HHI.PR ---
Subjective Remarks Patient resting in bed he denied abdominal he nausea or vomiting Surgery remove the T-tube today Afebrile Objective Vitals Vital Signs Date Time Temp Pulse Resp B/P (MAP) Pulse Ox O2 Delivery O2 Flow Rate FiO2 09/07/17 12:00 97.4 92 17 114/72 (86) 95 09/07/17 09:47 Room Air 09/07/17 09:40 96 09/07/17 08:00 97.5 84 17 119/78 (92) 96 09/07/17 00:00 97.3 87 20 109/71 (84) 97 09/06/17 20:00 98.6 96 20 116/78 (91) 97 09/06/17 20:00 Room Air 09/06/17 17:29 96 21 I/O 09/06/17 09/06/17 09/06/17 09/07/17 09/07/17 09/07/17 07:00 15:00 23:00 07:00 15:00 23:00 Intake Total 380 ml 600 ml 720 ml Output Total 703 ml 605 ml 325 ml 3 ml Balance -323 ml -5 ml 395 ml -3 ml Intake Oral 380 ml 600 ml 720 ml Output Urine Total 700 ml 600 ml 325 ml Drainage Total 3 ml 5 ml 3 ml # Bowel Movements 2 0 Result Diagram: 09/07/17 1145 09/07/17 1145 Objective Remarks - GENERAL: This is a well-nourished, well-developed patient, in no apparent distress. SKIN: No rashes, warm and dry HEAD: Atraumatic. Normocephalic. EYES: Pupils equal round and reactive. Extraocular motions intact. No scleral icterus. ENT: Nose without bleeding, or drainage, Airway patent. NECK: Trachea midline. Supple CARDIOVASCULAR: Regular rate and rhythm without murmurs, gallops, or rubs. RESPIRATORY: Fair air entry bilaterally. No wheezes, rales, or rhonchi. GASTROINTESTINAL: Abdomen soft, non-tender, nondistended. Positive bowel sounds , tube feed in place MUSCULOSKELETAL: Extremities without clubbing, cyanosis, or edema. Pedal pulses appreciated NEUROLOGICAL: Awake and alert. Moves all extremity. Normal speech.no focal neurological deficit Procedures 08/19/17 percutaneous cholangiogram with biliary drain placement A/P Problem List: (1) Biliary obstruction ICD Code: K83.1 - Obstruction of bile duct Status: Acute Assessment and Plan 09/07/17: T tube removed today, follow trending lipase, it increased to 142 today , follow surgical recommendations A/P: 47-year-old male with biliary obstruction status post exploratory laparoscopy Multifactorial abdominal pain (surgical history of distal gastrectomy for gastroparesis), patient with biliary obstruction, adhesions and cholangitis -Postoperative day #14status post exploratory laparotomy with extensive lysis of adhesions, revision of gastrojejunostomy with J-tube, status post T-tube placement and removal on 09-23, status post cholangiogram secondary to obstructive gastrojejunostomy with common bile duct stone 08/24 (Dr. Ceferino Michelle ). -Followed by by Dr. Michelle today: Status post removing T-tube 09-23, trend lipase -Continue PPIs. -Patient completed course of antibiotics. Thrombocytosis: Seems to be chronic, continue monitoring, May need follow up as an outpatient DVT prophylaxis with Lovenox Discharge Planning Pending improving clinical course and surgical clearance Siri Bridges MD Sep 07, 2017 17:04
[2017-09-08] VITALS: BP 112/78; PULSE 87; RESP 20; TEMP 97; O2SAT 97
[2017-09-08] MEDS: METOCLOPRAMIDE HCL 10 MG/2 ML VIAL IV PUSH SCH ×3 (05:29→20:41)
[2017-09-08 08:00] VITALS: BP 123/79; PULSE 88; RESP 16; TEMP 97.4; O2SAT 96
[2017-09-08] MEDS: DOCUSATE SODIUM 50 MG/SENNA 8.6 MG TAB PO SCH ×2 (09:00→20:41)
[2017-09-08] MEDS: SODIUM CHLORIDE 0.9% FLUSH 10 ML FLUSH IV FLUSH SCH ×2 (09:00→20:40)
[2017-09-08 10:51] LABS: BASOPHIL # 0.1 TH/MM3 (0-0.2); BASOPHIL % 0.7 % (0.0-2.0); EOSINOPHIL # 0.2 TH/MM3 (0-0.4); EOSINOPHIL % 1.9 % (0.0-4.0); HEMATOCRIT 28.6 % (39.0-51.0); HEMOGLOBIN 9.8 GM/DL (13.0-17.0); LYMPH % 12.5 % (9.0-44.0); MEAN CELL VOLUME 84.1 FL (80.0-100.0); MEAN CORPUSCULAR HEMOGLOBIN 28.8 PG (27.0-34.0); MEAN CORPUSCULAR HGB CONC 34.3 % (32.0-36.0); MEAN PLATELET VOLUME 7.1 FL (7.0-11.0); MONO % 9.9 % (0.0-8.0); MONOCYTE # 0.8 TH/MM3 (0-0.9); PLATELET COUNT 467 TH/MM3 (150-450); RED CELL DISTRIBUTION WIDTH 16.1 % (11.6-17.2)
[2017-09-08] MEDS: PANTOPRAZOLE SODIUM 40 MG VIAL IV PUSH SCH (11:00)
[2017-09-08 11:13] LABS: ALT (GPT) 51 U/L (12-78); AST (GOT) 28 U/L (15-37); BICARBONATE 26.5 MEQ/L (21.0-32.0); BLOOD UREA NITROGEN 19 MG/DL (7-18); CALCIUM 8.2 MG/DL (8.5-10.1); CHLORIDE 103 MEQ/L (98-107); CREATININE 0.93 MG/DL (0.60-1.30); GLUCOSE,RANDOM 112 MG/DL (74-106); SODIUM (NA) 138 MEQ/L (136-145)
[2017-09-08 11:15] LABS: ALKALINE PHOSPHATASE 116 U/L (45-117); LIPASE 1981 U/L (73-393); TOTAL BILIRUBIN ADULT 0.5 MG/DL (0.2-1.0)
[2017-09-08 12:00] VITALS: BP 116/76; PULSE 106; RESP 16; TEMP 97.7; O2SAT 97
[2017-09-08] MEDS: ENOXAPARIN SODIUM 40 MG/0.4 ML SYRINGE SQ SCH (13:22)
--- NOTE | 2017-09-08 14:42 | HHI.PR ---
Subjective Subjective Notes Resting in bed Did not sleep well last night Objective Vitals/I&O Vital Signs Date Time Temp Pulse Resp B/P (MAP) Pulse Ox O2 Delivery O2 Flow Rate FiO2 09/08/17 12:00 97.7 106 16 116/76 (89) 97 09/07/17 19:54 Room Air 09/06/17 17:29 21 Labs Laboratory Tests Test 09/08/17 10:30 White Blood Count 8.0 Red Blood Count 3.40 Hemoglobin 9.8 Hematocrit 28.6 Mean Corpuscular Volume 84.1 Mean Corpuscular Hemoglobin 28.8 Mean Corpuscular Hemoglobin Concent 34.3 Red Cell Distribution Width 16.1 Platelet Count 467 Mean Platelet Volume 7.1 Neutrophils (%) (Auto) 75.0 Lymphocytes (%) (Auto) 12.5 Monocytes (%) (Auto) 9.9 Eosinophils (%) (Auto) 1.9 Basophils (%) (Auto) 0.7 Neutrophils # (Auto) 6.0 Lymphocytes # (Auto) 1.0 Monocytes # (Auto) 0.8 Eosinophils # (Auto) 0.2 Basophils # (Auto) 0.1 CBC Comment DIFF FINAL Differential Comment Blood Urea Nitrogen 19 Creatinine 0.93 Random Glucose 112 Total Protein 8.0 Albumin 3.0 Calcium Level 8.2 Alkaline Phosphatase 116 Aspartate Amino Transf (AST/SGOT) 28 Alanine Aminotransferase (ALT/SGPT) 51 Total Bilirubin 0.5 Sodium Level 138 Potassium Level 3.7 Chloride Level 103 Carbon Dioxide Level 26.5 Anion Gap 9 Lipase 1981 Radiology Last 48 hours Impressions Gall Bladder Ultrasound 08/16/17 0000 Signed Impressions: Service Date/Time: Wednesday, August 16, 2017 07:47 - CONCLUSION: 1. Contracted gallbladder containing multiple gallstones. 2. Dilated common bile duct is 7 mm. 3. Echogenic liver which can be seen with moderate hepatic steatosis. Kj Gutierrez MD Cholangiopancreatography MRI 08/16/17 0000 Signed Impressions: Service Date/Time: Wednesday, August 16, 2017 11:18 - CONCLUSION: 1. Cholelithiasis 2. Mildly distended common bile duct with suspected filling defect at the level of the ampulla. 3. Axial stenosis. Jhonatan Fish MD Abdomen/Pelvis CT [id number]/15/171939 Signed Impressions: Service Date/Time: Tuesday, August 15, 2017 19:49 - CONCLUSION: 1. Status post distal gastrectomy with a gastroenteric anastomosis. 2. There are bowel sutures in the left upper quadrant of the proximal small bowel with some dilatation of this segment with prominent debris within this portion of the small bowel in the left upper quadrant. The remaining small bowel is not dilated or thickened. 3. Dilatation of the common bile duct. A cause of this is not seen. 4. Evidence of prior midline incision with minimal hernias. 5. Hepatic steatosis. Neel Alexander MD Cardiovascular: Regular Lungs: Clear Abdomen: Other (midline incision c/d/i; T tube removed; CLOVER with serous fluid; J tube clamped ) Extremities: No edema A/P Assessment and Plan 47 year old male 47 year old male with abdominal pain with associated nausea and vomiting with a surgical history of distal gastrectomy for gastroparesis; s/ p Ex lap, extensive KAMERON, Revision of gastrojejunostomy, J tube, open CBD exploration, T tube placement, T tube cholangiogram -Regular diet --soft -Hold TF -Hycet -Continue to follow lipase; continues to trend down -Plan to DC CLOVER tomorrow -OOB as tolerated -Lovenox -Home Wednesday is lipase continues to trend down Attending Statement patient seen at bedside doing well lipase elevated but downward trend, clinically asymptomatic remove clover dc planning Attestation The exam, history, and the medical decision-making described in the above note were completed with the assistance of the mid-level provider. I reviewed and agree with the findings presented. I attest that I had a [id number] encounter with the patient on the same day, and personally performed and documented my assessment and findings in the medical record. Genna Miller Sep 08, 2017 14:42 Ceferino Michelle MD Sep 11, 2017 07:50
--- NOTE | 2017-09-08 15:02 | HHI.PR ---
Subjective Remarks abdominal pain still at 3 out of 10 no nausea or vomiting Objective Vitals Vital Signs Date Time Temp Pulse Resp B/P (MAP) Pulse Ox O2 Delivery O2 Flow Rate FiO2 09/08/17 12:00 97.7 106 16 116/76 (89) 97 09/08/17 08:00 97.4 88 16 123/79 (94) 96 09/08/17 00:00 97.0 87 20 112/78 (89) 97 09/07/17 20:59 96 09/07/17 20:00 98.1 89 20 119/72 (88) 95 09/07/17 19:54 Room Air 09/07/17 16:00 97.5 119 18 129/85 (100) 97 I/O 09/07/17 09/07/17 09/07/17 09/08/17 09/08/17 09/08/17 07:00 15:00 23:00 07:00 15:00 23:00 Intake Total 720 ml 500 ml 240 ml Output Total 325 ml 3 ml 857 ml 314 ml 15 ml Balance 395 ml -3 ml -357 ml -74 ml -15 ml Intake Oral 720 ml 500 ml 240 ml Output Urine Total 325 ml 810 ml 300 ml Drainage Total 3 ml 47 ml 14 ml 15 ml # Bowel Movements 0 1 0 Result Diagram: 09/08/17 1030 09/08/17 1030 Objective Remarks - GENERAL: This is a well-nourished, well-developed patient, in no apparent distress. SKIN: No rashes, warm and dry HEAD: Atraumatic. Normocephalic. EYES: Pupils equal round and reactive. Extraocular motions intact. No scleral icterus. ENT: Nose without bleeding, or drainage, Airway patent. NECK: Trachea midline. Supple CARDIOVASCULAR: Regular rate and rhythm without murmurs, gallops, or rubs. RESPIRATORY: Fair air entry bilaterally. No wheezes, rales, or rhonchi. GASTROINTESTINAL: Abdomen soft, non-tender, nondistended. Positive bowel sounds , tube feed in place MUSCULOSKELETAL: Extremities without clubbing, cyanosis, or edema. Pedal pulses appreciated NEUROLOGICAL: Awake and alert. Moves all extremity. Normal speech.no focal neurological deficit Procedures 08/19/17 percutaneous cholangiogram with biliary drain placement A/P Problem List: (1) Biliary obstruction ICD Code: K83.1 - Obstruction of bile duct Status: Acute Assessment and Plan 09/07/17: T tube removed today, follow trending lipase, it increased to 142 today , follow surgical recommendations 09/08/17:-Regular diet --soft -Hold TF -Hycet-Continue to follow lipase; continues to trend down -Plan to DC MADONNA tomorrow for surgery, lipase dropped to 1981 today A/P: 47-year-old male with biliary obstruction status post exploratory laparoscopy Multifactorial abdominal pain (surgical history of distal gastrectomy for gastroparesis), patient with biliary obstruction, adhesions and cholangitis -Postoperative day #14status post exploratory laparotomy with extensive lysis of adhesions, revision of gastrojejunostomy with J-tube, status post T-tube placement and removal on 09-23, status post cholangiogram secondary to obstructive gastrojejunostomy with common bile duct stone 08/24 (Dr. Ceferino Michelle ). -Followed by by Dr. Michelle today: Status post removing T-tube 09-23, trend lipase -Continue PPIs. -Patient completed course of antibiotics. Thrombocytosis: Seems to be chronic, continue monitoring, May need follow up as an outpatient DVT prophylaxis with Lovenox Discharge Planning Pending improving clinical course and surgical clearance Siri Bridges MD Sep 08, 2017 15:02
[2017-09-08 16:00] VITALS: BP 107/75; PULSE 95; RESP 17; TEMP 98.5; O2SAT 95
[2017-09-08 18:04] VITALS: O2SAT 95
[2017-09-08 20:00] VITALS: BP 111/74; PULSE 94; RESP 18; TEMP 98.7; O2SAT 95
[2017-09-09 00:37] VITALS: BP 107/70; PULSE 88; RESP 18; TEMP 97.6; O2SAT 93
[2017-09-09] MEDS: METOCLOPRAMIDE HCL 10 MG/2 ML VIAL IV PUSH SCH ×3 (05:01→19:58)
[2017-09-09 05:48] LABS: ALBUMIN 2.9 GM/DL (3.4-5.0); AST (GOT) 28 U/L (15-37); BICARBONATE 27.4 MEQ/L (21.0-32.0); BLOOD UREA NITROGEN 18 MG/DL (7-18); CALCIUM 8.3 MG/DL (8.5-10.1); CHLORIDE 102 MEQ/L (98-107); CREATININE 0.92 MG/DL (0.60-1.30); GLUCOSE,RANDOM 105 MG/DL (74-106); SODIUM (NA) 137 MEQ/L (136-145)
[2017-09-09 05:52] LABS: ALKALINE PHOSPHATASE 109 U/L (45-117); ALT (GPT) 50 U/L (12-78); LIPASE 2044 U/L (73-393); TOTAL BILIRUBIN ADULT 0.5 MG/DL (0.2-1.0); TOTAL PROTEIN 7.9 GM/DL (6.4-8.2)
[2017-09-09 08:00] VITALS: BP 122/85; PULSE 86; RESP 16; TEMP 97; O2SAT 97
[2017-09-09] MEDS: SODIUM CHLORIDE 0.9% FLUSH 10 ML FLUSH IV FLUSH SCH ×2 (09:00→19:58)
[2017-09-09] MEDS: DOCUSATE SODIUM 50 MG/SENNA 8.6 MG TAB PO SCH ×2 (09:00→19:58)
--- NOTE | 2017-09-09 10:27 | HHI.PR ---
Subjective Subjective Notes Resting in bed Happy about likely DC tomorrow Objective Vitals/I&O Vital Signs Date Time Temp Pulse Resp B/P (MAP) Pulse Ox O2 Delivery O2 Flow Rate FiO2 09/09/17 09:51 Room Air 09/09/17 00:37 97.6 88 18 107/70 (82) 93 09/08/17 18:04 21 Labs Laboratory Tests Test 09/08/17 10:30 09/09/17 05:00 White Blood Count 8.0 Red Blood Count 3.40 Hemoglobin 9.8 Hematocrit 28.6 Mean Corpuscular Volume 84.1 Mean Corpuscular Hemoglobin 28.8 Mean Corpuscular Hemoglobin Concent 34.3 Red Cell Distribution Width 16.1 Platelet Count 467 Mean Platelet Volume 7.1 Neutrophils (%) (Auto) 75.0 Lymphocytes (%) (Auto) 12.5 Monocytes (%) (Auto) 9.9 Eosinophils (%) (Auto) 1.9 Basophils (%) (Auto) 0.7 Neutrophils # (Auto) 6.0 Lymphocytes # (Auto) 1.0 Monocytes # (Auto) 0.8 Eosinophils # (Auto) 0.2 Basophils # (Auto) 0.1 CBC Comment DIFF FINAL Differential Comment Blood Urea Nitrogen 19 18 Creatinine 0.93 0.92 Random Glucose 112 105 Total Protein 8.0 7.9 Albumin 3.0 2.9 Calcium Level 8.2 8.3 Alkaline Phosphatase 116 109 Aspartate Amino Transf (AST/SGOT) 28 28 Alanine Aminotransferase (ALT/SGPT) 51 50 Total Bilirubin 0.5 0.5 Sodium Level 138 137 Potassium Level 3.7 3.9 Chloride Level 103 102 Carbon Dioxide Level 26.5 27.4 Anion Gap 9 8 Lipase 1980 2043 Radiology Last 48 hours Impressions Gall Bladder Ultrasound 08/16/17 0000 Signed Impressions: Service Date/Time: Wednesday, August 16, 2017 07:47 - CONCLUSION: 1. Contracted gallbladder containing multiple gallstones. 2. Dilated common bile duct is 7 mm. 3. Echogenic liver which can be seen with moderate hepatic steatosis. Kj Gutierrez MD Cholangiopancreatography MRI 08/16/17 0000 Signed Impressions: Service Date/Time: Wednesday, August 16, 2017 11:18 - CONCLUSION: 1. Cholelithiasis 2. Mildly distended common bile duct with suspected filling defect at the level of the ampulla. 3. Axial stenosis. Jhonatan Fish MD Abdomen/Pelvis CT 08/15/17 1940 Signed Impressions: Service Date/Time: Tuesday, August 15, 2017 19:49 - CONCLUSION: 1. Status post distal gastrectomy with a gastroenteric anastomosis. 2. There are bowel sutures in the left upper quadrant of the proximal small bowel with some dilatation of this segment with prominent debris within this portion of the small bowel in the left upper quadrant. The remaining small bowel is not dilated or thickened. 3. Dilatation of the common bile duct. A cause of this is not seen. 4. Evidence of prior midline incision with minimal hernias. 5. Hepatic steatosis. Neel Alexander MD Cardiovascular: Regular Lungs: Clear Abdomen: Other (midline incision ---el removed; MADONNA removed; J tube capped ; abdomen soft non tender ) Extremities: No edema A/P Assessment and Plan 47 year old male 47 year old male with abdominal pain with associated nausea and vomiting with a surgical history of distal gastrectomy for gastroparesis; s/ p Ex lap, extensive KAMERON, Revision of gastrojejunostomy, J tube, open CBD exploration, T tube placement, T tube cholangiogram -Regular diet --soft -Hycet PRN -Lipase elevated but clinically asymptomatic -MADONNA removed at bedside -OOB as tolerated -Lovenox -Likely home tomorrow if stable overnight Attending Statement patient seen at bedside doing well tolerating diet tf stopped d/c plan tomorrow Attestation The exam, history, and the medical decision-making described in the above note were completed with the assistance of the mid-level provider. I reviewed and agree with the findings presented. I attest that I had a [id number] encounter with the patient on the same day, and personally performed and documented my assessment and findings in the medical record. Genna Miller Sep 09, 2017 10:27 Ceferino Michelle MD Sep 11, 2017 07:54
[2017-09-09] MEDS: PANTOPRAZOLE SODIUM 40 MG VIAL IV PUSH SCH (11:00)
[2017-09-09 12:00] VITALS: BP 125/82; PULSE 114; RESP 16; TEMP 97.5; O2SAT 98
--- NOTE | 2017-09-09 13:42 | HHI.PR ---
Subjective Remarks still mild tenderness in the abdomen up to 3 out of 10 but improved the pain medication He's walking in the hallway comfortably Plan to be seen J-tube today Regular diet lipase continued to trend down Objective Vitals Vital Signs Date Time Temp Pulse Resp B/P (MAP) Pulse Ox O2 Delivery O2 Flow Rate FiO2 09/09/17 12:00 97.5 114 16 125/82 (96) 98 09/09/17 09:51 Room Air 09/09/17 08:00 97.0 86 16 122/85 (97) 97 09/09/17 00:37 97.6 88 18 107/70 (82) 93 09/08/17 20:40 Room Air 09/08/17 20:00 98.7 94 18 111/74 (86) 95 09/08/17 18:04 95 21 09/08/17 16:00 98.5 95 17 107/75 (86) 95 I/O 09/08/17 09/08/17 09/08/17 09/09/17 09/09/17 09/09/17 07:00 15:00 23:00 07:00 15:00 23:00 Intake Total 240 ml 800 ml Output Total 314 ml 15 ml 526 ml 280 ml Balance -74 ml -15 ml 274 ml -280 ml Intake Oral 240 ml 800 ml IV Total 0 ml Output Urine Total 300 ml 525 ml 270 ml Stool Total 1 ml Drainage Total 14 ml 15 ml 10 ml # Bowel Movements 0 Result Diagram: 09/08/17 1030 09/09/17 0500 Objective Remarks - GENERAL: This is a well-nourished, well-developed patient, in no apparent distress. SKIN: No rashes, warm and dry HEAD: Atraumatic. Normocephalic. EYES: Pupils equal round and reactive. Extraocular motions intact. No scleral icterus. ENT: Nose without bleeding, or drainage, Airway patent. NECK: Trachea midline. Supple CARDIOVASCULAR: Regular rate and rhythm without murmurs, gallops, or rubs. RESPIRATORY: Fair air entry bilaterally. No wheezes, rales, or rhonchi. GASTROINTESTINAL: Abdomen soft, non-tender, nondistended. Positive bowel sounds , tube feed in place MUSCULOSKELETAL: Extremities without clubbing, cyanosis, or edema. Pedal pulses appreciated NEUROLOGICAL: Awake and alert. Moves all extremity. Normal speech.no focal neurological deficit Procedures 08/19/17 percutaneous cholangiogram with biliary drain placement A/P Problem List: (1) Biliary obstruction ICD Code: K83.1 - Obstruction of bile duct Status: Acute Assessment and Plan 09/09/17:still mild tenderness in the abdomen up to 3 out of 10 but improved the pain medication He's walking in the hallway comfortably Plan to be seen J-tube today Regular diet Amylase continued to trend down A/P: 47-year-old male with biliary obstruction status post exploratory laparoscopy Multifactorial abdominal pain (surgical history of distal gastrectomy for gastroparesis), patient with biliary obstruction, adhesions and cholangitis -status post exploratory laparotomy with extensive lysis of adhesions, revision of gastrojejunostomy with J-tube, status post T-tube placement and removal on , status post cholangiogram secondary to obstructive gastrojejunostomy with common bile duct stone 08/24 (Dr. Ceferino Michelle). -Followed by by Dr. Michelle today: Status post removing T-tube 09-23, trend lipase -Continue PPIs. -Patient completed course of antibiotics. Thrombocytosis: Seems to be chronic, continue monitoring, May need follow up as an outpatient DVT prophylaxis with Lovenox Discharge Planning Pending improving clinical course and surgical clearance Siri Bridges MD Sep 09, 2017 13:42
[2017-09-09] MEDS: ENOXAPARIN SODIUM 40 MG/0.4 ML SYRINGE SQ SCH (14:00)
[2017-09-09 16:00] VITALS: BP 119/80; PULSE 118; RESP 16; TEMP 97.2; O2SAT 98
[2017-09-09 20:00] VITALS: BP 110/70; PULSE 93; RESP 20; TEMP 98.9; O2SAT 96
[2017-09-09 22:12] VITALS: O2SAT 96
[2017-09-10] VITALS: BP 114/69; PULSE 86; RESP 20; TEMP 98.3; O2SAT 95
[2017-09-10] MEDS: METOCLOPRAMIDE HCL 10 MG/2 ML VIAL IV PUSH SCH (06:13)
[2017-09-10 08:00] VITALS: BP 114/74; PULSE 80; RESP 18; TEMP 97.1; O2SAT 99
[2017-09-10] MEDS: DOCUSATE SODIUM 50 MG/SENNA 8.6 MG TAB PO SCH (08:24)
[2017-09-10] MEDS: SODIUM CHLORIDE 0.9% FLUSH 10 ML FLUSH IV FLUSH SCH (08:27)
--- NOTE | 2017-09-10 09:30 | HHI.PR ---
Subjective Subjective Notes Resting in bed Eager to get home No issues overnight Objective Vitals/I&O Vital Signs Date Time Temp Pulse Resp B/P (MAP) Pulse Ox O2 Delivery O2 Flow Rate FiO2 09/10/17 08:00 97.1 80 18 114/74 (87) 99 09/10/17 07:00 Room Air 09/09/17 22:12 21 Radiology Last 48 hours Impressions Gall Bladder Ultrasound 08/16/17 0000 Signed Impressions: Service Date/Time: Wednesday, August 16, 2017 07:47 - CONCLUSION: 1. Contracted gallbladder containing multiple gallstones. 2. Dilated common bile duct is 7 mm. 3. Echogenic liver which can be seen with moderate hepatic steatosis. Kj Gutierrez MD Cholangiopancreatography MRI 08/16/17 0000 Signed Impressions: Service Date/Time: Wednesday, August 16, 2017 11:18 - CONCLUSION: 1. Cholelithiasis 2. Mildly distended common bile duct with suspected filling defect at the level of the ampulla. 3. Axial stenosis. Jhonatan Fish MD Abdomen/Pelvis CT 08/15/171939 Signed Impressions: Service Date/Time: Tuesday, August 15, 2017 19:49 - CONCLUSION: 1. Status post distal gastrectomy with a gastroenteric anastomosis. 2. There are bowel sutures in the left upper quadrant of the proximal small bowel with some dilatation of this segment with prominent debris within this portion of the small bowel in the left upper quadrant. The remaining small bowel is not dilated or thickened. 3. Dilatation of the common bile duct. A cause of this is not seen. 4. Evidence of prior midline incision with minimal hernias. 5. Hepatic steatosis. Neel Alexander MD Cardiovascular: Regular Lungs: Clear Abdomen: Other (midline incision---el out---healing well; J tube capped ) Extremities: No edema A/P Assessment and Plan 47 year old male 47 year old male with abdominal pain with associated nausea and vomiting with a surgical history of distal gastrectomy for gastroparesis; s/ p Ex lap, extensive KAMERON, Revision of gastrojejunostomy, J tube, open CBD exploration, T tube placement, T tube cholangiogram -Regular diet --soft -Hycet PRN -Lipase elevated but clinically asymptomatic -OOB as tolerated -Lovenox -GS clear for DC after lunch -Follow up with Dr. Michelle Sep 17 at 10AM--- appt already set Attending Statement patient seen at bedside doing well lipase trending no pain tolerating diet plan for d/c f/u 1 week Attestation The exam, history, and the medical decision-making described in the above note were completed with the assistance of the mid-level provider. I reviewed and agree with the findings presented. I attest that I had a [id number] encounter with the patient on the same day, and personally performed and documented my assessment and findings in the medical record. Genna Miller Sep 10, 2017 09:30 Ceferino Michelle MD Sep 14, 2017 16:35
[2017-09-10] MEDS: PANTOPRAZOLE SODIUM 40 MG VIAL IV PUSH SCH (11:00)
[2017-09-10 12:00] VITALS: BP 122/83; PULSE 100; RESP 16; TEMP 97.2; O2SAT 99
[2017-09-10 12:07] VITALS: O2SAT 97
--- NOTE | 2017-09-10 19:51 | HHI.DS ---
Discharge Summary Admission Date Aug 16, 2017 at 08:03 Discharge Date: Sep 10, 2017 Admitting Diagnosis BILIARY OBSTRUCTION POSSIBLE CHOLEDOCHOLITHIASIS (1) Biliary obstruction ICD Code: K83.1 - Obstruction of bile duct Status: Acute Procedures 08/19/17 percutaneous cholangiogram with biliary drain placement Brief History - From Admission 47 y/o WM being admitted for abd pain. Pt was in his USOH 3 days ago when he was experiencing his typical recurrence of nausea and vomiting and abdominal pain. He says he has bouts of these symptoms periodically due to his chronic complex GI history. However this episode was followed by pain that was significant up to a 8-9 out of 10 and he felt some fevers and chills. He said that his symptoms would resolve after having his emesis which he says was relatively clear and only consisted of his meal. The following days he had intermittent nausea and abdominal pain associated with meals but no vomiting. However a new finding that occurred was that he noticed that his stool became very pale on multiple bowel movements and this ultimately prompted him to come to the emergency department. Patient says he usually has hydrocodone pills at home but he did not take any this time. He says his pain was worsened with movement and constantly repositioning. Pt denies any melena or BRBPR. No dysuria. Currently pain is much improved. Patient states he has a complex GI history including a distal gastrectomy yrs ago (for gastroparesis) followed 2 days later by repair of to perforated ulcers. He then reports having at least 3 other surgeries after that that involved "biliary leaks" - he is unable to specify exactly what was leaking and from what organ. He says he has had all these operations done at [facility] in [place]. His GI doc is Chloe Roblero and his gen surgeon down here is Dr. Ceferino Michelle. CBC/BMP: 09/08/17 1030 09/09/17 0500 Significant Findings Laboratory Tests Test 09/08/17 10:30 09/09/17 05:00 Red Blood Count 3.40 MIL/MM3 (4.50-5.90) Hemoglobin 9.8 GM/DL (13.0-17.0) Hematocrit 28.6 % (39.0-51.0) Platelet Count 467 TH/MM3 (150-450) Neutrophils (%) (Auto) 75.0 % (16.0-70.0) Monocytes (%) (Auto) 9.9 % (0.0-8.0) Blood Urea Nitrogen 19 MG/DL (7-18) Random Glucose 112 MG/DL (74-106) Albumin 3.0 GM/DL (3.4-5.0) 2.9 GM/DL (3.4-5.0) Calcium Level 8.2 MG/DL (8.5-10.1) 8.3 MG/DL (8.5-10.1) Lipase 1981 U/L (73-393) 2044 U/L (73-393) PE at Discharge - GENERAL: This is a well-nourished, well-developed patient, in no apparent distress. SKIN: No rashes, warm and dry HEAD: Atraumatic. Normocephalic. EYES: Pupils equal round and reactive. Extraocular motions intact. No scleral icterus. ENT: Nose without bleeding, or drainage, Airway patent. NECK: Trachea midline. Supple CARDIOVASCULAR: Regular rate and rhythm without murmurs, gallops, or rubs. RESPIRATORY: Fair air entry bilaterally. No wheezes, rales, or rhonchi. GASTROINTESTINAL: Abdomen soft, non-tender, nondistended. Positive bowel sounds , tube feed in place MUSCULOSKELETAL: Extremities without clubbing, cyanosis, or edema. Pedal pulses appreciated NEUROLOGICAL: Awake and alert. Moves all extremity. Normal speech.no focal neurological deficit Hospital Course 47-year-old male with biliary obstruction status post exploratory laparoscopy Multifactorial abdominal pain (surgical history of distal gastrectomy for gastroparesis), patient with biliary obstruction, adhesions and cholangitis -status post exploratory laparotomy with extensive lysis of adhesions, revision of gastrojejunostomy with J-tube, status post T-tube placement and removal on , status post cholangiogram secondary to obstructive gastrojejunostomy with common bile duct stone 08/24 (Dr. Ceferino Michelle). Followed by by Dr. Michelle today: Status post removing T-tube 09-23, trend lipase, Continue PPIs.Patient completed course of antibiotics. J-tube was removed, patientwalking in the hallway comfortably, advanced to Regular diet lipase continued to trend down, clear for discharge by surgery after lunch today [id number] encounter performed with the patient on discharge day, as well as physical exam, summary of hospitalization course and postdischarge plan has been D/W the patient. D/W nurse , and surgery JIGGER ARTISAN D/W immigration case manager Discharge medications reviewed and printed and signed, post discharge follow up visit with PCP and other specialist as well as Brief hospital course and discharge summary has been placed. Pt Condition on Discharge: Fair Discharge Disposition: Discharge Home Discharge Time: > 30 minutes Discharge Instructions DIET: Follow Instructions for: As Tolerated, No Restrictions Activities you can perform: Regular-No Restrictions Follow up Referrals: PCP Follow-up SNF/[facility] with [facility] - 09/17/17 with Ceferino Michelle MD Appt set for Sep 17 at 10AM Surgical Continued Medications: Metoclopramide (Metoclopramide) 10 Mg Tab 10 MG PO QID, TAB 0 Refills Pantoprazole (Pantoprazole) 40 Mg Tab 40 MG PO DAILY for Reflux, #30 TAB 0 Refills Siri Bridges MD Sep 10, 2017 19:51
== END 2017-09-10 13:17 | disposition home or self-care (01) | DRG 412 ==
LOC: PHED 19:22 → PHEDA 21:21 → INTOOBSV 21:21 → PH3B 22:15 → OBSVTOIN 08-16 08:03 → N04A 08-16 17:32 → N03B 08-24 21:48 → N07A 08-27 18:09
PROVIDERS: ADMIT Hospitalist; ATTEND Hospitalist
PROC: 0F9930Z Drainage of Common Bile Duct with Drainage Device, Percutaneous Approach (ICD-10-PCS; 2017-08-19)
PROC: 0FT40ZZ Resection of Gallbladder, Open Approach (ICD-10-PCS; principal; 2017-08-26)
PROC: 0FJB0ZZ Inspection of Hepatobiliary Duct, Open Approach (ICD-10-PCS; 2017-08-26)
PROC: 0D160ZA Bypass Stomach to Jejunum, Open Approach (ICD-10-PCS; 2017-08-26)
PROC: 0FC90ZZ Extirpation of Matter from Common Bile Duct, Open Approach (ICD-10-PCS; 2017-08-26)
PROC: 0DHA3UZ Insertion of Feeding Device into Jejunum, Percutaneous Approach (ICD-10-PCS; 2017-08-26)
PROC: BF111ZZ Fluoroscopy of Biliary and Pancreatic Ducts using Low Osmolar Contrast (ICD-10-PCS; 2017-08-26)
PROC: 3C1ZX8Z Irrigation of Indwelling Device using Irrigating Substance, External Approach (ICD-10-PCS; 2017-08-26)
DX: K80.71 Calculus of gallbladder and bile duct without cholecystitis with obstruction (principal); K95.89 Other complications of other bariatric procedure; E46 Unspecified protein-calorie malnutrition; K76.0 Fatty (change of) liver, not elsewhere classified; E83.51 Hypocalcemia; Z90.3 Acquired absence of stomach [part of]; Z87.11 Personal history of peptic ulcer disease; Z98.84 Bariatric surgery status; Z82.3 Family history of stroke; K21.0 Gastro-esophageal reflux disease with esophagitis; K57.90 Diverticulosis of intestine, part unspecified, without perforation or abscess without bleeding; K43.2 Incisional hernia without obstruction or gangrene; I10 Essential (primary) hypertension; D64.9 Anemia, unspecified; R09.02 Hypoxemia; R73.9 Hyperglycemia, unspecified; R50.9 Fever, unspecified; K66.0 Peritoneal adhesions (postprocedural) (postinfection); Y83.2 Surgical operation with anastomosis, bypass or graft as the cause of abnormal reaction of the patient, or of later complication, without mention of misadventure at the time of the procedure; Z23 Encounter for immunization
CPT/HCPCS: 36569; 47531; 47540; 71010; 74176; 74181; 74240; 74300; 76377; 76705; 76937; 80048; 80053; 82150; 82948; 83036; 83690; 83735; 84100; 84134; 84155; 85007; 85014; 85018; 85025; 85027; 85610; 85730; 86850; 86900; 86901; 86920; 87641; 88300; 88304; 90686; 90732; 94150; 96361; 96374; 96375; C1729; C1769; C9113; J0131; J0330; J0610; J0692; J1100; J1170; J1650; J1815; J1885; J1956; J2175; J2270; J2370; J2405; J2550; J2710; J2765; J3010; J3480; J7030; J7040; J7120; Q2038; Q9963; Q9967